=== PATIENT | female | born 1955 | race Caucasian/White ===

== ENCOUNTER 2016-12-26 12:08 | Inpatient (IN) | payer OTHER ==
[~2016-12-26] VITALS: Ht 170 cm; Wt 93.9 kg
--- NOTE | ~2016-12-26 | PR ---
[place], [place] PROGRESS NOTE NAME: YOLANDA BEARDEN UNIT #: [id number] ROOM: 410 DOCTOR: RADHA LAKE MD BIRTHDATE: [birth year] DOS: 12/28/2016 SUBJECTIVE: She has been noted awake and alert, has been noted cough with small amount of sputum expectoration. Denies symptoms of chest pain. Mental status, the patient has been noted better. There were no symptoms of abdominal pain. She has been transferred to telemetry floor. OBJECTIVE: VITAL SIGNS: Normal temperature, respiratory rate 18, heart rate 91, blood pressure 126/64-122/64. Intake 1300 mL. Output 2300 mL. The pulse oxygen saturation on 3 liters nasal cannula 95% saturation. HEENT: Shows no acute change. NECK: Supple. CARDIOVASCULAR SYSTEM: S1, S2 audible. LUNGS: The patient was noted without any wheezing. The crackles noted in the left lower lung. ABDOMEN: Soft, nontender. LABORATORY DATA: Magnesium level of the patient that was reported for the patient noted 1.2 yesterday. Urine culture for patient showed no bacterial growth. The BMP for this patient noted as BUN normal. Creatinine was normal. Potassium 3.1. Cultures of the sputum of the patient noted normal zeyad. Preliminary findings of culture results were pending. Gram stain for the patient on the shows moderate epithelial cells, few epithelial cells. IMPRESSION: 1. The patient who has been currently treated for acute on chronic hypoxic respiratory failure, acute pneumonia, suspected urinary tract infection. 2. Hypomagnesemia. 3. Hypokalemia as well. PLAN OF TREATMENT: Supplementation of potassium for the patient has been ordered for today orally. The patient would be continued on the other previous treatment plan of management. Monitoring of the labs for this patient as well. Repeat another chest x-ray in the morning. Monitoring culture results. Supportive therapy, plan of management. Usual care. [place], [place] PROGRESS NOTE NAME: YOLANDA BEARDEN UNIT #: [id number] ROOM: 410 DOCTOR: RADHA LAKE MD BIRTHDATE: [birth year] RADHA KIM MD CM:PNTRANS [id number] RADHA PARTIDA MD 12/28/16 1133 interface
--- NOTE | ~2016-12-26 | DS ---
[place], [place] DISCHARGE SUMMARY NAME: YOLANDA BEARDEN UNIT #: [id number] ROOM: 410 DOCTOR: NICOLE POLK MD BIRTHDATE: [birth year] DOS: 12/28/2016 DISCHARGE DIAGNOSES: 1. The patient is going to [facility] for treatment of major depression, recurrent and severe anxiety with Dr. Moyer. 2. Morbid obesity, generalized weakness and adult failure to thrive. 3. Severe leukocytosis and left upper lobe pneumonia, treated with antibiotics, which will be continued for 1 more week at [facility]. 4. Type 2 diabetes mellitus. Blood sugars were monitored. 5. Chronic kidney disease stage III and diabetic nephropathy. 6. Moderate protein-calorie malnutrition. 7. Coronary artery disease of [place] vessels. 8. Chronic generalized anxiety disorder. 9. Major depression, recurrent. 10. Gastroesophageal reflux disease and esophagitis. 11. Paranoid disorder. 12. Mixed hyperlipidemia. 13. Benign essential hypertension. 14. Pulmonary fibrosis. HOSPITAL COURSE: The patient was admitted when she came back with severe leukocytosis with a white cell count of 22,500, which was sudden increase and she had pneumonia on the chest x-ray and left lower lobe infiltrates. The patient admitted and Dr. Rodriguez, the hearing instrument specialist was consulted. The patient was started on Levaquin and IV vancomycin, which Dr. Rodriguez has recommended to be continued for 1 more week. Levaquin will be given orally now and vancomycin continued intravenously. I will get Dr. Rodriguez to continue to follow the patient. Sepsis criteria applied because of left lower lobe pneumonia and severe leukocytosis, which is not improving with antibiotics. The patient also had tachycardia with heart rate going up to 107 beats per minute. The patient is doing better now and breathing better. She is less agitated. Yesterday, she became quite agitated and was seen by Dr. Moyer, who has accepted her at the [facility] where she will continue her antibiotics for a week. Her breathing has normalized and leukocytosis have improved from 22,500-11,200. Hemoglobin is stable at 10.7. Morbid obesity, adult failure to thrive and generalized disability. We are taking bedsore precautions and every 2-hour turning, and Physical therapy was consulted. Urine cultures and urinalysis showed no signs of infection. Hypomagnesemia. The patient on magnesium supplements. DISCHARGE MANAGEMENT: Magnesium oxide 400 mg b.i.d., potassium chloride 10 mEq daily, Invega 9 mg orally every morning, lisinopril 2.5 mg daily, Imdur 30 mg a day, Plavix 75 mg a day, Bumex 2 mg daily, aspirin 81 mg a day, Cymbalta 60 mg a day and metformin 500 mg daily. No concentrated-sweet diet. Risperidone 0.5 mg at bedtime, metoprolol 50 mg b.i.d., gabapentin 300 mg b.i.d., Lipitor 10 mg a day, Tylenol 1 gram every 6 hours p.r.n. for pain, DuoNeb every 4 hours as needed for shortness of breath, Dulcolax 10 mg daily p.r.n. for constipation, MiraLax 17 grams daily, Colace 100 mg daily, IV vancomycin 1 gram b.i.d. for 1 [place], [place] DISCHARGE SUMMARY NAME: YOLANDA BEARDEN UNIT #: [id number] ROOM: [facility] DOCTOR: NICOLE POLK MD BIRTHDATE: [birth year] week and then to be stopped and Levaquin 750 mg daily for 1 week and then to be stopped. NICOLE POLK MD CM:COURT [id number] [phone] NICOLE POLK MD 12/28/161935 interface
--- NOTE | ~2016-12-26 | CON ---
[place], [place] REPORT OF CONSULTATION NAME: YOLANDA BEARDEN UNIT #: [id number] ROOM: 410 DOCTOR: RADHA LAKE MD BIRTHDATE: [birth year] DOS: 12/27/2016 PULMONARY CONSULTATION, EVALUATION AND MANAGEMENT CONSULTATION REQUESTED: Dr. Solis, which was completed on 12/27/2016 for the acute hypoxic respiratory failure, chronic hypoxic respiratory failure. HISTORY OF PRESENT ILLNESS: A 61-year-old white female who has been known to me from the past with a history of bronchial asthma, treated lung cancer with radiation therapy in the left side is in the [facility]. She has been noted difficulty of maintaining oxygen saturation of the patient with supplementation of oxygen. She has been normally using 2 liters of oxygen supplementation and was noted with oxygen desaturation with 4-5 liters nasal cannula oxygen supplementation. She has been sent to the hospital for further assessment. She denies symptoms of coughing. The patient does complain of mild to increased shortness of breath than usual. Denies any wheezing. Denies symptoms of chest pain or hemoptysis. REVIEW OF SYSTEMS: Limited because of the patient's mental status and psychiatric problem; however, the patient was noted with symptom of fatigue. Denies symptoms of fever or chills. EYES: Denies any burning, redness, or tenderness. EARS, NOSE, AND THROAT: Denies sore throat, hoarseness, otalgia, postnasal drainage. CARDIOVASCULAR SYSTEM: Denies anginal pain, edema of the lower extremities or palpitations. GASTROINTESTINAL: Denies nausea, vomiting, diarrhea, abdominal pain, hematemesis, melena, hematochezia. SKIN: No lesions or rashes. CENTRAL NERVOUS SYSTEM: No dizziness, headache, or diplopia. MUSCULOSKELETAL: No deformities. The remaining systems were reviewed with the patient and they were noted all negative. PAST MEDICAL HISTORY: Noted for previous hospitalization in this hospital in November 2016. 1. The patient has been treated in this hospital at this time and treated for acute bacterial pneumonia patient's left lower lobe for this patient with acute on chronic hypoxic respiratory failure, progressive resolution and then discharged to the longterm facility. 2. History of uncomplicated persistent bronchial asthma. 3. Essential hypertension. 4. Gastroesophageal reflux. 5. Coronary artery disease. 6. Anxiety disorder and depression. 7. Peripheral vascular disease. 8. Past nicotine abuse. 9. History of squamous cell cancer left upper lung, status post radiation therapy in 2015. 10. History of chronic hypoxic respiratory failure, use of oxygen 2 liters [place], [place] REPORT OF CONSULTATION NAME: YOLANDA BEARDEN UNIT #: [id number] ROOM: 410 DOCTOR: JUDY PARTIDA MD,RADHA BIRTHDATE: [birth year] nasal cannula. PAST SURGICAL HISTORY: 1. Tonsillectomy. 2. . 3. Coronary artery bypass grafting. 4. Cardiac catheterization. 5. Acute coronary intervention with stent placement. 6. Partial hysterectomy. 7. Diskectomy of the left lower back. 8. Left femoropopliteal bypass grafting. 9. CT guided needle aspiration biopsy of the left upper lung mass in January 2015. 10. Bilateral cataract extraction and lens implantation. SOCIAL HISTORY: The patient is , has 2 children. Denies history of alcohol or illicit drug use. She has been noted tobacco use since age of [age] years old and currently not smoking any cigarettes at this time. There is no history of alcohol or any illicit drug use. FAMILY HISTORY: Mother at the age of 6767 years old from complication of cancer of unknown primary. Father from complication of metastatic cancer, unknown primary at the age of 5454 years old. MEDICATIONS: Current administered medications noted use of potassium chloride, Invega, lisinopril, Imdur, Plavix, Bumex, aspirin, Cymbalta, metformin, Risperdal, metoprolol tartrate, Neurontin, Lipitor, current administration of the Levaquin and others. DRUG ALLERGY HISTORY: NOTED ALLERGIES TO: 1. AMOXICILLIN. 2. IVP DYE. PHYSICAL EXAMINATION: GENERAL: A 61 years old female has been noted currently awake and alert, follows vocal commands, height of 5 feet 6 inches, weight of 207 pounds, BMI 32.5. VITAL SIGNS: Normal temperature, respiratory rate range between 18-29, heart rate of 97-116, blood pressure 133/70-80/50 noted previously. HEENT: Head was atraumatic. Eyes: Nonicterus. The neck was supple. Oral mucosa was moist. CARDIOVASCULAR SYSTEM: S1, S2 audible. LUNGS: Occasional wheezing was present without any crackles. ABDOMEN: Flat, soft, nontender. Bowel sounds present. EXTREMITIES: Showed no edema, clubbing or cyanosis. CENTRAL NERVOUS SYSTEM: Limited exam with cranial nerves 2-12 intact without any gross focal deficits. SKIN: No lesions or rashes. MUSCULOSKELETAL: No acute deformities. [place], [place] REPORT OF CONSULTATION NAME: YOLANDA BEARDEN UNIT #: [id number] ROOM: 410 DOCTOR: RADHA LAKE MD BIRTHDATE: [birth year] LABORATORY DATA: CBC of the patient that was done for this patient on admission, WBC count was noted at 22.5, hemoglobin 11.3, hematocrit 33.0, and platelet count 198,000. CMP of the patient yesterday shows BUN of 16, creatinine 1.19, glucose 128. Magnesium 0.9. PT and PTT yesterday were noted as normal. BMP this morning, BUN normal, creatinine was normal. CBC this morning, WBC count 11.2, hemoglobin 10.7, hematocrit 31.0, platelet count 161,000, 97% segmented neutrophils. Urine culture preliminary shows no bacterial growth. Urinalysis the patient that was done on 12/26/2016 shows 2+ leukocyte esterase with 4+ bacteria. The chest x-ray of the patient shows postoperative changes and scarring of the left lung. CT scan of the chest on 12/26/2016 was compared personally to the CT scan of 09/21/2016 shows interval development of large area of consolidation, infiltration, which was involving in the left lower lobe. The patient has any acute change. Some of the area for this patient in the left perihilar area to be considered as possibility of lymphadenopathy including consideration of recurrence of malignancy in that area or lymphadenopathy can be completely excluded. IMPRESSION: 1. The patient who has been currently treated in the hospital, who has been noted with current findings and symptoms consistent with acute sepsis related to the acute pneumonia will be likely cause of leukocytosis, hypotension and others. 2. Possibility of urinary tract infection in addition to the pneumonia will be considered. 3. Acute on chronic hypoxic respiratory failure secondary to acute bacterial pneumonia and acute sepsis. 4. Rule out recurrence of the malignancy for this patient in the left hemithorax as well with lymphadenopathy and mass lesion. 5. History of significant psychiatric problems including major depression treated with the medications as well. 6. Severe hypomagnesemia. PLAN OF TREATMENT: Support the blood pressure of the patient with the use of the intravenous fluids if necessary. Supplementation of the magnesium has been ordered for this patient with 2 g of magnesium sulfate intravenously and repeating the level later this afternoon for additional supplementation of magnesium to be done accordingly. The patient has been getting IV Levaquin for this patient as antibiotics with addition of antibiotics. The patient will be started for the coverage of gram-positive infection as vancomycin. Monitor respiratory status closely for this patient. Monitor culture results as well. Blood cultures have been taken for patient on admission. Sputum for Gram stain and culture the patient has been ordered for this patient, which is pending. The culture of the urine will be monitored in preliminary showing no bacterial growth. The patient has been started on DVT prophylaxis with Lovenox. Total time pulmonary and critical evaluation and management was 35 minutes. [place], [place] REPORT OF CONSULTATION NAME: YOLANDA BEARDEN UNIT #: [id number] ROOM: 410 DOCTOR: RADHA LAKE MD BIRTHDATE: [birth year] RADHA KIM MD CM:CONSTR:REPORT OF CONSULTATION 1319 12/27/16 2716 interface
--- NOTE | ~2016-12-26 | CON ---
[place], [place] REPORT OF CONSULTATION NAME: YOLANDA BEARDEN UNIT #: [id number] ROOM: 410 DOCTOR: CHARLENE TOVAR MD BIRTHDATE: [birth year] DOS: 12/28/2016 PSYCHIATRIC CONSULTATION CHIEF COMPLAINT: "I am feeling so depressed and anxious." HISTORY OF PRESENT ILLNESS: This is a 61-year-old white female who resides at [facility], readmitted now for multiple times due to ongoing significant medical issues. The patient has a decubitus on her heel which is causing her difficulty. She also has chronic respiratory difficulties. From a psychiatric standpoint, the patient seems to be both depressed as well as some confusion is noted. Her behavior has been erratic on the medical floor and she has been very hard to redirect. MENTAL STATUS: She is alert and oriented to person, place, but not time. Mood does seem to be depressed with anxious overtones. There does also to be significant mood lability. She at times responds inappropriately. There is a level of confusion and disorientation noted. Short term memory has gaps. DIAGNOSIS: Major depression, recurrent, severe and anxiety disorder, rule out delirium. PLAN: At the present time, I do believe the patient would benefit from an ongoing treatment at the [facility] to stabilize psychiatrically before returning back to [facility]. CHARLENE TOVAR MD CM:CONSTR:REPORT OF CONSULTATION 0821 12/28/16 0945 interface
--- NOTE | ~2016-12-26 | WRIGHTHP ---
[place], [place] PATIENT HISTORY AND PHYSICAL EXAM [id number] UN[facility] #: [id number] ROOM: [facility] DOCTOR: NICOLE POLK MD BIRTHDATE: [birth year] DOS: 12/26/2016 HISTORY OF PRESENT ILLNESS: 1. The patient is a 61-year-old female with a past medical history of stage 3 pressure ulcer on the right heel, followed by [facility]. 2. Coronary artery disease of the [place] vessels. 3. Moderate protein-calorie malnutrition. 4. Obesity. 5. Adult failure to thrive. 6. Chronic generalized anxiety disorder. 7. Diabetic nephropathy and chronic kidney disease stage 3. 8. Type 2 diabetes mellitus. 9. Major depression, recurrent, followed by Psychiatry. 10. Gastroesophageal reflux disease and esophagitis. 11. History of paranoid disorder. 12. History of mixed hyperlipidemia. 13. Benign essential hypertension. 14. Pulmonary fibrosis. The patient presented to the Emergency Department at [facility] and was seen by Dr. Fabian for increased shortness of breath and sudden leukocytosis with elevated white cell count of 22,500 today as compared to normal yesterday. No diarrhea. The patient's chest x-ray showed some clearing of the left lower lobe infiltrates. The patient is apparently afebrile. She was recommended for admission and further management for leukocytosis and pneumonia. After admission, the patient has wheezes and rhonchi which are audible, and she is somewhat short of breath and was admitted to the ICU. She is not complaining of any chest pain. No other GI or urinary symptoms. REVIEW OF SYSTEMS: LUNGS: Some increasing shortness of breath and wheezing. ABDOMEN: No nausea, vomiting, diarrhea or constipation. CARDIOVASCULAR: No chest pain or palpitations. FAMILY HISTORY: Noncontributory. HOME MEDICATIONS: Potassium, metformin, lisinopril, Imdur, Plavix, Bumex, aspirin, Invega, Cymbalta, risperidone, metoprolol, gabapentin, Lipitor, DuoNeb, MiraLax, Colace, levofloxacin. ALLERGIES: IODINE and PENICILLIN which causes hives. FAMILY HISTORY: Noncontributory. PHYSICAL EXAMINATION: GENERAL: Awake, alert, appears oriented, in no visible distress, but very weak generally. Moderately obese with generalized weakness. LUNGS: Show expiratory wheezing and some rhonchi all over. Examination of the feet shows multiple wounds, especially a stage 3 pressure ulcer on the right heel and multiple superficial skin wounds. [place], [place] PATIENT HISTORY AND PHYSICAL EXAM NAME: YOLANDA BEARDEN UNIT #: [id number] ROOM: [facility] DOCTOR: NICOLE POLK MD BIRTHDATE: [birth year] IMPRESSION: The patient with pneumonia and leukocytosis to be monitored closely in the ICU and to be treated with antibiotics and followed by turbine operator and network management specialist, Dr. Rodriguez and also by Infectious Disease specialist. The patient is showing left lower lobe pneumonia on the chest x-ray. Acute over chronic respiratory failure, to be followed closely in ICU, the patient appears to be very congested in her lungs. Coronary artery disease of the [place] vessels without chest pains. Moderate protein-calorie malnutrition and adult failure to thrive, we will take bed sore precaution and turn her every 2 hours and using an air mattress and consulted physical therapy. Diabetic nephropathy with stage 3 chronic kidney disease, serum electrolytes, BUN and creatinine will be monitored and I will continue her diuresis. Benign essential hypertension with controlled blood pressures. I will continue treatment. Type 2 diabetes mellitus. The patient's blood sugars will be monitored and treated. Blood sugar was normal at admission. The patient's lactic acid level was normal at admission. Generally poor health and failure to thrive. We will follow the patient closely. NICOLE POLK MD CM:HISPHYS:PATIENT HISTORY AND PHYSICAL EXAMINATION 37 20 NICOLE POLK MD 12/26/161921 interface
--- NOTE | ~2016-12-26 | PR ---
[place], [place] PROGRESS NOTE NAME: YOLANDA BEARDEN UNIT #: [id number] ROOM: [facility] DOCTOR: NICOLE POLK MD BIRTHDATE: [birth year] DOS: 12/27/2016 SUBJECTIVE: The patient is starting to feel better. Breathing is improving. OBJECTIVE: VITAL SIGNS: Blood pressure 133/70, heart rate of 102 beats per minute, breathing 26 times per minute, temperature 98 degrees Fahrenheit. ASSESSMENT AND PLAN: 1. The patient with obesity, generalized weakness and failure to thrive. Severe leukocytosis, improved with treatment with antibiotics to 11,200. Normal serum electrolytes. Urinalysis shows sinus infection. I will send it for cultures. 2. Diabetes mellitus. Blood sugars are generally staying between 100-160, well controlled. 3. Generally poor health and failure to thrive. 4. Chronic kidney disease, stage 3, stable. BUN and creatinine are being monitored. 5. Moderate protein-calorie malnutrition and adult failure to thrive. We are taking bedsore precautions and turning her every 2 hours and taking fall precautions. 6. Coronary artery disease without chest pains. NICOLE POLK MD CM:PNTRANS [id number] NICOLE POLK MD 12/27/16 1104 interface
--- NOTE | ~2016-12-26 | CON ---
[place], [place] REPORT OF CONSULTATION NAME: YOLANDA BEARDEN UNIT #: [id number] ROOM: 410 DOCTOR: JAIRON CookFERMÍN BIRTHDATE: [birth year] DOS: 12/27/2016 WOUND CARE CONSULTATION HISTORY OF PRESENT ILLNESS: This is a 61-year-old female with multiple medical problems, who resides at [facility]. She has chronic shortness of breath, severe debility, history of lung cancer, and open heart surgery, who comes into the Emergency Department yesterday for increasing shortness of breath. PAST MEDICAL HISTORY: Significant for the following: History of acute respiratory failure with hypoxia; anxiety; history of acute renal failure; bilateral pneumonia; history of psychotic disorder; coronary artery disease; history of chest pain; congestive heart failure; chronic back pain; chronic kidney disease, stage 3; COPD exacerbation; depression; diabetes; GERD; history of paranoid disorder; history of hyperlipidemia; hypertension; hyperkalemia; history of hypotension; lactic acidosis; history of lung cancer which is chronic; [id number]-SA-cpcnzhxox AK; recent bypass surgery last year; obesity; pneumonia; pneumonitis; pulmonary fibrosis; seasonal allergies; septic shock; severe anemia; severe protein-calorie malnutrition; history of sepsis; tachycardia; urinary retention; and urinary tract infection. The patient was seen during her last hospital admission approximately 3 weeks ago for pressure ulcer of her right heel. She has a history of a leg ulcer of her left lower extremity, which was postoperative, and it did eventually heal, but it took quite a bit of time and wound care. I saw her last time when she was admitted back on 12/07 for a pressure ulcer of her left heel. The duration of this is unknown. There was an open wound when I saw it. There was some moderate necrotic tissue present. A debridement was done the last time she was here, and she was eventually [facility]. An x-ray was ordered of the wound, which was normal, and she had lower extremity Dopplers ordered; however, unfortunately, there is no information regarding the arteries distally to the popliteal. So this information from this arterial Doppler is not helpful. ALLERGIES: AMOXICILLIN, AMPICILLIN, FISH, AND IVP DYE. CURRENT MEDICATIONS: As follows: She is on Levaquin 750 mg IV, magnesium oxide 400 b.i.d., vancomycin 1000 q. 12, Lovenox 40 subcutaneous daily, Micro-K 10 mEq daily, Invega 9 mg p.o. daily, lisinopril 2.5 p.o. daily, Imdur 30 daily, Plavix 75 daily, Bumex 2 mg daily, aspirin 81 daily, Cymbalta 60 mg daily, metformin 500 p.o. daily, Risperdal 0.5 at bedtime, Lopressor 50 p.o. b.i.d., Neurontin 300 p.o. b.i.d., Lipitor 10 at bedtime, Tylenol 1000 q.6 hours, DuoNebs q.4 hours, MiraLax powder daily, Dulcolax p.o. daily, milk of magnesia p.o. daily, Colace p.o. daily. SOCIAL HISTORY: She does not smoke or drink presently. She was a former smoker, however. FAMILY HISTORY: History of malignant neoplasm in the father, myocardial infarction in both father and mother, and colon cancer and myocardial infarction [place], [place] REPORT OF CONSULTATION NAME: YOLANDA BEARDEN UNIT #: [id number] ROOM: [facility] DOCTOR: FERMÍN DE LA O M.D. BIRTHDATE: [birth year] in the brother. REVIEW OF SYSTEMS: She says she feels better today with her breathing. She complains of some vague abdominal discomfort. Apparently, she complained of that when she came in. She denies any nausea or vomiting. She says her appetite is fair. No diarrhea. No fevers or chills. When I asked about her heel, overall she says it does not really hurt, and she does not have any specific complaints regarding this at this time. OBJECTIVE: VITAL SIGNS AND GENERAL: Her last recorded vital signs are temperature of 97.5, pulse of 102, respirations 26, blood pressure is 133/70, pulse ox is 96%; those are vitals from 4 o'clock this morning. Since then the patient has been transferred from the ICU to the regular floor, so updated vitals are not in the computer presently. The patient appears much more alert and in no acute distress. Then from when I last saw her which was 3 weeks ago, she was pale on examination. She does have somewhat of a flat affect, but she is pleasant and cooperative. NECK: There is no JVD. LUNGS: Have coarse rhonchi and bilateral wheezes. CARDIOVASCULAR: S1, S2, regular rate and rhythm. ABDOMEN: Soft. She complains of some mild discomfort in the lower part of the abdomen, otherwise is soft. There is no guarding. EXTREMITIES: She has edema bilaterally. There is no calf tenderness. Pedal pulses are difficult to feel. Her feet are warm. She has normal capillary refill. Her ulcer is located on the right heel, and it is measuring approximately 0.9 x 0.9 x 0.2. It definitely looks smaller than the last time I saw it. There is really no visible necrotic tissue. There is no surrounding cellulitis or erythema noted. It is not tender at this time. Her left lower foot has several pressure-related ulcers that are unstageable. There is a small dried eschar area in the left heel. There is a small dried area visible on the medial aspect of the metatarsal head and also a smaller deep pressure-related injury on the lateral side of the foot that is small. None of them are tender. They are all dry at this time and are not painful presently. LABORATORY AND DIAGNOSTIC DATA: Most recent lab work shows a white count of 11.2, hemoglobin of 10, platelets of 161. Chem-7 shows a BUN of 17, creatinine of 1, glucose of 160. The patient had a chest x-ray done showing partial clearing of the left lower lobe infiltrate. She had a repeat CT scan of the chest done. A significant amount of bibasilar, interstitial, pleural, and parenchymal scarring. Lesser degrees of these processes in the upper lobes, although there does appear to be considerable involvement of the lingula. Small bilateral hilar and mediastinal lymph nodes, presumably infectious versus inflammatory. ASSESSMENT AND PLAN: Pressure ulcer of the right heel, stage III, associated with peripheral vascular disease. The recent arterial ultrasound unfortunately was not helpful as we do not have any readings of the arteries distal to the popliteal artery. It does appear to be smaller. We will continue with TheraHoney and a foam dressing for now. She may have been getting a collagen [place], [place] REPORT OF CONSULTATION NAME: YOLANDA BEARDEN Garcia UNIT #: [id number] ROOM: 410 DOCTOR: JAIRON Cook,FERMÍN BIRTHDATE: [birth year] dressing. However, we do not have that available on the floor, so we will just put TheraHoney for now. I would have her offload it. She does have a heel lift device, which is available, which she can use for her right heel. However, for her left heel, I would avoid the heel lift device. I do feel that some of these areas were caused perhaps by this boot being too tightly placed. They are right around the pressure points where something would squeeze the forefoot, and that may be what has happened, so I would avoid that. I would keep these wounds dry for now and encourage offloading with pillows if available and try to avoid direct pressure to these wounds if possible. Ideally, a Multi Podus splint would be a good option for her, but we do not have that available at the present time. I will follow along with you. FERMÍN DE LA O MD CM:CONSTR:REPORT OF CONSULTATION 1628 12/28/16 0107 interface
[~2016-12-26 12:08] MED LIST: ALBUTEROL2.5 MG/0.5 INH; AMITRIPTYLINE10 MG PO; ASPI-COR81 M1 PO; ASPIR LOW81 MG PO; ATARAX,VISTARIL50 MG PO; ATARAX50 MG PO; ATIVAN0.5 MG PO; ATIVAN1 MG PO; AVPAK AZITHROM250 M1 PO; Amitriptyline H10 MG PO; BACLOFEN10 MG PO; BACTRIM DS 8001 TA1 PO; BREO ELLIPTA 11 EACH IH; BRIN20TA PO; BUMETANIDE1 MG PO; BUMETANIDE2 MG PO; BUMEX1 MG PO; CALCIUM 500 + D1 TAB PO; CIPRO500 MG PO; CIPRO750 MG PO; CIPROFLOXACIN750 MG PO; CLARITIN10 MG PO; COLACE100 MG PO; DELTASONE20 M1 PO; DEXILANT60 M1 PO; DULCOLAX10 M1 RC; DULOXETINE HCL60 MG PO; EXELON3 MG PO; FEOSOL325 MG PO; FLAGYL500 MG PO; FLONASE ALLERG9.9 ML NAS; FLOVENT0.044 MG/A IH; FUROSEMIDE40 MG PO; HYDROXYZINE HCL50 MG PO; HYDROXYZINE PAM25 M1 PO; IBU-TAB800 MG PO; IMIPRAMINE HCL50 MG PO; IMIPRAMINE50 MG PO; INCRUSE EL62.5 MCG/A IH; INVEGA9 MG PO; ISOSORBIDE30 MG PO; K-Dur 20MEQ20 MEQ PO; LEVAQUIN750 MG PO; LIPITOR10 MG PO; LISINOPRIL10 MG PO; LISINOPRIL5 MG PO; LOPRESSOR50 M1 PO; Lidex 0.05% Oin15 GM T; Lopressor25 MG PO; MACROBID100 M1 PO; METFORMIN500 MG PO; MILK OF MA400 MG/5 M PO; MIRALAX POWDER17 G1 PO; NABUMETONE500 M1 PO; NAPROSYN500 MG PO; NEURONTIN300 MG PO; NICOTINE T21 MG/24 H TD; NITRO-DUR1 EACH TD; NITROSTAT0.4 MG SL; NOVOLOG 70/30 M10 ML SC; NOVOLOG FLEX100 U/ML SC; NOVOLOG10 ML SC; OXYCODONE5 M1 PO; OXYGEN NAS; PEPCID20 MG PO; PEPCID40 MG PO; PLAVIX75 M1 PO; POTASSIUM CHLO10 ME5 PO; POTASSIUM CHLO20 ME3 PO; PREDNICOT20 MG PO; PREDNISONE10 M1 PO; PREDNISONE10 MG PO; PREDNISONE5 MG PO; PRILOSEC20 M1 PO; PRILOSEC40 MG PO; PRINIVIL5 M1 PO; PROAIR HFA0.09 MG/AC IH; PROTONIX40 MG PO; PROVENTIL0.09 MG/A1 INH; QUETIAPINE FUM100 M3 PO; QUETIAPINE FUMA50 M1 PO; RISPERDAL M-TAB1 MG PO; RISPERDAL0.5 MG PO; RIVASTIGMINE TAR3 M1 PO; SANTYL250 U/GM T; SENORMIN50 MG PO; SINGULAIR10 MG PO; SPIRIVA18 MCG PO; SYMBICORT1 AE1 IH; SYMBICORT1 AE1 INH; TOFRANIL50 MG PO; TRINTELLIX20 MG PO; TRIXAICIN HP0.075% T; TYLENOL325 M2 PO; ULTRAM50 MG PO; VENTOLIN 02.5 MG/3 M INH; VIBRAMYCIN100 MG PO; VISTARIL25 MG PO; VITAMIN D50000 I3 PO; XANAX0.5 MG PO; ZESTRIL,PRINIVI10 MG PO; ZESTRIL2.5 MG PO; ZYRTEC10 MG PO; [UNRECOGNIZED DRUG - OTHER] PO
[2016-12-26 12:49] LABS: HEMATOCRIT 33.8 % (37.0-47.0); HEMOGLOBIN 11.3 g/dl (12.0-16.0); MEAN CELL VOLUME 95.5 fl (81.0-99.0); MEAN CORPUSCULAR HGB 31.9 pg (27.0-31.0); MEAN CORPUSCULAR HGB CONC 33.4 g/dl (33.0-37.0); MEAN PLATELET VOLUME 10.3 fl (9.6-12.3); PLATELET COUNT AUTOMATED 198 10*3/uL (130-400); RED BLOOD COUNT 3.54 10*6/uL (4.10-5.10); RED CELL DISTRI WIDTH 15.6 % (0-14.5); WHITE BLOOD COUNT 22.5 10*3/uL (4.8-10.8)
[2016-12-26 12:58] LABS: INTERNATIONAL NORM RATIO 1.1 (2.0-3.5)
[2016-12-26 13:05] LABS: ALBUMIN 2.8 gm/dl (3.1-4.5); BILIRUBIN, TOTAL 0.9 mg/dl (0.2-1.0); C-REACTIVE PROTEIN 6.79 MG/DL (0-0.3); CKMB 0.8 ng/ml (0.5-3.6); POTASSIUM 4.1 mmol/L (3.5-5.1); TOTAL PROTEIN 6.6 gm/dL (6.4-8.2); TROPONIN I 0.016 ng/ml (<0.045)
[2016-12-26 13:07] LABS: MAGNESIUM 0.9 mg/dL (1.5-2.1)
[2016-12-26 13:13] LABS: EOSINOPHIL # 0.7 10*3/uL (0-0.4); EOSINOPHILS 3 % (1-4); LYMPHOCYTE # 1.4 10*3/uL (1.3-4.4); MONOCYTE # 1.6 10*3/uL (0.1-1.0); NEUTROPHIL # 18.9 10*3/uL (2.3-7.9); NEUTROPHILS 84 % (47-73); PLATELET SUFFICIENCY NORMAL (NORMAL); TOTAL CELLS COUNTED 100 #CELLS
[2016-12-26 14:20] LABS: BILIRUBIN NEGATIVE (NEGATIVE); BLOOD 3+ (NEGATIVE); CLARITY CLOUDY (CLEAR); COLOR YELLOW (YELLOW); GLUCOSE NEGATIVE (NEGATIVE); KETONE NEGATIVE (NEGATIVE); LEUKO ESTERASE 2+ (NEGATIVE); NITRITE NEGATIVE (NEGATIVE); PROTEIN TRACE (NEGATIVE); SPECIFIC GRAVITY <= 1.005 (1.005-1.030); UROBILINOGEN 0.2 E.U./dl (0.2-1.0)
[2016-12-26 14:35] LABS: BACTERIA 4+; URINE REFLEX COMMENT YES (NO)
[2016-12-26 14:37] LABS: WBC 21-30 wbc/hpf (0-5)
[2016-12-26] MEDS ORDERED: MACROBID100 M1 PO (15:59)
[2016-12-27 06:02] LABS: BUN 17 mg/dl (7-24); CARBON DIOXIDE 26 mmol/L (21-32); CHLORIDE 101 mmol/L (98-107); EST GLOM FILT AFRICAN AMERICAN > 60 ml/min; GLUCOSE 160 mg/dL (65-99); POTASSIUM 3.5 mmol/L (3.5-5.1); SODIUM 139 mmol/L (136-145)
[2016-12-27 06:03] LABS: HEMATOCRIT 31.8 % (37.0-47.0); HEMOGLOBIN 10.7 g/dl (12.0-16.0); MEAN CELL VOLUME 93.5 fl (81.0-99.0); MEAN CORPUSCULAR HGB 31.5 pg (27.0-31.0); MEAN CORPUSCULAR HGB CONC 33.6 g/dl (33.0-37.0); MEAN PLATELET VOLUME 11.1 fl (9.6-12.3); PLATELET COUNT AUTOMATED 161 10*3/uL (130-400); RED CELL DISTRI WIDTH 15.2 % (0-14.5); WHITE BLOOD COUNT 11.2 10*3/uL (4.8-10.8)
[2016-12-27 06:34] LABS: LYMPHOCYTE # 0.2 10*3/uL (1.3-4.4); MONOCYTE # 0.1 10*3/uL (0.1-1.0); NEUTROPHIL # 10.9 10*3/uL (2.3-7.9); NEUTROPHILS 97 % (47-73); TOTAL CELLS COUNTED 100 #CELLS
[2016-12-27 06:35] LABS: PLATELET SUFFICIENCY NORMAL (NORMAL)
[2016-12-28 07:10] LABS: BUN 12 mg/dl (7-24); CARBON DIOXIDE 28 mmol/L (21-32); CHLORIDE 103 mmol/L (98-107); EST GLOM FILT AFRICAN AMERICAN > 60 ml/min; GLUCOSE 100 mg/dL (65-99); POTASSIUM 3.1 mmol/L (3.5-5.1); SODIUM 143 mmol/L (136-145)
[2016-12-28] MEDS ORDERED: DUONEB 3 MG/3 ML3 M1 NEB (18:27)
[2016-12-28] MEDS ORDERED: LEVAQUIN750 M1 PO (22:53)
[2016-12-28] MEDS ORDERED: VANCO 1 GR1 GM/250 M IV (22:58)
== END 2016-12-28 21:12 | disposition home health service (06) | DRG 871 ==
LOC: ED 12:08 → EDHOLD 15:07 → ICCU 15:07 → 4E 15:07 → ICCU 15:38 → 4E 12-27 13:47
PROVIDERS: Emergency Medicine; Internal Medicine
DX: A40.9 Streptococcal sepsis, unspecified (principal); J15.9 Unspecified bacterial pneumonia; J96.21 Acute and chronic respiratory failure with hypoxia; I13.0 Hypertensive heart and chronic kidney disease with heart failure and stage 1 through stage 4 chronic kidney disease, or unspecified chronic kidney disease; L89.613 Pressure ulcer of right heel, stage 3; I50.9 Heart failure, unspecified; C34.90 Malignant neoplasm of unspecified part of unspecified bronchus or lung; N39.0 Urinary tract infection, site not specified; E44.0 Moderate protein-calorie malnutrition; F33.9 Major depressive disorder, recurrent, unspecified; J44.0 Chronic obstructive pulmonary disease with (acute) lower respiratory infection; E11.21 Type 2 diabetes mellitus with diabetic nephropathy; E11.22 Type 2 diabetes mellitus with diabetic chronic kidney disease; N18.3 Chronic kidney disease, stage 3 (moderate); E83.42 Hypomagnesemia; I25.10 Atherosclerotic heart disease of native coronary artery without angina pectoris; K21.9 Gastro-esophageal reflux disease without esophagitis; E87.6 Hypokalemia; E11.51 Type 2 diabetes mellitus with diabetic peripheral angiopathy without gangrene; Z96.1 Presence of intraocular lens; I25.2 Old myocardial infarction; J44.9 Chronic obstructive pulmonary disease, unspecified; Z87.01 Personal history of pneumonia (recurrent); Z87.440 Personal history of urinary (tract) infections; Z87.891 Personal history of nicotine dependence; J45.909 Unspecified asthma, uncomplicated; F41.1 Generalized anxiety disorder; E66.01 Morbid (severe) obesity due to excess calories; J84.10 Pulmonary fibrosis, unspecified; F22 Delusional disorders; R62.7 Adult failure to thrive; Z79.84 Long term (current) use of oral hypoglycemic drugs; Z79.2 Long term (current) use of antibiotics; Z79.899 Other long term (current) drug therapy; Z88.0 Allergy status to penicillin; Z91.041 Radiographic dye allergy status; Z88.1 Allergy status to other antibiotic agents; Z91.013 Allergy to seafood; Z82.49 Family history of ischemic heart disease and other diseases of the circulatory system; Z80.0 Family history of malignant neoplasm of digestive organs; Z95.1 Presence of aortocoronary bypass graft; Z90.710 Acquired absence of both cervix and uterus; Z98.42 Cataract extraction status, left eye; Z98.41 Cataract extraction status, right eye; Z68.27 Body mass index [BMI] 27.0-27.9, adult

== ENCOUNTER 2016-12-28 21:22 | Inpatient (IN) | payer OTHER ==
[~2016-12-28] VITALS: Ht 167.6 cm; Wt 93.9 kg
--- NOTE | ~2016-12-28 | PR ---
[place], [place] PROGRESS NOTE NAME: YOLANDA BEARDEN UNIT #: [id number] ROOM: 309 DOCTOR: DINA CARMEN BIRTHDATE: [birth year] DOS: 12/31/2016 CHIEF COMPLAINT: Nonverbal. SUMMARY OF VISIT: The patient was assessed in the dining room where she was sitting in a wheelchair. This is the first time she has been out of her room and up in a chair when I rounded in the morning. It should be noted that her vanco trough came back high again on the and again today. We will need to make sure that her vanco is being adjusted appropriately. She is also elevated third spacing of fluid overload they have started her on Bumex and put a Moya in. 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 She does have a poor appetite at this point in time, but some of it may just because she is not feeling very well, we will keep an eye on it. MENTAL STATUS: Again, nonverbal, no overt signs of auditory or visual hallucinations, delusions, paranoia, marko or hypomania. The patient can be behavioral at times noncompliant with taking her medications. The hospitalist was up on the floor last night and told her she did take her pills and she took them for him. PLAN: I am going to keep her antidepressant and her Cymbalta and her risperidone right now. I wanted to monitor and see how well she starts to feel after being diuresed and we should continue to get her up, get her moving around, see if we can kind of help her feel better. We will try to engage in individual and pollock milieu therapy and plan to discharge once stable. SHONA CARMEN CNP CM:PNLIBRA DINA CARMEN 12/31/16 1059 interface
--- NOTE | ~2016-12-28 | PR ---
[place], [place] PROGRESS NOTE NAME: YOLANDA BEARDEN UNIT #: [id number] ROOM: 309 DOCTOR: JUDY PARTIDA MD,RADHA BIRTHDATE: [birth year] DOS: 01/05/2017 SUBJECTIVE: The patient seen in the [facility]. She has been appearing much better at this time. The edema of the patient has been gradually subsiding. Coughing has been noted absent. The patient was also noted more responsive and following vocal commands. OBJECTIVE: VITAL SIGNS: Showed normal temperature, respirations 16, heart rate 100, blood pressure ____/60. HEENT: Showed no new change. NECK: Supple. CARDIOVASCULAR SYSTEM: S1, S2 audible. LUNGS: The patient was noted without any wheeze or crackles at this time. ABDOMEN: Soft, nontender. LABORATORY DATA: The chest x-ray of the patient that were done yesterday for the patient, PA lateral as recorded shows progressive resolution improvement in the pneumonia in the left lower lobe. IMPRESSION: Resolving acute pneumonia with gram-positive and gram-negative organisms, progressively with improving oral fluid status and congestive heart failure. PLAN OF TREATMENT: No change in plan and management and another chest x-ray to be repeated on Sunday. The patient can be considered possible discharge on Sunday morning to detention facility from [facility] as well. RADHA KIM MD CM:PNTRANS [id number] RADHA PARTIDA MD 01/05/17 1007 interface
--- NOTE | ~2016-12-28 | PR ---
[place], [place] PROGRESS NOTE NAME: YOLANDA BEARDEN UNIT #: [id number] ROOM: 309 DOCTOR: DINA CARMEN BIRTHDATE: [birth year] DOS: 12/30/2016 SUMMARY OF VISIT: The patient was assessed in her room. She did not engage in conversation. She was nonverbal. Nursing states that she did not take any of her meds at all yesterday. It should also be noted that her vancomycin trough was elevated. MENTAL STATUS: Nonverbal, no overt signs of auditory or visual hallucinations, delusions or paranoia. Can be very agitated at times. PLAN: I will see how she does with her meds with the nurses today. If she continues to refuse her Risperdal and try to switch it to maybe M-tabs and see if I can decrease some of her behaviors. I will have the hospitalist followup and make sure that she is not irritated or upset stomach or anything like that from the antibiotics. We will continue to redirect. We will see if we can get her a little bit more compliant with her medications and go from there. SHONA CARMEN CNP CM:FELICITY DINA CARMEN 12/30/16 0939 interface
--- NOTE | ~2016-12-28 | PR ---
[place], [place] PROGRESS NOTE NAME: YOLANDA BEARDEN UNIT #: [id number] ROOM: 309 DOCTOR: CHARLENE TOVAR MD BIRTHDATE: [birth year] DOS: 01/07/2017 CHIEF COMPLAINT: "Good morning." SUMMARY OF THE VISIT: The patient was interviewed as she rested in bed. She gave very minimal responses reporting that she did get up and have breakfast, but did not feel like doing much of anything else. After a short period of conversation, the patient just seem to voluntarily stopped talking to me. She does still seem to be somewhat depressed although this does seem to be improving. There is no agitation or aggression. MENTAL STATUS: She is alert and oriented to person, place, but not necessarily to time. Mood does seem to be trending towards euthymia and affect is more appropriate. Her responses; however, tended to be very short and simple and at times, she chose not to speak. There was no auditory or visual hallucinations noted. No verbalizations of any paranoia or delusions. Short term memory has gaps, otherwise, she is intact. PLAN: I will recheck a CBC with diff and a CMP this morning just to ensure that she is medically going in the right direction. From a psychiatric standpoint, I will maintain her current psychotropics as they are. Continue to support and monitor, engage in individual and pollock milieu activity with the ultimate plan to return to [facility] when stable. CHARLENE TOVAR MD CM:PNTRANS 9 7 CHARLENE TOVAR MD 01/07/1729 interface
--- NOTE | ~2016-12-28 | PR ---
[place], [place] PROGRESS NOTE NAME: YOLANDA BEARDEN [id number] UNIT #: [id number] ROOM: 309 DOCTOR: JAIRON Cook,FERMÍN BIRTHDATE: [birth year] DOS: 01/04/2017 SUBJECTIVE: The was seen today for following up her pressure ulcers and pressure injuries of her bilateral feet. The only complaint she has currently is that she is tired and wants to go back to bed. She offers no other specific complaints. OBJECTIVE: VITAL SIGNS: Her blood pressure is 98/58, her pulse is 99, temperature is 96.7. The dressing was removed from her right foot. The open area of the right heel appears to have some dried blood at the base of the wound. The periwound, however, is very macerated. There is quite a bit of maceration noted today that was not present the last time I saw it and on the lateral wound, the lateral new unstageable pressure injury area remains intact and stable. The other areas of the left foot are about the same, none of them seem to have opened up and there are no signs of infection. ASSESSMENT AND PLAN: Multiple pressure ulcers of bilateral feet. Both heels have pressure ulcers. The right heel has a larger ulcer, one that is actually opened. We will discontinue the TheraHoney and foam as it seems to be a macerating the periwound too much, so we will just use Maxorb silver and ABD pads and Kerlix for now. I will keep the area dry as possible. This patient should be evaluated by Vascular at some point, but may not be a candidate for intervention due to her multiple comorbidities and medical problems. In addition, offloading is a challenge as the staff indicates that she does not like to have her heels elevated and the patient does request to be put into bed rather than being up in a chair during the day, so we must do what we can to encourage offloading as much as possible. Offloading is imperative to prevent these wounds from getting worse and . FERMÍN DE LA O MD CM:PNTRANS [id number] FERMÍN DE LA O M.D. 01/05/17 0202 interface
--- NOTE | ~2016-12-28 | CON ---
[place], [place] REPORT OF CONSULTATION NAME: YOLANDA BEARDEN UNIT #: [id number] ROOM: 309 DOCTOR: RADHA LAKE MD BIRTHDATE: [birth year] DOS: 12/30/2016 PULMONARY CONSULTATION, EVALUATION AND MANAGEMENT NOTE CONSULTATION REQUESTED BY: Dr. Юлия Campoverde. [facility]. REASON FOR CONSULTATION: The patient with current treatment of acute pneumonia and refusal of treatment. HISTORY OF PRESENT ILLNESS: This is a 61-year-old female who has been known to me with past history of multiple medical problems including lung cancer, bronchial asthma and others. The patient has been treated in acute care facility and recently discharged and [facility] 12[facility]28[facility]2016. The patient has been treated for acute large pneumonia in the left lower lobe. The patient has been refusing to take the medication including diuretics as well noted increased puffiness of the face, edema of the extremities. The patient has not been taking the Levaquin that has been ordered orally as well for the past couple of days. As the patient was seen, she was still noted slow to response. However, the patient denies again any symptoms of chest pain and shortness of breath, the patient has been noted not completely resolved. Denies symptoms of chest pain or any abdominal pain. Denies any symptoms of hemoptysis. REVIEW OF SYSTEMS: CONSTITUTIONAL: She noted fatigue and tiredness without symptoms of fever or chills. EYES: Denies any burning, redness, or tenderness. EARS, NOSE, AND THROAT: Denies sore throat, hoarseness, otalgia or postnasal drainage. CARDIOVASCULAR: Denies anginal pain. Noted edema of the lower extremities at this time. GASTROINTESTINAL: Denies nausea, vomiting, diarrhea, abdominal pain, hematemesis, melena or hematochezia. GENITOURINARY: Denies dysuria, suprapubic pain or hematuria. SKIN: No lesions or rashes. CENTRAL NERVOUS SYSTEM: Denies dizziness, headache, diplopia or syncopal episodes. Remaining systems were reviewed with the patient, they were noted all negative. The past medical history, surgical history, social history and family history were reviewed with the patient and remains unchanged since my last consultation on 12/27/2016. MEDICATIONS: The current administered medications the patient was noted at this time were noted use of Colace, MiraLax, magnesium oxide, potassium chloride, aspirin, Plavix, oral Bumex, Neurontin, lisinopril, Imdur, Cymbalta, metformin, albuterol sulfate, metoprolol tartrate, Lipitor, DuoNeb, Risperdal, Geodon, IV [place], [place] REPORT OF CONSULTATION NAME: YOLANDA BEARDEN UNIT #: [id number] ROOM: 309 DOCTOR: JUDY PARTIDA MD,RADHA BIRTHDATE: [birth year] vancomycin and oral Levaquin. DRUG ALLERGY HISTORY: ALLERGIES TO IVP DYE AND AMPICILLIN. PHYSICAL EXAMINATION: GENERAL: This is a 61-year-old female who has been noted currently awake and alert, noted slow to respond, but answered the questions. The height of the patient noted as 5 feet 6 inches, weight of 207 pounds, BMI 33.4. VITAL SIGNS: For the patient which has been recorded shows the temperature of the patient remains normal, respiratory rate 20, heart rate 90, blood pressure 130/62 and 125/69. Pulse oxygen saturation of the patient noted as 97% on room air. HEENT: Shows puffiness of face with edema. NECK: Supple. CARDIOVASCULAR: S1, S2 audible. LUNGS: Shows gcve-kb-isziqjer decreased breath sounds, scattered crackles of the lungs noted bilaterally. There was no wheezing heard. Breath sounds noted mildly decreased. ABDOMEN: Soft, nontender. EXTREMITIES: Shows 2+ pitting edema of bilateral lower extremities. SKIN: No lesions or rashes. CENTRAL NERVOUS SYSTEM: Limited, but no focal deficit. Cranial nerves 2-12 intact. MUSCULOSKELETAL: No acute deformities. LABORATORY DATA: Vancomycin trough level noted yesterday as 20.5. IMPRESSION: 1. The patient who has been noted with refusal of the medications used for the patient as ordered for this patient noted edema of the extremities with acute pneumonia for this patient in the left lower lobe with possibility of some fluid overload for the patient, congestive heart failure and diastolic dysfunction will be considered. 2. History of past known lung cancer which has been treated of left upper lung with radiation therapy. 3. The patient with uncomplicated severe persistent bronchial asthma. 4. Significant behavioral problems with withdrawal status for this patient, which has been treated in the Behavioral Health Unit. 5. Mild elevation of the vancomycin trough level. 6. Decreased oral intake and food intake as well. PLAN OF TREATMENT: The patient has taken the medication, as I talked to the patient this morning, in my presence. Temporarily, the patient will be switched to intravenous Bumex. Oral Bumex of the patient will be placed on hold. BMP of the patient has been ordered. Monitoring of edema of the lower extremities. Adjust the vancomycin level of the patient by the pharmacy to keep it in a therapeutic level. The lab for this patient was ordered because of the use of IV Bumex over the next 3 days. The patient was also ordered nutrition supplements as well. The Levaquin of the patient will be switched to the next 4 days intravenously to complete the treatment. Obtain another chest x-ray on [place], [place] REPORT OF CONSULTATION NAME: YOLANDA BEARDEN UNIT #: [id number] ROOM: 309 DOCTOR: RADHA LAKE MD BIRTHDATE: [birth year]Sunday as well to reassess the progression of the pneumonia. Usual care. All other supportive plan of therapy and care. Thank you for allowing me to participate in the care of this patient. RADHA KIM MD CM:CONSTR:REPORT OF CONSULTATION 1418 01/01/17 1015 interface
--- NOTE | ~2016-12-28 | PR ---
[place], [place] PROGRESS NOTE NAME: YOLANDA BEARDEN UNIT #: [id number] ROOM: 309 DOCTOR: DINA CARMEN BIRTHDATE: [birth year] DOS: 01/04/2017 CHIEF COMPLAINT: The patient was nonverbal. SUMMARY OF VISIT: The patient was assessed in the dining room, where she had finished up her breathing treatments. No voiced complaints from nursing. She was nonverbal with me, but would track me with her eyes. MENTAL STATUS: She is alert and oriented to person, place, unsure about time. No signs of auditory or visual hallucinations, delusions, paranoia, marko or hypomania. I am concerned that some of her behaviors as far as the non-verbalization is behavioral more than it is psychiatric. PLAN: Her Cymbalta and Invega was increased yesterday. I want to see how she does over the next 24 hours. We will continue to monitor labs and vital signs. She is showing a slight bump in her creatinine, so I will hold off increasing the Cymbalta anymore at this point in time. We will continue to try to engage in individual and pollock milieu therapy and plan to discharge when stable. SHONA CARMEN CNP CM:PNTRANS [id number] DINA CARMEN 01/04/17 0942 interface
--- NOTE | ~2016-12-28 | PR ---
[place], [place] PROGRESS NOTE NAME: [id number] UN[facility] #: [id number] ROOM: 309 DOCTOR: JAIRON CookFERMÍN BIRTHDATE: [birth year] DOS: 01/01/2017 SUBJECTIVE: This is a wound care follow up for the patient. The staff reports that the patient does not like to have her heels offloaded. So this has been somewhat difficult. The patient is unable to voice any specific complaints regarding her feet or her wounds. Her vitals are blood pressure of 108/52, pulse ox of 94% to 100% on 2 liters nasal cannula. The patient had problems with edema over the weekend and was given some diuretics which seems to have helped her edema according to the staff. The dressings were removed on the right foot, the heel wound appears stable. The base of the wound appears fairly clean. This is the open ulcer. The pressure injury in stageable area that is on the lateral part of the right heel is still dry. It is not oozing and it is starting to liftoff. There is no surrounding cellulitis or pain or discomfort. Her pedal pulses are unobtainable at this time. Toes are slightly cool and capillary refill seems slightly delayed. The left lower extremity has continued areas that remain close and are not open. This is on the left heel, medial foot, lateral foot and in between the webspaces of the toes on the left foot. Pedal pulses are unable to be felt and toes are slightly cool. ASSESSMENT AND PLAN: Multiple pressure ulcers in this patient with multiple medical problems and severe debility. Offloading is a willis to helping these wounds to prevent them from getting worse and to heal them. A Multi-Podus splint was suggested to try, this still has not been ordered yet, but is supposedly on its way. I would keep the heels offloaded as possible, keep the dried eschar areas dry and continue with TheraHoney on the right heel on the open area. I am concerned about her vascular status. She did have an arterial Doppler done of the right lower extremity on a previous admission here; however, they did not evaluate or there is no mention of the tibial arteries or the pedal arteries and JACKSON was not done. So this information is not helpful. Clinically, she probably does have peripheral vascular disease and she should be evaluated by vascular specialist once she is stable. ADDENDUM I did want to mention that when I had examined the patient, the patient had had KATHRINE hose on that did appear quite tight. I would avoid KATHRINE hose if possible due to the fact that her lower extremities were quite cool. Pulses are difficult to feel and she does have a james, all pressure related ulcers and probable peripheral vascular disease causing possible ischemic component to her ulcers, so I would try to avoid that if possible. [place], [place] PROGRESS NOTE NAME: YOLANDA BEARDEN UNIT #: [id number] ROOM: [facility] DOCTOR: FERMÍN DE LA O M.D. BIRTHDATE: [birth year] FERMÍN DE LA O MD CM:FELICITY [id number] FERMÍN DE LA O M.D. 01/04/17 0643 interface
--- NOTE | ~2016-12-28 | PR ---
[place], [place] PROGRESS NOTE NAME: YOLANDA BEARDEN UNIT #: [id number] ROOM: 309 DOCTOR: CHARLENE TOVAR MD BIRTHDATE: [birth year] DOS: 01/05/2017 INTERVAL NOTE CHIEF COMPLAINT: "Good morning, I think I feel a little better." SUMMARY OF THE VISIT: The patient was interviewed in the dining area where she once again sat waiting for breakfast. She did respond to me more appropriately, but her responses tend to be very short, almost whisper-like and it seems to be very difficult for her to speak. She did report stating that she is feeling slightly better. She was able to engage more and converse more. She did report that she slept better and is feeling less depressed and less anxious. She is not exhibiting any signs of somnolence, sedation, extrapyramidal symptoms or tardive dyskinesia. MENTAL STATUS: She is alert and oriented with some gaps. Mood does seem to be improving. Affect is more appropriate. There is no marko or hypomania. There are no overt auditory or visual hallucinations, delusions or paranoia. Short-term memory has some gaps, otherwise she is intact. PLAN: I will check a Neurontin level this morning to ensure that it is therapeutic and adjust it accordingly. It will help not only with her pain issues, but also with mood stability and anxiety. We will maintain her other psychotropics. We will continue to engage in individual and pollock milieu activity with the plan to return to [facility] when stable. CHARLENE TOVAR MD CM:PNTRANS [id number] CHARLENE TOVAR MD 01/05/17 0932 interface
--- NOTE | ~2016-12-28 | PR ---
[place], [place] PROGRESS NOTE NAME: YOLANDA BEARDEN UNIT #: [id number] ROOM: 309 DOCTOR: RADHA LAKE MD BIRTHDATE: [birth year] DOS: 01/01/2017 SUBJECTIVE: She has been noted comfortable at this time with reduction of the edema of the upper extremities and lower extremities, as well as fluid retention of the face for the patient is noted. She has been cooperating at this time with the nursing staff and participating in the therapy as ordered. She has received the IV diuretic therapy for the last couple of days will be switched to the oral diuretics today. She has been getting IV vancomycin as well as the oral antibiotics. OBJECTIVE: VITAL SIGNS: For the patient, which has been recorded show the temperature of the patient noted as normal. The respiratory rate was noted as 18, heart rate 100, blood pressure 108/52-130/71. Intake of 1600, the output was recorded as 13,000 mL which is not accurate. The pulse oxygen saturation for the patient noted on 2 liters nasal cannula 94% saturation. HEENT: Shows no acute changes, still noted with some facial edema. NECK: Supple. CARDIOVASCULAR SYSTEM: S1, S2 is audible. LUNGS: Noted without any wheezing or crackles at the present time. ABDOMEN: Soft, nontender. LABORATORY DATA: The chest x-ray of the patient for today was pending. Yesterday chest x-ray shows area of infiltration/atelectasis left lower lobe persistent. IMPRESSION: 1. The patient with improving congestive heart failure with overall fluid retention of the body for this patient still noted some residual edema of the body. 2. The patient with acute pneumonia the patient's left lower lobe which has been treated with possibility of recurrence of the malignancy cannot be completely excluded. PLAN OF TREATMENT: Switching the patient's IV vancomycin to the oral doxycycline for additional 7 days to complete the treatment. Continue the Levaquin orally as ordered. Monitor chest x-ray closely. Other supportive therapy, plan of management as well. Usual treatment, all other care. [place], [place] PROGRESS NOTE NAME: YOLANDA BEARDEN UNIT #: [id number] ROOM: 309 DOCTOR: RADHA LAKE MD BIRTHDATE: [birth year] RADHA KIM MD CM:FELICITY [id number] RADHA PARTIDA MD 01/01/17 1204 interface
--- NOTE | ~2016-12-28 | DS ---
[place], [place] DISCHARGE SUMMARY NAME: [id number] UNIT #: [id number] ROOM: 309 DOCTOR: CHARLENE TOVAR MD BIRTHDATE: [birth year] DOS: 01/08/2017 CHIEF COMPLAINT: "I just feel so depressed, I cannot go on like this." HISTORY OF PRESENT ILLNESS: This is a 61-year-old white female, who initially presented to the Emergency Room with a productive cough, shortness of breath for approximately 3 days. The patient has a significant history of COPD and is on 4 liters of oxygen at home. She also has a history of lung cancer with recent radiation treatment. She was originally admitted to the medical floor for the medical issues. Subsequently, while there was found to be increasingly despondent with multiple neurovegetative symptoms that included poor sleep and appetite, energy, anhedonia, hopeless, helpless feelings, crying spells, and inability to cope with passive suicidal ideation. She was subsequently transferred to the U for further stabilization. PAST MEDICAL HISTORY: Remarkable for pneumonitis, sepsis, coronary artery disease, congestive heart failure, chronic pain, chronic kidney disease stage 3, depression, GERD, hyperlipidemia, hypertension, lung cancer, non-STEMI, and seasonal allergies. SUMMARY OF HOSPITAL COURSE: The patient was admitted to the unit where she was started on Cymbalta 60 mg at bedtime. This was later increased to 60 mg twice daily. Additionally, she was started on Risperdal because she was having some gross psychotic symptoms. Eventually, the Risperdal was discontinued in lieu of Invega because it was more potent with less sedation. Invega was brought up to 6 mg a day; however, towards the latter part of her stay, she did exhibit some excess daytime somnolence and sedation so this Cymbalta was switched from 60 mg twice daily to 30 mg in the morning and 90 mg at night and the Invega was lowered from 6 mg a day down to 3 mg a day to lessen potential sedation. With this combination of medication, her mood improved. Her psychotic symptoms abated and she was voicing positive plans and a wished to go back to [facility]. She was discharged then to [facility] on 01/08/2017. MENTAL STATUS AT DISCHARGE: The patient is alert and oriented with some gaps. Mood does seem to be strongly trending towards euthymia and affect is more appropriate. There is no symptoms of marko or hypomania. There are no auditory or visual hallucinations, delusions or paranoia. Short, intermediate, and long-term memory are relatively intact. FINAL DIAGNOSES: Major depression, recurrent, severe, with psychotic features. PLAN: The patient is to return to [facility]. I will follow her upon her admission there. [place], [place] DISCHARGE SUMMARY NAME: YOLANDA BEARDEN UNIT #: [id number] ROOM: 309 DOCTOR: CHARLENE TOVAR MD BIRTHDATE: [birth year] CHARLENE TOVAR MD CM:DISCHARG 7 CHARLENE TOVAR MD 01/08/1719 interface
--- NOTE | ~2016-12-28 | PR ---
[place], [place] PROGRESS NOTE NAME: YOLANDA BEARDEN UNIT #: [id number] ROOM: 309 DOCTOR: CHARLENE TOVAR MD BIRTHDATE: [birth year] DOS: 01/01/2017 INTERVAL NOTE CHIEF COMPLAINT: "I don't feel good at all." SUMMARY OF THE VISIT: The patient was interviewed in the dining area where she reported not feeling well, both physically and mentally. She reported that mentally she feels that the depression persists as does her anxiety. She was somewhat guarded and suspicious and nurses do report that she was fearful of her medications, believing that they may have been poisoned. She is not necessarily sleeping well. Her appetite varies overall though tends to be poor. She is tolerating the current medication regimen well. MENTAL STATUS: She is alert and oriented to person, place, and approximate to time. Mood does appear to be very depressed with anxious overtones and some paranoia persists. There are no overt auditory or visual hallucinations. She does process slowly at times and her responses tend to be short and simple. PLAN: I will increase and change the Cymbalta dosing to be 30 mg in the morning and 60 mg at night. I will discontinue Risperdal in lieu of Invega 3 mg in the morning to try to break the paranoia and psychosis. We will continue to engage her in individual and pollock milieu activity with the ultimate plan to return home when psychiatrically stable. CHARLENE TOVAR MD CM:PNTRANS [id number] CHARLENE TOVAR MD 01/01/17 1021 interface
--- NOTE | ~2016-12-28 | WRIGHTHP ---
[place], [place] PATIENT HISTORY AND PHYSICAL EXAM [id number] #: [id number] ROOM: 309 DOCTOR: DINA CARMEN BIRTHDATE: [birth year] DOS: 12/29/2016 HISTORY OF PRESENT ILLNESS: This is a 61-year-old female who presented to the Emergency Department with a productive cough, shortness of breath for approximately three day. She has a chronic history of COPD and is on 4 liters of O2 at home. She states that the cough was not getting better, has a history of lung cancer with radiation treatment. The patient was originally admitted for treatment of cough. Dr. Moyer then was consulted on the unit for some altered mental status. At that time, Dr. Moyer saw her yesterday, he was familiar with her as being a resident of [facility], has been readmitted on multiple times due to ongoing significant medical issues. She has a decubitus on her heal, which is causing her pain and difficulty in respiratory issues that are chronic. The patient is both depressed and confused with behaviors becoming erratic while on the medical unit, very difficult to redirect. After evaluating, he felt that she was appropriate to admit to the unit. PAST MEDICAL HISTORY: Pneumonitis, sepsis, coronary artery disease, congestive heart failure, chronic pain, chronic kidney disease stage 3, depression, GERD, hyperlipidemia, hypertension, hypokalemia, lung cancer, non-STEMI, and seasonal allergies. DIAGNOSES: AXIS I: Major depression, recurrent, severe. MENTAL STATUS: The patient was nonverbal with me this morning. No voiced complaints from nursing. Overall, she just seems depressed. Poor eye contact, would look at me when I would ask her questions, but then look away. PLAN: We admitted her to Behavioral Health Unit from the medical floor to help stabilize her on her medications. She is continuing with antibiotic treatment on vancomycin through the , Levaquin also through the . We have her on Cymbalta 60 mg at bedtime to help with depression, anxiety and some of her chronic pain issues relating to her back. We currently also have her on Risperdal 0.5 mg at bedtime to help a little bit with the psychosis. We will continue to try to engage in individual and pollock milieu therapy. We will have the hospice continue to round on her for medical management and once the patient is stable, we will plan to discharge. [place], [place] PATIENT HISTORY AND PHYSICAL EXAM NAME: YOLANDA BEARDEN UNIT #: [id number] ROOM: [facility] DOCTOR: DINA CARMEN BIRTHDATE: [birth year] SHONA CARMEN CNP CM:HISPHYS:PATIENT HISTORY AND PHYSICAL EXAMINATION 3 6 DINA CARMEN 12/29/16 0838 interface
--- NOTE | ~2016-12-28 | CON ---
[place], [place] REPORT OF CONSULTATION NAME: YOLANDA BEARDEN UNIT #: [id number] ROOM: 309 DOCTOR: NICOLE POLK MD BIRTHDATE: [birth year] DOS: 01/06/2017 HISTORY OF PRESENT ILLNESS: The patient is a 61-year-old female with a past medical history of: 1. Major depression, recurrent. 2. Severe anxiety, generalized anxiety disorder. 3. The patient with obesity and adult failure to thrive. 4. Type 2 diabetes mellitus. 5. Diabetic nephropathy with stage 3 chronic kidney disease. 6. Moderate protein-calorie malnutrition. 7. Coronary artery disease of the [place] vessels. 8. GERD. 9. Esophagitis. 10. Paranoid disorder. 11. Mixed hyperlipidemia. 12. Benign essential hypertension. 13. Pulmonary fibrosis. The patient presently being treated by Dr. Moyer for major depression, which is recurrent. She is presently on Cymbalta, Invega and admitted to Behavioral Health Unit. The patient also gets Geodon as necessary. 14. Mixed hyperlipidemia, being treated with Lipitor. 15. Benign essential hypertension with controlled blood pressures with metoprolol, lisinopril, and Imdur. 16. Chronic primary constipation controlled with Colace and MiraLax. 17. Coronary artery disease of the [place] vessels. The patient is asymptomatic. No chest pains with Imdur and also takes aspirin, beta kota, metoprolol and treated with Lipitor for high cholesterol. 18. Generalized disability, treated with physical therapy. Dr. Moyer, thank you for asking me to see the patient. NICOLE POLK MD CM:CONSTR:REPORT OF CONSULTATION 1613 01/06/17 2212 interface
--- NOTE | ~2016-12-28 | PR ---
[place], [place] PROGRESS NOTE NAME: YOLANDA BEARDEN UNIT #: [id number] ROOM: 309 DOCTOR: YASMIN BARRIENTOS MD BIRTHDATE: [birth year] DOS: SUBJECTIVE: The patient is doing better this morning. Does not have any new complaints. Yesterday, she refused her breathing treatments with vancomycin as well as the other antibiotics, did ask Dr. Rodriguez to see him. He advised the patient go on Bumex. OBJECTIVE: VITAL SIGNS: This morning, graphic trend shows a pressure 100/50, pulse of 95, respirations 18, temperature 97.5. LUNGS: Diminished breath sounds, a few scattered rhonchi. HEART: Regular. ABDOMEN: Obese. EXTREMITIES: Without any edema. LABORATORY DATA: This morning shows a glucose of 109, BUN 6, creatinine 0.95, sodium 146, potassium 3.0, chloride 106, bicarbonate 30, and protein 5.5. Vancomycin trough noted to be 24.9. WBC count is 10.4, hemoglobin 11.3, hematocrit 34.7, platelets 174. ASSESSMENT AND PLAN: 1. The patient with major depression, severe, recurrent in Behavioral Health managed by Dr. Moyer. 2. Left upper lobe pneumonia, on antibiotics. The patient is encouraged to restart the medicines. Repeat chest x-ray is pending today. Appreciate Dr. Rodriguez's input. 3. Hypokalemia. Supplementation was given. Repeat labs to be ordered for tomorrow. 4. Poorly healing wound on the left heel with methicillin-resistant Staphylococcus aureus. As per the nursing staff, but I do not see report of any methicillin-resistant Staphylococcus aureus cultures in the computer. Before she was discharged from the hospital, [place] [address] and had on the 15 white cell count did come down to 11,000, so awaiting the repeat CBC. White cell count has normalized this morning. Discussed with the pharmacy about the changes to be made in the vancomycin dose. [place], [place] PROGRESS NOTE NAME: YOLANDA BEARDEN UNIT #: [id number] ROOM: 309 DOCTOR: YASMIN BARRIENTOS MD BIRTHDATE: [birth year] YASMIN BARRIENTOS MD CM:PNTRANS [id number] YASMIN BARRIENTOS MD 12/31/16 1036 interface
--- NOTE | ~2016-12-28 | PR ---
[place], [place] PROGRESS NOTE NAME[id number] UN[facility] #: [id number] ROOM: 309 DOCTOR: FERMÍN DE LA O M.D. BIRTHDATE: [birth year] DOS: 01/08/2017 This is a brief followup visit. SUBJECTIVE: The patient was seen for her multiple pressure ulcers of her feet and her right heel. The right heel was noted to be somewhat macerated last week around the periwound area and so Maxorb silver was used instead of a foam and it looks like it is definitely dried up. However, there is increased pressure related necrosis of the heel that is noted to be more prominent than last week. The area on the right side appears about the same. The medial and lateral aspect of the forefoot appear about the same as well; however, the actual area where the open wound was has increased skin necrosis around the anterior and dorsal aspect of the wound, so there is increased skin necrosis unfortunately seen today. It is not purulent. There is no exudate and no odor. No sign of infection at this time. It is somewhat slightly tender to touch; however, pedal pulses are once again difficult to feel. She has moderate amount of edema. The pressure ulcers of the left foot that area is on the lateral medial aspect of the forefoot as well as the areas in between the webspace of toes appear about the same. Those do not appear open at this time, so the patient is actually going to be discharged to a detention. Orders have been written for discharge instructions. I would keep all the areas dry at this time. No more foam, just keep with Betadine and offload as much as possible. The Multi Podus splint that ordered or recommended actually did come in. We were able to put it on the patient just to see if it fit and it does seem to fit fairly well, so I would recommend for her to use as well. She is in bed and also I would recommend for her to follow up with Vascular. Discharge orders were written for on the computer and this patient has multiple medical problems as well as severe debility, which will make wound healing difficult. FERMÍN DE LA O MD CM:FELICITY Cr: 01/08/17 1432 0038 FERMÍN DE LA O M.D. 01/09/17 0039 interface
--- NOTE | ~2016-12-28 | PR ---
[place], [place] PROGRESS NOTE NAME: YOLANDA BEARDEN UNIT #: [id number] ROOM: 309 DOCTOR: CHARLENE TOVAR MD BIRTHDATE: [birth year] DOS: 01/06/2017 CHIEF COMPLAINT: "The patient was sleeping and would not wake up for me." SUMMARY OF THE VISIT: The patient was attempted to be interviewed as she rested in bed. Nurses report that she refused her morning medicines and has been wanting to stay in bed. She continues to have periods of playing cat and mouse which she does seem to feign being sedate. This morning, however, she does seem to be legitimately sedate. MENTAL STATUS: It is limited due to her lack of cooperation. She has been strongly trending toward improvement. PLAN: Given the fact that she does seem to be somewhat sedate in the morning, I will adjust her medicines accordingly. I will change the Cymbalta from 60 mg twice a day to 30 mg in the morning and 90 mg at night, increasing her nighttime dose so that she can sleep better while lessening her morning dose. I will also decrease her Invega from 6 mg in the morning to 3 to lessen the possibility of any sedation. We will try to engage her in individual and pollock milieu activity with the ultimate plan to return to the long-term care center of her choice which [facility]. CHARLENE TOVAR MD CM:PNTRANS 9 1 CHARLENE TOVAR MD 01/06/17911 interface
--- NOTE | ~2016-12-28 | CON ---
[place], [place] REPORT OF CONSULTATION NAME: YOLANDA BEARDEN UNIT #: [id number] ROOM: 309 DOCTOR: JAIRON CookFERMÍN BIRTHDATE: [birth year] DOS: 12/29/2016 WOUND CARE CONSULTATION HISTORY OF PRESENT ILLNESS: This is a 61-year-old female with multiple medical problems, who was recently admitted for respiratory failure. She eventually was medically stabilized and was transferred to [facility] for altered mental status. She is depressed and confused. I saw her approximately 2 days ago for a pressure ulcer of her right heel, which had looked improved to me from previous admission when she was here several weeks ago, that wound appeared to be getting smaller and did not show any visible necrotic tissue. That wound was located on the right heel. However, she had several new areas of pressure injuries of the left foot related to there was an area located on the left heel. She had a visible dried eschar of her left heel, lateral side of the foot and the medial side of the foot, which were dried and unstageable. Those were new pressure injuries that were noted. They were present on admission. I was asked to follow up in the [facility] for these wounds. PAST MEDICAL HISTORY: Complicated and includes pneumonitis, sepsis, coronary artery disease, congestive heart failure, chronic pain, chronic kidney disease, depression, GERD, hyperlipidemia, hypertension, hypokalemia, lung cancer, non-ST elevation [place], and seasonal allergies. MEDICATIONS: Levaquin 750, Micro-K 10 mEq, Zestril 2.5, Imdur 30, Neurontin 300, Cymbalta 60, Plavix 75, Bumex 2 mg, aspirin 81, metformin 500 p.o. daily, vancomycin 1000 mg IV, albuterol nebs q.6h., Lopressor 50 p.o. b.i.d., Lipitor 10 at bedtime, milk of magnesia p.r.n., Colace p.r.n., Dulcolax p.r.n., MiraLax p.r.n., risperidone 0.5 mg p.o. at bedtime, Geodon 10 mg IM q.4h. p.r.n., Ativan 1 mg q.8h. p.r.n. or Ativan 1 mg IM q.8h. p.r.n. PHYSICAL EXAMINATION: VITAL SIGNS: Stable. Temperature is 98.8, pulse 93, respirations 20, blood pressure is 109/46. GENERAL: The patient offers no specific complaints. She appears to do not recognize who I am when I walk into the room and unable to answer review of systems in a meaningful way. EXTREMITIES: Focused exam was just on the feet. The original open wound of the right heel appears stable measuring approximately 0.8 x 0.8 x 0.2, it looks fairly clean; however, there is a new area of pressure-related injury that I would classify as unstageable lateral to this. It seems to be pressure related to the heel on the lateral side of the heel. This is new, which is measuring approximately 2.5 cm in length x 2 cm in width and 0.1 in depth. It is dry. There is no purulence or tenderness, but it is a new area of unstageable pressure injury. There is also an area on the left heel on the lateral side as well that is measuring a lot smaller than the right heel as far as the pressure area goes approximately 1.5 cm x 0.5 cm in width. There are also areas of pressure on the lateral side of the foot and the medial side of the foot, which are also dry and not acutely tender. They are not weeping. There are not cellulitic. They do not appear infected. Those are also noted. She also has some dry area between the fourth and fifth digits from where the toes are [place], [place] REPORT OF CONSULTATION NAME: YOLANDA BEARDEN UNIT #: [id number] ROOM: 309 DOCTOR: FERMÍN DE LA O M.D. BIRTHDATE: [birth year] rubbing and a small eschar area on the distal part of the fourth digit of the left foot on the plantar aspect, which is noted as well. The measurements of the unstageable pressure ulcer on the left foot medial aspect metatarsal head is measuring approximately 1.5 x 1 x 0.1. The area between the fifth toe in the plantar aspect is approximately 1 x 1 x 0.8 as well as one on the lateral side of the outer foot is 1.1 x 0.8. Her feet are warm. There is no evidence of cellulitis. Pulses are difficult to feel. There is normal capillary refill. ASSESSMENT AND PLAN: Multiple pressure ulcers of the right foot as well as left foot. The original wound that she had several weeks ago, which I debrided seems to be getting smaller; however, she has new area of pressure injury lateral to this, which is definitely pressure related. When I walked into the room, she had her heels right on the bed. There were no offloading devices on and no pillows underneath her legs to help offload her heels, so she had direct pressure on these wounds. For now, I would recommend to keep the dried eschar areas dry as possible, continue TheraHoney just for the open wound for now and a foam dressing and have them change that everyday, monitor the dried areas on a daily basis and no direct pressure to these wounds. I recommended feet should be offloaded at all times by whatever means available. Ideally, a Multi Podus splint would be a good option; however, I do not think these are available, but I will put my recommendations and I think that several of the pressure ulcers that are on the left foot are from the offloading device squeezing the forefoot and causing several areas there to have injury. The left heel is not being offloaded either and this is also related to pressure as well. She does have peripheral vascular disease, which is also a contributing factor and she should be evaluated by Vascular once she is stable enough for this. FERMÍN DE LA O MD CM:CONSTR:REPORT OF CONSULTATION 1016 01/02/17 1303 interface
--- NOTE | ~2016-12-28 | PR ---
[place], [place] PROGRESS NOTE NAME: YOLANDA BEARDEN UNIT #: [id number] ROOM: 309 DOCTOR: RADHA LAKE MD BIRTHDATE: [birth year] DOS: 01/02/2017 SUBJECTIVE: She was seen in [facility]. The patient has been still noted with edema, which has been noted somewhat decreased, but not completely resolved. There were no symptoms of chest pain. Coughing has been improving. She has been getting oral doxycycline and Levaquin. The IV Bumex for the patient has been continued. Today will be the last dose of intravenous Bumex ____ the patient is starting on oral Bumex. OBJECTIVE: VITAL SIGNS: Normal temperature, respiratory rate 18, heart rate 102, blood pressure 100/52. Pulse oxygen saturation noted on room air 97% saturation. HEENT: Examination shows no new change. NECK: Supple. CARDIOVASCULAR: S1, S2 audible. LUNGS: For the patient, decreased breath sounds in the left lower lung. The right lung was clear. ABDOMEN: Soft, nontender. EXTREMITIES: Shows mild edema. LABORATORY DATA: CBC today, WBC count 11,000, hemoglobin 10.7, hematocrit 33.0, platelet count was normal. The CMP of the patient of this morning was noted with BUN 12, creatinine 1.09. The chest x-ray of the patient, 2-view, which was done yesterday for the patient was personally reviewed for the patient shows reduction in previously noted consolidation and infiltration of the left lower lung. IMPRESSION: 1. The patient has history of lung cancer with acute left lower lobe pneumonia, which has been treated with the antibiotics for the patient with gradual reduction. Possible recurrence of cancer of the patient's malignancy of the patient's left lung cannot be completely excluded. 2. Resolving edema and congestive heart failure gradually. PLAN OF TREATMENT: Daily body weight of the patient to assess the patient for fluid retention. Continue diuretic therapy as ordered. Further treatment changes will be done based on progression of the illness. Usual treatment, plan of management and other therapies. [place], [place] PROGRESS NOTE NAME: YOLANDA BEARDEN UNIT #: [id number] ROOM: 309 DOCTOR: RADHA LAKE MD BIRTHDATE: [birth year] RADHA KIM MD CM:PNTRANS [id number] RADHA PARTIDA MD 01/02/17 1620 interface
[~2016-12-28 21:22] MED LIST changes: +DUONEB 3 MG/3 ML3 M1 NEB
[2016-12-28] MEDS ORDERED: LEVAQUIN750 M1 PO (22:53)
[2016-12-28] MEDS ORDERED: VANCO 1 GR1 GM/250 M IV (22:58)
[2016-12-29 02:52] VITALS: BP 94/56
[2016-12-29 03:01] VITALS: BP 94/56
[2016-12-29 08:36] VITALS: BP 109/46
[2016-12-29 10:26] VITALS: BP 109/46
[2016-12-29 20:30] VITALS: BP 125/69
[2016-12-29 21:00] VITALS: BP 125/69
[2016-12-30 08:04] VITALS: BP 127/67
[2016-12-30 08:55] VITALS: BP 130/62
[2016-12-30 09:00] VITALS: BP 130/62
[2016-12-30 19:58] VITALS: BP 100/60
[2016-12-30 21:00] VITALS: BP 100/60
[2016-12-31 03:36] LABS: BASO # 0.1 10*3/uL (0.0-0.1); BASO % 0.5 % (0.0-1.0); EOS # 0.6 10*3/uL (0.0-0.4); EOS % 5.7 % (1.0-4.0); HEMATOCRIT 34.7 % (37.0-47.0); HEMOGLOBIN 11.3 g/dl (12.0-16.0); IG # 0.2 10*3/uL (0.0-0.1); LYMPH # 3.1 10*3/uL (1.3-4.4); LYMPH % 29.9 % (27.0-41.0); MEAN CELL VOLUME 95.1 fl (81.0-99.0); MEAN CORPUSCULAR HGB CONC 32.6 g/dl (33.0-37.0); MEAN PLATELET VOLUME 9.5 fl (9.6-12.3); MONO # 0.9 10*3/uL (0.1-1.0); MONO % 8.3 % (3.0-9.0); NEUT # 5.6 10*3/uL (2.3-7.9); NEUT % 54.1 % (47.0-73.0); PLATELET COUNT AUTOMATED 174 10*3/uL (130-400); RED BLOOD COUNT 3.65 10*6/uL (4.10-5.10); RED CELL DISTRI WIDTH 15.9 % (0-14.5); WHITE BLOOD COUNT 10.4 10*3/uL (4.8-10.8)
[2016-12-31 04:04] LABS: ALBUMIN 2.5 gm/dl (3.1-4.5); ALKALINE PHOSPHATASE 62 U/L (45-117); BILIRUBIN, TOTAL 0.5 mg/dl (0.2-1.0); BUN 6 mg/dl (7-24); CARBON DIOXIDE 30 mmol/L (21-32); CHLORIDE 106 mmol/L (98-107); EST GLOM FILT AFRICAN AMERICAN > 60 ml/min; GLUCOSE 109 mg/dL (65-99); SGOT/AST 16 IU/L (3-35); SGPT/ALT 17 U/L (12-78); SODIUM 146 mmol/L (136-145); TOTAL PROTEIN 5.5 gm/dL (6.4-8.2)
[2016-12-31 08:13] VITALS: BP 100/50
[2016-12-31 09:00] VITALS: BP 100/50
[2016-12-31 20:07] VITALS: BP 130/71
[2016-12-31 21:00] VITALS: BP 130/71
[2017-01-01 06:57] LABS: ALBUMIN 2.5 gm/dl (3.1-4.5); BILIRUBIN, TOTAL 0.5 mg/dl (0.2-1.0); BUN 8 mg/dl (7-24); CARBON DIOXIDE 30 mmol/L (21-32); CHLORIDE 102 mmol/L (98-107); EST GLOM FILT AFRICAN AMERICAN > 60 ml/min; GLUCOSE 114 mg/dL (65-99); POTASSIUM 3.7 mmol/L (3.5-5.1); SGOT/AST 22 IU/L (3-35); SGPT/ALT 16 U/L (12-78); SODIUM 142 mmol/L (136-145); TOTAL PROTEIN 5.5 gm/dL (6.4-8.2)
[2017-01-01 07:13] LABS: ALKALINE PHOSPHATASE 63 U/L (45-117)
[2017-01-01 07:59] VITALS: BP 108/52
[2017-01-01 08:29] VITALS: BP 108/52
[2017-01-01 20:00] VITALS: BP 124/58
[2017-01-01 21:00] VITALS: BP 124/58
[2017-01-02 07:38] LABS: ALBUMIN 2.6 gm/dl (3.1-4.5); BILIRUBIN, TOTAL 0.6 mg/dl (0.2-1.0); POTASSIUM 3.6 mmol/L (3.5-5.1); TOTAL PROTEIN 5.8 gm/dL (6.4-8.2)
[2017-01-02 08:08] VITALS: BP 100/52
[2017-01-02 09:00] VITALS: BP 100/52
[2017-01-02 09:05] LABS: BASO # 0.1 10*3/uL (0.0-0.1); BASO % 0.5 % (0.0-1.0); EOS # 0.7 10*3/uL (0.0-0.4); EOS % 6.6 % (1.0-4.0); HEMOGLOBIN 10.7 g/dl (12.0-16.0); IG # 0.2 10*3/uL (0.0-0.1); LYMPH # 2.5 10*3/uL (1.3-4.4); MEAN CELL VOLUME 97.3 fl (81.0-99.0); MEAN CORPUSCULAR HGB 31.6 pg (27.0-31.0); MEAN CORPUSCULAR HGB CONC 32.4 g/dl (33.0-37.0); MEAN PLATELET VOLUME 10.2 fl (9.6-12.3); MONO % 9.3 % (3.0-9.0); NEUT # 6.5 10*3/uL (2.3-7.9); PLATELET COUNT AUTOMATED 191 10*3/uL (130-400); RED BLOOD COUNT 3.39 10*6/uL (4.10-5.10)
[2017-01-02 20:31] VITALS: BP 113/59
[2017-01-02 21:00] VITALS: BP 113/59
[2017-01-03 08:08] VITALS: BP 110/62
[2017-01-03 09:22] VITALS: BP 110/62
[2017-01-03 20:04] VITALS: BP 144/69
[2017-01-03 21:40] VITALS: BP 144/80
[2017-01-04 09:00] VITALS: BP 98/58
[2017-01-04 19:00] VITALS: BP 134/52
[2017-01-04 21:00] VITALS: BP 134/52
[2017-01-05 08:03] VITALS: BP 112/60
[2017-01-05 09:00] VITALS: BP 112/60
[2017-01-05 19:48] VITALS: BP 101/55
[2017-01-05 21:17] VITALS: BP 101/55
[2017-01-06 07:43] VITALS: BP 153/54
[2017-01-06 08:02] VITALS: BP 153/54
[2017-01-06 19:53] VITALS: BP 95/48
[2017-01-06 21:00] VITALS: BP 95/48
[2017-01-07 07:44] VITALS: BP 115/53
[2017-01-07 07:56] VITALS: BP 115/53
[2017-01-07 10:11] LABS: BASO # 0.1 10*3/uL (0.0-0.1); BASO % 0.6 % (0.0-1.0); EOS # 0.9 10*3/uL (0.0-0.4); EOS % 8.3 % (1.0-4.0); HEMOGLOBIN 10.8 g/dl (12.0-16.0); IG # 0.1 10*3/uL (0.0-0.1); LYMPH # 1.8 10*3/uL (1.3-4.4); LYMPH % 17.4 % (27.0-41.0); MEAN CORPUSCULAR HGB CONC 33.8 g/dl (33.0-37.0); MEAN PLATELET VOLUME 9.6 fl (9.6-12.3); MONO # 0.8 10*3/uL (0.1-1.0); MONO % 7.4 % (3.0-9.0); NEUT # 6.9 10*3/uL (2.3-7.9); NEUT % 65.5 % (47.0-73.0); PLATELET COUNT AUTOMATED 160 10*3/uL (130-400); RED BLOOD COUNT 3.37 10*6/uL (4.10-5.10); RED CELL DISTRI WIDTH 15.5 % (0-14.5); WHITE BLOOD COUNT 10.6 10*3/uL (4.8-10.8)
[2017-01-07 10:32] LABS: ALBUMIN 2.5 gm/dl (3.1-4.5); ALKALINE PHOSPHATASE 63 U/L (45-117); BILIRUBIN, TOTAL 0.5 mg/dl (0.2-1.0); BUN 15 mg/dl (7-24); CARBON DIOXIDE 33 mmol/L (21-32); CHLORIDE 100 mmol/L (98-107); EST GLOM FILT AFRICAN AMERICAN > 60 ml/min; GLUCOSE 98 mg/dL (65-99); POTASSIUM 3.7 mmol/L (3.5-5.1); SGOT/AST 14 IU/L (3-35); SGPT/ALT 18 U/L (12-78); SODIUM 143 mmol/L (136-145)
[2017-01-07 19:46] VITALS: BP 90/54
[2017-01-07 20:06] VITALS: BP 118/66
[2017-01-07 21:00] VITALS: BP 118/66
[2017-01-08 08:00] VITALS: BP 98/58
[2017-01-08] MEDS ORDERED: DULOXETINE HCL30 MG PO ×2 (08:09)
[2017-01-08] MEDS ORDERED: PALIPERIDONE ER3 MG PO (08:09)
[2017-01-08 09:00] VITALS: BP 98/58
[2017-01-08 09:09] LABS: NEURONTIN (GABAPENTIN) 4.7 ug/mL (4.0-16.0)
== END 2017-01-08 13:20 | DRG 885 ==
LOC: 3N 21:22
PROVIDERS: Internal Medicine; Internal Medicine Critical Care Medicine; Psychiatry & Neurology Psychiatry
DX: F33.3 Major depressive disorder, recurrent, severe with psychotic symptoms (principal); J15.6 Pneumonia due to other Gram-negative bacteria; I13.0 Hypertensive heart and chronic kidney disease with heart failure and stage 1 through stage 4 chronic kidney disease, or unspecified chronic kidney disease; E11.22 Type 2 diabetes mellitus with diabetic chronic kidney disease; J15.9 Unspecified bacterial pneumonia; I50.9 Heart failure, unspecified; E44.0 Moderate protein-calorie malnutrition; F41.1 Generalized anxiety disorder; E87.6 Hypokalemia; L89.620 Pressure ulcer of left heel, unstageable; L89.610 Pressure ulcer of right heel, unstageable; J44.9 Chronic obstructive pulmonary disease, unspecified; N18.3 Chronic kidney disease, stage 3 (moderate); J45.50 Severe persistent asthma, uncomplicated; R62.7 Adult failure to thrive; E78.2 Mixed hyperlipidemia; K21.0 Gastro-esophageal reflux disease with esophagitis; J84.10 Pulmonary fibrosis, unspecified; K59.09 Other constipation; D72.821 Monocytosis (symptomatic); I25.10 Atherosclerotic heart disease of native coronary artery without angina pectoris; J30.2 Other seasonal allergic rhinitis; Z68.33 Body mass index [BMI] 33.0-33.9, adult; I25.2 Old myocardial infarction; Z85.118 Personal history of other malignant neoplasm of bronchus and lung; Z88.1 Allergy status to other antibiotic agents; Z91.041 Radiographic dye allergy status

== ENCOUNTER → 2017-01-19 | Outpatient (CLI) | payer OTHER ==
[~2017-01-19] MED LIST changes: +DULOXETINE HCL30 MG PO; +LASIX20 MG PO; +LEVAQUIN750 M1 PO; +MUCINEX ER600 MG PO; +PALIPERIDONE ER3 MG PO; +PREDNISOLONE SO10 MG PO; +VANCO 1 GR1 GM/250 M IV; +VANCOMYCIN750 MG/250 IV
[2017-01-19 09:30] VITALS: BP 114/52
== END | disposition home or self-care (01) ==
LOC: PICC 09:00
DX: T80.211A Bloodstream infection due to central venous catheter, initial encounter (principal)

== ENCOUNTER 2017-01-20 12:17 | Inpatient (IN) | payer OTHER ==
[~2017-01-20] VITALS: Ht 165.1 cm; Wt 93.0 kg
--- NOTE | ~2017-01-20 | PR ---
[place], [place] PROGRESS NOTE NAME: YOLANDA BEARDEN UNIT #: [id number] ROOM: 426 DOCTOR: YASMIN BARRIENTOS MD BIRTHDATE: [birth year] DOS: SUBJECTIVE: The patient was in deep sleep was difficult to arouse, but once she was awake she did not have any complaints. OBJECTIVE: VITAL SIGNS: Graphic trend shows a pressure 139/70, pulse of 89, respirations 19, temperature 98.6. LUNGS: Diminished breath sounds, scattered rhonchi. HEART: Regular. ABDOMEN: Obese. EXTREMITIES: Without any edema. LABORATORY DATA: Shows glucose 94, BUN 47, creatinine 1.17. Electrolytes were sodium 151, potassium 3.7, chloride 117. WBC count is 18.6, hemoglobin 9.0, hematocrit 28.2. Speech study done yesterday showed that the patient did have some mild oropharyngeal dysphagia and suggested the patient receive a soft diet with nectar thick liquid. Modified barium swallow was also noted as above. ASSESSMENT AND PLAN: 1. Sepsis from underlying pneumonia, possibly aspiration, on antibiotics. 2. Blood cultures so far are negative. White cell count is still pretty high. The patient is going for a bronchoscopy today. Urine culture and sputum culture showing Proteus mirabilis on antibiotics. 3. Anemia of chronic disease. 4. Schizoaffective disorder with mild major depression. Dr. Moyer has been consulted. The patient's overall prognosis remains poor and guarded because of the multiple comorbid issues that it is going. YASMIN BARRIENTOS MD CM:PNTRANS [phone] YASMIN BARRIENTOS MD 01/23/175 interface
--- NOTE | ~2017-01-20 | PROC NOTE ---
[place], [place] PROCEDURE NOTE [facility]ARD[id number] #: [id number] ROOM: 426 DOCTOR: MARYA MICHELLE BIRTHDATE: [birth year] DOS: 01/22/2017 MODIFIED BARIUM SWALLOW LOCATION: [facility], room 426, bed 1. DOCTOR: Dr. Campoverde. RADIOLOGIST: Dr. Rhodes. BACKGROUND INFORMATION: The patient a 61-year-old female who was seen for a modified barium swallow. This test was ordered to rule out aspiration. The patient has had recurrent pneumonia. She was recently hospitalized with pneumonia. She was also sent to the [facility]. At this time, she is admitted with acute kidney injury, pneumonia, anemia, and sepsis. Further medical history includes COPD, HTN, anxiety, depression, CABG DM, CKD, and GERD. This patient resides in a alf. She is currently n.p.o. For today's assessment, she was alert and able to follow commands. Respiratory status was within normal limits. Oral peripheral examination revealed edentulous status. Lingual and labial skills were within functional limits in terms of strength, range of motion, and coordination. The patient was able to volitionally cough and swallow. METHODS AND MATERIALS USED FOR THE EXAM: The patient was positioned in the lateral plane and examination was viewed under fluoroscopy. The patient was presented with a variety of consistencies to assess swallowing skills including applesauce mixed with barium presented in half teaspoon amounts, barium-coated pears and cookie presented in bite size pieces and thin liquid barium. Liquids were taken by cup. The patient was given the cup and instructed to swallow in her normal sip size amount. ORAL PHASE: The patient achieved adequate labial seal around cup and spoon with no anterior loss. Bolus formation and transit were adequate with all consistencies. Mastication of the cookie was poor. The patient had difficulty reporting that it was too hard. She spit the barium-coated cookie out. Tongue to palate contact was within normal limits with all consistencies. Tongue retraction was within normal limits with all consistencies. Velar functioning was within normal limits with no nasal regurgitation displayed. PHARYNGEAL PHASE: The pharyngeal swallow occurred within a timely manner. No pharyngeal residue was noted following any consistency. There was no penetration or aspiration with puree or solids. When patient consumed the thin liquid, she was observed with both small single sips and larger consecutive sips. Penetration occurred with all trials. This was silent as no coughing or throat clearing were displayed. The patient was assessed with nectar liquids. No penetration or aspiration occurred. ESOPHAGEAL PHASE: This phase of the swallow was not formally assessed during this examination. [place], [place] PROCEDURE NOTE NAME: YOLANDA BEARDEN UNIT #: [id number] ROOM: 426 DOCTOR: AMRYA MICHELLE BIRTHDATE: [birth year] IMPRESSIONS AND RECOMMENDATIONS: Based upon assessment results, this 61-year-old patient presents with a mild oropharyngeal dysphagia. The patient had difficulty masticating a solid consistency due to edentulous status. actually because a silent penetration occurred with thin liquids due to reduced laryngeal elevation and epiglottic function. It is recommended that the patient receive a soft diet and nectar thick liquid. Followup therapy is recommended focusing on pharyngeal strengthening exercises, use of safety strategies and education to ensure safe tolerance of her diet. Results and recommendations were shared with the patient and her nurse and they verbalized understanding. Thank you very much for this referral. Should you have any questions regarding this patient, please contact the speech pathologist at [phone]. MARYA MICHELLE CM:PROCNOTE:PROCEDURE NOTE [id number] MARYA MICHELLE
--- NOTE | ~2017-01-20 | PR ---
[place], [place] PROGRESS NOTE NAME: YOLANDA BEARDEN UNIT #: [id number] ROOM: 426 DOCTOR: RADHA LAKE MD BIRTHDATE: [birth year] DOS: 01/26/2017 SUBJECTIVE: She has been noted much more awake and alert this morning. She denies symptoms of coughing or chest pain. Denies symptoms of abdominal pain. OBJECTIVE: VITAL SIGNS: For the patient which has been recorded showed the temperature was noted as normal, respiratory rate 18, heart rate 92, blood pressure 130/59. Pulse oxygen saturation recorded on 2 liters nasal cannula 98% saturation. HEENT: Examination shows no acute abnormal changes. CARDIOVASCULAR: S1, S2 is audible. LUNGS: The patient was noted with decreased breaths in the lower lung bases. Occasional crackles. No wheezing. ABDOMEN: Soft and obese. LABORATORY DATA: The Lexiscan of the patient that was completed yesterday was noted as normal study. The patient had a CT scan of the chest that was done on 01/25/2017 was reviewed with evidence of stable scattered small pulmonary nodules in the lungs. Interstitial infiltration noted for this patient in the lung with possibly superimposed congestive heart failure. Lingular pneumonia for this patient was also noted. IMPRESSION: 1. The patient with acute pneumonia with acute congestive heart failure, acute on chronic hypoxic respiratory failure with diastolic dysfunction congestive heart failure as well. 2. Left lung cancer of the patient, which has been treated previously with radiation therapy. PLAN OF TREATMENT: Continue bronchodilators, oxygen supplementation diuretic therapy. Monitor kidney functions. Other supportive therapy, plan and management as well. Monitor leukocytosis. Usual care, other plan of therapy and treatment. [place], [place] PROGRESS NOTE NAME: YOLANDA BEARDEN UNIT #: [id number] ROOM: 426 DOCTOR: RADHA LAKE MD BIRTHDATE: [birth year] RADHA KIM MD CM:PNTRANS [id number] RADHA PARTIDA MD 01/27/17 0134 interface
--- NOTE | ~2017-01-20 | PR ---
[place], [place] PROGRESS NOTE NAME: YOLANDA BEARDEN UNIT #: [id number] ROOM: 426 DOCTOR: RADHA LAKE MD BIRTHDATE: [birth year] DOS: 01/23/2017 PULMONARY PROGRESS NOTE SUBJECTIVE: She is n.p.o. past midnight and bronchoscopy done today. She has been noted excessive chest congestion, inability to expectorate sputum. Denies any acute symptoms for the patient at the present time. OBJECTIVE: VITAL SIGNS: Showed normal temperature, respiratory rate 19, heart rate 88, blood pressure 150/62. Pulse oxygen saturation of the patient recorded on 3 liters canula 99% to 100% saturation. HEENT: Examination shows head was atraumatic. Eyes nonicterus. NECK: Supple. CARDIOVASCULAR: S1, S2 is audible. LUNGS: The patient was noted with generalized reduction breath sounds bilaterally without any wheezing or crackles. ABDOMEN: Soft, nontender. EXTREMITIES: Shows mild edema. LABORATORY DATA: CBC this morning, WBC count 18.6, hemoglobin 9, hematocrit 28.2, platelet count was normal. The BMP of the patient this morning, BUN 47, creatinine 1.91, sodium 151. Modified barium swallow of the patient was completed yesterday for this patient, which has been noted with aspiration with a thin barium. IMPRESSION: 1. The patient with acute aspiration pneumonia with gram-negative infection with Klebsiella and acute urinary tract infection. 2. Acute tracheobronchitis as well. 3. Resolving acute kidney injury for the patient as well. 4. Hypernatremia secondary to diuretics. PLAN OF TREATMENT: Continuation of the current plan of therapy as in progress. Bronchoscopy done for this patient as well. If any changes necessary in treatment will be ordered after the bronchoscopy. [place], [place] PROGRESS NOTE NAME: YOLANDA BEARDEN UNIT #: [id number] ROOM: 426 DOCTOR: RADHA LAKE MD BIRTHDATE: [birth year] RADHA KIM MD CM:PNTRANS [id number] RADHA PARTIDA MD 01/23/17 9106 interface
--- NOTE | ~2017-01-20 | EKG ---
[place], [place] ELECTROCARDIOGRAM REPORT NAME: YOLANDA BEARDEN UNIT #: [id number] ROOM: 426 DOCTOR: ESTRELLITA DRISCOLL MD BIRTHDATE: [birth year] DOS: 01/20/2017 TIME: 12:45 p.m. FINDINGS: 1. Normal sinus rhythm with rate of 86. 2. Low voltage precordial leads, otherwise normal. ESTRELLITA DRISCOLL MD CM:EKGRPT:ELECTROCARDIOGRAM REPORT [id number] ESTRELLITA DRISCOLL MD
--- NOTE | ~2017-01-20 | PR ---
[place], [place] PROGRESS NOTE NAME: YOLANDA BEARDEN UNIT #: [id number] ROOM: 426 DOCTOR: YASMIN BARRIENTOS MD BIRTHDATE: [birth year] DOS: 01/24/2017 SUBJECTIVE: The patient is continuing to run a fever now. OBJECTIVE: VITAL SIGNS: Graphic trend shows a pressure of 155/55, pulse of 90, respirations 20, temperature 99.2, T-max of 100.6. LUNGS: Diminished breath sounds. HEART: Regular. ABDOMEN: Obese, soft, nontender. EXTREMITIES: Without any edema. ASSESSMENT AND PLAN: 1. Pneumonia, status post bronchoscopy, on IV antibiotics. 2. Chronic urinary retention. Added Flomax and a Moya catheter has been placed because the patient is getting catheterized q. shift. 3. Acute kidney injury with electrolyte imbalance. Did receive D5 and water and potassium supplementation. Sodium is still 155, potassium is still 3.2, chloride is 121. We will continue D5 and water. 4. Adult failure to thrive and the patient continues to sleep and does not wake up much. We will discontinue the morning dose of Seroquel and make it evening and also the gabapentin is just going to be an evening dose. PT/OT will also be consulted. 5. Urinary tract infection with Proteus mirabilis. Already on antibiotics. Because of the continued fever, we will wait for the sputum cultures to come back, but I will add vancomycin. YASMIN BARRIENTOS MD CM:PNTRANS [id number] YASMIN BARRIENTOS MD 01/24/17 1137 interface
--- NOTE | ~2017-01-20 | PR ---
[place], [place] PROGRESS NOTE NAME: YOLANDA BEARDEN UNIT #: [id number] ROOM: 426 DOCTOR: JUDY PARTIDA MD,RADHA BIRTHDATE: [birth year] DOS: 01/28/2017 PULMONARY PROGRESS NOTE SUBJECTIVE: She has been noted awake and alert at this time. She has not been noted with any symptoms of chest pain. Coughing has been subsiding. There was no acute shortness of breath. OBJECTIVE: VITAL SIGNS: Of the patient which have recorded shows the temperature normal, respiratory rate 18, heart rate 76, blood pressure 132/82. Pulse oxygen saturation for the patient on 2 liters nasal cannula 99% saturation recorded. HEENT: Showed no new change. NECK: Supple. CARDIOVASCULAR SYSTEM: S1, S2 is audible. LUNGS: The patient was noted without any wheezing or crackles. ABDOMEN: Soft, nontender. LABORATORY DATA: CBC today: WBC count 19.8, hemoglobin 8.9, hematocrit 28.4, platelet count was normal. BMP of the patient that was done this morning was noted a BUN of 12, creatinine 1.14. Potassium 3.4. IMPRESSION: 1. Resolving acute pneumonia clinically. 2. Leukocytosis, which remains essentially elevated. The urinary tract infection is resolved. The bronchial washing culture was noted negative. There were no signs of acute diarrhea for this patient's abdominal pain. However, the stool for C. diff toxins will be ordered. PLAN OF TREATMENT: The patient could be transferred to the nursing facility for this patient whenever necessary as the patient started on oral Zyvox yesterday by Dr. Solis. RADAH KIM MD CM:PNTRANS [id number] RADHA PARTIDA MD 01/29/17 0005 interface
--- NOTE | ~2017-01-20 | CON ---
[place], [place] REPORT OF CONSULTATION NAME: YOLANDA BEARDEN UNIT #: [id number] ROOM: 426 DOCTOR: FERMÍN DE LA O M.D. BIRTHDATE: [birth year] DOS: 01/22/2017 This is a wound care consultation. HISTORY OF PRESENT ILLNESS: The patient was admitted through the Emergency Room Department for abnormal blood work. She is a resident at [facility] and had been recently admitted to the hospital early December with an extended period at the [facility] where she remained fairly debilitated and was on antibiotics for pneumonia when she was discharged to the longterm. She was seen by me at [facility] to pressure ulcers. She had at that time, multiple areas of pressure related injuries of the left forefoot several toes, had injuries between the webspaces. There was also evidence of injuries on the lateral medial side of the foot that were noted. She had also been seen by me for right heel ulceration, which had been debrided at one point as it was soft necrotic tissue, was debrided on the floor. This was several weeks ago. The wound had been steadily improving; however, she ended up going back to the longterm at some point and then coming back for repeated respiratory issues and at some point, the ulceration showed increased areas of necrosis, likely secondary to increased pressure. The timing is unclear. However, when I had seen her at the [facility], she did have quite a bit of pressure related unstageable area of her right heel. Eventually, it was recommended to keep the areas dry and offloaded as much as possible, this was recommended upon discharge. We did eventually acquire a Multi Podus boot her for the right heel. I know she was discharged with this boot. I do not know if they have been using it at the longterm, but she does not have 1 with her on this admission. There were also recommendations for her to be evaluated by Vascular. PAST MEDICAL HISTORY: Significant for multiple medical problems and includes recurrent pneumonias, sepsis, coronary artery disease, congestive heart failure, chronic pain, chronic kidney disease, depression, GERD, hyperlipidemia, hypertension, hypokalemia, lung cancer, non-ST elevation SC, seasonal allergies, adult failure to thrive, severe debility, type 2 diabetes, protein calorie malnutrition, paranoid disorder, benign hypertension, and pulmonary fibrosis. CURRENT MEDICATIONS: Seroquel 100 mg at bedtime and 50 mg p.o. q.8 a.m., Lipitor 10 mg at bedtime, Cymbalta 90 mg daily, ceftazidime 1 g IV per pharmacy dosing, Lopressor 50 mg p.o. b.i.d., Mucinex 600 p.o. b.i.d., Neurontin 300 p.o. q.12, Plavix 75 daily, albuterol nebs q.4 hours, and Robitussin 5 mL q.6 hours. SOCIAL HISTORY: Currently, she is living in a longterm. She currently does not smoke. She is a former smoker, however. ALLERGIES: TO AMOXICILLIN, AMPICILLIN, IVP DYE AND FISH. REVIEW OF SYSTEMS: The patient really reports no specific complaints at the present time. She does report shortness of breath. No nausea, vomiting, or abdominal pain. She says she feels like eating. She does complain of some discomfort in both of her heels. PHYSICAL EXAMINATION: [place], [place] REPORT OF CONSULTATION NAME: YOLANDA BEARDEN UNIT #: [id number] ROOM: 426 DOCTOR: FERMÍN DE LA O M.D. BIRTHDATE: [birth year] VITAL SIGNS: Temp 99.3, pulse of 106, respirations 20, blood pressure is 122/80. GENERAL: This is a patient who appears much older than her stated age, has a moist cough noted. She is lying in bed, in no acute distress, pleasant and cooperative. NECK: There is no JVD. LUNGS: Have coarse breath sounds bilaterally. There is intermittent rhonchi and wheezes bilaterally. CARDIOVASCULAR: S1, S2, regular rate and rhythm. ABDOMEN: Soft. EXTREMITIES: She has edema bilaterally. Her toes are warm at this time. Pulses are faint. She has normal capillary refill. All of her wounds on her left foot have definitely improved from the last time I have seen them. A lot of the areas are resolving and appear stable at the present time. The right heel also is dry. There is an eschar. It is measuring approximately 3.5 x 3.5 cm. It is starting to lift off on it own at the present time. I do not see any purulence. There is no sign of cellulitis. There is no odor. There is no sign of infection. LABORATORY DATA: Show a white count of 14.6 today down from 16, hemoglobin is low at 8.5, platelets are 260. Sodium is 146. BUN is 56, creatinine is 2, which is down from 70 and 4. Her potassium is 3.4. Glucose was 178 earlier, it is 96 now. LFTs are normal. Albumin is markedly low at 1.8 and total protein is low at 6.1. Her chest x-ray was read as bibasilar atelectasis with superimposed more confluent opacity in the lingula suspicious for atelectasis versus developing infiltrate. She had a urine culture done, which shows Proteus 50,000 units. ASSESSMENT AND PLAN: Multiple pressure ulcers of the left foot, have definitely healed and are definitely improving and stable. The right heel ulceration appears to be a stable eschar. At this point, I would keep it dry and offloaded as much as possible. I know she was sent to the longterm with a Multi Podus splint. It does not seem to be available here. We should at least use 2 pillows under the calf to float the heels. No direct pressure to these wounds at all will be advised. She did have an x-ray done back in November. We can repeat that for the right heel to see if there have been any bony changes. Offloading has been a challenge in the past and it is utmost important to prevent worsening of these wounds. I would also recommend a Vascular consultation for the patient once she is medically stable; however, with all her multiple medical problems, she may not be a candidate for any intervention at this time. [place], [place] REPORT OF CONSULTATION NAME: YOLANDA BEARDEN UNIT #: [id number] ROOM: 426 DOCTOR: FERMÍN DE LA O M.D. BIRTHDATE: [birth year] FERMÍN DE LA O MD CM:CONSTR:REPORT OF CONSULTATION 1108 01/23/17 0242 interface
--- NOTE | ~2017-01-20 | PR ---
[place], [place] PROGRESS NOTE NAME: YOLANDA BEARDEN UNIT #: [id number] ROOM: 426 DOCTOR: JUDY PARTIDA MD,RADHA BIRTHDATE: [birth year] DOS: 01/25/2017 PULMONARY PROGRESS NOTE SUBJECTIVE: The patient has been noted without any ongoing acute new respiratory complaints at the present time. She has been noted comfortable, resting on the bed. The coughing for the patient has been noted decreased after the bronchoscopy. OBJECTIVE: VITAL SIGNS: For the patient, which have been recorded showed the temperature of the patient noted as normal. The respiratory rate of the patient recorded as 20, heart rate 93, blood pressure 139/53. HEENT: Examination shows no acute change. NECK: Supple. CARDIOVASCULAR: S1, S2 is audible. LUNGS: The patient was noted without any wheezing or crackles at the present time. ABDOMEN: Soft and nontender. LABORATORY DATA: Ultrasound of the gallbladder was done today for the patient was noted with cholelithiasis without any evidence of cholecystitis. CBC of the patient this morning, WBC count 19.2, hemoglobin 8.9, hematocrit 28.8, platelet count was normal. The BMP of patient this morning was noted BUN 27, creatinine 1.42. Carbon dioxide 34. Potassium 3.4, sodium 151. IMPRESSION: The patient's stable respiratory status was noted as acute on chronic hypoxic respiratory failure, acute, resolving pneumonia. Cholelithiasis of the patient was also noted. CT scan of the abdomen and pelvis was done yesterday of the patient showed distended gallbladder without any gallstones. Mild right-sided hydronephrosis of the patient noted with perinephric stranding without any renal or ureteral calculus. The culture of the urine was also noted with 75,000 colony forming units of gram-positive cocci. PLAN OF TREATMENT: Continue the current plan of management from the pulmonary standpoint. Continuation of the oxygen supplementation, bronchodilators, other plan and management and care. Usual treatment, other therapies as in progress. Supportive plan of management. Other care as in progress. Continue the further assessment of the urinary tract infection, monitoring the culture results. Continue current antibiotics as well. No changes in the other plan of management at this time will be done. [place], [place] PROGRESS NOTE NAME: YOLANDA BEARDEN UNIT #: [id number] ROOM: 426 DOCTOR: JUDY PARTIDA MD,RADHA BIRTHDATE: [birth year] RADHA KIM MD CM:PNTRANS [phone] RADHA PARTIDA MD 01/26/1731 interface
--- NOTE | ~2017-01-20 | PR ---
[place], [place] PROGRESS NOTE NAME: YOLANDA BEARDEN UNIT #: [id number] ROOM: 426 DOCTOR: YASMIN BARRIENTOS MD BIRTHDATE: [birth year] DOS: 01/22/2017 SUBJECTIVE: The patient is not agitated this morning. She is awake and alert and fairly oriented. Answers questions. She was quite agitated during the night, tried to pull out her PICC line, the Moya catheter and had to start a one-on-one. OBJECTIVE: VITAL SIGNS: Blood pressure is 127/58, pulse of 87, respirations 20, temperature 97.6. LUNGS: Diminished breath sounds, scattered rales heard bilaterally, quite a lot of secretions noted. HEART: Regular. ABDOMEN: Obese, soft. EXTREMITIES: Without any edema. The heel is pretty much the same as yesterday. No changes noticed, just a dry eschar seen. LABORATORY DATA: Urine culture: Proteus mirabilis. Sputum cultures Proteus mirabilis. Iron was 59. ASSESSMENT AND PLAN: 1. The patient with elevated white cell count and sepsis criteria with sputum and urine culture showing Proteus mirabilis, on appropriate antibiotics. 2. Agitation, multifactorial encephalopathy from possible underlying infection as well as depression. The patient will have a consultation with Dr. Moyer. We will discontinue the one-on-one for right now. 3. Anemia, most likely anemia of chronic disease, iron levels were normal. Because of the heme-positive stools, I discontinued the Aspirin, we will continue the Plavix right now. 4. PICC line was pulled, placement recent. The patient did pull out the PICC line, but it still in position for the continued usage. 5. Renal insufficiency, acute last blood work on 01/17/2017 showed a creatinine of 2.18 this admission, creatinine was 4.01, acute renal failure is possibly acute tubular necrosis from hypotension. The patient is getting hydration. Repeat labs again shows improvement in the creatinine down to 2.13. Electrolytes show sodium 146, potassium 3.4, chloride 112. Hypokalemia, supplementation will be ordered for that. Discussed with Dr. Rodriguez, scheduled for a bronchoscopy tomorrow and should be able to go back to the alf on the current IV antibiotics. [place], [place] PROGRESS NOTE NAME: YOLANDA BEARDEN UNIT #: [id number] ROOM: 426 DOCTOR: YASMIN BARRIENTOS MD BIRTHDATE: [birth year] YASMIN BARRIENTOS MD CM:PNTRANS [id number] YASMIN BARRIENTOS MD 01/23/17 0058 interface
--- NOTE | ~2017-01-20 | PR ---
[place], [place] PROGRESS NOTE NAME: YOLANDA BAERDEN UNIT #: [id number] ROOM: 426 DOCTOR: RADHA LAKE MD BIRTHDATE: [birth year] DOS: 01/22/2017 PULMONARY FOLLOWUP SUBJECTIVE: She has been noted excessive chest congestion and coughing with minimal sputum expectoration. The patient denies symptoms of abdominal pain, noted fully awake and alert this morning at the time of the assessment. The antibiotics the patient was continued as previously. The diuretics were also continued. OBJECTIVE: VITAL SIGNS: Shows normal temperature, respiratory rate 20, heart rate 106, blood pressure 122/80. The pulse oxygen saturation on ____ liters cannula was 100% saturation. HEENT: Examination shows head was atraumatic. NECK: Supple. CARDIOVASCULAR: S1, S2 audible. LUNGS: Shows basilar scattered crackles without any wheezing. ABDOMEN: Soft, nontender. It was obese. EXTREMITIES: Shows no edema. LABORATORY DATA: BMP today: BUN of 56, creatinine 2.13. Blood culture of patient shows no bacterial growth. CBC of the patient this morning were noted WBC count 14.6, hemoglobin 8.5, hematocrit 27.1. Platelet count 260,000. Blood culture ____, which were taken for this patient were noted without any acute bacterial growth. IMPRESSION: 1. The patient has been currently treated for the acute pneumonia. The patient with gram-negative infection. 2. Urinary tract infection. 3. The patient with acute exacerbation of bronchial asthma as well. 4. Mild acute kidney injury for the patient was noted as well with resolving edema. PLAN OF MANAGEMENT: The bronchoscopy was assessed and was planned to be done in the morning. Hold off the diuretic therapy and monitor kidney functions. Risk and benefits of the bronchoscopy were discussed with the patient. In the meantime, continue other previous treatment therapy, plan and management and usual care. Supportive care, other plan and management as in progress. Further treatment changes will be done based on the progression of the illness. [place], [place] PROGRESS NOTE NAME: YOLANDA BEARDEN UNIT #: [id number] ROOM: 426 DOCTOR: RADHA LAKE MD BIRTHDATE: [birth year] RADHA KIM MD CM:PNTRANS [id number] RADHA PARTIDA MD 01/23/17 0603 interface
--- NOTE | ~2017-01-20 | PR ---
[place], [place] PROGRESS NOTE NAME: YOLANDA BEARDEN UNIT #: [id number] ROOM: 426 DOCTOR: CINDA PARKER MD BIRTHDATE: [birth year] DOS: 01/28/2017 GASTROENDOSCOPIC REPORT HISTORY OF PRESENT ILLNESS: The patient has presented with multiple medical problems, among which has been abdominal epigastric distress, pneumonic infiltrate, coronary artery disease, congestive heart failure, sepsis, diabetes mellitus. SOCIAL HISTORY: Passive smoker. Nonalcohol consumer. ALLERGIES: TO PENICILLIN AND IVP DYE. She has been awakened today and she is serving herself with the meal in bed. There is a significant improvement from yesterday. White blood cell, however, is 19, H and H of 8 and 28. Basic metabolic panel: Potassium 3.4, sodium and chloride 146 and 111, all was recognized. REVIEW OF SYSTEMS: No hematemesis, no hematochezia. Complains of shortness of breath. She continues with shortness of breath in a continuous pace, which has worsened recently because of pneumonia. No diarrhea. No hematemesis, however. PHYSICAL EXAMINATION: VITAL SIGNS: Stable. HEENT: Within normal limits. NECK: Supple. LUNGS: Decreased air entry bilaterally. HEART: Normal sinus rhythm, no gallop, no murmur. ABDOMEN: Soft. No hepato-organomegaly. Bowel sounds present. EXTREMITIES: No cyanosis, no pedal edema. NEUROLOGIC: Alert and oriented. IMPRESSION: Pneumonic infiltrate, leukocytosis and anemia. OTHER ADJUNCTIVE DIAGNOSES: As outlined in paragraph of past medical and surgical history. PLAN AND DISCUSSION: We will await stabilization. Thank you very much indeed. Sincerely yours, [place], [place] PROGRESS NOTE NAME: YOLANDA BEARDEN UNIT #: [id number] ROOM: 426 DOCTOR: CINDA PARKER MD BIRTHDATE: [birth year] CINDA PARKER MD CM:PNTRANS [id number] CINDA PARKER MD 01/29/17 0326 interface
--- NOTE | ~2017-01-20 | PR ---
[place], [place] PROGRESS NOTE NAME: YOLANDA BEARDEN UNIT #: [id number] ROOM: 426 DOCTOR: NICOLE POLK MD BIRTHDATE: [birth year] DOS: 01/27/2017 SUBJECTIVE: The patient complaining of some nausea, which she does get off and on. PHYSICAL EXAMINATION: VITAL SIGNS: Blood pressure 102/42, afebrile, pulse ox 95-99%, heart rate of 86 beats per minute. GENERAL APPEARANCE: The patient is alert and oriented x 3, in no visible distress. Generalized weakness and obesity. HEENT AND NECK: Exam within normal limits. CARDIOVASCULAR SYSTEM: Heart rate is regular in rate and rhythm. S1 and S2 normally audible. LUNGS: Clear to auscultation. ABDOMEN: Soft, nontender. No obvious organomegaly. Bowel sounds are present. EXTREMITIES: Without significant cyanosis or edema. IMPRESSION: 1. The patient with an episode of nausea, which will be treated with one dose of Zofran. 2. The patient with acute bacterial pneumonia with sepsis. The patient's CT of the chest showed lingular pneumonia, which is being treated and she had leukocytosis with white cell count of 19,000. I will repeat CBC tomorrow. Apparently, Dr. Rodriguez thinks she has achieved maximal benefit from this admission and if her white cell counts are improving, she can be discharged back to the long-term tomorrow. 3. Cholelithiasis without evidence of cholecystitis on HIDA scan. 4. The patient with CHF and pulmonary fibrosis and some old pulmonary nodules on CT of the chest. 5. Hypokalemia, treated with extra potassium supplements. I will repeat serum electrolytes in the morning. NICOLE POLK MD CM:PNTRANS [phone] NICOLE POLK MD 01/28/17129 interface
--- NOTE | ~2017-01-20 | WRIGHTHP ---
[place], [place] PATIENT HISTORY AND PHYSICAL EXAM NAME: [facility]ARD[id number] UNIT #: [id number] ROOM: 426 DOCTOR: YASMIN BARRIENTOS MD BIRTHDATE: [birth year] DOS: HISTORY OF PRESENT ILLNESS: The patient is 61 years old patient of Dr. Solis. She was a resident at [facility], was sent out to the Emergency Room because of abnormal labs. The patient was admitted recently to the hospital with pneumonia. After that, she was sent to [facility] and she was placed on antibiotics for pneumonia and she was discharged to [facility] with a PICC line. She came back on the for a PICC line placement, but was sent out yesterday because the nursing staff noted some abnormal labs. Her white cell count is 16,000 on the blood work, so she was sent out. Chest x-ray was done in the ER, which showed worsening of pneumonia. PAST MEDICAL HISTORY: 1. Significant for multiple admissions for pneumonia. 2. Major depression, recurrent. 3. Generalized anxiety disorder. 4. Adult failure to thrive. 5. Type 2 diabetes mellitus. 6. Diabetic nephropathy with chronic kidney disease. 7. Protein-calorie malnutrition, moderate. 8. Coronary artery disease of [place] coronaries. 9. Paranoid disorder. 10. Gastroesophageal reflux disease. 11. Benign hypertension. 12. Pulmonary fibrosis, mixed hyperlipidemia. CURRENT MEDICATIONS: Include Incruse Ellipta, Brio Ellipta, DuoNeb, vancomycin IV, aspirin 81 daily, atorvastatin 10 daily, Bumex 2 mg daily, Plavix 75 daily, Cipro 500 b.i.d., Colace 100 daily, duloxetine 90 daily, Lasix 20 daily, gabapentin 300 b.i.d., guaifenesin 600 daily, Isordil 30 daily, lisinopril 7.5 daily, metoprolol 50 mg twice a day, potassium 10 daily. SOCIAL HISTORY: Nonsmoker. PHYSICAL EXAMINATION: GENERAL: She is mostly nonverbal, occasionally she mumbles a few answers states she did have some mild nausea. She does not make much eye contact. VITAL SIGNS: Graphic trend shows a pressure 120/52, pulse of 98, respirations 20, temperature 97.5. LUNGS: Diminished breath sounds, few scattered rhonchi. HEART: Regular. ABDOMEN: Obese, soft. EXTREMITIES: Trace edema bilaterally. LABORATORY DATA: Sputum culture shows Proteus mirabilis. Urine culture shows Proteus mirabilis. It is sensitive to very few antibiotics not Cipro, vancomycin that she is currently on. ASSESSMENT AND PLAN: 1. Sepsis with Proteus mirabilis adjustment in antibiotics will be made. [place], [place] PATIENT HISTORY AND PHYSICAL EXAM NAME: YOLANDA BEARDEN UNIT #: [id number] ROOM: 426 DOCTOR: YASMIN BARRIENTOS MD BIRTHDATE: [birth year] 2. Pneumonia, possible gram-negative, it could be from the Proteus mirabilis. This is isolated in the sputum. Again, adjustments in medications to made, consult Dr. Rodriguez. Also we will need to rule out aspiration because of the continued chronicity of this condition. The patient to be kept n.p.o. Speech consultation has been obtained. 3. Major depression. She has significant not making much eye contact. I will continue the Cymbalta for right now. Once the white cell count comes down, the patient should be able to go back to the group home. 4. Anemia, iron levels will be ordered. She has heme positive stools. We will discontinue aspirin, but continue the Plavix. We will transfuse if the hemoglobin drops below 7.2. YASMIN ABRRIENTOS MD CM:HISPHYS:PATIENT HISTORY AND PHYSICAL EXAMINATION [phone] [id number] YASMIN BARRIENTOS MD 01/21/172019 interface
--- NOTE | ~2017-01-20 | CON ---
[place], [place] REPORT OF CONSULTATION NAME: YOLANDA BEARDEN UNIT #: [id number] ROOM: 426 DOCTOR: CINDA PARKER MD BIRTHDATE: [birth year] DOS: 01/27/2017 HISTORY OF PRESENT ILLNESS: The patient has presented with chief complaint of anemia and I have been asked for assessment of the patient in this regard. There is no much meaningful communication with the patient. Labs and records of her was identified. She is on oxygen mask at the present time. She has been here several days. Recent labs and records have been reviewed. A CT scan of the abdomen and pelvis without contrast has been assessed, distended gallbladder with underlying gallstone and question of mild gallbladder wall thickening, bilateral dilation of pericholecystic inflammatory changes difficult to exclude cholecystitis, consider HIDA scan, which HIDA scan was negative. Mild right-sided hydroureter and hydronephrosis was noticed. Suspected early fibrotic changes in the lung and suspected pneumonia has been addressed. She is on vancomycin. Urine culture was 75,000 gram-positive ____ bacilli has been noticed. Chest x-ray bilaterally was done. Findings compatible with congestive failure superimposed and diffuse moderate pleural fibrosis and scattered pulmonary nodules, all have been recognized. Sonogram of the gallbladder, cholelithiasis without evidence of cholecystitis, latest white blood cell has been 19. H and H of 8 and 28 in sequence was noticed. BUN and creatinine 27 and 1.4, potassium of 3.4. Labs reviewed, records reviewed. PAST MEDICAL HISTORY: Sepsis, congestive failure, coronary artery disease, chronic back pain, renal insufficiency, pneumonic infiltrate, pulmonary fibrosis, hypertension, failure to thrive, diabetes mellitus, all has been recognized. MEDICATIONS: Reviewed. SOCIAL HISTORY: Nonsmoker at the present time. Past smoker; however, resides in a [place] [facility]. ALLERGIES: PENICILLIN PRODUCTS AND IVP DYE. REVIEW OF SYSTEMS: Not much of detail information can be obtained from her. The answer to most of the questions is no, review of 11-point review is negative. PHYSICAL EXAMINATION: GENERAL: Borderline obese. HEENT: Head normocephalic, nontraumatic. Mouth and buccal mucosa benign. NECK: Supple, no thyromegaly. CHEST: Symmetric anatomy, equal expansion. No wheeze, no rhonchi. HEART: Normal sinus rhythm, no gallop, no murmur. ABDOMEN: Obese, large, soft. No hepato-organomegaly. Bowel sounds present. No pulsatile mass. Bowel sounds present. EXTREMITIES: No cyanosis. No pedal edema. NEUROLOGIC: Alert, oriented to time, place and person. IMPRESSION: Pneumonic infiltrate, cholelithiasis, pulmonary fibrosis, congestive failure, aspiration of barium, anemia, all have been recognized. [place], [place] REPORT OF CONSULTATION NAME: YOLANDA BEARDNE UNIT #: [id number] ROOM: 426 DOCTOR: CINDA PARKER MD BIRTHDATE: [birth year] Other adjunctive diagnoses as outlined above. Past medical and surgical history, I will be standing by once her pneumonic issues is addressed and she may need investigation of her source of anemia except contribution from her multifactorial concerns. CINDA PARKER MD CM:CONSTR:REPORT OF CONSULTATION 1124 01/27/17 1601 interface
--- NOTE | ~2017-01-20 | CON ---
[place], [place] REPORT OF CONSULTATION NAME: YOLANDA BEARDEN UNIT #: [id number] ROOM: 426 DOCTOR: RADHA LAKE MD BIRTHDATE: [birth year] DOS: 01/21/2017 PULMONARY CONSULTATION, EVALUATION AND MANAGEMENT REASON FOR CONSULTATION: To assess the patient for acute pneumonia and tracheobronchitis for the patient with gram-negative infection. HISTORY OF PRESENT ILLNESS: This is a 61-year-old white female who has been currently treated at the senior living [facility] for medical management of current problem, developed acute exacerbation of COPD and acute aspiration pneumonia suspected with congestive heart failure. The patient has a sputum culture ordered for 19 January and has been started on oral ciprofloxacin for this patient as well as IV Solu-Medrol, use of the IV diuretics and vancomycin. The patient has been sent to the Emergency Room yesterday as the patient has been noted with abnormal labs for this patient, which were drawn as well. The patient's culture of the sputum, which was sent from the nursing facility were noted abnormal with positive growth of Proteus mirabilis and unfortunately noted resistant to the ciprofloxacin. The patient has been hospitalized at this time and has been started on appropriate antibiotic coverage for the patient based on the current sensitivity results with the ceftazidime. The patient has been noted comfortable at this at time. At the time of assessment, the coughing, shortness of breath, all the symptoms has been improving as compared with the assessment for the patient, which was done on at the senior [facility]. She denies any symptoms of chest pain. The cough has been noted for the patient with reduction in the severity and the sputum expectoration. The patient was also noted reduction in symptoms of wheezing. The patient has a PICC line inserted 2 days ago for this patient for the IV access because of the poor peripheral venous access. REVIEW OF SYSTEMS: CONSTITUTIONAL SYMPTOMS: Generalized weakness and fatigue for the patient noted which has been improving. EYES: Denies any burning, redness, or tenderness. EARS, NOSE, THROAT SYMPTOMS: No sore throat, hoarseness, otalgia, or postnasal drainage. CARDIOVASCULAR SYSTEM: She had been noted with edema of the lower extremity, which is improving. There were no symptoms of syncopal episodes, chest pain or angina pain. GASTROINTESTINAL SYMPTOMS: Denies dysphagia, nausea, vomiting, diarrhea, abdominal pain, hematemesis, melena, or hematochezia. SKIN: No lesions or rashes. MUSCULOSKELETAL SYMPTOMS: Denies acute joint pain, redness, or tenderness. CENTRAL NERVOUS SYSTEM: Denies dizziness, headache, diplopia or syncopal episodes. Remaining systems were reviewed with the patient, they were noted all negative. PAST MEDICAL HISTORY: Noted as: 1. History of uncomplicated [id number] persistent bronchial asthma. 2. Essential hypertension. [place], [place] REPORT OF CONSULTATION NAME: YOLANDA BEARDEN UNIT #: [id number] ROOM: 426 DOCTOR: JUDY PARTIDA MD,RADHA BIRTHDATE: [birth year] 3. Gastroesophageal reflux. 4. Coronary artery disease. 5. Generalized anxiety disorder and major depression. 6. Past history for this patient of peripheral vascular disease. 7. Past history of nicotine abuse. 8. Squamous cell cancer of the left upper lobe for the patient treated with the radiation therapy with some scarring in that area. 9. Chronic hypoxic respiratory failure, use of oxygen 2 liters nasal cannula. 10. Intermittent congestive heart failure with diastolic dysfunction. 11. Intervertebral disk disease. SURGICAL HISTORY: 1. Tonsillectomy. 2. . 3. Coronary artery bypass grafting. 4. Cardiac catheterization with coronary artery stents insertion. 5. Partial hysterectomy. 6. Diskectomy of the left lower ____. 7. Left femoropopliteal bypass grafting. 8. CT guided needle aspiration of the left upper lung mass for this patient in January 2015. 9. Bilateral cataract extraction. 10. Fiberoptic bronchoscopy that was done in December 2016. SOCIAL HISTORY: The patient is , has 2 children, currently being treated at senior living facility. She does not have any history of alcohol use or any illicit drug use. Tobacco use was noted for the patient at the age of [age] years old that has been discontinued for the patient previously. There is no history of alcohol or illicit drug use. FAMILY HISTORY: The patient's mother at the age of 67. She has a complication of unknown cancer. The father from complication related to metastatic cancer of unknown primary. MEDICATIONS: Current administered medications for the patient were noted as use of Lipitor, Cymbalta, Invega, metoprolol tartrate, Mucinex, Neurontin, Plavix, DuoNeb, ceftazidime and other p.r.n. medications administration. DRUG ALLERGY HISTORY: Noted allergy to the: 1. IVP DYE. 2. AMPICILLIN AND AMOXICILLIN. PHYSICAL EXAMINATION: GENERAL: This is a 61-year-old female who has been currently noted to be awake and alert without any distress, height of 5 feet 5 inches, weight of 205 pounds, BMI 34.1. VITAL SIGNS: Show a normal temperature, respiratory rate of 20-18, heart rate of 98-130 noted for this patient one time in admission. Blood pressure was noted 126/53-120/52. Pulse oxygen saturation of the patient recorded on 2-1/2 liters nasal cannula 97% saturation. [place], [place] REPORT OF CONSULTATION NAME: YOLANDA BEARDEN UNIT #: [id number] ROOM: 426 DOCTOR: RADHA LAKE MD BIRTHDATE: [birth year] HEENT: Examination showed mild facial edema and fluid retention finding. Head was atraumatic. Eyes nonicterus. NECK: Supple. CARDIOVASCULAR SYSTEM: S1, S2 audible. LUNGS: The patient was noted with scattered expiratory wheezing with basilar crackles. ABDOMEN: Soft, nontender. EXTREMITIES: Shows minimal edema at this time. LABORATORY DATA: Culture of the sputum from the senior living facility ____ for this patient shows Proteus mirabilis isolation, which were noted resistant to the fluoroquinolones and noted sensitive to the ceftazidime, Invanz, gentamicin, penicillin and tobramycin. Vancomycin trough level for the patient noted 15.3. The culture of the urine was also noted moderate gram-negative bacilli isolation pending identification and sensitivities. Chest x-ray 4 days for this patient was noted PICC line noted in place, basilar area of infiltration for this patient was noted, in the lingula and lower lobes. IMPRESSION: 1. Acute pneumonia with gram negative infection as Proteus mirabilis. 2. The patient with chronic hypoxic respiratory failure, stable. 3. Congestive heart failure with diastolic dysfunction, improving. 4. History of lung cancer which has been known previously treated in the right lung, possibly recurrence in the left lower lobe cannot be completely excluded at this time. 5. History of major depression, other psychiatric problems as well. 6. Overall severe debility secondary to the above. PLAN OF TREATMENT: Antibiotic spectrum to be managed with the patient requiring sensitivity results because of the penicillin sensitivities. The patient has been ordered ceftazidime, which has been tolerated for the medical management of current acute pneumonia. Continuation of the bronchodilators and oxygen supplementation as well as diuretic therapy. Monitoring for peripheral edema for the patient. Continuation of the current oxygen supplementation, use of the BiPAP in case of any worsening of the respiratory status. Usual care. Monitor chest x-ray intermittently. Thanks for allowing me to participate in the care of this patient. [place], [place] REPORT OF CONSULTATION NAME: YOLANDA BEARDEN UNIT #: [id number] ROOM: 426 DOCTOR: JUDY PARTIDA MD,RADHA BIRTHDATE: [birth year] RADHA KIM MD CM:CONSTR:REPORT OF CONSULTATION 1413 01/22/17 1039 interface
--- NOTE | ~2017-01-20 | PROC NOTE ---
[place], [place] PROCEDURE NOTE NAME: YOLANDA BEARDEN UNIT #: [id number] ROOM: 426 DOCTOR: JUDY PARTIDA MD,RADHA BIRTHDATE: [birth year] DOS: 01/23/2017 PROCEDURE: Fiberoptic bronchoscopy. PREOPERATIVE DIAGNOSIS: The patient with coughing with acute pneumonia for this patient with suspected inability to expectorate sputum. POSTOPERATIVE DIAGNOSES: The patient with coughing with acute pneumonia for this patient with suspected inability to expectorate sputum. PROCEDURE DESCRIPTION: Informed consent obtained from the patient. The patient brought to the OR and placed in supine position. Conscious sedation administered by the Anesthesia Department. After achieving appropriate sedation, airway introduced into the mouth. Bronchoscope advanced into the airway into the laryngeal area. Vocal cords were seen for this patient, which were moving symmetrically with movements. Bronchoscope advanced to the vocal cords of the patient into the tracheal lumen. Tracheal lumen was identified and noted with copious amount of thick purulent secretions of the patient with mixture of some mucus. All secretions suctioned out to the tl level. The endobronchial secretions were suctioned out. The tl level noted sharp. Right upper, right middle, right lower, left upper, lingular, lower lobe openings were all identified. Similar secretions present in tracheal lumen, were also present in the endobronchial tree bilaterally, which was sent to the laboratory for culture. Procedure well tolerated without any complications. Postoperative findings will be discussed with the patient once the patient recovers the effects of acute sedation. RADHA KIM MD CM:PROCNOTE:PROCEDURE NOTE [id number] RADHA PARTIDA MD
--- NOTE | ~2017-01-20 | DS ---
[place], [place] DISCHARGE SUMMARY NAME: YOLANDA BEARDEN UNIT #: [id number] ROOM: 426 DOCTOR: NICOLE POLK MD BIRTHDATE: [birth year] DOS: 01/28/2017 DISCHARGE DIAGNOSES: 1. The patient with acute bacterial pneumonia and sepsis, treated and followed by Dr. Rodriguez, the wool shearer. 2. Leukocytosis related to pneumonia and use of corticosteroids. 3. Cholelithiasis without evidence of cholecystitis on HIDA scan. 4. Pulmonary fibrosis and some old pulmonary nodules on CT of the chest. 5. Hypokalemia, replaced with potassium supplements. 6. Anemia of chronic disease. Stool test for iFOBT Hemoccult was negative during this admission. 7. Major depression, recurrent, moderate. 8. Generalized anxiety disorder. 9. Adult failure to thrive. 10. Obesity. 11. Diabetic nephropathy with chronic kidney disease, stage 3A. 12. History of gastroesophageal reflux disease and esophagitis. 13. History of mixed hyperlipidemia. 14. Pulmonary fibrosis. 15. Paranoid disorder. 16. History of coronary artery disease of the [place] vessels. 17. Protein-calorie malnutrition, moderate. 18. Type 2 diabetes mellitus. HOSPITAL COURSE: 1. The patient was admitted by Dr. Campoverde when she presented from the residential with abnormal labs. The patient had a white cell count elevated to 16,000 and a chest x-ray showed lingular pneumonia and she was recommended for admission and further management. Dr. Campoverde treated her for sepsis with Proteus mirabilis and Dr. Rodriguez, the wool shearer, treated her. Dr. Rodriguez cleared her yesterday for discharge back to the residential after treatment with antibiotics since she has clinically improved and asymptomatic now. 2. Major depression, recurrent, moderate, controlled with treatment. 3. Anemia of chronic disease. Hemoccult stools were negative. Dr. Buitrago, the customer loyalty representative, evaluated her during this stay at the hospital. 4. Hypokalemia, for which patient was given extra potassium supplements. 5. Urine cultures grew Enterococcus faecalis, which are being treated with linezolid. DISCHARGE MANAGEMENT: Gabapentin 300 mg at bedtime, Flomax 0.4 mg a day, Tylenol 1000 mg every 6 hours p.r.n. for pain and fever, oxybutynin 5 mg a day, Seroquel 100 mg at bedtime, Lipitor 10 mg a day, Cymbalta 90 mg a day, metoprolol 50 mg b.i.d., guaifenesin 600 mg daily for a week and then to be stopped, Plavix 75 mg daily, DuoNeb every 4 hours as needed, IV vancomycin 2000 mg every other day for 3 more doses, linezolid 600 mg b.i.d. for 3 days and then to be stopped. [place], [place] DISCHARGE SUMMARY NAME: YOLANDA BEARDEN UNIT #: [id number] ROOM: 426 DOCTOR: NICOLE POLK MD BIRTHDATE: [birth year] NICOLE POLK MD CM:COURT [id number] NICOLE POLK MD 01/28/17 2221 interface
--- NOTE | ~2017-01-20 | CON ---
[place], [place] REPORT OF CONSULTATION NAME: YOLANDA BEARDEN UNIT #: [id number] ROOM: 426 DOCTOR: CHARLENE TOVAR MD BIRTHDATE: [birth year] DOS: 01/22/2017 PSYCHIATRIC CONSULT CHIEF COMPLAINT: "I didn't get any rest last night at all." HISTORY OF PRESENT ILLNESS: This is a 61-year-old white female who is well known to me due to multiple medical and psychiatric admissions to the [facility]. The patient has been residing at [facility] and is a patient of Dr. Solis. She has had a lengthy history of COPD, respiratory failure and pneumonia. Most recently, she was admitted to the hospital with pneumonia, sent to the [facility] placed on antibiotics, discharged then back to [facility] with a PICC line. She came back to the hospital on 01/19/2017 for PICC line placement but was once again sent back out into the hospital after nurses at [facility] found her to have an elevated white count of 1600 and worsening pneumonia. Since her admission to the medical unit, the patient has been increasingly more combative and resistive to hands on care. She has also been somewhat confused. PAST MEDICAL HISTORY: Positive for multiple admissions due to pneumonia as well as adult failure to thrive, diabetes, diabetic nephropathy with chronic kidney disease, protein calorie malnutrition, coronary artery disease, GERD, hypertension, pulmonary fibrosis, mixed hyperlipidemia, and major depression, recurrent, with psychotic features. MENTAL STATUS: The patient is alert and oriented to person, place, very approximate to time. She appears somewhat depressed and anxious and admits to the same. She reports not getting any sleep at night. Her responses though tended to be short and simple and at times inappropriate. She exhibited no marko or hypomania and likewise exhibited no agitation, aggression or psychotic symptomatology at the present time. Short term memory does have gaps. DIAGNOSIS: Major depression, recurrent with psychotic features. PLAN: The patient is currently receiving Invega 3 mg in the morning and Cymbalta 90 mg at night. Given the fact that she reports poor sleep and there is some daytime agitation, I will discontinue the Invega in lieu of Seroquel 50 mg in the morning and 100 mg at night. Continue to monitor her. If this passes, I would just prefer to send her back to [facility] as she has been a frequent admission to the [facility] and at this point, she needs to normalize her activity at [facility]. [place], [place] REPORT OF CONSULTATION NAME: YOLANDA BEARDEN UNIT #: [id number] ROOM: 426 DOCTOR: CHARLENE TOVAR MD BIRTHDATE: [birth year] CHARLENE TOVAR MD CM:CONSTR:REPORT OF CONSULTATION 1 01/23/17 0122 interface
--- NOTE | ~2017-01-20 | PR ---
[place], [place] PROGRESS NOTE NAME: YOLANDA BEARDEN UNIT #: [id number] ROOM: 426 DOCTOR: NICOLE POLK MD BIRTHDATE: [birth year] DOS: 01/25/2017 SUBJECTIVE: The patient is awake, alert, without significant complaints. OBJECTIVE: VITAL SIGNS: Blood pressure 116/42, heart rate of 86 beats per minute, breathing 18 times per minute, afebrile. Generalized weakness. GENERAL APPEARANCE: The patient is alert and oriented x 3, in no visible distress. HEENT AND NECK: Exam within normal limits. CARDIOVASCULAR SYSTEM: Heart rate is regular in rate and rhythm. S1 and S2 normally audible. LUNGS: Clear to auscultation. ABDOMEN: Soft, nontender. No obvious organomegaly. Bowel sounds are present. EXTREMITIES: Without significant cyanosis or edema. IMPRESSION AND PLAN: 1. The patient with acute aspiration pneumonia, status post bronchoscopy, being treated with IV antibiotics and followed by Dr. Rodriguez. 2. Chronic urinary retention, treated with Moya catheter. 3. Acute kidney disease. BUN and creatinine of 27 and 1.4. Potassium of 3.4, sodium elevated at 151. The patient being hydrated with IV fluids and I will monitor her serum electrolytes. 4. Leukocytosis with white cell count of 19,000 along with pneumonia and sepsis, being treated and followed closely. 5. The patient also has urinary tract infection with Proteus mirabilis more than 100,000 colonies. The patient is being treated with IV vancomycin and Fortaz. NICOLE POLK MD CM:PNTRANS [id number] NICOLE POLK MD 01/26/17 1541 interface
--- NOTE | ~2017-01-20 | PR ---
[place], [place] PROGRESS NOTE NAME: YOLANDA BEARDEN UNIT #: [id number] ROOM: 426 DOCTOR: RADHA LAKE MD BIRTHDATE: [birth year] DOS: 01/24/2017 SUBJECTIVE: She has been comfortably resting on the bed. Bronchoscopy was completed yesterday with significant amount of mucopurulent material and the mucus plugs cleared out from the endobronchial tree bilaterally. She has been noted with reduction of the chest congestion and cough. Denies symptoms of abdominal pain. OBJECTIVE: VITAL SIGNS: For the patient which have been recorded shows temperature 100.6 degrees Fahrenheit to normal temperature. The respiratory rate for the patient recorded as 20, heart rate 99, blood pressure 150/64. Intake is 2400 mL, output 2300 mL. Pulse oxygen saturation on 2 L nasal cannula 97% saturation recorded. HEENT: Examination shows no acute changes. NECK: Supple. CARDIOVASCULAR: S1, S2 is audible. LUNGS: The patient was noted without any wheezing or crackles at this time. Breath sounds noted mildly decreased bilaterally. ABDOMEN: Soft and nontender. LABORATORY DATA: Chest x-ray, PA and lateral view this morning for this patient shows left lower lobe infiltration for the patient noted, mild pulmonary venous congestion. Culture of the bronchial washing preliminary was noted normal zeyad from yesterday. The Gram stain of the bronchial washing of the patient was recorded as moderate white blood cells, moderate epithelial cells, rare gram-positive cocci in pairs, and rare budding yeast. BMP this morning was noted with BUN 37, creatinine 1.70, glucose 112. IMPRESSION: 1. The patient who has been noted with acute bacterial pneumonia with Klebsiella for the patient's urinary tract infection. 2. Resolving acute kidney injury for the patient as well as congestive heart failure. 3. Debility, multiple or the previous known medical conditions including past history of lung cancer for the patient that has been treated with radiation therapy of the left upper lobe. 4. Aspiration pneumonia. PLAN OF TREATMENT: Continue the patient's current therapy, plan of management as in progress without any changes. Continue her usual medical management therapy, plan of care, the usual treatment and therapies. Supportive care and medical management, plan of care. Further treatment changes will be done based on progression of the illness. [place], [place] PROGRESS NOTE NAME: YOLANDA BEARDEN UNIT #: [id number] ROOM: 426 DOCTOR: RADHA LAKE MD BIRTHDATE: [birth year] RADHA KIM MD CM:PNTRANS [phone] RADHA PARTIDA MD 01/24/17 1200 interface
--- NOTE | ~2017-01-20 | PR ---
[place], [place] PROGRESS NOTE NAME: YOLANDA BEARDEN UNIT #: [id number] ROOM: 426 DOCTOR: JUDY PARTIDA MD,RADHA BIRTHDATE: [birth year] DOS: 01/27/2017 PULMONARY PROGRESS NOTE SUBJECTIVE: She has been noted fully awake and alert. She has been doing very well at this time without any acute respiratory distress. Denies symptoms for chest pain or any abdominal pain. Urine culture noted with Enterococcus faecalis for this patient, that were noted penicillin sensitive species. IMPRESSION: 1. The patient with resolving acute aspiration pneumonia for this patient Gram-positive organisms. 2. Urinary tract infection for patient enterococcus species as well. 3. Improving mental status of the patient progressively. 4. Cholelithiasis, asymptomatic. PLAN OF TREATMENT: No changes from the pulmonary standpoint, the patient could be transferred to the shelter facility/usp again for continuation of current antibiotics. Other treatment plan of management. Usual care. Supportive therapy, plan of care and management. RADHA KIM MD CM:PNTRANS [id number] RADHA PARTIDA MD 01/28/17 0106 interface
--- NOTE | ~2017-01-20 | PR ---
[place], [place] PROGRESS NOTE NAME: YOLANDA BEARDEN UNIT #: [id number] ROOM: 426 DOCTOR: NICOLE POLK MD BIRTHDATE: [birth year] DOS: 01/26/2017 SUBJECTIVE: The patient weak, somewhat short of breath, no new complaints. OBJECTIVE: VITAL SIGNS: Blood pressure 130/59, heart rate 92 beats per minute, breathing 18 times per minute, temperature of 98.1 degrees Fahrenheit. GENERAL APPEARANCE: Generalized weakness. HEENT AND NECK: Exam within normal limits. CARDIOVASCULAR SYSTEM: Heart rate is regular in rate and rhythm. S1 and S2 normally audible. LUNGS: Clear to auscultation. ABDOMEN: Soft, nontender. No obvious organomegaly. Bowel sounds are present. EXTREMITIES: Morbid edema. IMPRESSION: 1. The patient is growing 75,000 colonies of Enterococcus faecalis covered with linezolid on urine cultures. 2. Acute bacterial pneumonia with sepsis, being followed by Dr. Rodriguez, the non destructive evaluation manager, suspected to be aspiration pneumonia. 3. Generalized disability old age and adult failure to thrive with multiple issues. I will try to get her to [facility] for continued care to avoid keeping her ____ in [facility] for too long. The patient has been fully evaluated at the hospital. Cultures have been performed and the patient has been evaluated by the non destructive evaluation manager, Dr. Rodriguez, so she has achieved maximal benefit from her stay at the hospital. This is discussed with social work professor and request for placement has been sent. After treatment at [facility] patient can be sent back to the care home. 4. HIDA scan showed cholelithiasis without any evidence for cholecystitis. 5. CT of the chest findings compatible with congestive heart failure and some pulmonary fibrosis and lingular pneumonia and some old pulmonary nodules. 6. Leukocytosis with 19,000 white cell count and sepsis from pneumonia and urinary tract infection, which is being appropriately treated with antibiotics. 7. Hypokalemia, to be treated with extra potassium supplements. [place], [place] PROGRESS NOTE NAME: YOLANDA BEARDEN UNIT #: [id number] ROOM: 426 DOCTOR: NICOLE POLK MD BIRTHDATE: [birth year] NICOLE POLK MD CM:FELICITY [phone] NICOLE POLK MD 01/27/17 0418 interface
[~2017-01-20 12:17] MED LIST changes: -LASIX20 MG PO; -MUCINEX ER600 MG PO; -PREDNISOLONE SO10 MG PO; -VANCOMYCIN750 MG/250 IV
[2017-01-20 13:03] LABS: HEMATOCRIT 24.3 % (37.0-47.0); MEAN CELL VOLUME 94.6 fl (81.0-99.0); MEAN CORPUSCULAR HGB 31.1 pg (27.0-31.0); MEAN CORPUSCULAR HGB CONC 32.9 g/dl (33.0-37.0); MEAN PLATELET VOLUME 10.2 fl (9.6-12.3); PLATELET COUNT AUTOMATED 212 10*3/uL (130-400); RED BLOOD COUNT 2.57 10*6/uL (4.10-5.10); RED CELL DISTRI WIDTH 15.9 % (0-14.5); WHITE BLOOD COUNT 16.3 10*3/uL (4.8-10.8)
[2017-01-20 13:15] LABS: INTERNATIONAL NORM RATIO 1.1 (2.0-3.5)
[2017-01-20 13:21] LABS: ABG BASE EXCESS -4.6 mmol/L (-2.0-2.0); ABG CO2 CONTENT 20.6 mmol/L (23-27); ABG HCO3 19.5 mmol/l (22-26); ABG TEMPERATURE 99.5 F (98.0-99.0); ARTERIAL BLOOD GAS PH 7.365 (7.35-7.45)
[2017-01-20 13:21] LABS: ALBUMIN 1.8 gm/dl (3.1-4.5); BILIRUBIN, TOTAL 0.4 mg/dl (0.2-1.0); MAGNESIUM 1.8 mg/dL (1.5-2.1); POTASSIUM 4.8 mmol/L (3.5-5.1); TOTAL PROTEIN 6.1 gm/dL (6.4-8.2)
[2017-01-20 13:23] VITALS: BP 101/49
[2017-01-20 13:23] LABS: LYMPHOCYTE # 0.3 10*3/uL (1.3-4.4); MONOCYTE # 1.3 10*3/uL (0.1-1.0); NEUTROPHIL # 14.7 10*3/uL (2.3-7.9); NEUTROPHILS 90 % (47-73); PLATELET SUFFICIENCY NORMAL (NORMAL); TOTAL CELLS COUNTED 100 #CELLS; TOXIC GRANULATION SLIGHT
[2017-01-20 13:24] LABS: AUER RODS FEW
[2017-01-20] MEDS ORDERED: CIPRO500 MG PO (13:50)
[2017-01-20 13:51] LABS: BILIRUBIN NEGATIVE (NEGATIVE); BLOOD 2+ (NEGATIVE); CLARITY CLOUDY (CLEAR); COLOR YELLOW (YELLOW); GLUCOSE NEGATIVE (NEGATIVE); KETONE NEGATIVE (NEGATIVE); LEUKO ESTERASE 3+ (NEGATIVE); NITRITE NEGATIVE (NEGATIVE); PH >= 9.0 (5.0-9.0); PROTEIN 2+ (NEGATIVE); SPECIFIC GRAVITY 1.015 (1.005-1.030); UROBILINOGEN 0.2 E.U./dl (0.2-1.0)
[2017-01-20] MEDS ORDERED: LASIX20 MG PO (13:52)
[2017-01-20] MEDS ORDERED: MUCINEX ER600 MG PO (13:54)
[2017-01-20] MEDS ORDERED: INCRUSE EL62.5 MCG/A IH (13:55)
[2017-01-20] MEDS ORDERED: PREDNISOLONE SO10 MG PO (13:59)
[2017-01-20 14:00] LABS: BACTERIA 2+; URINE REFLEX COMMENT YES (NO); WBC TNTC wbc/hpf (0-5)
[2017-01-20] MEDS ORDERED: PREDNISONE10 MG PO (14:00)
[2017-01-20] MEDS ORDERED: VANCOMYCIN750 MG/250 IV (14:02)
[2017-01-20 14:30] VITALS: BP 104/50
[2017-01-20 15:13] VITALS: BP 110/55
[2017-01-20 17:06] VITALS: BP 126/53
[2017-01-20 20:27] VITALS: BP 116/39
[2017-01-21] VITALS: BP 133/51
[2017-01-21 08:36] VITALS: BP 120/52
[2017-01-21 16:00] VITALS: BP 131/50
[2017-01-22] VITALS: BP 127/58
[2017-01-22 06:56] LABS: HEMATOCRIT 27.1 % (37.0-47.0); HEMOGLOBIN 8.5 g/dl (12.0-16.0); MEAN CELL VOLUME 97.5 fl (81.0-99.0); MEAN CORPUSCULAR HGB 30.6 pg (27.0-31.0); MEAN CORPUSCULAR HGB CONC 31.4 g/dl (33.0-37.0); PLATELET COUNT AUTOMATED 260 10*3/uL (130-400); RED BLOOD COUNT 2.78 10*6/uL (4.10-5.10); RED CELL DISTRI WIDTH 16.3 % (0-14.5); WHITE BLOOD COUNT 14.6 10*3/uL (4.8-10.8)
[2017-01-22 07:21] LABS: LYMPHOCYTE # 1.5 10*3/uL (1.3-4.4); MONOCYTE # 0.4 10*3/uL (0.1-1.0); MYELOCYTES 1 % (0-0); NEUTROPHIL # 12.6 10*3/uL (2.3-7.9); NEUTROPHILS 86 % (47-73); PLATELET SUFFICIENCY NORMAL (NORMAL); TOTAL CELLS COUNTED 100 #CELLS; TOXIC GRANULATION SLIGHT
[2017-01-22 07:59] LABS: POTASSIUM 3.4 mmol/L (3.5-5.1)
[2017-01-22 08:00] VITALS: BP 122/80
[2017-01-22 13:05] VITALS: BP 137/58
[2017-01-22 16:00] VITALS: BP 145/55
[2017-01-22 20:00] VITALS: BP 154/67
[2017-01-23] VITALS (10 sets, daily range): BP systolic 124–156; BP diastolic 53–70
[2017-01-23 06:14] LABS: HEMATOCRIT 28.2 % (37.0-47.0); MEAN CELL VOLUME 98.9 fl (81.0-99.0); MEAN CORPUSCULAR HGB 31.6 pg (27.0-31.0); MEAN CORPUSCULAR HGB CONC 31.9 g/dl (33.0-37.0); MEAN PLATELET VOLUME 9.7 fl (9.6-12.3); PLATELET COUNT AUTOMATED 313 10*3/uL (130-400); RED BLOOD COUNT 2.85 10*6/uL (4.10-5.10); RED CELL DISTRI WIDTH 16.6 % (0-14.5); WHITE BLOOD COUNT 18.6 10*3/uL (4.8-10.8)
[2017-01-23 06:40] LABS: POTASSIUM 3.7 mmol/L (3.5-5.1)
[2017-01-23 06:44] LABS: MONOCYTE # 1.1 10*3/uL (0.1-1.0); MYELOCYTES 1 % (0-0); NEUTROPHIL # 15.3 10*3/uL (2.3-7.9); NEUTROPHILS 82 % (47-73); PLATELET SUFFICIENCY NORMAL (NORMAL); POLYCHROMASIA SLIGHT; TOTAL CELLS COUNTED 100 #CELLS; TOXIC GRANULATION MODERATE
[2017-01-24] VITALS: BP 145/55
[2017-01-24 06:50] LABS: HEMATOCRIT 27.5 % (37.0-47.0); HEMOGLOBIN 8.6 g/dl (12.0-16.0); MEAN CORPUSCULAR HGB 31.3 pg (27.0-31.0); MEAN CORPUSCULAR HGB CONC 31.3 g/dl (33.0-37.0); MEAN PLATELET VOLUME 9.5 fl (9.6-12.3); PLATELET COUNT AUTOMATED 303 10*3/uL (130-400); RED BLOOD COUNT 2.75 10*6/uL (4.10-5.10); RED CELL DISTRI WIDTH 17.1 % (0-14.5)
[2017-01-24 07:14] LABS: POTASSIUM 3.2 mmol/L (3.5-5.1)
[2017-01-24 07:50] LABS: BASOPHIL # 0.2 10*3/uL (0-0.1); BASOPHILS 1 % (0-1); LYMPHOCYTE # 1.1 10*3/uL (1.3-4.4); MONOCYTE # 1.1 10*3/uL (0.1-1.0); MYELOCYTES 2 % (0-0); NEUTROPHIL # 16.2 10*3/uL (2.3-7.9); NEUTROPHILS 85 % (47-73); TOTAL CELLS COUNTED 100 #CELLS
[2017-01-24 07:51] LABS: PLATELET SUFFICIENCY NORMAL (NORMAL); TOXIC GRANULATION MODERATE
[2017-01-24 08:00] VITALS: BP 150/64
[2017-01-24 09:59] LABS: BILIRUBIN NEGATIVE (NEGATIVE); BLOOD 2+ (NEGATIVE); CLARITY SL CLOUDY (CLEAR); COLOR YELLOW (YELLOW); GLUCOSE NEGATIVE (NEGATIVE); KETONE NEGATIVE (NEGATIVE); LEUKO ESTERASE 2+ (NEGATIVE); NITRITE NEGATIVE (NEGATIVE); PROTEIN 2+ (NEGATIVE); SPECIFIC GRAVITY 1.015 (1.005-1.030); UROBILINOGEN 0.2 E.U./dl (0.2-1.0)
[2017-01-24 10:09] LABS: BACTERIA TRACE; RBC 21-30 rbc/hpf (0-2); URINE REFLEX COMMENT YES (NO); WBC 51-100 wbc/hpf (0-5)
[2017-01-24 13:05] LABS: ACID FAST SPEC PROCESSING Concentration (.)
[2017-01-24 16:00] VITALS: BP 125/50
[2017-01-24 20:00] VITALS: BP 134/45
[2017-01-25] VITALS: BP 142/55
[2017-01-25 06:48] LABS: HEMATOCRIT 28.8 % (37.0-47.0); HEMOGLOBIN 8.9 g/dl (12.0-16.0); MEAN CELL VOLUME 99.7 fl (81.0-99.0); MEAN CORPUSCULAR HGB 30.8 pg (27.0-31.0); MEAN CORPUSCULAR HGB CONC 30.9 g/dl (33.0-37.0); MEAN PLATELET VOLUME 9.9 fl (9.6-12.3); PLATELET COUNT AUTOMATED 282 10*3/uL (130-400); RED BLOOD COUNT 2.89 10*6/uL (4.10-5.10); RED CELL DISTRI WIDTH 17.1 % (0-14.5); WHITE BLOOD COUNT 19.2 10*3/uL (4.8-10.8)
[2017-01-25 06:54] LABS: POTASSIUM 3.4 mmol/L (3.5-5.1)
[2017-01-25 07:12] LABS: BASOPHIL # 0.2 10*3/uL (0-0.1); BASOPHILS 1 % (0-1); EOSINOPHIL # 0.4 10*3/uL (0-0.4); EOSINOPHILS 2 % (1-4); LYMPHOCYTE # 1.7 10*3/uL (1.3-4.4); METAMYELOCYTES 1 % (0-0); MONOCYTE # 0.8 10*3/uL (0.1-1.0); MYELOCYTES 1 % (0-0); NEUTROPHIL # 15.7 10*3/uL (2.3-7.9); NEUTROPHILS 82 % (47-73); PLATELET SUFFICIENCY NORMAL (NORMAL); POLYCHROMASIA SLIGHT; TOTAL CELLS COUNTED 100 #CELLS; TOXIC GRANULATION MODERATE
[2017-01-25 08:28] VITALS: BP 136/60
[2017-01-25 12:05] VITALS: BP 139/53
[2017-01-25 16:00] VITALS: BP 116/42
[2017-01-25 20:00] VITALS: BP 131/60
[2017-01-26] VITALS: BP 130/59
[2017-01-26 16:00] VITALS: BP 118/54
[2017-01-27] VITALS: BP 128/60
[2017-01-27 08:00] VITALS: BP 102/42
[2017-01-27 16:00] VITALS: BP 116/46
[2017-01-28] VITALS: BP 128/55
[2017-01-28 07:06] LABS: HEMATOCRIT 28.4 % (37.0-47.0); HEMOGLOBIN 8.9 g/dl (12.0-16.0); MEAN CORPUSCULAR HGB 31.3 pg (27.0-31.0); MEAN CORPUSCULAR HGB CONC 31.3 g/dl (33.0-37.0); MEAN PLATELET VOLUME 9.8 fl (9.6-12.3); PLATELET COUNT AUTOMATED 255 10*3/uL (130-400); RED BLOOD COUNT 2.84 10*6/uL (4.10-5.10); RED CELL DISTRI WIDTH 15.9 % (0-14.5); WHITE BLOOD COUNT 19.8 10*3/uL (4.8-10.8)
[2017-01-28 07:26] LABS: BASOPHIL # 0.2 10*3/uL (0-0.1); BASOPHILS 1 % (0-1); EOSINOPHIL # 0.4 10*3/uL (0-0.4); EOSINOPHILS 2 % (1-4); METAMYELOCYTES 3 % (0-0); MONOCYTE # 0.8 10*3/uL (0.1-1.0); NEUTROPHIL # 15.8 10*3/uL (2.3-7.9); NEUTROPHILS 80 % (47-73); TOTAL CELLS COUNTED 100 #CELLS
[2017-01-28 07:27] LABS: PLATELET SUFFICIENCY NORMAL (NORMAL); TOXIC GRANULATION SLIGHT
[2017-01-28 07:36] LABS: POTASSIUM 3.4 mmol/L (3.5-5.1)
[2017-01-28 08:00] VITALS: BP 132/62
[2017-01-28] MEDS ORDERED: LINEZOLID600 MG PO (14:01)
[2017-01-28 16:00] VITALS: BP 134/70
== END 2017-01-28 16:30 | DRG 871 ==
LOC: ED 12:17 → 4E 14:24 → EDHOLD 14:24 → 4E 14:39
PROVIDERS: Internal Medicine; Internal Medicine Critical Care Medicine; Nurse Practitioner Family
PROC: 02HV33Z Insertion of Infusion Device into Superior Vena Cava, Percutaneous Approach (ICD-10-PCS; 2017-01-20)
PROC: BD11YZZ Fluoroscopy of Esophagus using Other Contrast (ICD-10-PCS; 2017-01-22)
PROC: 0BC18ZZ Extirpation of Matter from Trachea, Via Natural or Artificial Opening Endoscopic (ICD-10-PCS; principal; 2017-01-23)
PROC: 0BC28ZZ Extirpation of Matter from Carina, Via Natural or Artificial Opening Endoscopic (ICD-10-PCS; principal; 2017-01-23)
PROC: 0BC98ZZ Extirpation of Matter from Lingula Bronchus, Via Natural or Artificial Opening Endoscopic (ICD-10-PCS; principal; 2017-01-23)
PROC: 0BC68ZZ Extirpation of Matter from Right Lower Lobe Bronchus, Via Natural or Artificial Opening Endoscopic (ICD-10-PCS; principal; 2017-01-23)
PROC: 0BC88ZZ Extirpation of Matter from Left Upper Lobe Bronchus, Via Natural or Artificial Opening Endoscopic (ICD-10-PCS; principal; 2017-01-23)
PROC: 0BC58ZZ Extirpation of Matter from Right Middle Lobe Bronchus, Via Natural or Artificial Opening Endoscopic (ICD-10-PCS; principal; 2017-01-23)
PROC: 0BC48ZZ Extirpation of Matter from Right Upper Lobe Bronchus, Via Natural or Artificial Opening Endoscopic (ICD-10-PCS; principal; 2017-01-23)
PROC: 0BCB8ZZ Extirpation of Matter from Left Lower Lobe Bronchus, Via Natural or Artificial Opening Endoscopic (ICD-10-PCS; principal; 2017-01-23)
DX: A41.9 Sepsis, unspecified organism (principal); N17.0 Acute kidney failure with tubular necrosis; J96.21 Acute and chronic respiratory failure with hypoxia; J69.0 Pneumonitis due to inhalation of food and vomit; G93.40 Encephalopathy, unspecified; I50.31 Acute diastolic (congestive) heart failure; J45.901 Unspecified asthma with (acute) exacerbation; J84.10 Pulmonary fibrosis, unspecified; J15.6 Pneumonia due to other Gram-negative bacteria; N39.0 Urinary tract infection, site not specified; I13.0 Hypertensive heart and chronic kidney disease with heart failure and stage 1 through stage 4 chronic kidney disease, or unspecified chronic kidney disease; N13.30 Unspecified hydronephrosis; E87.0 Hyperosmolality and hypernatremia; E44.0 Moderate protein-calorie malnutrition; I25.10 Atherosclerotic heart disease of native coronary artery without angina pectoris; N18.3 Chronic kidney disease, stage 3 (moderate); J44.9 Chronic obstructive pulmonary disease, unspecified; E11.22 Type 2 diabetes mellitus with diabetic chronic kidney disease; K21.9 Gastro-esophageal reflux disease without esophagitis; E66.9 Obesity, unspecified; F41.1 Generalized anxiety disorder; E78.2 Mixed hyperlipidemia; A41.89 Other specified sepsis; K80.20 Calculus of gallbladder without cholecystitis without obstruction; E87.6 Hypokalemia; B95.2 Enterococcus as the cause of diseases classified elsewhere; R62.7 Adult failure to thrive; R33.9 Retention of urine, unspecified; J20.9 Acute bronchitis, unspecified; D63.8 Anemia in other chronic diseases classified elsewhere; F25.1 Schizoaffective disorder, depressive type; F22 Delusional disorders; L89.619 Pressure ulcer of right heel, unspecified stage; L89.899 Pressure ulcer of other site, unspecified stage; Z85.118 Personal history of other malignant neoplasm of bronchus and lung; Z92.3 Personal history of irradiation; Z98.42 Cataract extraction status, left eye; Z98.41 Cataract extraction status, right eye; Z88.1 Allergy status to other antibiotic agents; Z91.041 Radiographic dye allergy status; I25.2 Old myocardial infarction; Z68.34 Body mass index [BMI] 34.0-34.9, adult; Z90.710 Acquired absence of both cervix and uterus; Z95.1 Presence of aortocoronary bypass graft; Z87.891 Personal history of nicotine dependence; Z82.49 Family history of ischemic heart disease and other diseases of the circulatory system; Z80.0 Family history of malignant neoplasm of digestive organs; Z82.0 Family history of epilepsy and other diseases of the nervous system

== ENCOUNTER 2017-02-11 14:26 | Emergency (ER) | payer OTHER ==
[~2017-02-11 14:26] MED LIST changes: +LASIX20 MG PO; +LINEZOLID600 MG PO; +MUCINEX ER600 MG PO; +PREDNISOLONE SO10 MG PO; +VANCOMYCIN750 MG/250 IV
[2017-02-11 15:01] LABS: BASO % 0.3 % (0.0-1.0); EOS # 0.5 10*3/uL (0.0-0.4); EOS % 3.9 % (1.0-4.0); HEMATOCRIT 27.4 % (37.0-47.0); HEMOGLOBIN 8.9 g/dl (12.0-16.0); IG # 0.1 10*3/uL (0.0-0.1); LYMPH # 2.2 10*3/uL (1.3-4.4); LYMPH % 18.8 % (27.0-41.0); MEAN CELL VOLUME 96.5 fl (81.0-99.0); MEAN CORPUSCULAR HGB 31.3 pg (27.0-31.0); MEAN CORPUSCULAR HGB CONC 32.5 g/dl (33.0-37.0); MEAN PLATELET VOLUME 10.3 fl (9.6-12.3); MONO # 1.2 10*3/uL (0.1-1.0); MONO % 9.8 % (3.0-9.0); NEUT # 7.9 10*3/uL (2.3-7.9); NEUT % 66.1 % (47.0-73.0); PLATELET COUNT AUTOMATED 180 10*3/uL (130-400); RED BLOOD COUNT 2.84 10*6/uL (4.10-5.10); RED CELL DISTRI WIDTH 16.1 % (0-14.5); WHITE BLOOD COUNT 11.9 10*3/uL (4.8-10.8)
[2017-02-11 15:22] LABS: ALBUMIN 2.7 gm/dl (3.1-4.5); ALKALINE PHOSPHATASE 75 U/L (45-117); BILIRUBIN, TOTAL 0.5 mg/dl (0.2-1.0); BUN 27 mg/dl (7-24); CARBON DIOXIDE 28 mmol/L (21-32); CHLORIDE 100 mmol/L (98-107); EST GLOM FILT AFRICAN AMERICAN 31 ml/min; GLUCOSE 117 mg/dL (65-99); POTASSIUM 4.8 mmol/L (3.5-5.1); SGOT/AST 13 IU/L (3-35); SGPT/ALT 29 U/L (12-78); SODIUM 135 mmol/L (136-145); TOTAL PROTEIN 6.5 gm/dL (6.4-8.2)
[2017-02-11 15:29] LABS: TROPONIN I < 0.015 ng/ml (<0.045)
[2017-02-11 16:17] LABS: BILIRUBIN NEGATIVE (NEGATIVE); BLOOD TRACE-INTACT (NEGATIVE); CLARITY CLOUDY (CLEAR); COLOR YELLOW (YELLOW); GLUCOSE NEGATIVE (NEGATIVE); KETONE NEGATIVE (NEGATIVE); LEUKO ESTERASE 3+ (NEGATIVE); NITRITE NEGATIVE (NEGATIVE); PROTEIN NEGATIVE (NEGATIVE); SPECIFIC GRAVITY <= 1.005 (1.005-1.030); UROBILINOGEN 0.2 E.U./dl (0.2-1.0)
[2017-02-11 16:23] LABS: BACTERIA 4+; EPITHELIAL CELLS 0-2; RBC 0-2 rbc/hpf (0-2); URINE REFLEX COMMENT YES (NO); WBC TNTC wbc/hpf (0-5)
[2017-02-11] MEDS ORDERED: ZYVOX600 MG PO (16:45)
== END 2017-02-11 17:19 ==
LOC: ED 14:26
PROVIDERS: Nurse Practitioner Family
DX: T14.8 Other injury of unspecified body region (principal); N39.0 Urinary tract infection, site not specified; R31.9 Hematuria, unspecified; M54.2 Cervicalgia; M54.5 Low back pain; Z98.890 Other specified postprocedural states; Z90.710 Acquired absence of both cervix and uterus; Z95.1 Presence of aortocoronary bypass graft; Z87.891 Personal history of nicotine dependence; Z79.899 Other long term (current) drug therapy; Z79.82 Long term (current) use of aspirin; Z91.041 Radiographic dye allergy status; Z88.1 Allergy status to other antibiotic agents; Z91.013 Allergy to seafood; W01.198A Fall on same level from slipping, tripping and stumbling with subsequent striking against other object, initial encounter; Y93.89 Activity, other specified; Y92.89 Other specified places as the place of occurrence of the external cause; Y99.9 Unspecified external cause status

== ENCOUNTER 2017-02-18 12:27 | Inpatient (IN) | payer OTHER ==
[~2017-02-18] VITALS: Ht 172.7 cm; Wt 85.8 kg
[2017-02-18] VITALS (38 sets, daily range): BP systolic 79–141; BP diastolic 39–72
--- NOTE | ~2017-02-18 | PR ---
[place], [place] PROGRESS NOTE NAME: YOLANDA BEARDEN UNIT #: [id number] ROOM: 426 DOCTOR: NICOLE POLK MD BIRTHDATE: [birth year] DOS: 02/23/2017 SUBJECTIVE: The patient is awake and alert without any significant complaints. OBJECTIVE: VITAL SIGNS: Blood pressure 136/66, heart rate of 98 beats per minute, breathing 18 times per minute, temperature of 98.4 degrees Fahrenheit, pulse ox at 99%. GENERAL APPEARANCE: The patient is alert and oriented x 3, in no visible distress. Generalized weakness. HEENT AND NECK: Exam within normal limits. CARDIOVASCULAR SYSTEM: Heart rate is regular in rate and rhythm. S1 and S2 normally audible. LUNGS: Clear to auscultation. ABDOMEN: Soft, nontender. No obvious organomegaly. Bowel sounds are present. EXTREMITIES: Without significant cyanosis or edema. IMPRESSION: 1. The patient with left lower lobe pneumonia, being treated with antibiotics, followed by Dr. Rodriguez. 2. Sepsis from pneumonia and urine infection, resolved with treatment. Blood pressures have normalized. 3. Acute tubular necrosis and acute renal failure secondary to sepsis, is improving with hydration and treatment of sepsis. The patient is being followed by Nephrology. 4. Chronic kidney disease stage 3. 5. Mixed hyperlipidemia, followed and treated. 6. Severe protein-calorie malnutrition. NICOLE POLK MD CM:PNTRANS [id number] NICOLE POLK MD 02/24/17 1645 interface
--- NOTE | ~2017-02-18 | PR ---
[place], [place] PROGRESS NOTE NAME: YOLANDA BEARDEN UNIT #: [id number] ROOM: 426 DOCTOR: NICOLE POLK MD BIRTHDATE: [birth year] DOS: 02/25/2017 SUBJECTIVE: The patient is awake, alert with generalized weakness and slight expiratory wheezing on lung auscultation. OBJECTIVE: GENERAL APPEARANCE: The patient is alert and oriented x 3, in no visible distress. HEENT AND NECK: Exam within normal limits. CARDIOVASCULAR SYSTEM: Heart rate is regular in rate and rhythm. S1 and S2 normally audible. LUNGS: Slight expiratory wheezing on lung auscultation. ABDOMEN: Soft, nontender. No obvious organomegaly. Bowel sounds are present. EXTREMITIES: Without significant cyanosis or edema. IMPRESSION: 1. Sepsis related to the pneumonia and urinary tract infection, resolved. 2. Advanced generalized weakness and adult failure to thrive with recurrent admissions to the hospital. I [facility] the [facility] yesterday, but she could not go because of insurance authorization issues. The patient apparently a good candidate for long-term prison placement. 3. Left lower lobe pneumonia, treated with antibiotics and clinically improved. 4. Severe leukocytosis related to infection, improved with treatment. 5. Urinary tract infection with Pseudomonas aeruginosa, treated appropriately with antibiotics. 6. Cholelithiasis without evidence of any cholecystitis, on HIDA scan in the past. 7. Chronic pulmonary fibrosis and pulmonary nodules on CT chest in the past. 8. Generalized anxiety disorder. 9. Obesity. 10. Type 2 diabetes mellitus with diabetic nephropathy, stage 3A. 11. Coronary artery disease of telida vessels without chest pains. NICOLE POLK MD CM:PNTRANS [id number] NICOLE POLK MD 02/26/17 030 interface
--- NOTE | ~2017-02-18 | PR ---
[place], [place] PROGRESS NOTE NAME: YOLANDA BEARDEN UNIT #: [id number] ROOM: 426 DOCTOR: JUDY PARTIDA MD,RADHA BIRTHDATE: [birth year] DOS: 02/23/2017 PULMONARY PROGRESS NOTE SUBJECTIVE: She has been comfortably resting on the bed at the present time. Denies any symptoms of chest pain, coughing, sputum expectoration. Her heart oral intake was noted quite limited as the patient was eating her breakfast. OBJECTIVE: VITAL SIGNS: For the patient which were recorded shows normal temperature, respiratory rate 20, heart rate 100, blood pressure 136/63. The pulse oxygen saturation for the patient noted on 1 liter nasal cannula 98% saturation. HEENT: Shows head was atraumatic. Eyes nonicterus. NECK: Supple. CARDIOVASCULAR: S1, S2 audible. LUNGS: The patient was noted without any wheezing or crackles at the present time. ABDOMEN: Soft, nontender. EXTREMITIES: Shows mild edema. LABORATORY DATA: CBC this morning, WBC count 13.6, hemoglobin 8.4, hematocrit 26.1 and platelet count was normal. BMP of the patient this morning, BUN 23, creatinine 1.27. IMPRESSION: 1. Progressive resolution of acute kidney injury with improving respiratory status. 2. Urinary tract infection which is also resolving, Pseudomonas aeruginosa. PLAN OF TREATMENT: No changes in the plan of management. Continue current therapy as previously with all other supportive care, plan of management and treatment. RADHA KIM MD CM:PNLIBRA [id number] RADHA PARTIDA MD 02/24/17 0423 interface
--- NOTE | ~2017-02-18 | PR ---
[place], [place] PROGRESS NOTE NAME: YOLANDA BEARDEN UNIT #: [id number] ROOM: 426 DOCTOR: JUYD PARTIDA MD,RADHA BIRTHDATE: [birth year] DOS: 02/20/2017 PULMONARY PROGRESS SUBJECTIVE: She has been currently transferred to telemetry floor. She was resting comfortably, stating mild cough, but there was no sputum expectoration. Denied symptoms of chest pain. She was noted much more awake and alert at this time getting intravenous fluids as well. OBJECTIVE: VITAL SIGNS: Showed normal temperature, respiratory rate 18, heart rate of 98-103, blood pressure 114/68-131/63. Intake 3600 mL, output 4.90 liters. Pulse oxygen saturation of the patient was recorded as 98% on 3 L nasal cannula. HEENT: Examination shows no acute change. NECK: Supple. CARDIOVASCULAR SYSTEM: S1, S2 audible. LUNGS: Noted without any wheezing or crackles at the present time. ABDOMEN: Soft, nontender. LABORATORY DATA: CBC today: WBC count 22,000, hemoglobin 7.7, hematocrit 23.5, platelet count was normal. 93% segmented neutrophils. Urine culture heavy growth of Pseudomonas aeruginosa. The patient was noted sensitive to meropenem, Zosyn, ceftazidime, cefepime and amikacin. It was noted resistant to the fluoroquinolones. Right calcaneal x-ray of the patient was also done which was ordered by the wound management physician for this patient noted degenerative osteoarthritis of the subtalar joint. The soft tissue ulceration described to be improved with partial clearing since November 2016 x-ray comparison. Blood cultures, no bacterial growth for the patient for 02/18/2017. The BMP this morning, BUN 37, creatinine 1.87. IMPRESSION: 1. Acute urinary tract infection for this patient was noted with the leukocytosis, resolving acute kidney injury of the patient progressively as well, suspected pneumonia in the left lower lobe for the patient. 2. History of known lung cancer treated with the radiation therapy without any known recurrence so far. PLAN OF TREATMENT: Continuation of the patient's current therapy, plan of management. The patient responding to the treatment, antibiotic adjustment according to the culture results of the urine. Supportive therapy, plan of management and other care. Usual medical management, other therapy. [place], [place] PROGRESS NOTE NAME: YOLANDA BEARDEN UNIT #: [id number] ROOM: 426 DOCTOR: RADHA LAKE MD BIRTHDATE: [birth year] RADHA KIM MD CM:PNTRANS [id number] RADHA PARTIDA MD 02/21/17 0347 interface
--- NOTE | ~2017-02-18 | PR ---
[place], [place] PROGRESS NOTE NAME: YOLANDA BEARDEN UNIT #: [id number] ROOM: 426 DOCTOR: JUDY PARTIDA MD,RADHA BIRTHDATE: [birth year] DOS: 02/26/2017 SUBJECTIVE: She has been noted awake and alert at this time. The patient had been comfortably resting in the bed. Denies symptoms of acute shortness of breath, coughing or chest pain. OBJECTIVE: VITAL SIGNS: For the patient which were recorded showed the temperature noted as normal. Respiratory rate 20, heart rate of 56, blood pressure 104/54-103/49. The pulse oxygen saturation of the patient recorded as 99% saturation on room air. HEENT: Showed no new change. NECK: Supple. CARDIOVASCULAR: S1, S2 audible. LUNGS: The lung was clear. ABDOMEN: Soft, nontender. LABORATORY DATA: CT scan of the head, which was done yesterday without contrast as the patient described a revision with dizziness was noted no acute intracranial abnormalities. IMPRESSION: Stable respiratory status, resolving acute urinary tract infection. The patient progressively with improving leukocytosis and acute respiratory failure. Acute injury. The patient was also improving progressively. Acute kidney injury other also resolved completely. PLAN OF TREATMENT: No changes in plan of management. The patient has been awaiting for patient admission to the halfway facility. In the meantime, continue patient's current therapy, plan of management as in progress. Usual care. All other care for this patient as well. RADHA KIM MD CM:PNTRANS [id number] RADHA PARTIDA MD 02/27/17 0048 interface
--- NOTE | ~2017-02-18 | CON ---
[place], [place] REPORT OF CONSULTATION NAME: YOLANDA BEARDEN UNIT #: [id number] ROOM: [facility] DOCTOR: JUDY PARTIDA MD,RADHA BIRTHDATE: [birth year] DOS: 02/19/2017 PULMONARY CONSULTATION EVALUATION AND MANAGEMENT NOTE REASON FOR CONSULTATION: To assess the patient's respiratory status. HISTORY OF PRESENT ILLNESS: This is a 61 years old white female known to me with past history of uncomplicated severe persistent bronchial asthma for this patient has been treated in this hospital previously and then later on in the nursing facility. She has been noted with recurrent urinary tract infection with previous VRE was isolated one time as well. She has been admitted to the hospital for this patient because of the significant changes in mental status of the patient noted for this patient at the custodial. The patient was noted with progressive general weakness and fatigue as well. The patient has not been noted with symptoms of chest pain or hemoptysis. She was also noted with a decreased responsiveness as well as the hypoxia noted on 4 L nasal cannula up to 74% oxygen supplementation. I have seen the patient last day was noted in usual condition of the patient and doing very well for this patient at the nursing facility. The patient was placed on a 100% nonrebreather mask and presented to the hospital the patient further assessment. REVIEW OF SYSTEMS: CONSTITUTIONAL: Limited; however, the patient was noted with generalized weakness and fatigue. Denies symptoms of fever or chills. EYES: Denies any burning, redness, tenderness or discharge, or dryness. EAR, NOSE, THROAT SYMPTOMS: No sore throat, hoarseness, otalgia, postnasal drainage. CARDIOVASCULAR SYSTEM: Denies anginal pain or palpitations. The patient intermittent edema of the lower extremities. GASTROINTESTINAL SYMPTOMS: Denies dysphagia, nausea, vomiting, diarrhea, abdominal pain, hematemesis, melena, or hematochezia. GENITOURINARY SYMPTOMS: Denies dysuria, suprapubic pain, hematuria or flank pain. SKIN: Denies lesions or rashes. CENTRAL NERVOUS SYSTEM: Denies dizziness, headache, diplopia. The patient noted mostly bedbound, has not been participating much in the physical therapy and occupational therapy, but there were no focal deficits described. NEUROPSYCH: The patient history of major depression with hospitalization in [facility] for a couple of times as well for the management with adjustment in medications done by the psychiatrist services, Dr. Moyer. Remaining systems were reviewed with the patient, they were noted all negative. PAST MEDICAL HISTORY: 1. For this patient was noted as recent hospitalization for the patient in January 2017. She was admitted to the hospital and treated for acute pneumonia for the patient, left lower lobe for patient with the leukocytosis, which resolved, improved significantly for the patient with antibiotics. 2. History of uncomplicated [id number] persistent bronchial asthma. 3. Essential hypertension. [place], [place] REPORT OF CONSULTATION NAME: YOLANDA BEARDEN UNIT #: [id number] ROOM: [facility] DOCTOR: JUDY PARTIDA MD,RADHA BIRTHDATE: [birth year] 4. Gastroesophageal reflux and acute coronary artery disease. 5. Generalized anxiety disorder. 6. Major depression. 7. Peripheral vascular disease. 8. Previous history of nicotine abuse. 9. Squamous cell cancer, left upper lung treated with the radiation therapy with scarring for this patient remained. 10. Chronic hypoxic respiratory failure, usual use of oxygen 2 liter nasal cannula. 11. History of congestive heart failure, diastolic dysfunction. 12. Intervertebral disk disease. 13. Past history of urinary tract infection including with VRE. PAST SURGICAL HISTORY: 1. Tonsillectomy. 2. . 3. Coronary artery bypass grafting. 4. Cardiac catheterization and coronary artery stent insertion. 5. Partial hysterectomy. 6. Diskectomy of the lower spine for this patient. 7. Left femoropopliteal bypass grafting. 8. CT-guided needle aspirate biopsy of the patient, January 2015. 9. Bilateral cataract extraction, lens implantation. 10. Fiberoptic bronchoscopy last done in January 2017. SOCIAL HISTORY: The patient , has 2 children. She denies any history of alcohol use or any illicit drug use. Tobacco use noted since age of [age] years old, about a pack of cigarettes per day or more, which has been discontinued by the patient previously. FAMILY HISTORY: The patient's mother at the age of 6767 years old, complication of unknown cancer. Father of complication related to metastatic cancer, unknown primary. MEDICATIONS: The current administered medication of the patient noted use of Levaquin, Zyvox and the DuoNeb. DRUG ALLERGY HISTORY: Noted allergy, 1. IVP DYE. 2. AMPICILLIN. PHYSICAL EXAMINATION: GENERAL: A 61-year-old female who has been still noted decreased responsive, but noted more awake, able to answer the question and speaking feebly. The patient's height was recorded by the nursing staff at the current admission with a height of 5 feet 8 inches, weight of 180 pounds, BMI 27.4 recorded. VITAL SIGNS: For the patient showed normal temperature, respiratory rate 22, heart rate 120-92, blood pressure 130/68-116/65. Heart rate appeared to be sinus tachycardia. Intake 4.8 liters. The output of 2750 mL. Positive fluid balance of over 2 liters. The pulse oxygen saturation on 3 liters nasal cannula [place], [place] REPORT OF CONSULTATION NAME: YOLANDA BEARDEN UNIT #: [id number] ROOM: [facility] DOCTOR: RADHA LAKE MD BIRTHDATE: [birth year] 98% saturation recorded. HEENT: Examination shows head was atraumatic. Eyes: No icterus. NECK: Supple. CARDIOVASCULAR SYSTEM: S1, S2 audible. LUNGS: Noted with mild decreased breath sounds noted in the lungs bilaterally. There were no crackles or wheezing. ABDOMEN: Soft, nontender. EXTREMITIES: Shows edema. LABORATORY DATA: CMP of patient on 02/18/2017, the patient noted BUN 49, creatinine 4.19. Glucose 107. Albumin 2.0. PT and PTT of the patient yesterday on admission was normal. Arterial blood gas of the patient of 02/18/2017, pH of 7.39, pCO2 of 41.8, pO2 117. CMP that was done as an outpatient previously of the patient at the nursing facility showed BUN was 21 at that time, creatinine 1.75. The lactic acid yesterday was noted as normal. BMP of the patient this morning, BUN 44, creatinine 2.79, glucose 149. CBC of this morning, WBC count 17.9, hemoglobin 7.4, hematocrit 23.0, platelet count 147,000. CBC for this patient that was done for this patient on 02/18/2017 showed WBC count 21,000, hemoglobin 7.1, hematocrit 22.6, platelet count was normal. CBC as an outpatient of the patient on 02/13/2017 during the stay at the nursing facility showed WBC count 11.6, hemoglobin 9.1, hematocrit 27.8. Chest x-ray of the patient that was done for this patient this morning, PA lateral view for this patient shows possibility of infiltration in the left lower lobe cannot be completely excluded with increased interstitial markings. IMPRESSION: 1. The patient who has been currently admitted to the hospital noted with acute on chronic hypoxic respiratory failure, possibility of pneumonia, left lower lobe cannot be completely excluded. 2. Urinary tract infection was also suspected for this patient as the urinalysis was noted, 3+ leukocyte esterase. 3. Acute kidney injury was noted for the patient with history of chronic kidney disease for this patient as well with the creatinine risen from 1.7 as an outpatient to admission creatinine noted 4.19, most likely related to the current most likely intravascular volume depletion use of diuretics and other reasons. 5. History of lung cancer. 6. Bronchial asthma remains stable without evidence of acute exacerbation. 7. History of recurrent urinary tract infection as well. 8. History of major depression and other medical illnesses. PLAN OF TREATMENT: The patient has been receiving intravenous fluid, reduction in the creatinine in the urinary output. The patient's creatinine will be monitored closely. Nephrology consultation was noted in progress. Continuation of current bronchodilators and the antibiotics. Monitor chest x-ray periodically. The patient does not require any mechanical ventilation at the present time. BiPAP; however, could be used for the patient with stable respiratory status as needed. Monitoring tachycardia. Nutritional support for this patient as tolerated. DVT prophylaxis of the patient will be added to the treatment as well. Use of the vasopressor of the patient necessary to maintain [place], [place] REPORT OF CONSULTATION NAME: YOLANDA BEARDEN UNIT #: [id number] ROOM: [facility] DOCTOR: JUDY PARTIDA MD,RADHA BIRTHDATE: [birth year] mean arterial pressure 65 or greater. Chest x-ray of the patient will be monitored with the repeat chest x-ray was ordered to be done in the next couple of days PA lateral view, the further followup of this left lower lobe process. Continue the oxygen supplementation at this time to maintain a saturation of 92% or greater. Obtain arterial blood gases of the patient for more accurate assessment of the respiratory status. Based on the arterial blood gases, BiPAP could be ordered for this patient if necessary. Further treatment changes will be done for this patient as well as necessary with progression of the illness. Monitor all the culture results as well. Monitoring management by the Nephrology services as well. Thanks for allowing me to participate in the care of this patient. RADHA KIM MD CM:CONSTR:REPORT OF CONSULTATION 1054 02/19/17 2340 interface
--- NOTE | ~2017-02-18 | CON ---
[place], [place] REPORT OF CONSULTATION NAME: YOLANDA BEARDEN UNIT #: [id number] ROOM: 426 DOCTOR: FERMÍN DE LA O M.D. BIRTHDATE: [birth year] DOS: 02/19/2017 WOUND CARE CONSULTATION CHIEF COMPLAINT: Pressure ulcer of the right heel. HISTORY OF PRESENT ILLNESS: This is a 61-year-old female with multiple medical problems and severe debility who [facility] from the [facility] with worsening dyspnea on exertion. She was noted to be hypoxic. Her pulse ox is 74% on 4 liters nasal cannula and she has a history of multiple admissions for respiratory distress and failure. She was recently discharged from this facility on 01/28/2017 for pneumonia. PAST MEDICAL HISTORY: Fairly complicated and includes acute on chronic respiratory failure, acute kidney injury, acute respiratory failure with hypoxia, anemia, anxiety, bilateral pneumonia, brief psychotic disorder, coronary artery disease status post CABG, chest pain, congestive heart failure, chronic back pain, chronic kidney disease stage 3, COPD exacerbation, diabetes, fall, GERD, history of paranoid disorder, hyperlipidemia, hypertension, hypokalemia, hypotension with lactic acidosis, lingular pneumonia, history of lung cancer, major depression, recurrent and chronic, multiple contusions, non-ST elevation [place], obesity, pneumonitis, pulmonary fibrosis, sepsis, septic shock, severe anemia, protein calorie malnutrition, severe tachycardia, urinary retention, UTIs. I had seen her back in December and at that time, the patient had pressure ulcers that were multiple. At that time, she was noted to be confused with altered mental status and depressed. She had a pressure ulcer on her right heel, which has been present for a few months now. The wound had been improving, but then back in December when she was readmitted and transferred to [facility], it was noted to me that the wound had worsened with increased necrotic tissue around it with new areas of pressure injury around the heel. Also, she had multiple pressure injuries on the left foot as well with the dried eschar of her left heel, there were eschars on the lateral side, medial side of the left foot, which were dried and unstageable and areas in between her toes and those ulcers were felt to be possibly caused by the heel devices that were being utilized to help offload the heels. So those were discontinued. At one point, the right heel also was x-rayed, which did not show any bony erosive changes. There was some concern regarding peripheral vascular disease as well where the impression was no hemodynamically significant step-up in velocity were identified; however, there is nothing recorded past the popliteal artery, so to me that was an unclear study. I had recommended for followup with Vascular if the patient was able to go. CURRENT MEDICATIONS: As follows: She is on Levaquin IV q.48 hours 100 mL, heparin subcutaneously 5000 q.12, Zyvox 600 mg IV daily, albuterol nebs q.4 hours p.r.n., norepinephrine to be titrated for effect. ALLERGIES: Multiple and include AMPICILLIN, AMOXICILLIN, IVP DYE, and FISH. SOCIAL HISTORY: She currently is in a [facility]. She does not smoke or drink. She is a former smoker, however. [place], [place] REPORT OF CONSULTATION NAME: YOLANDA BEARDEN UNIT #: [id number] ROOM: 426 DOCTOR: FERMÍN DE LA O M.D. BIRTHDATE: [birth year] PAST SURGICAL HISTORY: section, hysterectomy, endarterectomy, tonsillectomy, adenoidectomy, history of CABG and she had a poorly healing wound of the left lower leg status post CABG, which we did see in the Wound Clinic and it did heal. FAMILY HISTORY: Positive for cancer in the father, myocardial infarction in the father, myocardial infarction in the mother and Parkinson's disease in the mother, brother with history of colon cancer and myocardial infarction. REVIEW OF SYSTEMS: Currently, the patient does not answer any questions for review of systems and they are unobtainable at this time. The staff did report that the patient did eat well and at times is quite conversant and talks easily and other times does not wish to answer any questions. PHYSICAL EXAMINATION: VITAL SIGNS: Currently, she is afebrile, pulse is 127, respirations are 26, blood pressure is 139/64. GENERAL: This is a female lying in bed, does not appear to be in any distress, presently appears very weak and pale and generally debilitated. She is alert. NECK: I do not appreciate any JVD. LUNGS: Have coarse rhonchi bilaterally. CARDIOVASCULAR: S1, S2 regular rate and rhythm. ABDOMEN: Soft and nontender. She has positive bowel sounds. EXTREMITIES: She has edema bilaterally. There is no calf tenderness. She has SCDs on both of her calves. She has a wound located on the right heel that is measuring by my measurements 2 x 2.5 x 0.1 in depth. There is a moderate amount of fibrin, slough present in the base of the wound. So I would characterize it as unstageable ulcer. I am unable to appreciate the base and it is soft and there is some darkened fibrin, slough and necrotic tissue in the middle of the wound that is fairly thick and that is on the center part of the wound. The periwound itself is somewhat tender to touch and that there is no sign of infection as far as there is no sign of cellulitis or purulence. LABORATORY DATA: From admission shows a white count of 21, hemoglobin of 7, hematocrit of 22.6, platelets of 169, neutrophils of 83. Her current white count is down to 17.9 with a hemoglobin of 7.4 and hematocrit of 23. She had a blood gas done which showed a pH of 7.442, CO2 of 32, pO2 of 121, bicarbonate 21. She had a BUN of 44, creatinine of 2.79 which is improved from yesterday, it was 49 and 4.19. Glucose was 149, albumin is 2. Urine has 2+ protein, 2+ blood, 3+ leukocyte esterase, 4+ bacteria. She had a chest x-ray which showed extensive chronic lung changes difficult to exclude acute consolidation in the left base given the extensive chronic lung changes. Due to the fact that the patient has continued soft necrotic tissue in the base of the wound, debridement was recommended. I have known the patient for sometime now. She has been treated in the Wound Clinic on several occasions. I did obtain verbal consent from her who makes medical decisions for her regarding consent for debridement and this was obtained over the phone. Debridement was done today at the bedside. The area was cleansed and prepped in a clean fashion with normal saline. Cetacaine spray was used for topical anesthesia. Timeout was conducted [place], [place] REPORT OF CONSULTATION NAME: YOLANDA BEARDEN UNIT #: [id number] ROOM: 426 DOCTOR: FERMÍN DE LA O M.D. BIRTHDATE: [birth year] prior to the start of the procedure. The tissue removed was fibrin, slough and subcutaneous tissue. There was minimal amount of bleeding. The patient tolerated the debridement well. The instruments used were curette, forceps, and scissors. The predebridement measurements are 2 x 2.5 x 0.2, post-debridement are 2 x 2.5 x 0.2. ASSESSMENT AND PLAN: Right heel ulcers, unstageable at this point. I would use TheraHoney for now for debridement purposes and a foam to have her change it every other day, keep the area offloaded by pillows etc to float the heel. At one point, a Multi Podus splint was ordered for her. I do not know if she had it at the [facility] or not. We do not have it presently. I would try to avoid the heel elevator boots that we have used before, I believe those caused new areas in the past, so I would avoid those for now. In general, lot of the ulcers definitely have improved. The left foot is free of ulcerations at this time and is quite a bit of an improvement. The area of ulceration on the right heel also is improved. The wound, however, remains open and is somewhat tender to touch. Due to the fact that it has been open for this amount of time, I would like to redo the x-ray while she is here if it can be done at the bedside. Once again, if the wound seems to have stalled again, we will consider Vascular referral as well. However, due to her multiple medical problems, she may not be a candidate for intervention. FERMÍN DE LA O MD CM:CONSTR:REPORT OF CONSULTATION 1616 02/20/17 0604 interface
--- NOTE | ~2017-02-18 | PR ---
[place], [place] PROGRESS NOTE NAME: YOLANDA BEARDEN UNIT #: [id number] ROOM: 426 DOCTOR: JUDY PARTIDA MD,RADHA BIRTHDATE: [birth year] DOS: 02/22/2017 SUBJECTIVE: The patient has been noted comfortable at this time without any distress. The patient is awake and alert at present time. OBJECTIVE: VITAL SIGNS: For the patient, which were recorded showed the temperature of the patient noted as normal. The respiratory rate of the patient recorded as 20, heart rate of 92, blood pressure 146/66. Pulse oxygen saturation of the patient recorded as 94% saturation. HEENT: Examination shows head was atraumatic. Eyes nonicterus. NECK: Supple. CARDIOVASCULAR: S1, S2 is audible. LUNGS: The patient was noted without any wheeze or crackles at the present time. ABDOMEN: Soft and nontender. LABORATORY DATA: BMP this morning shows BUN of 31. The creatinine was noted as 1.32. Potassium 3.3. IMPRESSION: Resolving acute kidney injury progressively with the patient with resolving acute bacterial pneumonia with urinary tract infection and respiratory failure. PLAN OF TREATMENT: No change in the plan of management. Continue the patient's current therapy, plan as in progress. Usual care, all other supportive therapy, plan of care and management. RADHA KIM MD CM:PNTRANS [id number] RADHA PARTIDA MD 02/23/17 0308 interface
--- NOTE | ~2017-02-18 | DS ---
[place], [place] DISCHARGE SUMMARY NAME: YOLANDA BEARDEN UNIT #: [id number] ROOM: 426 DOCTOR: NICOLE POLK MD BIRTHDATE: [birth year] DOS: 02/24/2017 DISCHARGE DIAGNOSES: 1. The patient with sepsis related to pneumonia and urinary tract infection, resolved with treatment. 2. Acute over chronic kidney failure with acute tubular necrosis secondary to sepsis, resolved with hydration and antibiotic treatment. 3. Left lower lobe pneumonia, treated with antibiotics and clinically improved. 4. Severe leukocytosis related to sepsis, pneumonia and urinary tract infection, resolved. 5. Urinary tract infection with Pseudomonas aeruginosa treated, cholelithiasis without evidence of cholecystitis on HIDA scan in the past. 6. Chronic pulmonary fibrosis and some pulmonary nodules on CT of the chest in the past. 7. Generalized anxiety disorder. 8. Adult failure to thrive. 9. Obesity. 10. Diabetic nephropathy, chronic kidney disease stage 3A. 11. History of gastroesophageal reflux disease and esophagitis. 12. History of protein-calorie malnutrition, moderate. 13. Type 2 diabetes mellitus. 14. Paranoid disorder. 15. Coronary artery disease of the [place] vessels. 16. Anemia of chronic disease, Hemoccult stool negative in the past. 17. Major depression, moderate. The patient has multiple medical problems and overall poor health and failure to thrive and generalized disability returned to the Emergency Department and was admitted for sepsis, hypotension, urinary tract infection and left lower lobe pneumonia along with acute over chronic kidney disease and kidney failure with elevation of BUN and creatinine secondary to acute tubular necrosis from sepsis. The patient was admitted and started on antibiotics and hydration with IV fluids. The patient's serum electrolytes and blood counts were monitored closely and fortunately she improved. Since the patient had multiple medical issues and maintains a full code status she required a higher level of care, so I consulted older adult social work specialist to get her placed in an LTAC facility, which did not actually happen. The patient has stabilized now and can be discharged back to the skilled nursing. I suspect that the patient will get into similar issues again because of her generalized poor health and would require readmissions for the same issues. I do recommend that because of the patient's overall poor health. She should be kept a DNR comfort care, but this is upon the patient's next of kin and durable power of trademark attorney to decide. Severe leukocytosis with white cell count of 22,000, resolved with treatment with antibiotics and treatment of urinary tract infection and pneumonia. Sputum cultures did not grow any organisms and blood cultures were also negative but urine cultures grew resistant Pseudomonas aeruginosa, which was appropriately treated. The patient is at her baseline now and asymptomatic and stable and will be discharged back to the skilled nursing. [place], [place] DISCHARGE SUMMARY NAME: YOLANDA BEARDEN UNIT #: [id number] ROOM: 426 DOCTOR: NICOLE POLK MD BIRTHDATE: [birth year] DISCHARGE MANAGEMENT: Bumex 2 mg a day, metoprolol 50 mg b.i.d., potassium chloride 10 mEq daily, Tylenol 1000 mg q.6 hours p.r.n. for pain and fever, DuoNeb every 4 hours. Total of 1 hour was spent on patient's discharge process. NICOLE POLK MD CM:DISCHARG [phone] NICOLE POLK MD 02/24/17 1744 interface
--- NOTE | ~2017-02-18 | PR ---
[place], [place] PROGRESS NOTE NAME: YOLANDA BEARDEN UNIT #: [id number] ROOM: 426 DOCTOR: NICOLE POLK MD BIRTHDATE: [birth year] DOS: 02/21/2017 SUBJECTIVE: The patient awake, alert, looking very weak, has some audible rhonchi. OBJECTIVE: GENERAL APPEARANCE: The patient is alert and oriented x 3, in no visible distress. Generalized weakness, obesity. VITAL SIGNS: Blood pressure 130/80, heart rate of 99 beats per minute, breathing 18 times per minute, temperature 98 degrees Fahrenheit. HEENT AND NECK: Exam within normal limits. CARDIOVASCULAR SYSTEM: Heart rate is regular in rate and rhythm. S1 and S2 normally audible. LUNGS: On lung auscultation, there were expiratory rhonchi all over. ABDOMEN: Soft, nontender. No obvious organomegaly. Bowel sounds are present. EXTREMITIES: Without significant cyanosis or edema. IMPRESSION: 1. Urinary tract infection, being treated with antibiotics. Urine cultures growing Pseudomonas aeruginosa sensitive to penicillin, but the patient is allergic to PENICILLIN so continue present treatment. 2. Severe leukocytosis from sepsis. Urinary tract infection and pneumonia is improving, meaning that present antibiotic treatment is effective. 3. Left lower lobe pneumonia, being treated with antibiotics and being followed by import customs clearing agent, Dr. Rodriguez. 4. Acute tubular necrosis and acute over chronic kidney failure secondary to hypotension and sepsis, improving with hydration. 5. Anemia of chronic. Hemoglobin stable at 8.6. 6. Benign essential hypertension. Blood pressure being monitored and treated. 7. Acute over chronic respiratory failure with exacerbation of chronic obstructive pulmonary disease being treated. NICOLE POLK MD CM:PNTRANS [id number] NICOLE POLK MD 02/22/17 0138 interface
--- NOTE | ~2017-02-18 | PR ---
[place], [place] PROGRESS NOTE NAME: YOLANDA BEARDEN UNIT #: [id number] ROOM: 426 DOCTOR: GENARO LAROSE MD BIRTHDATE: [birth year] DOS: 02/24/2017 SUBJECTIVE: The patient was seen and examined. She is awake. She is on nasal cannula. She is resting comfortably. She is a poor historian. It seems she has been somewhat lethargic and I am not clear what the baseline mental status is. She did follow simple commands and did answer some questions. PHYSICAL EXAMINATION: VITAL SIGNS: Showed temperature is 97.8, pulse 80, respirations 18, blood pressure 150/65. HEENT: She has no JVD. LUNGS: Diminished breath sounds. No wheeze. HEART: Normal S1, S2. No rub. ABDOMEN: Soft, nontender. There is no organomegaly. EXTREMITIES: Have trace edema. SKIN: Showed no rash. LABORATORY DATA: Reviewed. Hemoglobin from yesterday 8.4. Today's chemistry showed sodium of 143, potassium 3.5, BUN 15, creatinine 1.2, calcium 9.5, phosphorus 2.3, magnesium 2.3. IMPRESSION: 1. Acute kidney injury, which seems to have resolved. The patient's creatinine is stable. Diuretics have been resumed. Replace electrolytes as needed. She is on daily potassium with her diuretics; however, the dose may need to be increased. 2. Anemia. Follow H and H and transfuse as felt needed. 3. Leukocytosis. The patient is on antibiotics. She is being treated for apparent urinary tract infection. 4. Apparent pneumonia. She has noted this on antibiotics. Nothing more to add from a renal standpoint. We will sign off for now. Call if needed again. [place], [place] PROGRESS NOTE NAME: YOLANDA BEARDEN UNIT #: [id number] ROOM: 426 DOCTOR: GENARO LAROSE MD BIRTHDATE: [birth year] GENARO LAROSE MD CM:PNTRANS [id number] GENARO LAROSE MD 02/25/17 0727 interface
--- NOTE | ~2017-02-18 | PR ---
[place], [place] PROGRESS NOTE NAME: YOLANDA BEARDEN UNIT #: [id number] ROOM: 426 DOCTOR: NICOLE POLK MD BIRTHDATE: [birth year] DOS: 02/26/2017 ADDENDUM DISCHARGE DIAGNOSES: Please refer to my discharge summary from 02/24/2017. Apparently, the patient was not sent to the [facility] because of some confusion with the patient's insurance and whether the patient was allowed to go back to the [facility]. The patient is awake, alert, and asymptomatic. OBJECTIVE: VITAL SIGNS: Blood pressure of 122/56, heart rate of 85 beats per minute, breathing 18 times per minute, temperature 98 degrees Fahrenheit. GENERAL APPEARANCE: The patient is alert and oriented x 3, in no visible distress. HEENT AND NECK: Exam within normal limits. CARDIOVASCULAR SYSTEM: Heart rate is regular in rate and rhythm. S1 and S2 normally audible. LUNGS: Clear to auscultation. ABDOMEN: Soft, nontender. No obvious organomegaly. Bowel sounds are present. Obesity. EXTREMITIES: Without significant cyanosis or edema. NEUROLOGIC: Generalized weakness and disability. ASSESSMENT: 1. The patient's recent pneumonia, sepsis, leukocytosis resolved with treatment. 2. Acute over chronic kidney failure and acute tubular necrosis improved with treatment of sepsis and hydration with normal saline. 3. Left lower lobe pneumonia, treated. 4. Urinary tract infection with Pseudomonas aeruginosa, treated. 5. Overall, very poor health and failure to thrive and poor long-term prognosis. [place], [place] PROGRESS NOTE NAME: YOLANDA BEARDEN UNIT #: [id number] ROOM: 426 DOCTOR: NICOLE POLK MD BIRTHDATE: [birth year] NICOLE POLK MD CM:PNTRANS [phone] NICOLE POLK MD 02/27/17 0411 interface
--- NOTE | ~2017-02-18 | WRIGHTHP ---
[place], [place] PATIENT HISTORY AND PHYSICAL EXAM NAME: [facility]ARDEN [id number] UNIT #: [id number] ROOM: 426 DOCTOR: NICOLE POLK MD BIRTHDATE: [birth year] DATE OF DICTATION: 02/19/17 DATE OF ADMISSION: 02/18/17 HISTORY OF PRESENT ILLNESS: 1. The patient is a 61-year-old female with a past medical history of cholelithiasis and cholecystitis in the past on a HIDA scan. 2. Pulmonary fibrosis with some old pulmonary nodules on CT of the chest. 3. History of anemia of chronic disease with iFOBT negative in the past. 4. Major depression, recurrent, moderate; generalized anxiety disorder. 5. Adult failure to thrive. 6. Morbid obesity. 7. Diabetic nephropathy with chronic kidney disease stage 3A, gastroesophageal reflux disease and esophagitis. 8. Mixed hyperlipidemia, pulmonary fibrosis, paranoid disorder, coronary artery disease of the [place] vessels. 9. Moderate protein-calorie malnutrition. 10. Type 2 diabetes mellitus. The patient presented to the Emergency Department at [facility] from detention with worsening of generalized weakness, cough, chest congestion and shortness of breath. In the ER, the patient was evaluated and diagnosed as having acute renal failure, sepsis and acute blood loss anemia. The patient was found to have consolidation at left lung base compatible with pneumonia after she was given linezolid in the Emergency Department. After admission, the patient is more awake, alert, although she is not communicating, no complaints of chest pain, no shortness of breath, no other GI or urinary symptoms. REVIEW OF SYSTEMS: LUNGS: Some increasing shortness of breath. GASTROINTESTINAL: No nausea, vomiting, diarrhea, constipation. CARDIOVASCULAR SYSTEM: No palpitation, no chest pains. SOCIAL HISTORY: Lives at detention. Denies smoking cigarettes, alcohol or any drug abuse. FAMILY HISTORY: Noncontributory. HOME MEDICATIONS: The patient takes potassium, Bumex, metoprolol, DuoNeb, nortriptyline. ALLERGIES: KNOWN ALLERGIES TO IODINE, PENICILLIN. PHYSICAL EXAMINATION: GENERAL: The patient is alert, awake, not communicating much, but she does make eye contact and follows basic commands. Generalized weakness. LUNGS: Show some expiratory rhonchi all over. She is obese. HEENT AND NECK: Extraocular movements are intact. Sclerae are anicteric. Oral mucosa is moist and clean. No obvious facial weakness. Neck is supple without any lymphadenopathy. No thyromegaly. No JVD. No carotid arterial bruits. CARDIOVASCULAR SYSTEM: Heart rate is regular in rate and rhythm. S1 and S2 normally audible. No significant murmur or any other abnormal cardiac sounds. ABDOMEN: Soft, nontender. No obvious organomegaly. Bowel sounds are present. No obvious herniation. [place], [place] PATIENT HISTORY AND PHYSICAL EXAM NAME: YOLANDA BEARDEN UNIT #: [id number] ROOM: 426 DOCTOR: NICOLE POLK MD BIRTHDATE: [birth year] EXTREMITIES: Without significant cyanosis or edema. Warm to touch. CENTRAL NERVOUS SYSTEM: Alert and oriented x 3. Cranial nerves II-XII are intact. Speech is normal. The patient is able to move all extremities. Normal muscle strength. Deep tendon reflexes are equal on both sides. Plantars were downgoing. LABORATORY DATA: Blood gases showing a pH of 7.39, pCO2 of 41, pO2 of 117, saturating 99% on 4 liters of oxygen. Urine cultures growing more than 100,000 colonies of gram-negative bacilli. White cell count elevated to 18,000, hemoglobin low at 7.4, dropped from 9.1 yesterday. BUN and creatinine was 49 and 4.19 improved to 44 and 2.7 today. IMPRESSION: 1. The patient presenting with acute sepsis related to pneumonia and urine infection with severe leukocytosis, white cell count elevated at 21,000 along with progressive anemia, some hypothermia with temperature of 96.4 rectal. The patient admitted and treated with linezolid and Levaquin and given fluid boluses for hypovolemia and hypotension and blood pressure was as low as 101 systolic over 49 diastolic. The patient is improving in the ICU and Dr. Rodriguez with the critical care and manufacture specialist is following her. The patient appears to be improving. 2. Acute over chronic kidney failure related to sepsis and hypovolemia is improving with hydration with normal saline. I will reduce patient's normal saline infusion to 60 mL an hour since her blood pressure is normalized and kidney function is improving rapidly. 3. Urinary tract infection with urine cultures growing more than 100,000 colonies of gram-negative bacilli. Final culture results are still pending. 4. Severe leukocytosis related to infection, pneumonia and urinary tract infection and sepsis is improving with treatment. 5. Mixed hyperlipidemia is treated and followed. 6. Coronary artery disease of the [place] vessels. The patient without any chest pains. 7. Moderate protein calorie malnutrition. Dietary on consult. 8. Type 2 diabetes mellitus. We will monitor blood sugars and treat accordingly. 9. Diabetic nephropathy with stage 3A chronic kidney disease with acute over chronic kidney failure has been treated with hydration. 10. Drop of hemoglobin to 7.1, which is being monitored closely and stable at this time. I will transfuse with blood if necessary. The patient does have anemia of chronic disease. NICOLE POLK MD [place], [place] PATIENT HISTORY AND PHYSICAL EXAM NAME: YOLANDA BEARDEN UNIT #: [id number] ROOM: 426 DOCTOR: NICOLE POLK MD BIRTHDATE: [birth year] CM:HISPHYS:PATIENT HISTORY AND PHYSICAL EXAMINATION 1652 [id number] NICOLE POLK MD 02/28/17 1239 [email or web address]
--- NOTE | ~2017-02-18 | PR ---
[place], [place] PROGRESS NOTE NAME: YOLANDA BEARDEN UNIT #: [id number] ROOM: 426 DOCTOR: RADHA LAKE MD BIRTHDATE: [birth year] DOS: 02/21/2017 PULMONARY FOLLOWUP NOTE SUBJECTIVE: She has been noted comfortable at this time, resting on the bed and was started on intravenous antibiotic as to based on her urine culture results of the patient with Pseudomonas aeruginosa. The patient noted awake and alert. Denies any coughing, sputum expectoration, or chest pain. OBJECTIVE: VITAL SIGNS: Normal temperature, respiratory rate 22, heart rate 119-99, blood pressure 132/72 this morning as well. Intake 850, output 3950 mL. The pulse oxygen saturation of the patient was noted as 97% on 1 liter nasal cannula, respiratory rate of 22, heart rate 119. HEENT: Showed no new change. NECK: Supple. CARDIOVASCULAR: S1, S2 audible. LUNGS: Noted without any wheezing. Questionable crackles at the lung bases bilaterally. ABDOMEN: Soft, nontender. EXTREMITIES: Show mild edema. LABORATORY DATA: CBC of the patient, WBC count 13.3, hemoglobin 8.6, hematocrit 26.1, platelet count was noted as normal. The BMP for this patient, BUN 36, creatinine 1.74. Phosphorus was 2.2. Chest x-ray of the patient on 02/21/2017 for the patient in 2013 for this patient shows no acute pulmonary infiltration at this time. IMPRESSION: 1. Acute urinary tract infection with also suspected pneumonia, most likely related to aspiration, improving. 2. Leukocytosis, resolving as well. 3. Improving acute kidney injury as well. PLAN OF TREATMENT: Continuation of the patient's current therapy, plan of management and other care. Usual supportive treatment and management. The oxygen supplementation for patient continued to be titrated down for the patient. [place], [place] PROGRESS NOTE NAME: YOLANDA BEARDEN UNIT #: [id number] ROOM: 426 DOCTOR: RADHA LAKE MD BIRTHDATE: [birth year] RADHA KIM MD CM:FELICITY [phone] RADHA PARTIDA MD 02/22/1717 interface
--- NOTE | ~2017-02-18 | PR ---
[place], [place] PROGRESS NOTE NAME: YOLANDA BEARDEN UNIT #: [id number] ROOM: 426 DOCTOR: NICOLE POLK MD BIRTHDATE: [birth year] DOS: 02/20/2017 SUBJECTIVE: The patient is awake, alert, more oriented and looking comfortable. OBJECTIVE: VITAL SIGNS: Blood pressure 114/68, heart rate of 98 beats per minute, breathing 18 times per minute, temperature 98 degrees Fahrenheit. GENERAL APPEARANCE: The patient is alert and oriented x 3, in no visible distress, generalized weakness. HEENT AND NECK: Exam within normal limits. CARDIOVASCULAR SYSTEM: Heart rate is regular in rate and rhythm. S1 and S2 normally audible. LUNGS: Clear to auscultation. ABDOMEN: Soft, nontender. No obvious organomegaly. Bowel sounds are present. EXTREMITIES: Without significant cyanosis or edema. IMPRESSION: 1. The patient with sepsis with improved blood pressure and heart rate with antibiotics, hydration and treatment. 2. Acute renal failure with improving BUN and creatinine to 37 and 1.9 with hydration with normal saline, normal serum electrolytes. 3. Pwvapwuj-zd-rxlnmd persistent bronchial asthma. 4. Benign essential hypertension with controlled blood pressures. 5. Acute on chronic hypoxemic respiratory failure and pneumonia, left lung, being followed by Dr. Rodriguez, the freelance director, being treated with antibiotics. 6. Urinary tract infection, being treated with antibiotics. We are waiting for culture results. 7. The patient is being followed very closely in the ICU. 8. Severe leukocytosis with white cell count elevated at 22,000 related to sepsis. 9. Anemia of chronic disease. Hemoglobin stable at 7.7. NICOLE POLK MD CM:PNTRANS 8 6 NICOLE POLK MD 02/21/17256 interface
--- NOTE | ~2017-02-18 | PR ---
[place], [place] PROGRESS NOTE NAME: YOLANDA BEARDEN UNIT #: [id number] ROOM: 426 DOCTOR: FELICITAS DEL ROSARIO,NICOLE Corona BIRTHDATE: [birth year] DOS: 02/22/2017 IMPRESSION: 1. The patient with urinary tract infection with Pseudomonas aeruginosa, being treated with linezolid. THE PATIENT IS ALLERGIC TO PENICILLIN. 2. Severe leukocytosis related to sepsis has improved with treatment. 3. Left lower lobe pneumonia, treated with antibiotics. Dr. Rodriguez is following. 4. Acute tubular necrosis over chronic kidney disease secondary to hypotension and sepsis, improving with hydration. 5. Anemia of chronic disease. We will follow hemoglobin. 6. Sepsis related to pneumonia and urinary tract infection, resolved with hydration and treatment with antibiotics. PHYSICAL EXAMINATION: VITAL SIGNS: The patient's vital signs are stable. Blood pressure 131/67, heart rate 94 beats per minute, breathing 20 times per minute, temperature 98.1 degrees Fahrenheit. GENERAL: On physical exam, shows morbid obesity with generalized weakness. NICOLE POLK MD CM:PNTRANS [id number] NICLOE POLK MD 02/23/17 1318 interface
[~2017-02-18 12:27] MED LIST changes: +ZYVOX600 MG PO
[2017-02-18] MEDS ORDERED: GUAIFENESIN600 MG PO ×2 (12:40→13:10)
[2017-02-18] MEDS ORDERED: INCRUSE EL62.5 MCG/A IH (12:41)
[2017-02-18 12:58] LABS: BASO % 0.2 % (0.0-1.0); EOS # 0.1 10*3/uL (0.0-0.4); EOS % 0.4 % (1.0-4.0); HEMATOCRIT 22.6 % (37.0-47.0); HEMOGLOBIN 7.1 g/dl (12.0-16.0); IG # 0.1 10*3/uL (0.0-0.1); LYMPH # 1.8 10*3/uL (1.3-4.4); LYMPH % 8.6 % (27.0-41.0); MEAN CORPUSCULAR HGB 31.4 pg (27.0-31.0); MEAN CORPUSCULAR HGB CONC 31.4 g/dl (33.0-37.0); MEAN PLATELET VOLUME 10.1 fl (9.6-12.3); MONO # 1.5 10*3/uL (0.1-1.0); MONO % 7.1 % (3.0-9.0); NEUT # 17.4 10*3/uL (2.3-7.9); NEUT % 83.1 % (47.0-73.0); PLATELET COUNT AUTOMATED 169 10*3/uL (130-400); RED BLOOD COUNT 2.26 10*6/uL (4.10-5.10); RED CELL DISTRI WIDTH 17.7 % (0-14.5)
[2017-02-18 12:59] LABS: ABG BASE EXCESS 0.3 mmol/L (-2.0-2.0); ABG CO2 CONTENT 25.8 mmol/L (23-27); ABG HCO3 24.5 mmol/l (22-26); ABG TEMPERATURE 99.8 F (98.0-99.0); ARTERIAL BLOOD GAS PH 7.39 (7.35-7.45)
[2017-02-18] MEDS ORDERED: METOPROLOL TART50 M1 PO (13:09)
[2017-02-18] MEDS ORDERED: PLAVIX75 M1 PO (13:10)
[2017-02-18] MEDS ORDERED: ALBUTEROL2.5 MG/0.5 INH (13:11)
[2017-02-18] MEDS ORDERED: INVEGA3 MG PO (13:12)
[2017-02-18] MEDS ORDERED: KLOR-CON 1010 ME1 PO (13:12)
[2017-02-18 13:13] LABS: INTERNATIONAL NORM RATIO 1.1 (2.0-3.5); PROTHROMBIN TIME 12.2 SECONDS (9.0-12.4)
[2017-02-18] MEDS ORDERED: ISOSORBIDE MONO30 MG PO (13:13)
[2017-02-18] MEDS ORDERED: BREO ELLIPTA 11 EACH IH (13:13)
[2017-02-18] MEDS ORDERED: BUMETANIDE2 MG PO (13:13)
[2017-02-18] MEDS ORDERED: ZESTRIL5 MG PO (13:13)
[2017-02-18] MEDS ORDERED: MIRALAX POWDER255 G1 PO (13:14)
[2017-02-18] MEDS ORDERED: ASPIRIN81 M1 PO (13:14)
[2017-02-18] MEDS ORDERED: NEURONTIN300 MG PO (13:14)
[2017-02-18] MEDS ORDERED: CYMBALTA60 MG PO (13:15)
[2017-02-18] MEDS ORDERED: LIPITOR10 MG PO (13:15)
[2017-02-18 13:16] LABS: COLOR YELLOW (YELLOW)
[2017-02-18] MEDS ORDERED: PRO-STAT 64 3030 M2 (13:16)
[2017-02-18] MEDS ORDERED: NOVOLOG10 ML SC (13:16)
[2017-02-18 13:17] LABS: BILIRUBIN NEGATIVE (NEGATIVE); BLOOD 2+ (NEGATIVE); CLARITY TURBID (CLEAR); GLUCOSE NEGATIVE (NEGATIVE); KETONE NEGATIVE (NEGATIVE); LEUKO ESTERASE 3+ (NEGATIVE); NITRITE NEGATIVE (NEGATIVE); PROTEIN 2+ (NEGATIVE); UROBILINOGEN 0.2 E.U./dl (0.2-1.0)
[2017-02-18 13:17] LABS: ALKALINE PHOSPHATASE 80 U/L (45-117); BILIRUBIN, TOTAL 0.6 mg/dl (0.2-1.0); BUN 49 mg/dl (7-24); CARBON DIOXIDE 25 mmol/L (21-32); CHLORIDE 103 mmol/L (98-107); EST GLOM FILT AFRICAN AMERICAN 13 ml/min; GLUCOSE 107 mg/dL (65-99); MAGNESIUM 1.5 mg/dL (1.5-2.1); POTASSIUM 5.1 mmol/L (3.5-5.1); SGOT/AST 8 IU/L (3-35); SGPT/ALT 11 U/L (12-78); SODIUM 140 mmol/L (136-145); TOTAL PROTEIN 6.4 gm/dL (6.4-8.2)
[2017-02-18 13:18] LABS: WBC TNTC wbc/hpf (0-5)
[2017-02-18 13:19] LABS: URINE REFLEX COMMENT YES (NO)
[2017-02-18 13:21] LABS: BACTERIA 4+
[2017-02-18 13:23] LABS: TROPONIN I < 0.015 ng/ml (<0.045)
[2017-02-19] VITALS (18 sets, daily range): BP systolic 109–139; BP diastolic 58–73
[2017-02-19 05:18] LABS: HEMOGLOBIN 7.4 g/dl (12.0-16.0); MEAN CORPUSCULAR HGB 31.2 pg (27.0-31.0); MEAN CORPUSCULAR HGB CONC 32.2 g/dl (33.0-37.0); MEAN PLATELET VOLUME 10.1 fl (9.6-12.3); PLATELET COUNT AUTOMATED 147 10*3/uL (130-400); RED BLOOD COUNT 2.37 10*6/uL (4.10-5.10); WHITE BLOOD COUNT 17.9 10*3/uL (4.8-10.8)
[2017-02-19 05:36] LABS: LYMPHOCYTE # 0.7 10*3/uL (1.3-4.4); MONOCYTE # 0.5 10*3/uL (0.1-1.0); NEUTROPHIL # 16.6 10*3/uL (2.3-7.9); NEUTROPHILS 93 % (47-73); TOTAL CELLS COUNTED 100 #CELLS
[2017-02-19 05:37] LABS: PLATELET SUFFICIENCY NORMAL (NORMAL); POLYCHROMASIA SLIGHT; POTASSIUM 4.3 mmol/L (3.5-5.1)
[2017-02-19 11:41] LABS: ABG BASE EXCESS -1.8 mmol/L (-2.0-2.0); ABG CO2 CONTENT 22.8 mmol/L (23-27); ABG HCO3 21.7 mmol/l (22-26); ABG TEMPERATURE 96.8 F (98.0-99.0); ARTERIAL BLOOD GAS PH 7.442 (7.35-7.45)
[2017-02-20] VITALS: BP 122/66
[2017-02-20 04:00] VITALS: BP 131/61
[2017-02-20 05:53] LABS: POTASSIUM 3.6 mmol/L (3.5-5.1)
[2017-02-20 06:03] LABS: HEMATOCRIT 23.5 % (37.0-47.0); HEMOGLOBIN 7.7 g/dl (12.0-16.0); MEAN CELL VOLUME 96.7 fl (81.0-99.0); MEAN CORPUSCULAR HGB 31.7 pg (27.0-31.0); MEAN CORPUSCULAR HGB CONC 32.8 g/dl (33.0-37.0); MEAN PLATELET VOLUME 9.9 fl (9.6-12.3); PLATELET COUNT AUTOMATED 164 10*3/uL (130-400); RED BLOOD COUNT 2.43 10*6/uL (4.10-5.10); RED CELL DISTRI WIDTH 16.4 % (0-14.5)
[2017-02-20 06:25] LABS: LYMPHOCYTE # 1.1 10*3/uL (1.3-4.4); MONOCYTE # 0.4 10*3/uL (0.1-1.0); NEUTROPHIL # 20.5 10*3/uL (2.3-7.9); NEUTROPHILS 93 % (47-73); TOTAL CELLS COUNTED 100 #CELLS
[2017-02-20 06:26] LABS: PLATELET SUFFICIENCY NORMAL (NORMAL)
[2017-02-20 08:00] VITALS: BP 114/68
[2017-02-20 12:00] VITALS: BP 112/62
[2017-02-20 16:00] VITALS: BP 116/64
[2017-02-20 20:00] VITALS: BP 125/71
[2017-02-21] VITALS: BP 95/53
[2017-02-21 01:00] VITALS: BP 130/80
[2017-02-21 07:18] LABS: BASO % 0.1 % (0.0-1.0); EOS # 0.1 10*3/uL (0.0-0.4); EOS % 0.5 % (1.0-4.0); HEMATOCRIT 26.1 % (37.0-47.0); HEMOGLOBIN 8.6 g/dl (12.0-16.0); IG # 0.1 10*3/uL (0.0-0.1); LYMPH # 2.1 10*3/uL (1.3-4.4); LYMPH % 15.4 % (27.0-41.0); MEAN CELL VOLUME 94.6 fl (81.0-99.0); MEAN CORPUSCULAR HGB 31.2 pg (27.0-31.0); MEAN PLATELET VOLUME 9.6 fl (9.6-12.3); MONO % 7.7 % (3.0-9.0); NEUT # 10.1 10*3/uL (2.3-7.9); NEUT % 75.5 % (47.0-73.0); PLATELET COUNT AUTOMATED 190 10*3/uL (130-400); RED BLOOD COUNT 2.76 10*6/uL (4.10-5.10); RED CELL DISTRI WIDTH 16.6 % (0-14.5); WHITE BLOOD COUNT 13.3 10*3/uL (4.8-10.8)
[2017-02-21 07:45] LABS: MAGNESIUM 1.6 mg/dL (1.5-2.1); PHOSPHOROUS 2.2 mg/dL (2.5-4.9); POTASSIUM 3.6 mmol/L (3.5-5.1)
[2017-02-21 08:00] VITALS: BP 132/72
[2017-02-21 12:00] VITALS: BP 117/62
[2017-02-21 16:00] VITALS: BP 127/76
[2017-02-21 20:00] VITALS: BP 121/80
[2017-02-22 00:28] VITALS: BP 130/78
[2017-02-22 06:26] LABS: MAGNESIUM 1.3 mg/dL (1.5-2.1); PHOSPHOROUS 2.4 mg/dL (2.5-4.9); POTASSIUM 3.3 mmol/L (3.5-5.1)
[2017-02-22 08:00] VITALS: BP 146/66
[2017-02-22 12:00] VITALS: BP 147/64
[2017-02-22 16:00] VITALS: BP 131/67
[2017-02-22 20:00] VITALS: BP 124/74
[2017-02-23] VITALS: BP 142/70
[2017-02-23 06:30] LABS: HEMATOCRIT 26.1 % (37.0-47.0); HEMOGLOBIN 8.4 g/dl (12.0-16.0); MEAN CELL VOLUME 96.3 fl (81.0-99.0); MEAN CORPUSCULAR HGB CONC 32.2 g/dl (33.0-37.0); MEAN PLATELET VOLUME 9.9 fl (9.6-12.3); PLATELET COUNT AUTOMATED 199 10*3/uL (130-400); RED BLOOD COUNT 2.71 10*6/uL (4.10-5.10); RED CELL DISTRI WIDTH 16.2 % (0-14.5); WHITE BLOOD COUNT 13.6 10*3/uL (4.8-10.8)
[2017-02-23 06:35] LABS: ALBUMIN 2.1 gm/dl (3.1-4.5); MAGNESIUM 2.5 mg/dL (1.5-2.1); PHOSPHOROUS 2.9 mg/dL (2.5-4.9); POTASSIUM 3.7 mmol/L (3.5-5.1)
[2017-02-23 07:20] LABS: EOSINOPHIL # 0.3 10*3/uL (0-0.4); EOSINOPHILS 2 % (1-4); HYPOCHROMIA SLIGHT; LYMPHOCYTE # 3.4 10*3/uL (1.3-4.4); MONOCYTE # 1.1 10*3/uL (0.1-1.0); NEUTROPHIL # 8.8 10*3/uL (2.3-7.9); NEUTROPHILS 65 % (47-73); PLASMA CELL 1 % (0-0); PLATELET SUFFICIENCY NORMAL (NORMAL); TOTAL CELLS COUNTED 100 #CELLS; TOXIC GRANULATION MODERATE
[2017-02-23 08:00] VITALS: BP 150/73
[2017-02-23 12:00] VITALS: BP 136/63
[2017-02-23 16:28] VITALS: BP 136/66
[2017-02-23 20:00] VITALS: BP 142/69
[2017-02-24] VITALS: BP 134/62
[2017-02-24 07:35] LABS: ALBUMIN 2.1 gm/dl (3.1-4.5); MAGNESIUM 2.3 mg/dL (1.5-2.1); POTASSIUM 3.5 mmol/L (3.5-5.1)
[2017-02-24 07:36] LABS: PHOSPHOROUS 2.2 mg/dL (2.5-4.9)
[2017-02-24 08:00] VITALS: BP 138/55
[2017-02-24 12:00] VITALS: BP 150/65
[2017-02-24 16:00] VITALS: BP 149/59
[2017-02-24 20:00] VITALS: BP 151/67
[2017-02-25] VITALS: BP 152/62
[2017-02-25 07:00] LABS: BUN 12 mg/dl (7-24); CARBON DIOXIDE 28 mmol/L (21-32); CHLORIDE 103 mmol/L (98-107); GLUCOSE 87 mg/dL (65-99); POTASSIUM 3.3 mmol/L (3.5-5.1); SODIUM 140 mmol/L (136-145)
[2017-02-25 07:01] LABS: EST GLOM FILT AFRICAN AMERICAN > 60 ml/min
[2017-02-25 08:00] VITALS: BP 144/70
[2017-02-25 12:00] VITALS: BP 138/66
[2017-02-25 16:00] VITALS: BP 137/68
[2017-02-25 20:00] VITALS: BP 134/74
[2017-02-26] VITALS: BP 103/49
[2017-02-26 08:00] VITALS: BP 104/84
[2017-02-26 12:00] VITALS: BP 123/56
== END 2017-02-26 15:31 | DRG 853 ==
LOC: ED 12:27 → ICCU 14:25 → EDHOLD 14:25 → 4E 14:25 → ICCU 14:46 → 4E 02-20 05:25
PROVIDERS: Internal Medicine; Internal Medicine Critical Care Medicine; Internal Medicine Nephrology; Nurse Practitioner Family
PROC: 0HBMXZZ Excision of Right Foot Skin, External Approach (ICD-10-PCS; principal; 2017-02-19)
DX: A41.9 Sepsis, unspecified organism (principal); J96.21 Acute and chronic respiratory failure with hypoxia; N17.0 Acute kidney failure with tubular necrosis; R65.21 Severe sepsis with septic shock; E43 Unspecified severe protein-calorie malnutrition; E11.22 Type 2 diabetes mellitus with diabetic chronic kidney disease; D62 Acute posthemorrhagic anemia; J18.1 Lobar pneumonia, unspecified organism; N30.01 Acute cystitis with hematuria; L97.419 Non-pressure chronic ulcer of right heel and midfoot with unspecified severity; J44.1 Chronic obstructive pulmonary disease with (acute) exacerbation; J44.0 Chronic obstructive pulmonary disease with (acute) lower respiratory infection; Z68.41 Body mass index [BMI] 40.0-44.9, adult; N18.3 Chronic kidney disease, stage 3 (moderate); K21.9 Gastro-esophageal reflux disease without esophagitis; R80.9 Proteinuria, unspecified; B96.5 Pseudomonas (aeruginosa) (mallei) (pseudomallei) as the cause of diseases classified elsewhere; E87.6 Hypokalemia; E83.42 Hypomagnesemia; E83.39 Other disorders of phosphorus metabolism; K80.20 Calculus of gallbladder without cholecystitis without obstruction; F41.1 Generalized anxiety disorder; R62.7 Adult failure to thrive; E11.622 Type 2 diabetes mellitus with other skin ulcer; I12.9 Hypertensive chronic kidney disease with stage 1 through stage 4 chronic kidney disease, or unspecified chronic kidney disease; G89.29 Other chronic pain; I25.10 Atherosclerotic heart disease of native coronary artery without angina pectoris; R33.9 Retention of urine, unspecified; D63.8 Anemia in other chronic diseases classified elsewhere; M54.9 Dorsalgia, unspecified; F32.9 Major depressive disorder, single episode, unspecified; E78.2 Mixed hyperlipidemia; Z85.118 Personal history of other malignant neoplasm of bronchus and lung; Z88.0 Allergy status to penicillin; Z92.3 Personal history of irradiation; I25.2 Old myocardial infarction; Z95.1 Presence of aortocoronary bypass graft; Z88.1 Allergy status to other antibiotic agents; Z91.013 Allergy to seafood; Z91.041 Radiographic dye allergy status; Z98.891 History of uterine scar from previous surgery; Z90.710 Acquired absence of both cervix and uterus; Z82.49 Family history of ischemic heart disease and other diseases of the circulatory system; Z82.0 Family history of epilepsy and other diseases of the nervous system; Z95.5 Presence of coronary angioplasty implant and graft; Z80.9 Family history of malignant neoplasm, unspecified; Z79.899 Other long term (current) drug therapy

== ENCOUNTER 2017-03-01 10:11 | Inpatient (IN) | payer OTHER ==
[2017-03-01] VITALS (8 sets, daily range): BP systolic 74–92; BP diastolic 37–44
[~2017-03-01] VITALS: Ht 167.6 cm; Wt 81.2 kg
--- NOTE | ~2017-03-01 | WRIGHTHP ---
[place], [place] PATIENT HISTORY AND PHYSICAL EXAM [id number] UNIT #: [id number] ROOM: [facility] DOCTOR: YASMIN BARRIENTOS MD BIRTHDATE: [birth year] DOS: 03/02/2017 HISTORY OF PRESENT ILLNESS: The patient is 61 years old. She is a resident of [facility]. She was sent to the OR for blood transfusion yesterday. While getting blood transfusion, she became hypotensive, was sent out to the Emergency Room. The patient denies having any complaints today. She denied having any chest pains or palpitations. Apparently, did have some lightheadedness before this happened. This morning, the patient is awake, alert and oriented. She looks much better than her last few recent visits to the hospital. PAST MEDICAL HISTORY: Significant for, 1. Multiple hospitalizations with urinary tract infection. 2. History of acute kidney injury over chronic renal failure. 3. Multiple admissions for pneumonia. 4. Chronic elevation of WBC. 5. Pulmonary fibrosis. 6. Generalized anxiety disorder. 7. Adult failure to thrive. 8. Diabetic nephropathy. 9. Type 2 diabetes mellitus. 10. Protein calorie malnutrition, moderate. 11. Paranoid disorder. 12. Anemia of chronic disease. 13. Major depression, moderate to severe. MEDICATIONS: That she is on are, she was on Incruse Ellipta and Breo Ellipta breathing treatments, ProAir p.r.n., NovoLog sliding scale, aspirin 81 daily, atorvastatin 10 daily, Bumex 2 mg daily, Plavix 75 daily, Colace 100 daily, duloxetine 90 daily, gabapentin 100 mg at bedtime, guaifenesin 600 daily, Isordil 30 daily, lisinopril 7.5 daily, metoprolol 50 b.i.d., Invega 3 mg daily, potassium 10 b.i.d., Dulcolax p.r.n. SOCIAL HISTORY: History of smoking. PHYSICAL EXAMINATION: GENERAL: The patient is awake, alert and oriented, in no distress. She does have a slightly moist sounding cough. VITAL SIGNS: Pressure is 106/46, pulse of 108, respirations 21, temperature 98.8. LUNGS: Clear except for a few scattered rhonchi. HEART: Regular. ABDOMEN: Obese, soft, nontender. EXTREMITIES: Without any edema. Right lower leg on the heel has a stage 2 lesion, which again is better from the last few visits. LABORATORY DATA: Blood culture shows no bacterial growth. Urine culture shows no bacterial growth. White cell count is 15.4, hemoglobin 7.3. Lactic acid was normal. [place], [place] PATIENT HISTORY AND PHYSICAL EXAM NAME: YOLANDA BEARDEN UNIT #: [id number] ROOM: [facility] DOCTOR: YASMIN BARRIENTOS MD BIRTHDATE: [birth year] ASSESSMENT AND PLAN: 1. This is a patient who came in for blood transfusion, became hypotensive. Did finish her blood transfusion this morning, hemoglobin is pretty much the same. 2. Acute kidney injury, possibly from multifactorial, possibly acute tubular necrosis from hypotension. Pressures have improved. The kidney functions have improved with IV fluids. 3. Recent urinary tract infection for which she is on meropenem. Urine culture has come back negative. I would like to finish the course of antibiotics at the longterm. The patient is stable and can go back to the longterm. Adjustments in antihypertensives to be made before discharge. YASMIN BARRIENTOS MD CM:HISPHYS:PATIENT HISTORY AND PHYSICAL EXAMINATION [id number] YASMIN BARRIENTOS MD 03/02/17819 interface
[~2017-03-01 10:11] MED LIST changes: +ASPIRIN81 M1 PO; +CYMBALTA60 MG PO; +GUAIFENESIN600 MG PO; +INVEGA3 MG PO; +ISOSORBIDE MONO30 MG PO; +KLOR-CON 1010 ME1 PO; +METOPROLOL TART50 M1 PO; +MIRALAX POWDER255 G1 PO; +PRO-STAT 64 3030 M2; +ZESTRIL5 MG PO
[2017-03-01 10:38] LABS: HEMATOCRIT 23.2 % (37.0-47.0); HEMOGLOBIN 7.4 g/dl (12.0-16.0); MEAN CELL VOLUME 98.7 fl (81.0-99.0); MEAN CORPUSCULAR HGB 31.5 pg (27.0-31.0); MEAN CORPUSCULAR HGB CONC 31.9 g/dl (33.0-37.0); MEAN PLATELET VOLUME 9.9 fl (9.6-12.3); PLATELET COUNT AUTOMATED 286 10*3/uL (130-400); RED BLOOD COUNT 2.35 10*6/uL (4.10-5.10); RED CELL DISTRI WIDTH 17.6 % (0-14.5)
[2017-03-01] MEDS ORDERED: MAPAP EXTRA ST500 MG PO (10:42)
[2017-03-01] MEDS ORDERED: PROAIR HFA8.5 GM INH (10:42)
[2017-03-01] MEDS ORDERED: ASPIRIN81 M1 PO (10:43)
[2017-03-01] MEDS ORDERED: ALBUTEROL2.5 MG/0.5 INH (10:43)
[2017-03-01] MEDS ORDERED: LIPITOR10 MG PO (10:44)
[2017-03-01] MEDS ORDERED: BREO ELLIPTA 11 EACH IH (10:44)
[2017-03-01] MEDS ORDERED: BUMETANIDE2 MG PO (10:45)
[2017-03-01] MEDS ORDERED: DOCUSATE SODIU100 M2 PO (10:45)
[2017-03-01] MEDS ORDERED: DULOXETINE HCL30 MG PO (10:46)
[2017-03-01] MEDS ORDERED: DULCOLAX10 M1 RC (10:46)
[2017-03-01 10:47] LABS: PROTHROMBIN TIME 10.9 SECONDS (9.0-12.4)
[2017-03-01] MEDS ORDERED: ZESTRIL5 MG PO (10:47)
[2017-03-01] MEDS ORDERED: INCRUSE EL62.5 MCG/A IH (10:47)
[2017-03-01] MEDS ORDERED: ISOSORBIDE MONO30 MG PO (10:47)
[2017-03-01 10:48] LABS: BILIRUBIN NEGATIVE (NEGATIVE); BLOOD 2+ (NEGATIVE); CLARITY CLOUDY (CLEAR); COLOR YELLOW (YELLOW); GLUCOSE NEGATIVE (NEGATIVE); KETONE NEGATIVE (NEGATIVE); NITRITE NEGATIVE (NEGATIVE); PH 5.5 (5.0-9.0); PROTEIN 2+ (NEGATIVE); SPECIFIC GRAVITY 1.025 (1.005-1.030); UROBILINOGEN 0.2 E.U./dl (0.2-1.0)
[2017-03-01] MEDS ORDERED: MERREM IV1 GM IV (10:48)
[2017-03-01] MEDS ORDERED: METOPROLOL TART50 M1 PO (10:49)
[2017-03-01] MEDS ORDERED: MILK OF MA400 MG/51 PO (10:50)
[2017-03-01] MEDS ORDERED: MIRALAX POWDER255 G1 PO (10:51)
[2017-03-01] MEDS ORDERED: NEURONTIN100 MG PO (10:52)
[2017-03-01] MEDS ORDERED: GUAIFENESIN600 MG PO (10:52)
[2017-03-01] MEDS ORDERED: INVEGA3 MG PO (10:53)
[2017-03-01] MEDS ORDERED: NOVOLOG10 ML IV (10:53)
[2017-03-01] MEDS ORDERED: POTASSIUM CHLO10 MEQ PO ×2 (10:54→12:53)
[2017-03-01] MEDS ORDERED: PLAVIX75 M1 PO (10:54)
[2017-03-01 10:56] LABS: ALBUMIN 2.3 gm/dl (3.1-4.5); BILIRUBIN, TOTAL 0.4 mg/dl (0.2-1.0); C-REACTIVE PROTEIN 0.77 MG/DL (0-0.3); MAGNESIUM 1.6 mg/dL (1.5-2.1); POTASSIUM 3.5 mmol/L (3.5-5.1); TOTAL PROTEIN 6.5 gm/dL (6.4-8.2)
[2017-03-01 10:57] LABS: TROPONIN I 0.023 ng/ml (<0.045)
[2017-03-01 10:58] LABS: BASOPHIL # 0.3 10*3/uL (0-0.1); BASOPHILS 2 % (0-1); EOSINOPHIL # 0.2 10*3/uL (0-0.4); EOSINOPHILS 1 % (1-4); LYMPHOCYTE # 3.4 10*3/uL (1.3-4.4); METAMYELOCYTES 1 % (0-0); MONOCYTE # 0.2 10*3/uL (0.1-1.0); MYELOCYTES 1 % (0-0); NEUTROPHIL # 12.6 10*3/uL (2.3-7.9); NEUTROPHILS 74 % (47-73); PLATELET SUFFICIENCY NORMAL (NORMAL); TOTAL CELLS COUNTED 100 #CELLS
[2017-03-01 10:58] LABS: CKMB 5.3 ng/ml (0.5-3.6)
[2017-03-01 11:03] LABS: LEUKO ESTERASE 2+ (NEGATIVE)
[2017-03-01 11:04] LABS: URINE REFLEX COMMENT YES (NO); WBC TNTC wbc/hpf (0-5)
[2017-03-02] VITALS: BP 91/43
[2017-03-02 04:01] VITALS: BP 106/46
[2017-03-02 05:42] LABS: POTASSIUM 3.5 mmol/L (3.5-5.1)
[2017-03-02 05:53] LABS: HEMATOCRIT 23.2 % (37.0-47.0); HEMOGLOBIN 7.3 g/dl (12.0-16.0); MEAN CELL VOLUME 100.9 fl (81.0-99.0); MEAN CORPUSCULAR HGB 31.7 pg (27.0-31.0); MEAN CORPUSCULAR HGB CONC 31.5 g/dl (33.0-37.0); PLATELET COUNT AUTOMATED 241 10*3/uL (130-400); RED CELL DISTRI WIDTH 17.8 % (0-14.5); WHITE BLOOD COUNT 15.4 10*3/uL (4.8-10.8)
[2017-03-02 06:32] LABS: LYMPHOCYTE # 1.5 10*3/uL (1.3-4.4); METAMYELOCYTES 3 % (0-0); MONOCYTE # 0.8 10*3/uL (0.1-1.0); NEUTROPHIL # 12.6 10*3/uL (2.3-7.9); NEUTROPHILS 82 % (47-73); PLATELET SUFFICIENCY NORMAL (NORMAL); POLYCHROMASIA SLIGHT; TOTAL CELLS COUNTED 100 #CELLS; TOXIC GRANULATION MODERATE
[2017-03-02 08:00] VITALS: BP 88/40
[2017-03-02] MEDS ORDERED: DIFLUCAN150 MG PO (11:16)
[2017-03-03] MEDS ORDERED: BREO ELLIPTA 11 EACH IH (12:38)
[2017-03-03] MEDS ORDERED: GUAIFENESIN600 MG PO (12:45)
== END 2017-03-02 11:55 | disposition other institution (70) | DRG 314 ==
LOC: ED 10:11 → ICCU 12:05 → EDHOLD 12:05 → ICCU 12:12
PROVIDERS: Emergency Medicine; Internal Medicine
DX: I95.9 Hypotension, unspecified (principal); N17.0 Acute kidney failure with tubular necrosis; E44.0 Moderate protein-calorie malnutrition; F33.2 Major depressive disorder, recurrent severe without psychotic features; E11.21 Type 2 diabetes mellitus with diabetic nephropathy; J84.10 Pulmonary fibrosis, unspecified; R65.10 Systemic inflammatory response syndrome (SIRS) of non-infectious origin without acute organ dysfunction; F41.9 Anxiety disorder, unspecified; D63.8 Anemia in other chronic diseases classified elsewhere

== ENCOUNTER 2017-03-03 12:04 | Inpatient (IN) | payer OTHER ==
[2017-03-03] VITALS (20 sets, daily range): BP systolic 60–115; BP diastolic 0–58
[~2017-03-03] VITALS: Ht 167.6 cm; Wt 83.9 kg
--- NOTE | ~2017-03-03 | PR ---
[place], [place] PROGRESS NOTE NAME: YOLANDA BEADREN UNIT #: [id number] ROOM: 424 DOCTOR: NICOLE POLK MD BIRTHDATE: [birth year] DOS: 03/06/2017 SUBJECTIVE: The patient does wake up. OBJECTIVE: VITAL SIGNS: Blood pressure 122/79, pulse ox 99%, breathing 18 times per minute, temperature of 97.8 degrees Fahrenheit. GENERAL APPEARANCE: The patient is alert and oriented x 3, in no visible distress. Obesity, generalized weakness. HEENT AND NECK: Exam within normal limits. CARDIOVASCULAR SYSTEM: Heart rate is regular in rate and rhythm. S1 and S2 normally audible. LUNGS: Clear to auscultation. ABDOMEN: Soft, nontender. No obvious organomegaly. Bowel sounds are present. EXTREMITIES: Without significant cyanosis or edema. IMPRESSION: 1. Hypokalemia. The patient with a potassium of 3.2. I will give her extra supplements. 2. VRE of the urine and acute cystitis. 3. Systolic type chronic congestive heart failure. 4. Sepsis, leukocytosis, and pneumonia along with severe anemia, treated and improved. 5. Cholecystitis. The patient recommended antibiotic treatment by ID. The patient also had complicated pyelonephritis. 6. Blood loss anemia and anemia of chronic disease. Dr. Buitrago follows. 7. Urinary tract infection with Enterococcus faecium, being treated with linezolid. NICOLE POLK MD CM:PNTRANS [id number] NICOLE POLK MD 03/07/17 1628 interface
--- NOTE | ~2017-03-03 | WRIGHTHP ---
[place], [place] PATIENT HISTORY AND PHYSICAL EXAM [id number] UNIT #: [id number] ROOM: [facility]- DOCTOR: NICOLE POLK MD BIRTHDATE: [birth year] DOS: HISTORY OF PRESENT ILLNESS: 1. The patient is a 61-year-old female with a past medical history of recurrent pneumonias, adult failure to thrive and poor long-term prognosis. 2. Chronic pulmonary fibrosis, some pulmonary nodule on CT chest in the past. 3. Generalized anxiety disorder. 4. Obesity. 5. Diabetic nephropathy, chronic kidney disease stage 3A. 6. Gastroesophageal reflux disease and esophagitis. 7. Moderate protein-calorie malnutrition. 8. Type 2 diabetes mellitus. 9. Paranoid disorder. 10. Coronary artery disease of the [place] vessels, anemia of chronic disease, Hemoccult stool negative in the past. 11. Major depression, recurrent, moderate. The patient presented to the Emergency Department, sent over from [facility] because she was seeing purple bunnies and she was hypotensive with a systolic blood pressure of 60. In the ER, the patient was found to be hypotensive and severely anemic with the hemoglobin of 6 and also septic with white cell count of 20,000 and left lower lobe pneumonia. The patient was admitted to the ICU. She is alert and oriented, mostly very weak, but not giving much history. REVIEW OF SYSTEMS: LUNGS: No shortness of breath or wheezing. GASTROINTESTINAL: No nausea, vomiting, diarrhea, constipation. CARDIOVASCULAR SYSTEM: No chest pain, no palpitations. SOCIAL HISTORY: Denies recent smoking cigarettes, alcohol and drug abuse. FAMILY HISTORY: Noncontributory. HOME MEDICATIONS: Potassium, Invega, Imdur, Plavix, Bumex, aspirin, gabapentin, Cymbalta, atorvastatin, Dulcolax, MiraLax, Colace, fluconazole, meropenem. PHYSICAL EXAMINATION: GENERAL: Alert, oriented, poor historian. No visible distress. Obese. Generalized weakness. VITAL SIGNS: Blood pressure improved to 97 systolic over 51 diastolic, with a heart rate of 92 beats per minute, afebrile. LUNGS: Some rales and crackles in the lower lungs, more on the left side. HEENT AND NECK: Extraocular movements are intact. Sclerae are anicteric. Oral mucosa is moist and clean. No obvious facial weakness. Neck is supple without any lymphadenopathy. No thyromegaly. No JVD. No carotid arterial bruits. CARDIOVASCULAR SYSTEM: Heart rate is regular in rate and rhythm. S1 and S2 normally audible. No significant murmur or any other abnormal cardiac sounds. ABDOMEN: Soft, nontender. No obvious organomegaly. Bowel sounds are present. No obvious herniation. EXTREMITIES: Without significant cyanosis or edema. Warm to touch. The [place], [place] PATIENT HISTORY AND PHYSICAL EXAM NAME: YOLANDA BEARDEN UNIT #: [id number] ROOM: [facility] DOCTOR: NICOLE POLK MD BIRTHDATE: [birth year] patient has a stage 2 decubitus over the sacrum in the right heel. CENTRAL NERVOUS SYSTEM: Alert and oriented x 3. Cranial nerves II-XII are intact. Speech is normal. The patient is able to move all extremities. Normal muscle strength. Deep tendon reflexes are equal on both sides. Plantars were downgoing. IMPRESSION: 1. Sepsis, leukocytosis, pneumonia, severe anemia, to be treated with antibiotics. I am consulting Infectious disease specialist. The patient recently had pseudomonas in her urine and blood, which was treated and was still being treated at [facility] when she developed this leukocytosis. 2. Hypotension secondary to sepsis, improved with hydration and blood transfusion. The patient with severe anemia, hemoglobin of 6, which was a drop from 7.3 the day before. I will check stool for Hemoccult blood and if it is positive, then stop aspirin and Plavix. Dr. Buitrago has been consulted and her hemoglobin closely monitored. The patient will receive a second unit of packed cells and will continue to monitor her leukocytosis. The patient has skin ulcers over the sacrum and the heel as mentioned above, which will be monitored closely and treated by Wound Care. Type 2 diabetes mellitus with diabetic nephropathy and chronic kidney disease stage 3A, blood sugars will be monitored and treated accordingly. Moderate protein-calorie malnutrition. The patient to work with Dietary. Coronary artery disease of the [place] vessels without chest pains. Major depression, recurrent, moderate, followed by Psychiatry. I will continue all of her medications. NICOLE POLK MD CM:HISPHYS:PATIENT HISTORY AND PHYSICAL EXAMINATION [id number] 03 NICOLE POLK MD 03/03/17 2004 interface
--- NOTE | ~2017-03-03 | PR ---
[place], [place] PROGRESS NOTE NAME: YOLANDA BEARDEN UNIT #: [id number] ROOM: [facility] DOCTOR: YASMIN BARRIENTOS MD BIRTHDATE: [birth year] DOS: 03/05/2017 SUBJECTIVE: The patient is not having any new complaints. She looks well rested. OBJECTIVE: VITAL SIGNS: Blood pressure is 136/69, pulse 102, respirations 18, temperature 98.7. LUNGS: Diminished breath sounds. No wheezes, rales, or rhonchi. HEART: Regular and tachycardic at 122, sinus on the monitor. ABDOMEN: Obese, soft. EXTREMITIES: Without any edema. LABORATORY DATA: This morning shows a white cell count is normal at 10.7, hemoglobin 10.8, hematocrit 32.3. BMP: Glucose 86, BUN 15, creatinine 0.91. Electrolytes were normal. CT of the abdomen and pelvis does not show any evidence of any pathology. No pyelonephritis was seen. MRSA of the nares was negative. Urine culture shows heavy gram-positive cocci, no identification is available. Blood cultures all negative. ASSESSMENT AND PLAN: 1. The patient who has been treated for Pseudomonas aeruginosa sepsis with meropenem as an outpatient, presented with hypotension, hallucinations, sepsis. Blood culture so far shows no bacterial growth. Urine culture shows heavy gram-positive cocci. Once we know the identification, we will place on appropriate antibiotics. Right now, she is on meropenem for this pseudomonas which was identified on the 18 of February and Diflucan p.o. for yeast infection that was identified a few days ago on the on a urine culture. 2. Hypotension was resolved. She is not on any Levophed. We will add Lopressor back since she is tachycardic. 3. Visual hallucinations, possibly from the hypotension, which is resolved. Again, since the pressure is normal and she is tachycardic, metoprolol has been restarted. The patient can be moved to an [facility] [place]. [place], [place] PROGRESS NOTE NAME: YOLANDA BEARDEN UNIT #: [id number] ROOM: [facility] DOCTOR: YASMIN BARRIENTOS MD BIRTHDATE: [birth year] YASMIN BARRIENTOS MD CM:PNTRANS [phone] YASMIN BARRIENTOS MD 03/05/17900 interface
--- NOTE | ~2017-03-03 | CON ---
[place], [place] REPORT OF CONSULTATION NAME: YOLANDA BEARDEN UNIT #: [id number] ROOM: [facility] DOCTOR: JUDY PARTIDA MD,RADHA BIRTHDATE: [birth year] DOS: 03/04/2017 PULMONARY CONSULTATION EVALUATION AND MANAGEMENT CONSULTATION REQUESTED BY: Dr. Solis. REASON FOR CONSULTATION: For assessment of sepsis. HISTORY OF PRESENT ILLNESS: This is a 61-year-old white female with frequent hospitalization for the patient. The patient has been recently treated and managed for the patient with acute urinary tract infection, gram-negative infection after treatment completion, the patient was transferred to the nursing facility. The patient presented back to the hospital. The patient admitted to the hospital on date of service 03/03/2017, for the diagnosis of sepsis. The patient noted with hypotension for this patient and also confusional status of the patient and hallucinations. The patient has been admitted to the hospital for further care at this time. She has been also noted with a severe anemia of the patient with acute drop of hemoglobin and hematocrit. The patient at this time was noted sleepy, the patient unable to give me any history. The patient is comfortable, resting in Intensive Care Unit at the time of the assessment. REVIEW OF SYSTEMS: For the patient could not be completed for the patient effective because of the patient's inability to have interaction of the patient to the questions for the patient. PAST MEDICAL HISTORY: Known with a: 1. History of recurrent hospitalization for the patient for different kind of infection including bronchitis, pneumonia and urinary tract infection. 2. History of uncomplicated severe persistent bronchial asthma. 3. History of lung cancer, treated in the right upper lobe. The patient was known with diagnosis of squamous cell cancer of the patient that has been treated for the patient with localized radiation treatment for the patient of the left upper lobe for the patient with residual scarring. 4. History of general anxiety, depression and bipolar disorder. 5. History of chronic hypoxic respiratory failure, use of oxygen. 6. Nursing facility admission and treatment. 7. Essential hypertension. 8. Gastroesophageal reflux. 9. History of major depression. 10. Peripheral vascular disease. 11. History of congestive heart failure of the patient, diastolic dysfunction. 12. Intervertebral disk disease. 13. Recurrent urinary tract infection. PAST SURGICAL HISTORY: 1. Tonsillectomy. 2. . 3. Coronary artery bypass grafting. 4. Cardiac catheterization and coronary artery stent placement. 5. Partial hysterectomy. [place], [place] REPORT OF CONSULTATION NAME: YOLANDA BEARDEN UNIT #: [id number] ROOM: [facility] DOCTOR: JUDY PARTIDA MD,RADHA BIRTHDATE: [birth year] 6. Diskectomy of the lumbar spine. 7. Left femoropopliteal bypass grafting. 8. CT-guided needle aspiration biopsy in 01/2015. 9. Bilateral cataract extraction and lens implantation. 10. Fiberoptic bronchoscopy for the patient in 01/2017. SOCIAL HISTORY: The patient is , has 2 children, currently stays in the nursing facility. The patient's smoking noted at the age of [age] years old, a pack of cigarettes per day that has been discontinued in 2015. FAMILY HISTORY: The patient's mother at 67 years of old of the patient from complication of unknown cancer. Father from complication related to metastatic cancer of unknown primary. MEDICATIONS: Current administered medication noted use of Plavix, Imdur, Invega, Plavix, Bumex, aspirin, Neurontin, meropenem, Diflucan, Lipitor, and other p.r.n. medications administration. DRUG ALLERGIES: Noted: 1. IVP DYE. 2. PENICILLIN. PHYSICAL EXAMINATION: GENERAL: A 61-year-old female who has been currently noted comfortably resting on the bed for this patient with some lethargy, height of 5 feet 6 inches, weight of 185 pounds, BMI 29.8. VITAL SIGNS: Normal temperature, respiratory rate 15-24, heart rate 95-113, blood pressure 111/65-113/64. The lowest blood pressure yesterday was noted for the patient as 60 palpable of the patient prior to the admission to the hospital. The pulse oxygen saturation for the patient noted on 2 liters nasal cannula 100% saturation. HEENT: Examination shows head was atraumatic. Eyes nonicterus. NECK: Supple. CARDIOVASCULAR: S1, S2 audible. LUNGS: Noted without any wheezing or crackles. ABDOMEN: Soft, nontender, bowel sounds present. EXTREMITIES: The patient was noted without any clubbing, mild edema of the patient's extremities was noted. CENTRAL NERVOUS SYSTEM: No focal deficit. Inability to perform further examination because lack of cooperation and follow vocal commands at the present time. MUSCULOSKELETAL: No deformities. SKIN: Showed no lesions or rashes. LABORATORY DATA: Culture of the urine of the patient was noted to have a growth of gram-positive cocci on 03/03/2017, pending further identification and sensitivity results. The BMP of the patient this morning, BUN 21, creatinine 1.30. CBC of this morning, hemoglobin 9.3, hematocrit 28.6, WBC count was 12.3, platelet count was normal. The CBC for the patient that was done for the patient on 03/03/2017, hemoglobin 6.3, hematocrit 20.0, WBC count 20.7, platelet [place], [place] REPORT OF CONSULTATION NAME: YOLANDA BEARDEN UNIT #: [id number] ROOM: [facility] DOCTOR: RADHA LAKE MD BIRTHDATE: [birth year] count of 241,000. Lactic acid was 1.6. CMP of the patient of yesterday, BUN 24, creatinine 2.12. CO2 41. Chest x-ray of the patient that was done yesterday for the patient shows no acute abnormality for the patient has acute area of consolidation, infiltration, finding of congestive heart failure. IMPRESSION: 1. The patient has been currently admitted to the hospital with urinary tract infection for the patient with acute sepsis, hypotension, acute severe anemia of the patient. Etiology is unclear for this patient at this time, rule out acute GI bleeding. 2. History of lung cancer which had previous treated. 3. History of COPD, stable. 4. Past tobacco use which has been noted stable as well. PLAN OF TREATMENT: The patient has been ordered a consultation by the Infectious Disease for this patient, might suggest the antibiotics for the patient based on the culture results. The patient has been ordered the supportive with the intravenous fluids and has been tolerating well with normal blood pressures were noted for the patient in the last 24 hours. Monitor mental status, aspiration precautions. Oxygen supplementation and treatment, therapy plan and management as well. Usual care. Further treatment changes will be done based on the progression of the illness. RADHA KIM MD CM:CONSTR:REPORT OF CONSULTATION 1656 03/05/17 0815 interface
--- NOTE | ~2017-03-03 | PR ---
[place], [place] PROGRESS NOTE NAME: YOLANDA BEARDEN UNIT #: [id number] ROOM: 424 DOCTOR: RADHA LAKE MD BIRTHDATE: [birth year] DOS: 03/03/2017 PULMONARY PROGRESS NOTE SUBJECTIVE: The patient was seen and examined on 03/03/2017. She has been noted without any acute new complaints at this time. Noted much more awake and alert this morning, resting on her bed. She pulled out one of her peripheral IV for this patient. She does have multi-lumen catheter noted in place for this patient as well. The patient denied symptoms of chest pain or any hemoptysis. OBJECTIVE: VITAL SIGNS: For the patient which were recorded showed the temperature of the patient noted as normal. The respiratory rate of the patient recorded as 20, heart rate of 124-102, blood pressure 143/75. HEENT: Showed no new change. NECK: Supple. CARDIOVASCULAR SYSTEM: S1, S2 is audible. LUNGS: The patient was noted without any wheezing or crackles. ABDOMEN: Soft, nontender. LABORATORY DATA: Culture of the urine for the patient was noted with heavy growth of Enterococcus for this patient, which were noted sensitive to the penicillin and noted as VRE as well. BMP this morning noted normal BUN and creatinine for this patient. CBC of the patient this morning, hemoglobin 10.8, hematocrit 32.3, platelet count and WBC count were normal. IMPRESSION: 1. Resolving acute abdominal sepsis for the patient rather related to the acute urinary tract infection. 2. Vancomycin-resistant enterococci isolation of the urine for this patient as well. The CT scan of the abdomen and pelvis done yesterday for the patient was noted with finding of acute cystitis. PLAN OF TREATMENT: Continue antibiotics per the Infectious Disease Service recommendation. Other supportive therapy, plan of management continue as well as previously. Usual care, other supportive care and therapies. [place], [place] PROGRESS NOTE NAME: YOLANDA BEARDEN UNIT #: [id number] ROOM: 424 DOCTOR: RADHA LAKE MD BIRTHDATE: [birth year] RADHA KIM MD CM:PNTRANS [phone] RADHA PARTIDA MD 03/06/17 0236 interface
--- NOTE | ~2017-03-03 | PR ---
[place], [place] PROGRESS NOTE NAME[id number] UNIT #: [id number] ROOM: 424 DOCTOR: ESTRELLITA DRISCOLL MD BIRTHDATE: [birth year] DOS: 03/05/2017 SUBJECTIVE: The patient was seen today at her bedside in the intensive care unit on 03/05/2017 for followup of her atherosclerotic heart disease. She is a 61-year-old woman with a history of coronary artery disease who is status post bypass surgery. The details are not currently available. She presented to the hospital on this occasion with evidence of severe sepsis and urinary tract infection. She is being followed by the Infectious Disease Service as well as Pulmonary. She is being treated with antibiotics and currently seems to be feeling well. She denied any complaints of chest discomfort or dyspnea when I interviewed her this morning. She states that she is breathing well. PHYSICAL EXAMINATION: VITAL SIGNS: Today, her pulse is 93 and regular, blood pressure is 143/75. She is afebrile. She weighs 83.9 kg and has a body mass index 29.9. HEENT: Normocephalic, atraumatic. Extraocular muscles are intact. Sclerae are clear. Pupils are equal, round and reactive to light. The oral mucosa is moist. Tongue is midline. NECK: Supple. She has no jugular distention. Carotids are full. I heard no bruits. She had no neck or supraclavicular masses. LUNGS: Respirations are unlabored. Her chest is clear to auscultation and percussion anteriorly. HEART: Regular rhythm with a fourth heart sound, but no third heart sound or murmur. ABDOMEN: Soft and normally active. EXTREMITIES: Showed no edema. NEUROLOGIC: She seems to be euvolemic and hemodynamically stable. IMPRESSION: 1. Admission with severe sepsis. 2. History of lung cancer, previously treated. 3. Chronic obstructive pulmonary disease. 4. Former tobacco abuse. 5. History of atherosclerotic heart disease, status post remote bypass surgery. Records that are available indicate that this occurred in 2014, but details are not currently available. 6. Hyperlipidemia. 7. History of hypertension. PLAN: We will continue her beta blockers at their current dose and review her echocardiogram when it is available. She will continue Plavix for now. Since she is not having any angina, I will stop isosorbide. We will continue to follow with her other physicians. I thank the hospitalist group for asking our advice regarding her care. [place], [place] PROGRESS NOTE NAME: YOLANDA BEARDEN UNIT #: [id number] ROOM: [facility] DOCTOR: ESTRELLITA DRISCOLL MD BIRTHDATE: [birth year] ESTRELLITA DRISCOLL MD CM:PNTRANS [phone] ESTRELLITA DRISCOLL MD 03/06/17 0106 interface
--- NOTE | ~2017-03-03 | PR ---
[place], [place] PROGRESS NOTE NAME: YOLANDA BEARDEN UNIT #: [id number] ROOM: [facility] DOCTOR: NICOLE POLK MD BIRTHDATE: [birth year] DOS: 03/04/2017 SUBJECTIVE: The patient is more awake and alert. OBJECTIVE: VITAL SIGNS: Blood pressure 111/65, heart rate of 86 beats per minute, breathing 15-20 times per minute, temperature of 98 degrees Fahrenheit. GENERAL APPEARANCE: The patient is alert and oriented x 3, in no visible distress. Generalized weakness and obesity. HEENT AND NECK: Exam within normal limits. CARDIOVASCULAR SYSTEM: Heart rate is regular in rate and rhythm. S1 and S2 normally audible. LUNGS: Clear to auscultation. ABDOMEN: Soft, nontender. No obvious organomegaly. Bowel sounds are present. EXTREMITIES: Without significant cyanosis or edema. IMPRESSION: The patient with hypotension, sepsis, severe leukocytosis, all improved with treatment. The patient was being treated with pressors, but her blood pressure has improved. No chest pain, no increasing shortness of breath. The patient is feeling much better. Adult failure to thrive and recurrent admissions to the hospital in the ICU. The situation was discussed with her daughter in great detail regarding her code status. The patient has severe failure to thrive. The patient with poor long-term prognosis and I recommended comfort care code status for her for more conservative treatment. The patient with severe anemia of chronic disease along with possible blood loss anemia because her stool for occult blood was positive. Hemoglobin has improved from 9.3 and I will continue to follow hemoglobin. The patient was given 2 units of packed cells yesterday. Type 2 diabetes mellitus with diabetic nephropathy and chronic kidney disease stage 3A, blood sugars are being monitored and treated. Coronary artery disease of the [place] vessels without chest pains. The patient's cardiac enzymes are negative and she is being followed by Cardiology. Moderate protein calorie malnutrition. The patient is working with Dietary. Major depression, recurrent, moderate, followed by Psychiatry. All her psych meds have been continued. [place], [place] PROGRESS NOTE NAME: YOLANDA BEARDEN UNIT #: [id number] ROOM: [facility] DOCTOR: NICOLE POLK MD BIRTHDATE: [birth year] NICOLE POLK MD CM:FELICITY [phone] NICOLE POLK MD 03/05/17 0434 interface
--- NOTE | ~2017-03-03 | CON ---
[place], [place] REPORT OF CONSULTATION NAME: YOLANDA BEARDEN UNIT #: [id number] ROOM: [facility] DOCTOR: ALEX PAYNE MD BIRTHDATE: [birth year] DOS: 03/04/2017 REQUESTING PHYSICIAN: Dr. Natanael Solis. I am Irma with [facility]. REASON FOR CONSULTATION: Hypotension. ASSESSMENT: 1. The patient's current admission for hypotension (the patient is a poor historian and does not know why she is in the hospital). 2. No complaint of chest pain, chest pressure or symptomatic palpitation. 3. Coronary artery disease with recent bypass surgery in December of this year. 4. Stress test in March of last year reporting normal adenosine. I could not access the images. 5. Diabetes. 6. Chronic renal failure. 7. Severe anemia, presenting hemoglobin of 6. 8. Elevated white count with left shift. 9. Anxiety/depression. PLAN: 1. Cycle cardiac enzymes. 2. Blood pressure and antibiotic per PCP. 3. Echocardiogram in a.m. 4. I will hold on adding any cardiac medication at this time. 5. Obtain old record from [place] regarding the patient's previous heart history. 6. Early followup with us upon discharge within 1-2 weeks. 7. Call for any change in symptoms. HISTORY OF PRESENT ILLNESS: The patient is a pleasant 61-year-old female, appears much older than her stated age. The patient apparently was brought into the hospital for what looks like a sepsis and recurrent pneumonia, the patient cannot remember why she came to the hospital. She denies any complaint of chest pain, chest pressure, heaviness or tightness. No symptomatic palpitation or any associated dizziness, lightheadedness, or near syncope. The patient appeared to be with very limited functional capacity. Atrophied lower extremities. Muscular atrophy to lower extremity muscles. Most of the history was obtained from Dr. Solis's note and previous notes also from the chart. Even though the patient actually denies any specific cardiac complaint, no fever, no chills, no night sweats, decreased appetite, there is an element of significant malnourishment and low protein. PAST MEDICAL HISTORY: 1. As detailed above. 2. Pulmonary fibrosis. SOCIAL HISTORY: The patient quit smoking 15 years ago. Denies any current tobacco, alcohol or illicit drug abuse. FAMILY HISTORY: The patient knows her brother had a heart problem, but she is [place], [place] REPORT OF CONSULTATION NAME: YOLANDA BEARDEN UNIT #: [id number] ROOM: [facility] DOCTOR: ALEX PAYNE MD BIRTHDATE: [birth year] not exactly sure how old was he when he had that. CURRENT MEDICATIONS: Potassium, Invega, Imdur, Plavix, Bumex, aspirin, Tylenol, Neurontin, Diflucan, Cymbalta, Lipitor, Merrem, Dulcolax. ALLERGIES: AMPICILLIN, AMOXICILLIN AND IV DYE. REVIEW OF SYSTEMS: Currently is unreliable, but the patient denies any headache, diplopia or blurry vision. No fever, no chills, no night sweats. No abdominal pain. No bright blood per rectum or black tarry stools. The patient admits to joint pain and muscular pain. Admits to anxiety and depression. No polyuria, no polydipsia, no skin rash. Review of other systems has been negative. PHYSICAL EXAMINATION: GENERAL: The patient is alert, oriented x 3, quite pleasant, sitting up in bed, does not appear in any distress. VITAL SIGNS: Blood pressure 102/51, heart rate 86, respiratory rate of 15, temperature 98. HEENT: Extraocular muscles intact. Pupils equal, round, reactive to light. Conjunctivae significant pallor. Throat: No petechiae. NECK: Good carotid upstroke. Unable to appreciate any bruit, no lymphadenopathy, no thyromegaly. HEART: S1, S2 with holosystolic murmur at left sternal border. No rub. No retrosternal heave. CHEST AND BACK: Not examined. LUNGS: Overall clear to auscultation. Slight decrease in breath at the left. ABDOMEN: Obese, soft, nontender. Present bowel sounds. No masses, no bruits. LOWER EXTREMITIES: There is mild edema bilateral with faint distal pulses. NEUROLOGIC: Grossly nonfocal. SKIN: No significant rash. LABORATORY DATA: White count on presentation 20.7, currently 12.8; hemoglobin on presentation 6.3, currently 9.3. Potassium 3.5, creatinine 1.3, GFR is 51 along with BUN of 42, bilirubin 7.6. Chest x-ray showing significant left lower lobe infiltrate with volume redistribution. ALEX PAYNE MD CM:CONSTR:REPORT OF CONSULTATION 1052 03/05/17 0449 interface
--- NOTE | ~2017-03-03 | PR ---
[place], [place] PROGRESS NOTE NAME: YOLANDA BEARDEN UNIT #: [id number] ROOM: 424 DOCTOR: FELICITAS DEL ROSARIONICOLE Corona BIRTHDATE: [birth year] DOS: 03/07/2017 SUBJECTIVE: The patient awake, alert, not complaining of any new symptoms. OBJECTIVE: VITAL SIGNS: Blood pressure is 88/50, heart rate of 85 beats per minute, breathing normally. Generalized weakness. GENERAL APPEARANCE: The patient is alert and oriented x 3, in no visible distress. HEENT AND NECK: Exam within normal limits. CARDIOVASCULAR SYSTEM: Heart rate is regular in rate and rhythm. S1 and S2 normally audible. LUNGS: Clear to auscultation. ABDOMEN: Soft, nontender. No obvious organomegaly. Bowel sounds are present. EXTREMITIES: Increased leg and pedal edema. IMPRESSION: 1. The patient's code status needs to be clarified with the durable power of erisa attorney again because she showed as a DNR comfort care code status at the [facility], when she maintained the full code status at the hospital. This was discussed with nursing staff. 2. Hypotension, hypotensive today. The patient's blood pressure will be rechecked and the situation rediscussed with bolt header, Dr. Thomas Peng, to see if he would like to reduce the patient's blood pressure medications. The patient's Lopressor was held back by the nursing staff today because of low blood pressure. I was planning to discharge the patient back to the [facility] on antibiotics with the discharge is being held back because of hypotension. 3. Sepsis, hypotension, leukocytosis, all have generally improved except for some lower blood pressures today, although the patient appears to be generally doing better. 4. Adult failure to thrive and poor long-term prognosis with recurrent admissions to the hospital, has been discussed in great detail with the patient's daughter recently. 5. Gastrointestinal bleed, for which the patient has been evaluated by hand iii cutter. Hemoglobin is being monitored and stable. 6. Recent septic shock and resistant urine infection with Enterococcus, has been treated and followed by Infectious Disease specialist, Dr. Barker, and we are continuing the patient's antibiotic. [place], [place] PROGRESS NOTE NAME: YOLANDA BEARDEN UNIT #: [id number] ROOM: 424 DOCTOR: NICOLE POLK MD BIRTHDATE: [birth year] NICOLE POLK MD CM:PNTRANS [phone] NICOLE POLK MD 03/08/17 1421 interface
--- NOTE | ~2017-03-03 | PR ---
[place], [place] PROGRESS NOTE NAME: [facility]ARDEN [id number] UNIT #: [id number] ROOM: 424 DOCTOR: ESTRELLITA DRISCOLL MD BIRTHDATE: [birth year] DOS: 03/06/2017 SUBJECTIVE: The patient was seen at her bedside today, 03/06/2017, for followup of her atherosclerotic heart disease. She is a 61-year-old woman with a history of coronary artery disease. The available records indicate that she did have bypass surgery in 2014, but details are not currently available. She presented to the hospital on this occasion with severe sepsis and urinary tract infection. This appears to be responding to antibiotics, and she is being followed by the Infectious Disease Service. The patient is quite withdrawn, but is awake and alert this morning. She denies any chest pain, dyspnea, but answers all questions with one word if anything. She denies cough or dyspnea at this time and denies any peripheral edema. PHYSICAL EXAMINATION: VITAL SIGNS: Today, her pulse is 90 and regular, blood pressure is 136/60. She is afebrile. She weighs 83.9 kg and has a body mass index 29.9. NECK: Supple. She has no jugular distention. Carotids are full. LUNGS: Respirations are unlabored. Her chest has decreased breath sounds at the bases, but is otherwise clear. HEART: Regular rhythm with a fourth heart sound, but no third heart sound or murmur. The PMI is not displaced. ABDOMEN: Soft and normally active. EXTREMITIES: Showed no edema. LABORATORY DATA: Today show hemoglobin of 11.5 and a white count of 9600, platelet count is normal at 230,000. Sodium is 138, potassium 3.2, BUN 12, creatinine 0.94. I reviewed her echocardiogram yesterday. It showed normal sized left ventricle with global left ventricular hypokinesis, especially involving the anterior wall. Ejection fraction was decreased at 40-45% with grade 3 diastolic dysfunction. She had no significant valve abnormalities. IMPRESSION: 1. Admission with severe sepsis, probably from urinary tract origin. 2. History of lung cancer, previously treated. 3. Chronic obstructive pulmonary disease. 4. Former tobacco abuse. 5. History of atherosclerotic heart disease, status post bypass surgery reportedly around 2014. Further details are not available. 6. Hyperlipidemia. 7. History of hypertension. 8. Chronic combined systolic and diastolic congestive heart failure. PLAN: I will increase her dose of beta kota today and add a low-dose of STANISLAV inhibitor. She will continue dual antiplatelet therapies. We will continue to follow her with her other physicians, but no further advance cardiac diagnostics are planned at this time. We thank the hospitalist group for asking our advice regarding her care. [place], [place] PROGRESS NOTE NAME: YOLANDA BEARDEN UNIT #: [id number] ROOM: 424 DOCTOR: ESTRELLITA DRISCOLL MD BIRTHDATE: [birth year] ESTRELLITA DRISCOLL MD CM:PNTRANS [phone] ESTRELLITA DRISCOLL MD 03/07/17129 interface
--- NOTE | ~2017-03-03 | PR ---
[place], [place] PROGRESS NOTE NAME: YOLANDA BEARDEN UNIT #: [id number] ROOM: 424 DOCTOR: JUDY PARTIDA MD,RADHA BIRTHDATE: [birth year] DOS: 03/06/2017 SUBJECTIVE: She has been comfortably resting, noted awake and alert, eating food with assistance. Does not report any symptoms of coughing, chest pain or shortness of breath. OBJECTIVE: VITAL SIGNS: For the patient which were recorded showed the temperature recorded normal, respiratory rate 18, heart 101, blood pressure 111/53, pulse oxygen saturation of the patient on 1.5 liters nasal cannula 96% saturation. HEENT: Examination shows no acute change. NECK: Supple. CARDIOVASCULAR: S1, S2 audible. LUNGS: Clear. ABDOMEN: Soft, nontender. EXTREMITIES: Shows mild edema. LABORATORY DATA: CBC today: WBC count was normal, hemoglobin 11.5, hematocrit 34.9, platelet count was normal. BMP this morning, normal BUN and creatinine. Glucose mildly elevated at 129. IMPRESSION: The patient with stable acute respiratory status noted at this time with urinary tract infection with VRE and also treated for Gram-negative coverage as well with antibiotic noted normal white cell count at this time. Sepsis, the patient was noted well controlled. PLAN OF TREATMENT: No changes in the plan of management. Continue the oxygen supplementation to maintain a saturation of 92% or greater. Other supportive plan of therapy to be continued. Usual care. RADHA KIM MD CM:PNTRANS [id number] RADHA PARTIDA MD 03/07/17 0711 interface
--- NOTE | ~2017-03-03 | DS ---
[place], [place] DISCHARGE SUMMARY NAME: YOLANDA BEARDEN UNIT #: [id number] ROOM: 424 DOCTOR: NICOLE POLK MD BIRTHDATE: [birth year] DOS: 03/08/2017 DISCHARGE DIAGNOSES: 1. Sepsis, hypotension, and leukocytosis, resolved with treatment. 2. Urinary tract infection with VRE, treated, evaluated by Infectious Disease specialist. 3. Adult failure to thrive and poor long-term prognosis. 4. Coronary artery disease of [place] vessel, status post coronary artery bypass grafts in 2014. 5. Chronic obstructive pulmonary disease. 6. History of lung cancer, previously treated. 7. Benign essential hypertension. 8. Mixed hyperlipidemia. 9. Chronic combined systolic and diastolic type congestive heart failure. 10. History of chronic pulmonary fibrosis. 11. Generalized anxiety disorder. 12. Moderate protein-calorie malnutrition. 13. Type 2 diabetes mellitus. 14. Paranoid disorder. 15. Major depression, recurrent, moderate. HOSPITAL COURSE: 1. The patient was returned from [facility] with a full code status. One day after she was discharged to the [facility] this time with hypotension, sepsis, growing Enterococcus faecium in the urine and leukocytosis with white cell count of 20,000. The patient's systolic blood pressure was as low as 60. The patient has severe issue with adult failure to thrive. The patient was treated with antibiotics, hydration, kept in the ICU and treated with the help of consultants, Dr. Rodriguez, the improvement analyst and Dr. Ronaldo Barker, ID specialist. The patient's condition improved and her code status was changed to DNRCC based on her documents from the [facility]. The patient is awake, alert and comfortable. Her blood pressure stayed generally on the lower side and were monitored and treated by Dr. Thomas Peng, the linen controller. 2. Type 2 diabetes mellitus. Blood sugars are monitored and controlled. 3. Chronic kidney disease stage 3, diabetic nephropathy. 4. Moderate protein-calorie malnutrition. The patient was followed by dietary. 5. Coronary artery disease of [place] vessels without chest pains. The patient with anemia of chronic disease and blood loss anemia with hemoglobin of 6. The patient was given blood transfusion and her hemoglobin improved to 11.5 and staying stable. 6. Overall, severe advanced adult failure to thrive with recurrent admissions to the hospital to the ICU with poor long-term prognosis. This was discussed in detail with her daughter who was present with her in the ICU during this admission. DISCHARGE MANAGEMENT: Discontinue metoprolol because her blood pressure is staying low, potassium chloride 20 mEq daily, Invega 3 mg daily, Plavix 75 mg a day, Bumex 2 mg daily, aspirin 81 mg a day, stomach coated. Tylenol 1000 mg q.6 hours p.r.n. for pain and fever, gabapentin 100 mg at bedtime, Cymbalta 90 mg daily, Lipitor 10 mg a day, Dulcolax 10 mg orally daily p.r.n. for constipation, [place], [place] DISCHARGE SUMMARY NAME: YOLANDA BEARDEN UNIT #: [id number] ROOM: [facility] DOCTOR: NICOLE POLK MD BIRTHDATE: [birth year] MiraLax 17 grams daily p.r.n. for constipation, Colace 200 mg at bedtime, maintain a DNR comfort code status and discussed that with the family. NICOLE POLK MD CM:COURT [phone] NICOLE POLK MD 03/08/17 174 interface
--- NOTE | ~2017-03-03 | PR ---
[place], [place] PROGRESS NOTE NAME: YOLANDA BEARDEN UNIT #: [id number] ROOM: 424 DOCTOR: RADHA LAKE MD BIRTHDATE: [birth year] DOS: 03/07/2017 PULMONARY PROGRESS NOTE SUBJECTIVE: The patient has been noted comfortable at this time without any distress. Remains awake and alert. Denies any coughing or noted with acute shortness of breath. OBJECTIVE: VITAL SIGNS: Normal temperature, respiratory rate 12, heart rate 87, blood pressure 82/46-112/67. The pulse oxygen saturation recorded on 1.5 liter nasal cannula 99% saturation. HEENT: Shows no acute change. NECK: Supple. CARDIOVASCULAR: S1, S2 audible. LUNGS: The patient was noted without any crackle, rhonchi or wheezing. ABDOMEN: Soft, nontender. LABORATORY DATA: BNP today 523. Glucose 123, BUN and creatinine were normal, potassium 3.2. CBC: WBC 11.5, hematocrit 34.9, platelet count normal, normal. IMPRESSION: 1. Mild hypotension in the patient, etiology unclear. 2. Mild hypokalemia in this patient as well. 3. Urinary tract infection, which has been ____ treated with the antibiotics for enterococcus. PLAN OF TREATMENT: No changes in plan of management. Monitor the hypotension of the patient and address it accordingly per order of Dr. Юлия Campoverde. She has already been ordered the potassium supplementation by her. Other supportive plan of management and care. Usual treatment. Supportive care and therapy, plan of management. [place], [place] PROGRESS NOTE NAME: YLOANDA BEARDEN UNIT #: [id number] ROOM: 424 DOCTOR: RADHA LAKE MD BIRTHDATE: [birth year] RADHA KIM MD CM:PNTRANS [phone] RADHA PARTIDA MD 03/08/17 0759 interface
[~2017-03-03 12:04] MED LIST changes: +DIFLUCAN150 MG PO; +DOCUSATE SODIU100 M2 PO; +MAPAP EXTRA ST500 MG PO; +MERREM IV1 GM IV; +MILK OF MA400 MG/51 PO; +NEURONTIN100 MG PO; +NOVOLOG10 ML IV; +POTASSIUM CHLO10 MEQ PO; +PROAIR HFA8.5 GM INH
[2017-03-03] MEDS ORDERED: BREO ELLIPTA 11 EACH IH (12:38)
[2017-03-03] MEDS ORDERED: GUAIFENESIN600 MG PO (12:45)
[2017-03-03 12:53] LABS: HEMOGLOBIN 6.3 g/dl (12.0-16.0); MEAN CELL VOLUME 102.6 fl (81.0-99.0); MEAN CORPUSCULAR HGB 32.3 pg (27.0-31.0); MEAN CORPUSCULAR HGB CONC 31.5 g/dl (33.0-37.0); MEAN PLATELET VOLUME 10.3 fl (9.6-12.3); PLATELET COUNT AUTOMATED 241 10*3/uL (130-400); RED BLOOD COUNT 1.95 10*6/uL (4.10-5.10); RED CELL DISTRI WIDTH 18.5 % (0-14.5); WHITE BLOOD COUNT 20.7 10*3/uL (4.8-10.8)
[2017-03-03 13:09] LABS: BILIRUBIN, TOTAL 0.5 mg/dl (0.2-1.0); POTASSIUM 4.3 mmol/L (3.5-5.1); TOTAL PROTEIN 5.8 gm/dL (6.4-8.2)
[2017-03-03 13:13] LABS: HYPOCHROMIA SLIGHT; LYMPHOCYTE # 3.3 10*3/uL (1.3-4.4); MONOCYTE # 2.9 10*3/uL (0.1-1.0); NEUTROPHIL # 14.5 10*3/uL (2.3-7.9); NEUTROPHILS 70 % (47-73); PLATELET SUFFICIENCY NORMAL (NORMAL); POLYCHROMASIA SLIGHT; TOTAL CELLS COUNTED 100 #CELLS
[2017-03-03 13:14] LABS: OVALOCYTES FEW
[2017-03-03 15:01] LABS: BILIRUBIN NEGATIVE (NEGATIVE); BLOOD 3+ (NEGATIVE); CLARITY SL CLOUDY (CLEAR); COLOR YELLOW (YELLOW); GLUCOSE NEGATIVE (NEGATIVE); KETONE NEGATIVE (NEGATIVE); LEUKO ESTERASE 3+ (NEGATIVE); NITRITE NEGATIVE (NEGATIVE); PH 6.5 (5.0-9.0); PROTEIN TRACE (NEGATIVE); UROBILINOGEN 0.2 E.U./dl (0.2-1.0)
[2017-03-03 15:14] LABS: BACTERIA 2+; EPITHELIAL CELLS 45-50; RBC TNTC rbc/hpf (0-2); URINE REFLEX COMMENT YES (NO); WBC TNTC wbc/hpf (0-5)
[2017-03-04] VITALS: BP 112/57
[2017-03-04 04:00] VITALS: BP 110/53
[2017-03-04 06:22] LABS: BASO # 0.1 10*3/uL (0.0-0.1); BASO % 0.5 % (0.0-1.0); EOS # 0.4 10*3/uL (0.0-0.4); EOS % 3.1 % (1.0-4.0); IG # 0.1 10*3/uL (0.0-0.1); LYMPH # 2.3 10*3/uL (1.3-4.4); LYMPH % 17.9 % (27.0-41.0); MEAN CORPUSCULAR HGB 30.6 pg (27.0-31.0); MEAN CORPUSCULAR HGB CONC 32.5 g/dl (33.0-37.0); MEAN PLATELET VOLUME 10.2 fl (9.6-12.3); MONO # 1.1 10*3/uL (0.1-1.0); MONO % 8.2 % (3.0-9.0); NEUT # 8.8 10*3/uL (2.3-7.9); NEUT % 69.3 % (47.0-73.0); PLATELET COUNT AUTOMATED 194 10*3/uL (130-400); RED BLOOD COUNT 3.04 10*6/uL (4.10-5.10); RED CELL DISTRI WIDTH 18.5 % (0-14.5); WHITE BLOOD COUNT 12.8 10*3/uL (4.8-10.8)
[2017-03-04 06:36] LABS: HEMATOCRIT 28.6 % (37.0-47.0); HEMOGLOBIN 9.3 g/dl (12.0-16.0); MEAN CELL VOLUME 94.1 fl (81.0-99.0)
[2017-03-04 06:47] LABS: POTASSIUM 3.5 mmol/L (3.5-5.1)
[2017-03-04 08:00] VITALS: BP 102/51
[2017-03-04 11:10] LABS: TROPONIN I 0.025 ng/ml (<0.045)
[2017-03-04 12:00] VITALS: BP 111/65
[2017-03-04 16:00] VITALS: BP 135/70
[2017-03-04 20:00] VITALS: BP 126/71
[2017-03-05] VITALS: BP 139/67
[2017-03-05 04:00] VITALS: BP 136/69
[2017-03-05 06:07] LABS: BASO # 0.1 10*3/uL (0.0-0.1); BASO % 0.7 % (0.0-1.0); EOS # 0.4 10*3/uL (0.0-0.4); HEMATOCRIT 32.3 % (37.0-47.0); HEMOGLOBIN 10.8 g/dl (12.0-16.0); IG # 0.1 10*3/uL (0.0-0.1); LYMPH # 2.8 10*3/uL (1.3-4.4); LYMPH % 26.1 % (27.0-41.0); MEAN CELL VOLUME 93.6 fl (81.0-99.0); MEAN CORPUSCULAR HGB 31.3 pg (27.0-31.0); MEAN CORPUSCULAR HGB CONC 33.4 g/dl (33.0-37.0); MONO # 0.9 10*3/uL (0.1-1.0); MONO % 8.4 % (3.0-9.0); NEUT # 6.4 10*3/uL (2.3-7.9); NEUT % 59.8 % (47.0-73.0); PLATELET COUNT AUTOMATED 217 10*3/uL (130-400); RED BLOOD COUNT 3.45 10*6/uL (4.10-5.10); RED CELL DISTRI WIDTH 17.6 % (0-14.5); WHITE BLOOD COUNT 10.7 10*3/uL (4.8-10.8)
[2017-03-05 06:18] LABS: BUN 15 mg/dl (7-24); CARBON DIOXIDE 32 mmol/L (21-32); CHLORIDE 102 mmol/L (98-107); EST GLOM FILT AFRICAN AMERICAN > 60 ml/min; GLUCOSE 86 mg/dL (65-99); POTASSIUM 3.5 mmol/L (3.5-5.1); SODIUM 139 mmol/L (136-145)
[2017-03-05 08:00] VITALS: BP 143/75
[2017-03-05 12:00] VITALS: BP 114/59
[2017-03-05 16:00] VITALS: BP 115/70
[2017-03-05 20:00] VITALS: BP 127/70
[2017-03-06] VITALS: BP 124/71
[2017-03-06 06:26] LABS: BASO # 0.1 10*3/uL (0.0-0.1); BASO % 0.6 % (0.0-1.0); EOS # 0.4 10*3/uL (0.0-0.4); EOS % 4.2 % (1.0-4.0); HEMATOCRIT 34.9 % (37.0-47.0); HEMOGLOBIN 11.5 g/dl (12.0-16.0); IG # 0.1 10*3/uL (0.0-0.1); LYMPH % 31.3 % (27.0-41.0); MEAN CELL VOLUME 94.6 fl (81.0-99.0); MEAN CORPUSCULAR HGB 31.2 pg (27.0-31.0); MEAN PLATELET VOLUME 10.1 fl (9.6-12.3); MONO # 0.8 10*3/uL (0.1-1.0); MONO % 8.2 % (3.0-9.0); NEUT # 5.3 10*3/uL (2.3-7.9); NEUT % 54.8 % (47.0-73.0); PLATELET COUNT AUTOMATED 230 10*3/uL (130-400); RED BLOOD COUNT 3.69 10*6/uL (4.10-5.10); RED CELL DISTRI WIDTH 16.9 % (0-14.5); WHITE BLOOD COUNT 9.6 10*3/uL (4.8-10.8)
[2017-03-06 06:59] LABS: BUN 12 mg/dl (7-24); CARBON DIOXIDE 33 mmol/L (21-32); CHLORIDE 98 mmol/L (98-107); EST GLOM FILT AFRICAN AMERICAN > 60 ml/min; GLUCOSE 129 mg/dL (65-99); POTASSIUM 3.2 mmol/L (3.5-5.1); SODIUM 138 mmol/L (136-145)
[2017-03-06 08:00] VITALS: BP 136/60
[2017-03-06 12:00] VITALS: BP 111/53
[2017-03-06 16:00] VITALS: BP 123/79
[2017-03-06 20:00] VITALS: BP 112/67
[2017-03-07] VITALS: BP 82/46
[2017-03-07 08:06] VITALS: BP 88/51
[2017-03-07 12:00] VITALS: BP 76/48
[2017-03-07 16:00] VITALS: BP 97/54
[2017-03-07 20:00] VITALS: BP 80/42
[2017-03-08] VITALS: BP 98/52
[2017-03-08 08:00] VITALS: BP 64/44; BP 76/42
[2017-03-08 12:00] VITALS: BP 110/57
[2017-03-08 16:00] VITALS: BP 105/50
== END 2017-03-08 18:20 | disposition other institution (70) | DRG 871 ==
LOC: ED 12:04 → ICCU 17:39 → 4E 17:39 → EDHOLD 17:39 → ICCU 17:58 → 4E 03-05 13:56
PROVIDERS: Emergency Medicine; Internal Medicine; Internal Medicine Cardiovascular Disease
PROC: 30233N1 Transfusion of Nonautologous Red Blood Cells into Peripheral Vein, Percutaneous Approach (ICD-10-PCS; principal; 2017-03-03)
PROC: 02H633Z Insertion of Infusion Device into Right Atrium, Percutaneous Approach (ICD-10-PCS; principal; 2017-03-03)
DX: A41.52 Sepsis due to Pseudomonas (principal); J18.9 Pneumonia, unspecified organism; N17.0 Acute kidney failure with tubular necrosis; R65.21 Severe sepsis with septic shock; L89.303 Pressure ulcer of unspecified buttock, stage 3; I13.0 Hypertensive heart and chronic kidney disease with heart failure and stage 1 through stage 4 chronic kidney disease, or unspecified chronic kidney disease; E11.22 Type 2 diabetes mellitus with diabetic chronic kidney disease; I50.42 Chronic combined systolic (congestive) and diastolic (congestive) heart failure; D62 Acute posthemorrhagic anemia; E44.0 Moderate protein-calorie malnutrition; K92.2 Gastrointestinal hemorrhage, unspecified; F33.1 Major depressive disorder, recurrent, moderate; N30.00 Acute cystitis without hematuria; I25.10 Atherosclerotic heart disease of native coronary artery without angina pectoris; N18.3 Chronic kidney disease, stage 3 (moderate); J44.9 Chronic obstructive pulmonary disease, unspecified; F41.1 Generalized anxiety disorder; K21.9 Gastro-esophageal reflux disease without esophagitis; I25.2 Old myocardial infarction; R62.7 Adult failure to thrive; E87.6 Hypokalemia; B95.2 Enterococcus as the cause of diseases classified elsewhere; K81.9 Cholecystitis, unspecified; D63.8 Anemia in other chronic diseases classified elsewhere; Z66 Do not resuscitate; E11.51 Type 2 diabetes mellitus with diabetic peripheral angiopathy without gangrene; Z96.1 Presence of intraocular lens; E78.2 Mixed hyperlipidemia; F22 Delusional disorders; Z68.29 Body mass index [BMI] 29.0-29.9, adult; Z85.118 Personal history of other malignant neoplasm of bronchus and lung; Z87.891 Personal history of nicotine dependence; Z98.42 Cataract extraction status, left eye; Z98.41 Cataract extraction status, right eye; Z90.710 Acquired absence of both cervix and uterus; Z95.1 Presence of aortocoronary bypass graft; Z88.0 Allergy status to penicillin; Z79.4 Long term (current) use of insulin; Z79.899 Other long term (current) drug therapy; Z88.1 Allergy status to other antibiotic agents; Z88.8 Allergy status to other drugs, medicaments and biological substances; Z80.8 Family history of malignant neoplasm of other organs or systems; Z91.041 Radiographic dye allergy status; Z82.49 Family history of ischemic heart disease and other diseases of the circulatory system; Z82.0 Family history of epilepsy and other diseases of the nervous system

== ENCOUNTER 2017-03-14 16:11 | Inpatient (IN) | payer OTHER ==
[~2017-03-14] VITALS: Ht 170.1 cm; Wt 75.8 kg
--- NOTE | ~2017-03-14 | CON ---
[place], [place] REPORT OF CONSULTATION NAME: YOLANDA BEARDEN UNIT #: [id number] ROOM: 512 DOCTOR: FERMÍN DE LA O M.D. BIRTHDATE: [birth year] DOS: 03/15/2017 WOUND CARE CONSULTATION HISTORY OF PRESENT ILLNESS: This is a 61-year-old female with multiple medical problems and multiple recent admissions for respiratory failure. She is currently residing in a correction and was brought into the Emergency Department for suspected pneumonia. She has a history of multiple recent admissions for respiratory failure and sepsis. She has a pressure ulcer of her right heel that was initially unstageable due to necrotic tissue present; that had been debrided twice while she was admitted. She has been getting wound care at the correction where she resides. Wound care has been consulted for this ulcer as well as new ulcerations of the buttock/coccyx area as well. PAST MEDICAL HISTORY: Significant for multiple problems, anemia, anxiety, coronary artery disease, congestive heart failure, chronic back pain, chronic kidney disease, depression, COPD, diabetes, GERD, GI bleed, history of paranoid disorder, hyperlipidemia, hypertension, history of lung cancer, chronic major depression, [id number] ID, obesity, pulmonary fibrosis, severe protein-calorie malnutrition, urinary retention. PAST SURGICAL HISTORY: section, hysterectomy, endarterectomy, tonsillectomy and adenoidectomy, history of CABG. SOCIAL HISTORY: She does not smoke or drink. She is a former smoker. She currently resides in the correction. Apparently, she is not ambulatory anymore according to the record. FAMILY HISTORY: Significant for malignant neoplasm in her father, myocardial infarction and mother with myocardial infarction and Parkinson disease. A brother with colon cancer and cardiac disease. ALLERGIES: IVP DYE, AMOXICILLIN, AND AMPICILLIN. CURRENT MEDICATIONS: As follows: Levaquin 750 mg IV q. 48 hours, Micro-K 20 mEq daily, Invega 3 mg p.o. daily, Imdur 30 p.o. daily, Bumex 2 mg p.o. daily, Neurontin 100 mg p.o. at bedtime, Cymbalta 90 mg p.o. at bedtime, Lipitor 10 mg at bedtime, Humalog sliding scale, albuterol nebs 2.5 q. 6 hours, Mucinex 600 mg p.o. daily, vancomycin 1500 mg IV daily, Lovenox 40 subq daily, azithromycin 500 mg IV daily, Restoril, Zofran, morphine, milk of mag, Dulcolax, [place], Tylenol p.r.n. REVIEW OF SYSTEMS: Currently, she is getting a neb treatment. She does complain of soreness on her buttock area. She has had multiple incontinent diarrhea episodes today at least 6 have been reported. She offers no other specific complaints. She says her breathing she thinks is a little bit better than yesterday, apparently she had according to the records been complaining of a moist cough. Other review of systems are unobtainable because of the patient's clinical or mental status as evidenced by the medical record. The patient's positive and negative responses for review of systems, constitutional [place], [place] REPORT OF CONSULTATION NAME: YOLANDA BEARDEN UNIT #: [id number] ROOM: [facility] DOCTOR: FERMÍN DE LA O M.D. BIRTHDATE: [birth year] psychiatric, eyes, ENT, cardiovascular exam, respiratory, GI, neurologic, , musculoskeletal, integument systems and systems related to the presenting problems are either stated in the preceding or were not pertinent or were negative for the symptoms and her complaints related to medical problem. PHYSICAL EXAMINATION: VITAL SIGNS: Her temperature is 97.9, pulse of 111, respirations are 18, blood pressure is 128/78. GENERAL: The patient is pale, alert. She is in no acute distress, pleasant and cooperative. She has a very flat affect, appears markedly debilitated and much older than her stated age. She has a moist cough noted. HEENT: Extraocular movements are intact. Sclerae are anicteric. I do not appreciate any JVD. LUNGS: Have coarse breath sounds in the bases. CARDIOVASCULAR: S1, S2 regular rate and rhythm. She is tachycardic. ABDOMEN: Soft and nontender. EXTREMITIES: She has trace edema bilaterally. No calf tenderness. Her wound on her right heel is much improved, it is free of necrotic tissue. There is good granulation. There is no sign of infection. It is measuring 2 x 2 x 0.1, and it looks nice and clean, definitely a big improvement from last time I saw it. BACK: She several ulcers on her coccyx area and buttock area, there is a midline area of what appears to be at least a stage 3 pressure ulcer measuring approximately 4 cm x 0.8 cm in length. There is fibrin slough present in the base of the wound, this is right in the crease of the coccyx area. There are several other open areas that are fairly superficial, but at stage 3 with fibrin slough present, one is approximately 1 cm x 1 cm x 0.1, the other one is measuring 2 cm x 2 x 0.1 and that is mostly on the right buttock area. There is marked excoriation of the buttocks. There is an area also on the right buttock that is a little bit bigger and that area looks more clean and superficial, but is measuring 1.5 x 2 x 0.1 and there is evidence of marked erythema. She is incontinent of stool and was soiled when we had turned her over. LABORATORY DATA: Today show white count of 11.9, hemoglobin of 10, platelets of 147. A chem-7 shows a BUN of 19, creatinine 1.42, glucose is 91, and albumin was 2.3. Stool cultures, C. diff, urine culture are pending. Blood cultures are pending. Chest x-ray shows cardiac enlargement, atelectasis and chronic interstitial changes. ASSESSMENT AND PLAN: A pressure ulcer of the right heel, which definitely seems to be improving. I would use TheraHoney for now and foam and have her try to keep pressure off of it as much as possible. She is probably ready for collagen dressings soon, which can be provided at the correction where she will go back. Offloading is imperative as she had her heels right on the bed when I walked in, so I would recommend propping up her heels with pillows or a heel lift if needed. She has used it before, however, which did cause some new wounds to be started, so I would try to avoid the heel lift if we can, but if it is necessary, we might have to use it. I would try to keep her on her side if possible to help her, her coccyx wounds as well and continue to encourage her to offload as much as possible and encourage nutritional supplementation as well. [place], [place] REPORT OF CONSULTATION NAME: YOLANDA BEARDEN UNIT #: [id number] ROOM: [facility] DOCTOR: FERMÍN DE LA O M.D. BIRTHDATE: [birth year] She also has multiple stage 3 ulcerations of the coccyx buttock area with marked excoriation. On the open areas, I would use TheraHoney and try to keep a small Optifoam on the actual open ulcers, but on the rest of the area, I would use nystatin and Calazime for now as a skin protectant. She is incontinent of stool and does have a Moya catheter in place, but has had multiple episodes of diarrhea, so this we will need to watch carefully. She has other multiple medical problems and include pneumonia, sepsis, severe debility, acute kidney failure, heart failure and severe chronic obstructive pulmonary disease that is being managed by her medical team. FERMÍN DE LA O MD CM:CONSTR:REPORT OF CONSULTATION 1635 03/16/17 1000 interface
[2017-03-14 16:21] VITALS: BP 141/78
[2017-03-14 16:43] LABS: BASO # 0.1 10*3/uL (0.0-0.1); BASO % 0.5 % (0.0-1.0); EOS # 1.3 10*3/uL (0.0-0.4); EOS % 8.9 % (1.0-4.0); HEMATOCRIT 34.6 % (37.0-47.0); HEMOGLOBIN 11.4 g/dl (12.0-16.0); IG # 0.2 10*3/uL (0.0-0.1); LYMPH # 3.3 10*3/uL (1.3-4.4); LYMPH % 22.1 % (27.0-41.0); MEAN CELL VOLUME 94.3 fl (81.0-99.0); MEAN CORPUSCULAR HGB 31.1 pg (27.0-31.0); MEAN CORPUSCULAR HGB CONC 32.9 g/dl (33.0-37.0); MEAN PLATELET VOLUME 9.8 fl (9.6-12.3); MONO # 1.3 10*3/uL (0.1-1.0); MONO % 8.5 % (3.0-9.0); NEUT # 8.7 10*3/uL (2.3-7.9); NEUT % 58.7 % (47.0-73.0); PLATELET COUNT AUTOMATED 162 10*3/uL (130-400); RED BLOOD COUNT 3.67 10*6/uL (4.10-5.10); RED CELL DISTRI WIDTH 15.4 % (0-14.5); WHITE BLOOD COUNT 14.8 10*3/uL (4.8-10.8)
[2017-03-14 17:03] LABS: ALBUMIN 2.3 gm/dl (3.1-4.5); ALKALINE PHOSPHATASE 72 U/L (45-117); BILIRUBIN, TOTAL 0.4 mg/dl (0.2-1.0); BUN 24 mg/dl (7-24); CARBON DIOXIDE 29 mmol/L (21-32); CHLORIDE 95 mmol/L (98-107); EST GLOM FILT AFRICAN AMERICAN 39 ml/min; GLUCOSE 204 mg/dL (65-99); POTASSIUM 4.4 mmol/L (3.5-5.1); SGOT/AST 17 IU/L (3-35); SGPT/ALT 19 U/L (12-78); SODIUM 132 mmol/L (136-145); TOTAL PROTEIN 6.9 gm/dL (6.4-8.2)
[2017-03-14 17:08] LABS: TROPONIN I < 0.015 ng/ml (<0.045)
[2017-03-14 18:40] LABS: LA>2 REFLEX 2 HR DRAW NOW
[2017-03-14 20:03] LABS: BILIRUBIN NEGATIVE (NEGATIVE); BLOOD 3+ (NEGATIVE); CLARITY CLOUDY (CLEAR); COLOR YELLOW (YELLOW); GLUCOSE NEGATIVE (NEGATIVE); KETONE NEGATIVE (NEGATIVE); NITRITE POSITIVE (NEGATIVE); PROTEIN 2+ (NEGATIVE); UROBILINOGEN 0.2 E.U./dl (0.2-1.0)
[2017-03-14 20:16] LABS: BACTERIA 1+; LEUKO ESTERASE 3+ (NEGATIVE); URINE REFLEX COMMENT YES (NO); WBC 51-100 wbc/hpf (0-5)
[2017-03-14 21:00] VITALS: BP 95/55
[2017-03-14 21:13] LABS: LA>2 REFLEX 4 HR DRAW NOW
[2017-03-15] VITALS: BP 113/66
[2017-03-15 00:33] LABS: CKMB 1.8 ng/ml (0.5-3.6); CPK 23 U/L (26-192); TROPONIN I < 0.015 ng/ml (<0.045)
[2017-03-15 06:23] LABS: BASO # 0.1 10*3/uL (0.0-0.1); BASO % 0.7 % (0.0-1.0); EOS # 1.8 10*3/uL (0.0-0.4); EOS % 15.3 % (1.0-4.0); HEMATOCRIT 32.6 % (37.0-47.0); HEMOGLOBIN 10.5 g/dl (12.0-16.0); IG # 0.2 10*3/uL (0.0-0.1); LYMPH % 25.2 % (27.0-41.0); MEAN CELL VOLUME 94.5 fl (81.0-99.0); MEAN CORPUSCULAR HGB 30.4 pg (27.0-31.0); MEAN CORPUSCULAR HGB CONC 32.2 g/dl (33.0-37.0); MEAN PLATELET VOLUME 10.1 fl (9.6-12.3); MONO % 8.3 % (3.0-9.0); NEUT # 5.8 10*3/uL (2.3-7.9); NEUT % 48.6 % (47.0-73.0); PLATELET COUNT AUTOMATED 147 10*3/uL (130-400); RED BLOOD COUNT 3.45 10*6/uL (4.10-5.10); RED CELL DISTRI WIDTH 15.3 % (0-14.5); WHITE BLOOD COUNT 11.9 10*3/uL (4.8-10.8)
[2017-03-15 06:26] LABS: CKMB 1.5 ng/ml (0.5-3.6); CPK 18 U/L (26-192); TROPONIN I < 0.015 ng/ml (<0.045)
[2017-03-15 06:36] LABS: POTASSIUM 3.8 mmol/L (3.5-5.1)
[2017-03-15 08:00] VITALS: BP 120/64
[2017-03-15 12:00] VITALS: BP 128/78
[2017-03-15 12:54] LABS: CPK 28 U/L (26-192); TROPONIN I < 0.015 ng/ml (<0.045)
[2017-03-15 16:00] VITALS: BP 130/60
[2017-03-15 20:00] VITALS: BP 132/59
[2017-03-16] VITALS: BP 106/53
[2017-03-16 07:08] LABS: BASO # 0.1 10*3/uL (0.0-0.1); BASO % 0.5 % (0.0-1.0); EOS % 18.1 % (1.0-4.0); HEMATOCRIT 32.1 % (37.0-47.0); HEMOGLOBIN 10.3 g/dl (12.0-16.0); IG # 0.2 10*3/uL (0.0-0.1); LYMPH # 2.4 10*3/uL (1.3-4.4); LYMPH % 22.2 % (27.0-41.0); MEAN CELL VOLUME 94.7 fl (81.0-99.0); MEAN CORPUSCULAR HGB 30.4 pg (27.0-31.0); MEAN CORPUSCULAR HGB CONC 32.1 g/dl (33.0-37.0); MEAN PLATELET VOLUME 10.5 fl (9.6-12.3); MONO # 0.9 10*3/uL (0.1-1.0); MONO % 7.8 % (3.0-9.0); NEUT # 5.4 10*3/uL (2.3-7.9); NEUT % 49.8 % (47.0-73.0); PLATELET COUNT AUTOMATED 146 10*3/uL (130-400); RED BLOOD COUNT 3.39 10*6/uL (4.10-5.10); RED CELL DISTRI WIDTH 15.3 % (0-14.5); WHITE BLOOD COUNT 10.9 10*3/uL (4.8-10.8)
[2017-03-16 07:24] LABS: POTASSIUM 3.9 mmol/L (3.5-5.1)
[2017-03-16 08:00] VITALS: BP 123/55
[2017-03-16 12:00] VITALS: BP 120/60
[2017-03-16 16:00] VITALS: BP 124/64
[2017-03-16 20:00] VITALS: BP 107/53
[2017-03-17] VITALS: BP 108/54
[2017-03-17 06:46] LABS: BASO # 0.1 10*3/uL (0.0-0.1); BASO % 0.8 % (0.0-1.0); EOS # 1.7 10*3/uL (0.0-0.4); EOS % 18.3 % (1.0-4.0); HEMOGLOBIN 9.5 g/dl (12.0-16.0); IG # 0.2 10*3/uL (0.0-0.1); LYMPH # 2.7 10*3/uL (1.3-4.4); LYMPH % 29.5 % (27.0-41.0); MEAN CELL VOLUME 94.8 fl (81.0-99.0); MEAN CORPUSCULAR HGB CONC 32.8 g/dl (33.0-37.0); MEAN PLATELET VOLUME 10.5 fl (9.6-12.3); MONO # 0.7 10*3/uL (0.1-1.0); MONO % 7.4 % (3.0-9.0); NEUT # 3.9 10*3/uL (2.3-7.9); NEUT % 41.8 % (47.0-73.0); PLATELET COUNT AUTOMATED 142 10*3/uL (130-400); RED BLOOD COUNT 3.06 10*6/uL (4.10-5.10); RED CELL DISTRI WIDTH 15.8 % (0-14.5); WHITE BLOOD COUNT 9.2 10*3/uL (4.8-10.8)
[2017-03-17 07:10] LABS: POTASSIUM 4.2 mmol/L (3.5-5.1)
[2017-03-17 08:00] VITALS: BP 112/55
[2017-03-17 12:00] VITALS: BP 120/56
[2017-03-17 16:00] VITALS: BP 115/55
[2017-03-17 20:00] VITALS: BP 101/42
[2017-03-18] VITALS: BP 114/54
[2017-03-18 06:27] LABS: POTASSIUM 3.8 mmol/L (3.5-5.1)
[2017-03-18 08:00] VITALS: BP 125/50
[2017-03-18 12:00] VITALS: BP 120/56
[2017-03-18 16:00] VITALS: BP 99/44
[2017-03-18 20:00] VITALS: BP 115/47
[2017-03-19] VITALS: BP 124/52
[2017-03-19 06:11] LABS: BASO # 0.1 10*3/uL (0.0-0.1); BASO % 0.9 % (0.0-1.0); EOS # 1.4 10*3/uL (0.0-0.4); EOS % 15.1 % (1.0-4.0); HEMATOCRIT 27.9 % (37.0-47.0); HEMOGLOBIN 9.4 g/dl (12.0-16.0); IG # 0.2 10*3/uL (0.0-0.1); LYMPH # 2.8 10*3/uL (1.3-4.4); LYMPH % 29.3 % (27.0-41.0); MEAN CELL VOLUME 93.9 fl (81.0-99.0); MEAN CORPUSCULAR HGB 31.6 pg (27.0-31.0); MEAN CORPUSCULAR HGB CONC 33.7 g/dl (33.0-37.0); MEAN PLATELET VOLUME 10.5 fl (9.6-12.3); MONO # 0.7 10*3/uL (0.1-1.0); MONO % 7.7 % (3.0-9.0); NEUT # 4.3 10*3/uL (2.3-7.9); NEUT % 45.1 % (47.0-73.0); PLATELET COUNT AUTOMATED 148 10*3/uL (130-400); RED BLOOD COUNT 2.97 10*6/uL (4.10-5.10); RED CELL DISTRI WIDTH 15.7 % (0-14.5); WHITE BLOOD COUNT 9.4 10*3/uL (4.8-10.8)
[2017-03-19 08:00] VITALS: BP 134/54
[2017-03-19] MEDS ORDERED: DULOXETINE HCL60 MG PO (11:12)
[2017-03-19 12:00] VITALS: BP 115/82
[2017-03-19 16:36] VITALS: BP 114/58
== END 2017-03-19 16:45 | disposition other institution (70) | DRG 871 ==
LOC: ED 16:11 → 5E 17:32 → EDHOLD 17:32 → 5E 18:18
PROVIDERS: Hospitalist; Internal Medicine; Registered Nurse
DX: A41.9 Sepsis, unspecified organism (principal); J18.9 Pneumonia, unspecified organism; N17.0 Acute kidney failure with tubular necrosis; E43 Unspecified severe protein-calorie malnutrition; I13.0 Hypertensive heart and chronic kidney disease with heart failure and stage 1 through stage 4 chronic kidney disease, or unspecified chronic kidney disease; E87.2 Acidosis; I50.32 Chronic diastolic (congestive) heart failure; E87.1 Hypo-osmolality and hyponatremia; L97.419 Non-pressure chronic ulcer of right heel and midfoot with unspecified severity; J44.0 Chronic obstructive pulmonary disease with (acute) lower respiratory infection; Z66 Do not resuscitate; E11.22 Type 2 diabetes mellitus with diabetic chronic kidney disease; R65.20 Severe sepsis without septic shock; E11.65 Type 2 diabetes mellitus with hyperglycemia; N18.3 Chronic kidney disease, stage 3 (moderate); K21.9 Gastro-esophageal reflux disease without esophagitis; E11.621 Type 2 diabetes mellitus with foot ulcer; E11.622 Type 2 diabetes mellitus with other skin ulcer; L98.419 Non-pressure chronic ulcer of buttock with unspecified severity; B96.5 Pseudomonas (aeruginosa) (mallei) (pseudomallei) as the cause of diseases classified elsewhere; F41.9 Anxiety disorder, unspecified; F32.9 Major depressive disorder, single episode, unspecified; I25.10 Atherosclerotic heart disease of native coronary artery without angina pectoris; Z85.118 Personal history of other malignant neoplasm of bronchus and lung; I25.2 Old myocardial infarction; Z87.891 Personal history of nicotine dependence; Z90.710 Acquired absence of both cervix and uterus; Z95.1 Presence of aortocoronary bypass graft; Z82.49 Family history of ischemic heart disease and other diseases of the circulatory system; Z82.0 Family history of epilepsy and other diseases of the nervous system; Z80.0 Family history of malignant neoplasm of digestive organs; Z88.1 Allergy status to other antibiotic agents; Z91.041 Radiographic dye allergy status; Z79.1 Long term (current) use of non-steroidal anti-inflammatories (NSAID); Z79.51 Long term (current) use of inhaled steroids; Z79.4 Long term (current) use of insulin; Z79.899 Other long term (current) drug therapy; Z68.26 Body mass index [BMI] 26.0-26.9, adult

== ENCOUNTER 2017-04-15 10:33 | Inpatient (IN) | payer OTHER ==
[~2017-04-15] VITALS: Ht 170.1 cm; Wt 76.0 kg
[2017-04-15] VITALS (8 sets, daily range): BP systolic 101–134; BP diastolic 58–88
[2017-04-15 11:05] LABS: BASO # 0.1 10*3/uL (0.0-0.1); BASO % 0.6 % (0.0-1.0); EOS # 0.5 10*3/uL (0.0-0.4); EOS % 4.3 % (1.0-4.0); HEMATOCRIT 34.3 % (37.0-47.0); HEMOGLOBIN 11.4 g/dl (12.0-16.0); LYMPH # 2.9 10*3/uL (1.3-4.4); MEAN CELL VOLUME 95.8 fl (81.0-99.0); MEAN CORPUSCULAR HGB 31.8 pg (27.0-31.0); MEAN CORPUSCULAR HGB CONC 33.2 g/dl (33.0-37.0); MEAN PLATELET VOLUME 9.7 fl (9.6-12.3); MONO # 0.8 10*3/uL (0.1-1.0); MONO % 7.8 % (3.0-9.0); NEUT # 6.4 10*3/uL (2.3-7.9); PLATELET COUNT AUTOMATED 203 10*3/uL (130-400); RED BLOOD COUNT 3.58 10*6/uL (4.10-5.10); RED CELL DISTRI WIDTH 15.8 % (0-14.5); WHITE BLOOD COUNT 10.6 10*3/uL (4.8-10.8)
[2017-04-15 11:15] LABS: PROTHROMBIN TIME 10.4 SECONDS (9.0-12.4)
[2017-04-15 11:23] LABS: ALBUMIN 2.8 gm/dl (3.1-4.5); ALKALINE PHOSPHATASE 73 U/L (45-117); BILIRUBIN, TOTAL 0.5 mg/dl (0.2-1.0); BUN 10 mg/dl (7-24); CARBON DIOXIDE 30 mmol/L (21-32); CHLORIDE 103 mmol/L (98-107); EST GLOM FILT AFRICAN AMERICAN 56 ml/min; GLUCOSE 112 mg/dL (65-99); MAGNESIUM 1.6 mg/dL (1.5-2.1); SGOT/AST 20 IU/L (3-35); SGPT/ALT 22 U/L (12-78); SODIUM 142 mmol/L (136-145); TOTAL PROTEIN 6.9 gm/dL (6.4-8.2)
[2017-04-15 11:25] LABS: TROPONIN I < 0.015 ng/ml (<0.045)
[2017-04-15 11:28] LABS: BILIRUBIN NEGATIVE (NEGATIVE); BLOOD 2+ (NEGATIVE); CLARITY CLOUDY (CLEAR); COLOR YELLOW (YELLOW); GLUCOSE NEGATIVE (NEGATIVE); KETONE NEGATIVE (NEGATIVE); LEUKO ESTERASE 3+ (NEGATIVE); NITRITE NEGATIVE (NEGATIVE); PROTEIN NEGATIVE (NEGATIVE); UROBILINOGEN 0.2 E.U./dl (0.2-1.0)
[2017-04-15 11:44] LABS: BACTERIA 3+; EPITHELIAL CELLS 16-20; TRIP PHOS CRYSTALS 3+; WBC 16-20 wbc/hpf (0-5)
[2017-04-15 11:45] LABS: URINE REFLEX COMMENT YES (NO)
[2017-04-15] MEDS ORDERED: CYMBALTA60 MG PO (14:57)
[2017-04-16] VITALS: BP 135/56
[2017-04-16 06:28] LABS: BASO # 0.1 10*3/uL (0.0-0.1); BASO % 0.5 % (0.0-1.0); EOS # 0.3 10*3/uL (0.0-0.4); EOS % 2.9 % (1.0-4.0); HEMATOCRIT 33.9 % (37.0-47.0); HEMOGLOBIN 11.3 g/dl (12.0-16.0); LYMPH # 2.3 10*3/uL (1.3-4.4); LYMPH % 23.4 % (27.0-41.0); MEAN CELL VOLUME 96.3 fl (81.0-99.0); MEAN CORPUSCULAR HGB 32.1 pg (27.0-31.0); MEAN CORPUSCULAR HGB CONC 33.3 g/dl (33.0-37.0); MEAN PLATELET VOLUME 10.2 fl (9.6-12.3); MONO # 0.7 10*3/uL (0.1-1.0); MONO % 7.3 % (3.0-9.0); NEUT # 6.5 10*3/uL (2.3-7.9); NEUT % 65.5 % (47.0-73.0); PLATELET COUNT AUTOMATED 192 10*3/uL (130-400); RED BLOOD COUNT 3.52 10*6/uL (4.10-5.10); RED CELL DISTRI WIDTH 15.6 % (0-14.5); WHITE BLOOD COUNT 9.9 10*3/uL (4.8-10.8)
[2017-04-16 06:52] LABS: POTASSIUM 3.3 mmol/L (3.5-5.1)
[2017-04-16 08:00] VITALS: BP 124/61
[2017-04-16 12:00] VITALS: BP 112/64
[2017-04-16 16:00] VITALS: BP 104/64
[2017-04-16 20:00] VITALS: BP 135/65
[2017-04-17] VITALS: BP 119/70
[2017-04-17 06:11] LABS: BASO % 0.4 % (0.0-1.0); EOS # 0.4 10*3/uL (0.0-0.4); EOS % 3.8 % (1.0-4.0); HEMATOCRIT 32.7 % (37.0-47.0); HEMOGLOBIN 10.8 g/dl (12.0-16.0); LYMPH # 2.5 10*3/uL (1.3-4.4); LYMPH % 25.9 % (27.0-41.0); MEAN CELL VOLUME 96.5 fl (81.0-99.0); MEAN CORPUSCULAR HGB 31.9 pg (27.0-31.0); MEAN PLATELET VOLUME 10.1 fl (9.6-12.3); MONO # 0.7 10*3/uL (0.1-1.0); MONO % 7.4 % (3.0-9.0); NEUT # 6.1 10*3/uL (2.3-7.9); NEUT % 62.2 % (47.0-73.0); PLATELET COUNT AUTOMATED 190 10*3/uL (130-400); RED BLOOD COUNT 3.39 10*6/uL (4.10-5.10); RED CELL DISTRI WIDTH 15.3 % (0-14.5); WHITE BLOOD COUNT 9.8 10*3/uL (4.8-10.8)
[2017-04-17 06:40] LABS: BUN 15 mg/dl (7-24); CARBON DIOXIDE 31 mmol/L (21-32); CHLORIDE 98 mmol/L (98-107); EST GLOM FILT AFRICAN AMERICAN > 60 ml/min; GLUCOSE 112 mg/dL (65-99); POTASSIUM 3.1 mmol/L (3.5-5.1); SODIUM 138 mmol/L (136-145)
[2017-04-17] MEDS ORDERED: POTASSIUM CHLO10 MEQ PO (07:35)
[2017-04-17] MEDS ORDERED: CEFUROXIME AXE250 MG PO (07:35)
[2017-04-17 08:00] VITALS: BP 101/56
[2017-04-17 12:00] VITALS: BP 117/64
== END 2017-04-17 13:20 | disposition other institution (70) | DRG 682 ==
LOC: ED 10:33 → EDHOLD 12:19 → 5E 12:19
PROVIDERS: Internal Medicine; Nurse Practitioner Family
DX: N17.9 Acute kidney failure, unspecified (principal); G93.41 Metabolic encephalopathy; I50.31 Acute diastolic (congestive) heart failure; E46 Unspecified protein-calorie malnutrition; I13.0 Hypertensive heart and chronic kidney disease with heart failure and stage 1 through stage 4 chronic kidney disease, or unspecified chronic kidney disease; N39.0 Urinary tract infection, site not specified; B96.4 Proteus (mirabilis) (morganii) as the cause of diseases classified elsewhere; J44.9 Chronic obstructive pulmonary disease, unspecified; F32.9 Major depressive disorder, single episode, unspecified; F41.9 Anxiety disorder, unspecified; I25.10 Atherosclerotic heart disease of native coronary artery without angina pectoris; G89.29 Other chronic pain; E87.6 Hypokalemia; N18.3 Chronic kidney disease, stage 3 (moderate); E11.22 Type 2 diabetes mellitus with diabetic chronic kidney disease; K21.9 Gastro-esophageal reflux disease without esophagitis; E78.5 Hyperlipidemia, unspecified; E66.9 Obesity, unspecified; M54.9 Dorsalgia, unspecified; Z66 Do not resuscitate; Z88.1 Allergy status to other antibiotic agents; Z91.041 Radiographic dye allergy status; I25.2 Old myocardial infarction; Z87.01 Personal history of pneumonia (recurrent); Z87.440 Personal history of urinary (tract) infections; Z90.710 Acquired absence of both cervix and uterus; Z95.1 Presence of aortocoronary bypass graft; Z98.891 History of uterine scar from previous surgery; Z87.891 Personal history of nicotine dependence; Z82.49 Family history of ischemic heart disease and other diseases of the circulatory system; Z80.9 Family history of malignant neoplasm, unspecified; Z79.82 Long term (current) use of aspirin; Z79.4 Long term (current) use of insulin; Z79.899 Other long term (current) drug therapy; Z81.8 Family history of other mental and behavioral disorders; Z85.118 Personal history of other malignant neoplasm of bronchus and lung; Z68.26 Body mass index [BMI] 26.0-26.9, adult; J84.10 Pulmonary fibrosis, unspecified

== ENCOUNTER 2017-04-22 06:06 | Emergency (ER) | payer OTHER ==
[~2017-04-22] VITALS: Ht 167.6 cm; Wt 86.2 kg
[~2017-04-22 06:06] MED LIST changes: +CEFUROXIME AXE250 MG PO; -NOVOLOG10 ML IV; +NOVOLOG10 ML SQ
[2017-04-22 06:32] LABS: BASO # 0.1 10*3/uL (0.0-0.1); BASO % 0.6 % (0.0-1.0); EOS # 0.4 10*3/uL (0.0-0.4); EOS % 4.8 % (1.0-4.0); HEMATOCRIT 36.6 % (37.0-47.0); HEMOGLOBIN 11.8 g/dl (12.0-16.0); LYMPH % 34.8 % (27.0-41.0); MEAN CELL VOLUME 99.2 fl (81.0-99.0); MEAN CORPUSCULAR HGB CONC 32.2 g/dl (33.0-37.0); MEAN PLATELET VOLUME 9.6 fl (9.6-12.3); MONO # 0.6 10*3/uL (0.1-1.0); MONO % 6.7 % (3.0-9.0); NEUT # 4.5 10*3/uL (2.3-7.9); NEUT % 52.6 % (47.0-73.0); PLATELET COUNT AUTOMATED 217 10*3/uL (130-400); RED BLOOD COUNT 3.69 10*6/uL (4.10-5.10); RED CELL DISTRI WIDTH 15.8 % (0-14.5); WHITE BLOOD COUNT 8.6 10*3/uL (4.8-10.8)
[2017-04-22 06:53] LABS: ALBUMIN 2.7 gm/dl (3.1-4.5); ALKALINE PHOSPHATASE 68 U/L (45-117); BILIRUBIN, TOTAL 0.4 mg/dl (0.2-1.0); BUN 12 mg/dl (7-24); CARBON DIOXIDE 31 mmol/L (21-32); CHLORIDE 102 mmol/L (98-107); EST GLOM FILT AFRICAN AMERICAN 58 ml/min; FREE T4 1.08 ng/dl (0.76-1.46); GLUCOSE 126 mg/dL (65-99); SGOT/AST 13 IU/L (3-35); SGPT/ALT 20 U/L (12-78); SODIUM 142 mmol/L (136-145); TOTAL PROTEIN 6.8 gm/dL (6.4-8.2)
[2017-04-22 06:56] LABS: TROPONIN I < 0.015 ng/ml (<0.045)
[2017-04-22 07:13] LABS: BILIRUBIN NEGATIVE (NEGATIVE); BLOOD 1+ (NEGATIVE); CLARITY SL CLOUDY (CLEAR); COLOR YELLOW (YELLOW); GLUCOSE NEGATIVE (NEGATIVE); KETONE NEGATIVE (NEGATIVE); LEUKO ESTERASE 3+ (NEGATIVE); NITRITE POSITIVE (NEGATIVE); PH 6.5 (5.0-9.0); PROTEIN TRACE (NEGATIVE); UROBILINOGEN 0.2 E.U./dl (0.2-1.0)
[2017-04-22 07:22] LABS: BACTERIA 3+; MUCOUS 1+; WBC 41-50 wbc/hpf (0-5)
[2017-04-22 07:23] LABS: URINE REFLEX COMMENT YES (NO)
[2017-04-22] MEDS ORDERED: LEVOFLOXACIN500 MG PO (07:54)
== END 2017-04-22 08:04 | disposition home or self-care (01) ==
LOC: ED 06:06
PROVIDERS: Emergency Medicine
DX: N39.0 Urinary tract infection, site not specified (principal); G93.41 Metabolic encephalopathy; R41.82 Altered mental status, unspecified; I25.10 Atherosclerotic heart disease of native coronary artery without angina pectoris; J44.9 Chronic obstructive pulmonary disease, unspecified; E78.5 Hyperlipidemia, unspecified; E11.22 Type 2 diabetes mellitus with diabetic chronic kidney disease; I13.0 Hypertensive heart and chronic kidney disease with heart failure and stage 1 through stage 4 chronic kidney disease, or unspecified chronic kidney disease; N18.3 Chronic kidney disease, stage 3 (moderate); Z91.041 Radiographic dye allergy status; K21.9 Gastro-esophageal reflux disease without esophagitis; Z88.1 Allergy status to other antibiotic agents; Z79.82 Long term (current) use of aspirin; Z79.899 Other long term (current) drug therapy; Z87.891 Personal history of nicotine dependence

== ENCOUNTER 2017-08-06 16:10 | Inpatient (IN) | payer OTHER ==
[2017-08-06] VITALS (7 sets, daily range): BP systolic 127–149; BP diastolic 62–76
[~2017-08-06] VITALS: Ht 167.6 cm; Wt 75.5 kg
--- NOTE | ~2017-08-06 | DS ---
[place], [place] DISCHARGE SUMMARY NAME: YOLANDA BEARDEN UNIT #: [id number] ROOM: 524 DOCTOR: NICOLE POLK MD BIRTHDATE: [birth year] DOS: 08/09/2017 DISCHARGE DIAGNOSES: 1. Sepsis with urinary tract infection and urine culture growing Morganella morganii and Serratia marcescens, resistant organism, sensitive to meropenem. 2. Mental confusion and delirium from urinary infection, improved. 3. Chronic atrial fibrillation. 4. Type 2 diabetes mellitus. 5. Overall poor health and adult failure to thrive. 6. Ambulatory dysfunction. 7. Mixed hyperlipidemia. 8. Diastolic type congestive heart failure, compensated. 9. Morbid obesity. 10. Generalized anxiety disorder and bipolar disorder. 11. Benign essential hypertension. 12. Gastroesophageal reflux disease and esophagitis. 13. Major depression, recurrent. 14. Diastolic type congestive heart failure, chronic. 15. 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 HOSPITAL COURSE: The patient was admitted when sent over from [facility] for increased shortness of breath, labored breathing and progressive hypoxemia. The patient was found to be confused and delirious and ultimately found to have resistant urinary tract infection as mentioned above. There was also suspicion of acute pneumonia. The patient was treated with antibiotics appropriately. IV meropenem was given and now I will complete 1 week of IV antibiotics at senior living and send her back to [facility]. The patient has become more alert and more oriented and is feeling much better and is back to her baseline now and eating better. For suspected pneumonia and acute exacerbation of COPD, Dr. Rodriguez was consulted. He is his lung specialist and he followed the patient and the patient is breathing normally now. Previous history of cancer of the left lung, status post radiation therapy. Chronic atrial fibrillation, with controlled heart rates. Overall poor health, adult failure to thrive and ambulatory dysfunction. The patient appears to have achieved maximum benefit from this admission and is being discharged back to her senior living. Type 2 diabetes mellitus, with reasonably controlled blood sugars on no concentrated sweet diet. The patient has history of coronary artery disease of [place] vessels and coronary artery bypass grafts. [place], [place] DISCHARGE SUMMARY NAME: YOLANDA BEARDEN UNIT #: [id number] ROOM: 524 DOCTOR: NICOLE POLK MD BIRTHDATE: [birth year] LABORATORY DATA: Normal serum electrolytes. Blood sugar 131. Hemoglobin 9.3. No leukocytosis. Blood cultures were negative. Urine cultures grew Morganella morganii and Serratia marcescens sensitive to meropenem. Chest x-ray without acute abnormality, but showed pulmonary fibrosis. DISCHARGE MANAGEMENT: Potassium chloride 20 mEq b.i.d., Invega 3 mg daily, Imdur 30 mg daily, Plavix 75 mg daily, Bumex 2 mg daily, aspirin 81 mg a day, gabapentin 100 mg at bedtime, Cymbalta 60 mg at bedtime, atorvastatin 10 mg a day, DuoNeb every 4 hours as needed, MiraLax 17 grams daily p.r.n. for constipation, Colace 200 mg daily, IV meropenem 1 gram every 8 hours for 15 doses, then to be stopped. NICOLE POLK MD CM:DISCHARG 13 15 NICOLE POLK MD 08/09/172114 interface
--- NOTE | ~2017-08-06 | WRIGHTHP ---
[place], [place] PATIENT HISTORY AND PHYSICAL EXAM [facility]ARD[id number] UN[facility] #: [id number] ROOM: 524 DOCTOR: NICOLE POLK MD BIRTHDATE: [birth year] DOS: 08/06/2017 HISTORY OF PRESENT ILLNESS: 1. The patient with a past medical history of obesity, adult failure to thrive and ambulatory dysfunction. 2. History of type 2 diabetes mellitus. 3. Mixed hyperlipidemia. 4. Chronic diastolic type congestive heart failure. 5. Generalized anxiety disorder and bipolar disorder. 6. Benign essential hypertension, gastroesophageal reflux disease and esophagitis. 7. Major depression, recurrent. 9. Squamous cell cancer of the right upper lung, treated with radiation in the past. The patient presented to the [facility] Emergency Department, sent over from [facility] for increased shortness of breath, labored breathing and progressive hypokalemia. The patient was confused and delirious and was admitted and found to have urinary tract infection. There was suspicion of pneumonia on the chest x-ray. The patient was started appropriately on antibiotics. REVIEW OF SYSTEMS: LUNGS: Increasing shortness of breath. GASTROINTESTINAL: No nausea, vomiting, diarrhea, constipation. CARDIOVASCULAR: No chest pains or palpitations. SOCIAL HISTORY: No recent smoking cigarettes, alcohol and drug abuse. FAMILY HISTORY: Noncontributory. HOME MEDICATIONS: Invega, potassium, Imdur, Plavix, Bumex, aspirin, gabapentin, Cymbalta, Lipitor, DuoNeb, MiraLax. PHYSICAL EXAMINATION: GENERAL: Alert, pleasantly confused, in no visible distress. VITAL SIGNS: Stable, morbidly obese, generalized weakness and mentally confused. HEENT AND NECK: Extraocular movements are intact. Sclerae are anicteric. Oral mucosa is moist and clean. No obvious facial weakness. Neck is supple without any lymphadenopathy. No thyromegaly. No JVD. No carotid arterial bruits. LUNGS: Clear to auscultation. No wheezing. No rhonchi. CARDIOVASCULAR SYSTEM: Heart rate is regular in rate and rhythm. S1 and S2 normally audible. No significant murmur or any other abnormal cardiac sounds. ABDOMEN: Soft, nontender. No obvious organomegaly. Bowel sounds are present. No obvious herniation. EXTREMITIES: Without significant cyanosis or edema. Warm to touch. CENTRAL NERVOUS SYSTEM: Alert and oriented x 3. Cranial nerves II-XII are intact. Speech is normal. The patient is able to move all extremities. Normal muscle strength. Deep tendon reflexes are equal on both sides. Plantars were downgoing. IMPRESSION: The patient presenting with altered mental status, delirium and [place], [place] PATIENT HISTORY AND PHYSICAL EXAM NAME: YOLANDA BEARDEN UNIT #: [id number] ROOM: 524 DOCTOR: NICOLE POLK MD BIRTHDATE: [birth year] mental confusion, apparently related to pneumonia and urinary tract infection. The patient with alf-acquired pneumonia to be treated with antibiotics, sputum cultures to be sent and she will be treated with DuoNeb, oxygen, and nebulizer treatments. 1. Urinary tract infection. Urine cultures are pending. We will treat with antibiotics appropriately and adjust treatment as necessary. 2. Type 2 diabetes mellitus. Blood sugars to be monitored and controlled, the patient to be kept on no concentrated sweet diet. 3. History of coronary artery disease of [place] vessels without any chest pains. 4. Chronic atrial fibrillation with controlled heart rate. 5. Overall adult failure to thrive and poor health and ambulatory dysfunction. NICOLE POLK MD CM:HISPHYS:PATIENT HISTORY AND PHYSICAL EXAMINATION [phone] NICOLE POLK MD 08/21/171937 interface
--- NOTE | ~2017-08-06 | PR ---
[place], [place] PROGRESS NOTE NAME: YOLANDA BEARDEN UNIT #: [id number] ROOM: 524 DOCTOR: JUDY PARTIDA MD,RADHA BIRTHDATE: [birth year] DOS: 08/08/2017 SUBJECTIVE: She has been noted comfortable at this time without any acute distress. The patient has been noted better than yesterday. Shortness of breath of the patient has been improved. Oxygen supplementation was continued, nasal cannula requirement has been decreased back to 2 liters as usual use of oxygen. OBJECTIVE: VITAL SIGNS: Normal temperature, respiratory rate 20, heart rate 85, blood pressure 111/50. The pulse oxygen saturation of the patient noted 100% on 2 liters nasal cannula. HEENT: No acute change. CARDIOVASCULAR: S1, S2 audible. LUNGS: The lung was clear. ABDOMEN: Soft, nontender. Bowel sounds present. EXTREMITIES: Noted without any edema. LABORATORY DATA: Urine culture noted heavy growth of gram-negative rods. The final identification and sensitivity of the urine culture from admission were pending at this time. Chest x-ray of the patient that were repeated, PA lateral view yesterday does not show any acute pulmonary infiltration with that x-ray. IMPRESSION: The patient has been noted with improvement in the sepsis related to urinary tract infection. There were no clinical signs for this patient and findings consistent with acute pneumonia and acute hypoxic respiratory failure was noted related to acute sepsis from the urinary tract infection. The patient responded to treatment of the current coverage of the medication with Zyvox and the intravenous meropenem. The patient was also noted with acute kidney injury related to acute sepsis. PLAN AND MANAGEMENT: De-escalate the antibiotics based on the final culture results. PLAN OF TREATMENT: Repeat another BMP for patient and lactic acid in the morning. Other supportive therapy, plan of management and care plan of treatment. Usual care, other supportive plan of therapies. Also, obtain a CBC in the morning as well. Usual care. Oxygen supplementation to maintain a saturation of 92% or greater. After infusion of the current normal saline, which was ordered yesterday because of sepsis further infusion of the sodium chloride will be discontinued for the patient. The tachycardia has been resolved. [place], [place] PROGRESS NOTE NAME: YOLANDA BEARDEN UNIT #: [id number] ROOM: 524 DOCTOR: RADHA LAKE MD BIRTHDATE: [birth year] RADHA KIM MD CM:FELICITY [id number] RADHA PARTIDA MD 08/14/17 1521 interface
--- NOTE | ~2017-08-06 | PR ---
[place], [place] PROGRESS NOTE NAME: YOLANDA BEARDEN UNIT #: [id number] ROOM: 524 DOCTOR: NICOLE POLK MD BIRTHDATE: [birth year] DOS: 08/08/2017 SUBJECTIVE: The patient is feeling about the same. No complaints of chills or rigors. No increasing shortness of breath or any other urinary symptoms. OBJECTIVE: VITAL SIGNS: Blood pressure 117/53, heart rate 88 beats per minute, breathing 20 times per minute, temperature of 98 degrees Fahrenheit. GENERAL APPEARANCE: The patient is alert and oriented x 3, in no visible distress. HEENT AND NECK: Exam within normal limits. CARDIOVASCULAR SYSTEM: Heart rate is regular in rate and rhythm. S1 and S2 normally audible. LUNGS: Clear to auscultation. ABDOMEN: Soft, nontender. No obvious organomegaly. Bowel sounds are present. EXTREMITIES: Without significant cyanosis or edema. NEUROLOGIC: Generalized weakness. IMPRESSION: 1. The patient with mental confusion and delirium, apparently from sepsis and infection has resolved. The patient is more alert and oriented now. 2. Resistant urinary tract infection with Escherichia coli and sepsis with positive blood and urine cultures, being treated with IV meropenem and Zyvox now. The patient appears to be clinically improving. 3. Chronic atrial fibrillation, with controlled heart rates. 4. Type 2 diabetes mellitus. Blood sugars are reasonably controlled on no concentrated sweet diet. 5. Overall poor health and failure to thrive. 6. When the patient [facility] by detention facility, she will be transferred there with IV antibiotics, but her antibiotics are very expensive. NICOLE POLK MD CM:PNTRANS [id number] NICOLE POLK MD 08/08/17 1058 interface
--- NOTE | ~2017-08-06 | PR ---
[place], [place] PROGRESS NOTE NAME: YOLANDA BEARDEN UNIT #: [id number] ROOM: 524 DOCTOR: JUDY PARTIDA MD,RADHA BIRTHDATE: [birth year] DOS: 08/09/2017 SUBJECTIVE: She has been noted comfortable at this time. Continued on the current present treatment. Urine culture was noted with 2 different organisms isolated the Morganella morganii and the Serratia marcescens. Both were noted sensitive to the intravenous Zosyn. It was also noted sensitive to meropenem, which was already administered. OBJECTIVE: VITAL SIGNS: For the patient which were recorded shows normal temperature, respiratory rate 20, heart rate 87, blood pressure 123/53. Pulse oxygen saturation on 2 liters nasal cannula is 100% saturation. HEENT: Showed no acute change. NECK: Supple. CARDIOVASCULAR: S1, S2 audible. LUNGS: Noted without any wheezing or crackles at the present time. ABDOMEN: Soft, nontender. LABORATORY DATA: The patient's CBC today noted normal WBC count, hemoglobin 9.8, hematocrit 28.8. Blood culture was noted without any bacterial growth. Urine culture evidence of Morganella morganii and Serratia marcescens, both sensitive to meropenem and greater than 100,000 colony forming units were noted. IMPRESSION: 1. Resolved acute sepsis with improving acute urinary tract infection. 2. Anemia. There was no evidence of pneumonia. PLAN OF TREATMENT: Adjust the antibiotic, de-escalation based on the current culture results. Discontinue the Zyvox as it would not be necessary. Consider transfer to the nursing facility whenever desired. Order the [facility] for this patient to assess the kidney functions as well. RADHA KIM MD CM:PNTRANS 1033 RADHA PARTIDA MD 08/10/17 003 interface
--- NOTE | ~2017-08-06 | EKG ---
[place], [place] ELECTROCARDIOGRAM REPORT NAME: YOLANDA BEARDEN UNIT #: [id number] ROOM: 524 DOCTOR: JUDY PARTIDA MD,RADHA BIRTHDATE: [birth year] DOS: 08/06/2017 ELECTROCARDIOGRAM The electrocardiogram done on 08/03/2017 at 4:50 p.m. Sinus tachycardia noted, heart rate of 112 beats per minute. Nonspecific ST-T changes noted. Poor R-wave progression. RADHA KIM MD CM:EKGRPT:ELECTROCARDIOGRAM REPORT [id number] RADHA PARTIDA MD
--- NOTE | ~2017-08-06 | CON ---
[place], [place] REPORT OF CONSULTATION NAME: YOLANDA BEARDEN UNIT #: [id number] ROOM: 524 DOCTOR: RADHA LAKE MD BIRTHDATE: [birth year] DOS: 08/07/2017 PULMONARY CONSULTATION EVALUATION AND MANAGEMENT CONSULTATION REQUESTED BY: Dr. Solis. HISTORY OF PRESENT ILLNESS: This is a 61-year-old white female known to me from the past. The patient has been staying at the jail facility [facility] for a long-term basis. She has been brought to the hospital. The patient developed increased shortness breath with labored breathing and progressive hypoxia. Upon assessment in the Emergency Room, she was noticed 6 liters of oxygen supplementation, respiratory 14 breaths per minute. She has been hospitalized for further medical management. I was asked to see the patient because of suspicion of acute pneumonia. The patient reported symptoms of some cough with minimal sputum expectoration. Shortness of breath has been still noted for this patient, not completely resolved. Denies symptoms of chest pain or hemoptysis. The patient denies any symptoms of wheezing. REVIEW OF SYSTEMS: CONSTITUTIONAL: Fatigue and tiredness noted without symptoms of fever or chills. EYES: Denies any burning, redness, or tenderness. EARS, NOSE, THROAT SYMPTOMS: No sore throat, hoarseness, otalgia, postnasal drainage. CARDIOVASCULAR: Denies anginal pain, edema, pain of the lower extremities. GASTROINTESTINAL: Dysphagia, nausea, vomiting, diarrhea, abdominal pain, hematemesis, melena, or hematochezia. SKIN: Denies lesions or rashes. MUSCULOSKELETAL: Denies acute joint pain, redness, or tenderness. CENTRAL NERVOUS SYSTEM: Denies dizziness, headache, but noted mostly bed bound and does not ambulate significantly for this patient for the last several months. Remaining systems were reviewed with the patient, they were noted all negative. PAST MEDICAL HISTORY: Noted with history of: 1. Uncomplicated severe persistent bronchial asthma. 2. History of past urinary tract infection with resistant Pseudomonas aeruginosa for this patient as well as with VRE isolation. 3. History of squamous cell cancer, right upper lung, which has been treated with radiation therapy for this patient. Residual scarring was known. 4. History of chronic hypoxic respiratory failure with use of oxygen 2 liter nasal cannula. 5. Anxiety disorder, depression and bipolar disorder. 6. Essential hypertension. 7. Gastroesophageal reflux. 8. History of major depression, acute peripheral vascular disease. 9. Congestive heart failure, diastolic dysfunction. 10. Intervertebral disk disease. [place], [place] REPORT OF CONSULTATION NAME: YOLANDA BEARDEN UNIT #: [id number] ROOM: 524 DOCTOR: JUDY PARTIDA MD,RADHA BIRTHDATE: [birth year] 11. Recurrent urinary tract infection and urinary incontinence, currently has a permanent Moya catheter in place. PAST SURGICAL HISTORY: 1. Tonsillectomy. 2. . 3. Coronary bypass grafting. 4. Coronary artery stents insertion. 5. Diskectomy of the lumbar spine. 6. Left femoropopliteal bypass. 7. CT-guided needle aspiration biopsy for this patient of the left lung mass in 01/2015. 8. Bilateral cataract extraction, lens implantation. 9. Therapeutic bronchoscopies. SOCIAL HISTORY: The patient is , has 2 children, currently resident of a [facility]. Smoking noted since age of [age] years old, pack of cigarettes per day until 2016. FAMILY HISTORY: Noted for father from complication related to metastatic cancer, unknown primary. Mother at 67 years old, complication related to unknown cancer. MEDICATIONS: The medications currently administered were noted as use of paliperidone, Imdur, Plavix, Bumex, aspirin, gabapentin, Cymbalta, Lipitor, DuoNeb, clindamycin, Zithromax and other p.r.n. medications. DRUG ALLERGIES: 1. IVP DYE. 2. FISH. 3. AMPICILLIN CAUSES HIVES. 4. BACTRIM. PHYSICAL EXAMINATION: GENERAL: A 61-year-old white female currently noted awake and alert with mild tachypnea at rest. Height of 5 feet 7 inches, weight of 75 kg, BMI 26.8. VITAL SIGNS: Normal temperature orally. The respiratory rate recorded a highest of 42 to 24, heart rate of 111-114, sinus tachycardia, blood pressure 156/62-131/73. Intake for the patient noted 770 mL, output was not documented so far. Pulse ox saturation on 4 L nasal cannula 100% saturation. HEENT: Examination shows head was atraumatic. Eyes nonicterus. NECK: Supple. CARDIOVASCULAR: S1, S2 audible. LUNGS: Without any wheezing or crackles heard. Breaths are noted mildly decreased bilaterally. ABDOMEN: Soft. Mild obesity, bowel sounds present. EXTREMITIES: Without any edema, clubbing, cyanosis. LABORATORY DATA: CBC 08/06/2017, WBC count 14.8, hemoglobin and hematocrit normal, platelet count was normal. The lactic acid 3.7, noted elevated [place], [place] REPORT OF CONSULTATION NAME: YOLANDA BEARDEN UNIT #: [id number] ROOM: 524 DOCTOR: JUDY PARTIDA MD,RADHA BIRTHDATE: [birth year] progressively at 8.2. CMP of the patient that were done on 08/06/2017 shows BUN 19, creatinine 1.43, glucose 113, potassium 3.1. The CBC of this morning: WBC count normal, hemoglobin 10.4, hematocrit 29.6, platelet count of 193,000. BMP this morning, the patient's BUN is 22, creatinine 1.80. Sodium 135, potassium 3.0. Urinalysis that was done on admission was noted at 3+ leukocyte esterase, 1+ bacteria, 51-100 wbc's. The urine culture for the patient was pending. Chest x-ray, one view done in the Emergency and personally reviewed, does not show any convincing area of consolidation, possibly small infiltration in the left lower lobe cannot be completely excluded. IMPRESSION: 1. The patient who has been currently admitted to the hospital noted with acute sepsis with acute kidney injury, lactic acidosis, most likely related to the acute urinary tract infection, knowing the past history of VRE, isolation of Pseudomonas aeruginosa possible reactivation of current organisms to be considered. 2. Possibility of pneumonia, left lower lobe cannot be completely excluded, but appeared to be less likely at the present time. 3. History of bronchial asthma without any acute exacerbation. 4. Qfiry-kn-earsavt hypoxic respiratory failure secondary to the above. 5. History of cancer of the left lung, treated adequately with radiation therapy without any so far known recurrence. 6. Hyperkalemia secondary to diuretic and others. PLAN OF MANAGEMENT: The patient has been started on the antibiotics as Zyvox intravenously as well as meropenem 1 gram q.8h. The dose will be adjusted based on the progression of kidney functions. The patient will be also ordered the intravenous fluid as well. The code status has been already noted comfort care. No heroic measures with intervention such as intubation and others would be considered. Titrate oxygen supplementation to maintain a saturation of 92% or greater. Usual care, other supportive plan of therapy and care. Further treatment changes need to be made for this patient based on the progression of the illness. Thanks you for allowing me to participate in the care of this patient. [place], [place] REPORT OF CONSULTATION NAME: YOLANDA BEARDEN UNIT #: [id number] ROOM: 524 DOCTOR: JUDY PARTIDA MD,RADHA BIRTHDATE: [birth year] RADHA KIM MD CM:CONSTR:REPORT OF CONSULTATION 1140 08/16/17 0838 interface
--- NOTE | ~2017-08-06 | PR ---
[place], [place] PROGRESS NOTE NAME: YOLANDA BEARDEN UNIT #: [id number] ROOM: 524 DOCTOR: NICOLE POLK MD BIRTHDATE: [birth year] DOS: 08/07/2017 SUBJECTIVE: The patient continues to feel better. OBJECTIVE: VITAL SIGNS: Blood pressure 103/50, heart rate of 80 beats per minute, breathing 20 times per minute, temperature 98 degrees Fahrenheit. GENERAL APPEARANCE: The patient is alert and oriented x 3, in no visible distress, obese. HEENT AND NECK: Exam within normal limits. CARDIOVASCULAR SYSTEM: Heart rate is regular in rate and rhythm. S1 and S2 normally audible. LUNGS: Clear to auscultation. ABDOMEN: Soft, nontender. No obvious organomegaly. Bowel sounds are present. EXTREMITIES: Exposed ankle hardware. IMPRESSION AND PLAN: 1. The patient with urine infection, growing resistant Escherichia coli with sepsis and blood culture is growing gram-negative bacilli and Escherichia coli, being treated with IV meropenem. 2. Morbid obesity, generalized disability and weakness and advance failure to thrive. 3. Chronic atrial fibrillation, with controlled heart rates. 4. Type 2 diabetes mellitus, presently blood sugars are well controlled with no concentrated sweet diet. 5. Mixed hyperlipidemia, treated with Lipitor. 6. Diastolic type congestive heart failure, compensated. 7. Overall very poor health and failure to thrive. 8. I am trying to get the patient transferred to [facility] facility for continued antibiotics, but they will not accept the patient because of very expensive antibiotic that she requires to complete 1 week of treatment. ____. NICOLE POLK MD CM:PNTRANS 20 52 NICOLE POLK MD 08/07/172050 interface
[~2017-08-06 16:10] MED LIST changes: +LEVOFLOXACIN500 MG PO
[2017-08-06 17:30] LABS: BASO # 0.1 10*3/uL (0.0-0.1); BASO % 0.5 % (0.0-1.0); EOS # 0.3 10*3/uL (0.0-0.4); HEMATOCRIT 37.1 % (37.0-47.0); LYMPH # 4.7 10*3/uL (1.3-4.4); MEAN CELL VOLUME 92.5 fl (81.0-99.0); MEAN CORPUSCULAR HGB 32.4 pg (27.0-31.0); MEAN PLATELET VOLUME 10.1 fl (9.6-12.3); NEUT # 8.6 10*3/uL (2.3-7.9); NEUT % 58.1 % (47.0-73.0); PLATELET COUNT AUTOMATED 295 10*3/uL (130-400); RED BLOOD COUNT 4.01 10*6/uL (4.10-5.10); RED CELL DISTRI WIDTH 13.9 % (0-14.5); WHITE BLOOD COUNT 14.8 10*3/uL (4.8-10.8)
--- NOTE | 2017-08-06 17:35 | NUR ---
PATIENTS ELLIOTT CATH THAT SHE ARRIVED WITH HAS BEEN DC'D AT THIS TIME. NEW ELLIOTT CATH HAS BEEN PLACED. 25CC CLOUDY STRAW COLORED URINE IN TUBING. PATIENT TOLERATED WELL.
[2017-08-06 17:47] LABS: ALBUMIN 3.4 gm/dl (3.1-4.5); ALKALINE PHOSPHATASE 87 U/L (45-117); BUN 19 mg/dl (7-24); CHLORIDE 107 mmol/L (98-107); CREATININE 1.43 mg/dL (0.55-1.02); POTASSIUM 3.1 mmol/L (3.5-5.1); SGOT/AST 16 IU/L (3-35); SGPT/ALT 26 U/L (12-78); SODIUM 142 mmol/L (136-145); TOTAL PROTEIN 7.4 gm/dL (6.4-8.2)
[2017-08-06 17:48] LABS: TROPONIN I < 0.015 ng/ml (<0.045)
--- NOTE | 2017-08-06 18:14 | NUR ---
PATIENT GIVEN PITCHER OF WATER. PATIENT KEEPS WANTING WATER. FAMILY STATES THAT SHE IS VERY THIRSTY.
[2017-08-06 19:07] LABS: BILIRUBIN NEGATIVE (NEGATIVE); BLOOD 3+ (NEGATIVE); CLARITY SL CLOUDY (CLEAR); COLOR YELLOW (YELLOW); GLUCOSE NEGATIVE (NEGATIVE); KETONE NEGATIVE (NEGATIVE); LEUKO ESTERASE 3+ (NEGATIVE); NITRITE NEGATIVE (NEGATIVE); SPECIFIC GRAVITY 1.015 (1.005-1.030); UROBILINOGEN 0.2 E.U./dl (0.2-1.0)
[2017-08-06 19:12] LABS: BACTERIA 1+; WBC 51-100 wbc/hpf (0-5)
[2017-08-06 19:13] LABS: RBC 41-50 rbc/hpf (0-2)
--- NOTE | 2017-08-06 19:38 | NUR ---
PT REMOVED 20 IN LEFT ARM. 22 PLACED IN LEFT ARM
--- NOTE | 2017-08-06 20:36 | NUR ---
MADE ATTEMPT TO CALL REPORT
--- NOTE | 2017-08-06 21:00 | NUR ---
A 61, admitted to 5E, under the services of Dr. FELICITAS DEL ROSARIO,NICOLE Corona with a diagnosis of UTI. Chief complaint is SOB. Patient arrived via bed from ER. Monitor applied. Initial assessment completed. Vital signs taken and recorded. DR. FELICITAS DEL ROSARIO,NICOLE Corona notified of admission to the unit. Orders received. See assessment for past medical history, medications and allergies. Patient and/or family oriented to unit. visitation policy reviewed. Clothing/patient valuable form completed. FERNANDO PADILLA
--- NOTE | 2017-08-06 21:00 | NUR ---
UPON ASSESSMENT, PT HAS REDDENED AREA ON BUTTOCKS, NOT OPEN, BLANCHABLE. DRESSING REMOVED FROM RIGHT HEEL, NO OPEN AREAS, SMALL ECCHYMOTIC AREA NOTED.
--- NOTE | 2017-08-06 21:07 | NUR ---
NO WOUNDS NOTED ON BUTTOCKS OR HEELS
--- NOTE | 2017-08-06 21:45 | NUR ---
MED REC UP TO DATE PER PATIENT MED LIST FROM [facility]
--- NOTE | 2017-08-06 21:51 | NUR ---
CALLED AND SPOKE TO DR POLK REGARDING PT CODE STATUS DNR-CC AND PAPERS ON FILE. ORDER RECEIVED TO D/C MONITOR, CHANGE ORDER. ALSO QUESTIONED TWO DIFFERENT DIET ORDERS. PT TO BE ON NCS DIET.
--- NOTE | 2017-08-06 21:55 | NUR ---
NOTIFIED DR KIM OF CONSULT ORDER.
--- NOTE | 2017-08-06 22:08 | NUR ---
PT REQUESTING TO SPEAK TO [employer] REGARDING NOT WANTING TO RETURN TO [facility] AND WANTING TO LOOK AT OTHER OPTIONS ON DISCHARGE. ALSO REQUESTING INFORMATION ON POA.
--- NOTE | 2017-08-06 22:24 | NUR ---
LAB CALLED [facility].[address] MADE [address] POLK AWARE. ORDER RECEIVED FOR 1L NCS @60 ML/HR.
[2017-08-07] VITALS: BP 145/81
--- NOTE | 2017-08-07 00:30 | NUR ---
LAB CALLED CRITICAL LACTIC ACID 5.[address] POLK AWARE THAT LACTIC TRENDING UP AND ALSO MADE HIM AWARE THAT PT IS HAVING LABORED BREATHING AND FAST RR BUT O2 SAT 100% NO ORDERS RECEIVED
--- NOTE | 2017-08-07 02:40 | NUR ---
LAB CALLED WITH CRITICAL RESULT, LACTIC ACID 6.8. CALLED DR POLK AND NOTIFIED HIM. ORDERS RECEIVED.
[2017-08-07 04:00] VITALS: BP 156/62
[2017-08-07 04:43] LABS: LYMPH % 12.4 % (27.0-41.0); MEAN CELL VOLUME 92.2 fl (81.0-99.0); MEAN CORPUSCULAR HGB 32.4 pg (27.0-31.0); MEAN CORPUSCULAR HGB CONC 35.1 g/dl (33.0-37.0); MEAN PLATELET VOLUME 9.9 fl (9.6-12.3); MONO # 0.2 10*3/uL (0.1-1.0); NEUT # 6.5 10*3/uL (2.3-7.9); NEUT % 85.2 % (47.0-73.0); RED BLOOD COUNT 3.21 10*6/uL (4.10-5.10); RED CELL DISTRI WIDTH 13.9 % (0-14.5); WHITE BLOOD COUNT 7.6 10*3/uL (4.8-10.8)
[2017-08-07 04:46] LABS: HEMATOCRIT 29.6 % (37.0-47.0); HEMOGLOBIN 10.4 g/dl (12.0-16.0); PLATELET COUNT AUTOMATED 193 10*3/uL (130-400)
[2017-08-07 04:56] LABS: CREATININE 1.8 mg/dL (0.55-1.02)
--- NOTE | 2017-08-07 04:57 | NUR ---
LAB CALLED WITH CRITICAL LAB VALUE FOR LACTIC ACID 8.2. DR POLK WAS MADE AWARE OF CRITICAL LAB VALUE.
[2017-08-07 08:00] VITALS: BP 111/52
--- NOTE | 2017-08-07 08:15 | NUR ---
CLINICAL REVIEWER VS. PT COMES FROM [facility]. SS REC'D MESSAGE THAT MAY NOT WANT HER TO RETURN. WHEN PT QUESTIONED, STATES "BACK TO [facility] I SUPPOSE". DC SHINGLE GRADER WILL TALK TO . PT IS LTC AT [facility].
[2017-08-07 12:00] VITALS: BP 118/62
--- NOTE | 2017-08-07 12:37 | NUR ---
YOLANDA BEARDEN [id number] Please refer to the physician's history and physical for past medical history, comorbid conditions, and allergies. Diagnosis: UTI (URINARY TRACT INFECTION) Liu Score: 14,MODERATE RISK WOUND DESCRIPTIONS: Location of the wound: right heel Type of wound: DTI Size: 1.1cm x 3.0cm x <0.1cm Tunneling: none Undermining: none Sinus Tract: none Presence of Exudate: none Amount: None Color: Purple Odor: None Periwound Skin Appearance: Normal Wound edges: closed Pain (associated with wound): none at time of assessment How does patient state this happened? pt unable to state how this happened Surface the patient is resting on: Isoflex SKIN PREVENTION RECOMMENDATION: 1. Pressure redistribution support surface as appropriate 2. Elevate heels 3. Remove boots/TEDS every shift and reapply 4. Head of bed 30 degrees as tolerated 5. Assess nutrition and hydration 6. Manage moisture 7. Avoid the use of containment devices while in bed 8. Use absorptive products on surfaces limit layers of linens on bed 9. Turn and reposition every 1-2 hours in bed and every 1 hour in chair as tolerated 10. Weight shifts every 15 minutes while up in chair 11. Offloading with pillows or device to keep heels elevated off bed 12. Monitor skin at least every shift 13. Inspect under medical devices twice a day WOUND TREATMENT RECOMMENDATIONS: Sureprep right heel cover with optifoam gentle daily. Heel raiser pro boots to BLE while in bed.
--- NOTE | 2017-08-07 12:55 | NUR ---
Patients is upset with [facility] because he states her water pitcher is always empty and patient gets dehydrated. He wants a referral made to [facility]. Explained to family [facility] is out of network with her insurance but they agreed to look over it. Will fax referral when clincals become available.
[2017-08-07 16:00] VITALS: BP 95/52
--- NOTE | 2017-08-07 19:08 | NUR ---
Radiology called w/ critical result .Requesting Dr. Randall Cell # provided.
[2017-08-07 20:00] VITALS: BP 131/55
[2017-08-08] VITALS: BP 96/52
--- NOTE | 2017-08-08 02:00 | NUR ---
PATIENT RESTING IN BED WITH EYES CLOSED AT THIS TIME. NO SIGNS OR SYMPTOMS OF DISTRESS NOTED. AROUSES TO VERBAL STIMULI. TURNED AND REPOSITION Q 2 HOURS FOR COMFORT. WILL CONTINUE TO MONITOR. CALL LIGHT IN REACH.
[2017-08-08 06:27] LABS: BASO % 0.2 % (0.0-1.0); EOS # 0.1 10*3/uL (0.0-0.4); EOS % 0.5 % (1.0-4.0); HEMOGLOBIN 10.3 g/dl (12.0-16.0); LYMPH # 2.8 10*3/uL (1.3-4.4); LYMPH % 25.4 % (27.0-41.0); MEAN CORPUSCULAR HGB 32.9 pg (27.0-31.0); MEAN CORPUSCULAR HGB CONC 34.3 g/dl (33.0-37.0); MEAN PLATELET VOLUME 10.1 fl (9.6-12.3); MONO # 0.8 10*3/uL (0.1-1.0); MONO % 6.8 % (3.0-9.0); NEUT # 7.4 10*3/uL (2.3-7.9); NEUT % 66.7 % (47.0-73.0); PLATELET COUNT AUTOMATED 212 10*3/uL (130-400); RED BLOOD COUNT 3.13 10*6/uL (4.10-5.10); RED CELL DISTRI WIDTH 15.1 % (0-14.5); WHITE BLOOD COUNT 11.1 10*3/uL (4.8-10.8)
[2017-08-08 06:34] LABS: MEAN CELL VOLUME 95.8 fl (81.0-99.0)
[2017-08-08 08:00] VITALS: BP 117/53
--- NOTE | 2017-08-08 08:45 | NUR ---
PATIENT IS IN BED, PT IS HARD TO WAK UP AND DRIFT IN AND OUT OF SLEEP UPON ASSESSMENT. PATIENT IS LETHARGIC AND RECEIVING 2LPM VIA NC, PATIENT DENIES PAIN AND ELLIOTT IS IN AND DRAINING ALEXI AND CLOUDY. SEE SHIFT ASSESSMENT, CALL LIGHT IS WITHIN REACH.
--- NOTE | 2017-08-08 11:15 | NUR ---
PRIVACY ANALYST IN TO TALK TO . AGREES FOR PT TO GO BACK TO [facility]. HEATHER AT [facility] NOTIFIED. WAITING TO HEAR FROM HEATHER TO SEE IF PT CAN GO BACK ON [place].
--- NOTE | 2017-08-08 11:28 | NUR ---
PER HEATHER AT [place], [place] TO RETURN ON [facility].
[2017-08-08 11:38] VITALS: BP 115/50
--- NOTE | 2017-08-08 12:08 | NUR ---
NOTIFIED CADMIUM PLATER OF [facility] WHILE ON THE FLOOR FOR THE CONSULT FOR VENOUS ACCESS.
--- NOTE | 2017-08-08 14:02 | NUR ---
SPOKE TO DR. POLK REGARDING VENOUS ACCESS CONSULT. REQUESTS THAT PATIENT BE RETURN TO NURSING FACILITY AND THEY CAN DECIDE PICC LINE AT THAT FACILITY.
--- NOTE | 2017-08-08 14:43 | NUR ---
SPOKE WITH DR. POLK PT IS HAVING MEDIPORT PLACED TOMORROW BY DR. KINGSLEY.
[2017-08-08 16:00] VITALS: BP 113/53
--- NOTE | 2017-08-08 18:36 | NUR ---
PATIENT IS RESTING IN BED. FAMILY IS AT THE BEDSIDE. PATIENT HAS HAD NO COMPLAINTS OF PAIN THROUGHOUT THE SHIFT. PATIENT HAS A ELLIOTT THAT IS DRAINING PALE YELLOW AND CLEAR. PATIENT HAS A HEPLOCK IN THE LEFT ARM THAT FLUSHES EASILY. PT DENIES ANY N/V/D. SEE SHIFT ASSESSMENT. CALL LIGHT REINFORCED.
[2017-08-08 20:00] VITALS: BP 98/54
[2017-08-09] VITALS: BP 95/48
--- NOTE | 2017-08-09 02:08 | NUR ---
RESTING IN BED WITH EYES CLOSED AT THIS TIME. NO SIGNS OR SYMPTOMS OF DISTRESS NOTED. AROUSES TO VERBAL STIMULI. WILL CONTINUE TO MONITOR. CALL LIGHT IN REACH.
[2017-08-09 06:11] LABS: BASO % 0.2 % (0.0-1.0); EOS # 0.3 10*3/uL (0.0-0.4); EOS % 2.9 % (1.0-4.0); HEMATOCRIT 28.3 % (37.0-47.0); HEMOGLOBIN 9.3 g/dl (12.0-16.0); LYMPH # 3.3 10*3/uL (1.3-4.4); LYMPH % 36.5 % (27.0-41.0); MEAN CELL VOLUME 98.6 fl (81.0-99.0); MEAN CORPUSCULAR HGB 32.4 pg (27.0-31.0); MEAN CORPUSCULAR HGB CONC 32.9 g/dl (33.0-37.0); MEAN PLATELET VOLUME 10.2 fl (9.6-12.3); MONO # 0.7 10*3/uL (0.1-1.0); MONO % 7.3 % (3.0-9.0); NEUT # 4.8 10*3/uL (2.3-7.9); NEUT % 52.7 % (47.0-73.0); PLATELET COUNT AUTOMATED 205 10*3/uL (130-400); RED BLOOD COUNT 2.87 10*6/uL (4.10-5.10); RED CELL DISTRI WIDTH 15.6 % (0-14.5); WHITE BLOOD COUNT 9.1 10*3/uL (4.8-10.8)
--- NOTE | 2017-08-09 07:50 | NUR ---
PT REPOSITIONED IN BED. RESP-EASY AND REGULAR. OXYGEN IN USE. HEEL PROTECTORS ON. DRESSING RIGHT ARM D/I. NO C/O AT THIS TIME. CALL LIGHT IN REACH. SEE SHIFT ASSESSMENT.
[2017-08-09 08:00] VITALS: BP 123/53
--- NOTE | 2017-08-09 10:00 | NUR ---
PT RESTING IN BED AT HER SIDE. RESP-EASY AND REGULAR. CALL LIGHT IN REACH. REPOSITIONED IN BED.
[2017-08-09 12:00] VITALS: BP 115/52
--- NOTE | 2017-08-09 14:00 | NUR ---
IN ROOM. PT REPOSITIONED IN BED. ATE LUNCH WITH NO PROBLEM. CALL LIGHT IN REACH. BED ALARM ON.
[2017-08-09 15:55] LABS: CREATININE 1.19 mg/dL (0.55-1.02); POTASSIUM 3.5 mmol/L (3.5-5.1)
[2017-08-09 16:00] VITALS: BP 111/50
--- NOTE | 2017-08-09 16:10 | NUR ---
PT RESTING IN BED. REPOSTIIONED IN BED FOR DINNER. AT HER SIDE. RESP-EASY AND REGULAR. OXYGEN IN USE. CALL LIGHT IN REACH. SEE SHIFT ASSESSMENT.
--- NOTE | 2017-08-09 17:54 | NUR ---
CALLED DR. POLK PT ANXIOUS AND AND PT REQUESTING SOMETHING FOR ANXIETY. ORDER TAKEN AND REVIEWED.
[2017-08-09] MEDS ORDERED: MEROPENEM1 G1 IV (18:00)
--- NOTE | 2017-08-09 18:19 | NUR ---
SPOKE WITH DEMI AT [facility] SHE IS CHECKING TO SEE IF OKAY FOR HER TO COME BACK THIS EVENING SHE WILL CALL US BACK.
--- NOTE | 2017-08-09 18:24 | NUR ---
MEDICATED WITH XANAX PO PER PRN ORDER, SEE EMAR. FOR ANXIETY. AT HER SIDE. CALL LIGHT IN REACH.
--- NOTE | 2017-08-09 18:52 | NUR ---
GAVE REPORT TO ÓSCAR AT [facility]. MADE AWARE PT PICKED UP BY [facility] AT 730PM.
--- NOTE | 2017-08-09 19:01 | NUR ---
PT UPSET REFUSING TO LET ME TAKE DISCHARGE PICTURES.
--- NOTE | 2017-08-09 19:32 | NUR ---
[facility] ON UNIT TO RESOLUTION MANAGER RESIDENT FOR TRANSPORT TO [facility].
--- NOTE | 2017-08-09 19:43 | NUR ---
PT LEFT FLOOR AT THIS TIME WITH [facility]. PT APPEARED TO HAVE NO S/S OF DISTRESS, RESTING COMFORTABLY. DISCHARGED TO [facility] WITH [facility].
== END 2017-08-09 19:43 | disposition home or self-care (01) | DRG 871 ==
LOC: ED 16:10 → EDHOLD 18:15 → 5E 18:15
PROVIDERS: Internal Medicine Critical Care Medicine; Nurse Practitioner Family; ADMIT Internal Medicine
PROC: 05H533Z Insertion of Infusion Device into Right Subclavian Vein, Percutaneous Approach (ICD-10-PCS; principal; 2017-08-09)
DX: A41.51 Sepsis due to Escherichia coli [E. coli] (principal); J18.1 Lobar pneumonia, unspecified organism; J96.21 Acute and chronic respiratory failure with hypoxia; N17.0 Acute kidney failure with tubular necrosis; I13.0 Hypertensive heart and chronic kidney disease with heart failure and stage 1 through stage 4 chronic kidney disease, or unspecified chronic kidney disease; E87.2 Acidosis; E11.22 Type 2 diabetes mellitus with diabetic chronic kidney disease; I50.32 Chronic diastolic (congestive) heart failure; N17.9 Acute kidney failure, unspecified; N39.0 Urinary tract infection, site not specified; J44.1 Chronic obstructive pulmonary disease with (acute) exacerbation; J44.0 Chronic obstructive pulmonary disease with (acute) lower respiratory infection; F31.30 Bipolar disorder, current episode depressed, mild or moderate severity, unspecified; N18.3 Chronic kidney disease, stage 3 (moderate); R65.20 Severe sepsis without septic shock; E66.01 Morbid (severe) obesity due to excess calories; B96.20 Unspecified Escherichia coli [E. coli] as the cause of diseases classified elsewhere; E87.5 Hyperkalemia; Z99.81 Dependence on supplemental oxygen; D64.9 Anemia, unspecified; I48.2 Chronic atrial fibrillation; R62.7 Adult failure to thrive; E78.2 Mixed hyperlipidemia; F41.1 Generalized anxiety disorder; K21.9 Gastro-esophageal reflux disease without esophagitis; I25.10 Atherosclerotic heart disease of native coronary artery without angina pectoris; M54.9 Dorsalgia, unspecified; G89.29 Other chronic pain; B96.5 Pseudomonas (aeruginosa) (mallei) (pseudomallei) as the cause of diseases classified elsewhere; T50.2X5A Adverse effect of carbonic-anhydrase inhibitors, benzothiadiazides and other diuretics, initial encounter; M51.36 Other intervertebral disc degeneration, lumbar region; F44.89 Other dissociative and conversion disorders; B96.4 Proteus (mirabilis) (morganii) as the cause of diseases classified elsewhere; B96.89 Other specified bacterial agents as the cause of diseases classified elsewhere; R31.9 Hematuria, unspecified; K21.0 Gastro-esophageal reflux disease with esophagitis; Z66 Do not resuscitate; Z51.5 Encounter for palliative care; Z88.2 Allergy status to sulfonamides; Z95.1 Presence of aortocoronary bypass graft; Z92.3 Personal history of irradiation; Z85.118 Personal history of other malignant neoplasm of bronchus and lung; Z88.8 Allergy status to other drugs, medicaments and biological substances; Z91.041 Radiographic dye allergy status; Z91.018 Allergy to other foods; Z79.899 Other long term (current) drug therapy; Z79.82 Long term (current) use of aspirin; Z90.710 Acquired absence of both cervix and uterus; Z90.89 Acquired absence of other organs; Z90.49 Acquired absence of other specified parts of digestive tract; Z87.891 Personal history of nicotine dependence; Z82.49 Family history of ischemic heart disease and other diseases of the circulatory system; Z81.8 Family history of other mental and behavioral disorders; Z80.8 Family history of malignant neoplasm of other organs or systems; Z87.440 Personal history of urinary (tract) infections; Z98.61 Coronary angioplasty status; Z98.42 Cataract extraction status, left eye; Z98.41 Cataract extraction status, right eye; Y92.89 Other specified places as the place of occurrence of the external cause; I25.2 Old myocardial infarction; Z68.26 Body mass index [BMI] 26.0-26.9, adult

== ENCOUNTER 2017-12-30 21:33 | Inpatient (IN) | payer OTHER ==
[~2017-12-30] VITALS: Ht 167.6 cm; Wt 68.1 kg
--- NOTE | ~2017-12-30 | PR ---
[place], [place] PROGRESS NOTE NAME: YOLANDA BEARDEN UNIT #: [id number] ROOM: 525 DOCTOR: NICOLE POLK MD BIRTHDATE: [birth year] DOS: 01/02/2018 SUBJECTIVE: The patient is more awake, alert and responsive and she is trying to communicate with me by shaking or nodding her head, which she was not doing yesterday. OBJECTIVE: VITAL SIGNS: Blood pressure 108/46, heart rate of 82 beats per minute, breathing 20 times per minute, temperature 98.9 degrees Fahrenheit. GENERAL APPEARANCE: The patient is alert and oriented x 3, in no visible distress, except for generalized weakness. HEENT AND NECK: Exam within normal limits. CARDIOVASCULAR SYSTEM: Heart rate is regular in rate and rhythm. S1 and S2 normally audible. LUNGS: Clear to auscultation. ABDOMEN: Soft, nontender. No obvious organomegaly. Bowel sounds are present. EXTREMITIES: Without significant cyanosis or edema. IMPRESSION: 1. Major adult failure to thrive. The patient is bedridden, but improving mental status. 2. Chronic issues with mental status. The patient is awake, alert, but now starting to communicate more as compared to yesterday by shaking or nodding her head today, appears in no distress. 3. Metabolic encephalopathy with increased mental confusion, improving. 4. Type 2 diabetes mellitus. Blood sugar is being monitored and treated. 5. Benign essential hypertension, which is treated and controlled. 6. Compensated diastolic type congestive heart failure, without increasing shortness of breath. 7. Chronic atrial fibrillation, with controlled heart rates. 8. Coronary artery disease of the [place] vessels, without chest pains. The patient is on Imdur. 9. Bipolar disorder, treated with Invega. [place], [place] PROGRESS NOTE NAME: YOLANDA BEARDEN UNIT #: [id number] ROOM: 525 DOCTOR: NICOLE POLK MD BIRTHDATE: [birth year] NICOLE POLK MD CM:PNTRANS 49 06 NICOLE POLK MD 01/02/18 2007 interface
--- NOTE | ~2017-12-30 | DS ---
[place], [place] DISCHARGE SUMMARY NAME: YOLANDA BEARDEN UNIT #: [id number] ROOM: 525 DOCTOR: NICOLE POLK MD BIRTHDATE: [birth year] DOS: 01/03/2018 DISCHARGE DIAGNOSES: 1. Adult failure to thrive. 2. Altered mental status. 3. Metabolic encephalopathy. 4. Type 2 diabetes mellitus. 5. Benign essential hypertension. 6. Compensated diastolic type congestive heart failure. 7. Chronic atrial fibrillation. 8. Coronary artery disease of the [place] vessels. 9. Bipolar disorder, mixed. 10. Hyperlipidemia. 11. Obesity. 12. Generalized anxiety disorder and bipolar disorder. 13. Major depression, recurrent. 14. Previous history of squamous cell cancer of the right upper lung, treated with radiation in the past. HOSPITAL COURSE: The patient presented to the Emergency Department with altered mental status. The patient was nonverbal and after admission and treatment, she is more responsive and communicated by nodding or shaking her head. The patient was treated for suspected urinary tract infection and is now being discharged back to the assisted because she appears to be back at her normal usual mental status. Type 2 diabetes mellitus. Blood sugars are reasonably controlled. Diastolic type CHF, compensated, no increasing shortness of breath. Bipolar disorder, treated with Invega, followed by psychiatrist. Benign essential hypertension, treated and controlled. LABORATORY DATA: Blood cultures were negative. Hemoglobin 9.5, mild leukocytosis. Normal serum electrolytes. DISCHARGE MANAGEMENT: Invega 1.5 mg daily, potassium chloride 10 mEq daily, losartan 25 mg daily, Imdur 30 mg a day, Colace 100 mg a day, Plavix 75 mg a day, Bumex 1 mg b.i.d., aspirin 81 mg a day, Cymbalta 60 mg a day, DuoNeb every 4 hours, MiraLax 17 grams daily, saline nasal spray each nostril daily, IV meropenem, please finish the course which was ordered prior to discharge. The patient is taking 1 gram IV every 8 hours, temazepam 15 mg at bedtime p.r.n. [place], [place] DISCHARGE SUMMARY NAME: YOLANDA BEARDEN UNIT #: [id number] ROOM: 525 DOCTOR: NICOLE POLK MD BIRTHDATE: [birth year] NICOLE POLK MD CM:COURT 07 07 NICOLE POLK MD 01/03/181907 interface
--- NOTE | ~2017-12-30 | WRIGHTHP ---
[place], [place] PATIENT HISTORY AND PHYSICAL EXAM NAME: [facility]ARD[id number] UNIT #: [id number] ROOM: 525 DOCTOR: NICOLE POLK MD BIRTHDATE: [birth year] DOS: 12/31/2017 HISTORY OF PRESENT ILLNESS: The patient is a 62-year-old female initially admitted under care of hospitalist and then moved under my care. She has a past medical history of: 1. Advanced adult failure to thrive. 2. Type 2 diabetes mellitus. 3. Chronic atrial fibrillation. 4. Ambulatory dysfunction. 5. Mixed hyperlipidemia. 6. Diastolic type congestive heart failure, compensated. 7. Morbid obesity. 8. Generalized anxiety disorder and bipolar disorder. 9. Benign essential hypertension. 10. Gastroesophageal reflux disease and esophagitis. 11. Major depression, recurrent. 12. Diastolic type congestive heart failure, chronic. 13. History of squamous cell cancer of the right upper lung, which was treated with radiation in the past. The patient was sent over to Emergency Department at [facility] with altered mental status. The patient was not answering to any questions and was nonverbal. The patient was evaluated in the Emergency Department and diagnosed as having metabolic encephalopathy related to urinary tract infection. After admission, the patient is awake, alert, but not responding to any questions. REVIEW OF SYSTEMS: LUNGS: No recent increasing shortness of breath. GASTROINTESTINAL: No nausea, vomiting, diarrhea, constipation. CARDIOVASCULAR: No chest pains or palpitations. FAMILY HISTORY: Noncontributory. SOCIAL HISTORY: No recent history of smoking cigarettes, alcohol and drug abuse. MEDICATIONS: Invega, potassium, losartan, Imdur, Colace, Plavix, Bumex, aspirin, Cymbalta, DuoNeb, MiraLax, Dulcolax, Zofran, Tylenol, temazepam, Vicodin. ALLERGIES: Known allergies to IODINE DYE, PENICILLIN, SULFA. PHYSICAL EXAMINATION: GENERAL: Awake, alert. Generalized weakness. The patient not responding to any questions. HEENT AND NECK: Extraocular movements are intact. Sclerae are anicteric. Oral mucosa is moist and clean. No obvious facial weakness. Neck is supple without any lymphadenopathy. No thyromegaly. No JVD. No carotid arterial bruits. LUNGS: Clear to auscultation. No wheezing. No rhonchi. CARDIOVASCULAR SYSTEM: Heart rate is regular in rate and rhythm. S1 and S2 normally audible. No significant murmur or any other abnormal cardiac sounds. [place], [place] PATIENT HISTORY AND PHYSICAL EXAM NAME: [facility]ANDA BEARDEN [facility]: [id number] UNIT #: [id number] ROOM: [facility] DOCTOR: NICOLE POLK MD BIRTHDATE: [birth year] ABDOMEN: Soft, nontender. No obvious organomegaly. Bowel sounds are present. No obvious herniation. EXTREMITIES: Without significant cyanosis or edema. Warm to touch. CENTRAL NERVOUS SYSTEM: Alert and oriented x 3. Cranial nerves II-XII are intact. Speech is normal. The patient is able to move all extremities. Normal muscle strength. Deep tendon reflexes are equal on both sides. Plantars were downgoing. LABORATORY DATA: Blood cultures were negative. Normal serum electrolytes. White cell count elevated to 13,000, hemoglobin 10.2. IMPRESSION: 1. The patient with urinary tract infection and altered mental status to be treated with antibiotics. 2. Metabolic encephalopathy from infection. The patient will be followed closely. There are no other neurological deficits that are new. 3. Type 2 diabetes mellitus, sugars will be monitored and treated. The patient will be kept on no concentrated sweet diet. 4. Benign essential hypertension. Blood pressure being monitored, treated and controlled. 5. Compensated diastolic type congestive heart failure. 6. Chronic atrial fibrillation with controlled heart rates. 7. Coronary artery disease history without chest pains. The patient on Imdur. 8. Bipolar disorder treated with Invega. The patient has bilateral heel wounds and left toe wound, which is going to be dressed and followed by Wound Care Nursing. NICOLE POLK MD CM:HISPHYS:PATIENT HISTORY AND PHYSICAL EXAMINATION 48 20 NICOLE POLK MD 01/01/182218 interface
[~2017-12-30 21:33] MED LIST changes: +INVEGA1.5 MG PO; +MEROPENEM1 G1 IV; -MILK OF MA400 MG/51 PO
[2017-12-30 21:51] VITALS: BP 118/67
[2017-12-30 21:59] LABS: BILIRUBIN NEGATIVE (NEGATIVE); BLOOD NEGATIVE (NEGATIVE); CLARITY SL CLOUDY (CLEAR); COLOR YELLOW (YELLOW); GLUCOSE NEGATIVE (NEGATIVE); KETONE NEGATIVE (NEGATIVE); LEUKO ESTERASE 1+ (NEGATIVE); NITRITE NEGATIVE (NEGATIVE); PH >= 9.0 (5.0-9.0); SPECIFIC GRAVITY <= 1.005 (1.005-1.030); UROBILINOGEN 0.2 E.U./dl (0.2-1.0)
[2017-12-30 22:15] LABS: BACTERIA 2+
[2017-12-30 23:04] LABS: ACT PARTIAL THROMBO TIME 22.7 SECONDS (20.8-31.5)
[2017-12-30 23:10] LABS: ALBUMIN 2.8 gm/dl (3.1-4.5); ALKALINE PHOSPHATASE 98 U/L (45-117); BUN 16 mg/dl (7-24); CHLORIDE 105 mmol/L (98-107); CREATININE 1.06 mg/dL (0.55-1.02); POTASSIUM 3.9 mmol/L (3.5-5.1); SGOT/AST 9 IU/L (3-35); SGPT/ALT 16 U/L (12-78); SODIUM 140 mmol/L (136-145); TOTAL PROTEIN 6.6 gm/dL (6.4-8.2)
[2017-12-30 23:15] LABS: TROPONIN I < 0.015 ng/ml (<0.045)
[2017-12-30 23:17] LABS: BASO # 0.1 10*3/uL (0.0-0.1); BASO % 0.6 % (0.0-1.0); EOS # 0.3 10*3/uL (0.0-0.4); EOS % 3.3 % (1.0-4.0); HEMATOCRIT 33.2 % (37.0-47.0); HEMOGLOBIN 10.8 g/dl (12.0-16.0); LYMPH # 2.7 10*3/uL (1.3-4.4); LYMPH % 27.2 % (27.0-41.0); MEAN CELL VOLUME 97.9 fl (81.0-99.0); MEAN CORPUSCULAR HGB 31.9 pg (27.0-31.0); MEAN CORPUSCULAR HGB CONC 32.5 g/dl (33.0-37.0); MEAN PLATELET VOLUME 10.2 fl (9.6-12.3); MONO # 0.8 10*3/uL (0.1-1.0); NEUT # 6.1 10*3/uL (2.3-7.9); NEUT % 60.7 % (47.0-73.0); PLATELET COUNT AUTOMATED 218 10*3/uL (130-400); RED BLOOD COUNT 3.39 10*6/uL (4.10-5.10); RED CELL DISTRI WIDTH 14.6 % (0-14.5)
[2017-12-31] VITALS (7 sets, daily range): BP systolic 105–145; BP diastolic 47–63
[2017-12-31] MEDS ORDERED: MAPAP EXTRA ST500 M1 PO (02:09)
[2017-12-31] MEDS ORDERED: DEEP SEA44 ML NAS (02:13)
[2017-12-31] MEDS ORDERED: KLOR-CON 1010 ME1 PO (02:18)
[2017-12-31] MEDS ORDERED: COZAAR25 M1 PO (02:18)
[2017-12-31] MEDS ORDERED: MULTIVITAMINS1 EAC5 PO (02:20)
[2017-12-31] MEDS ORDERED: NITRO-DUR1 EAC1 TD (02:22)
[2017-12-31] MEDS ORDERED: STRESS B WITH1 EACH PO (02:24)
[2017-12-31] MEDS ORDERED: NOVOLOG100 UNIT/1 SQ (02:24)
[2017-12-31] MEDS ORDERED: VITAMIN C500 M4 PO (02:26)
[2017-12-31 06:17] LABS: BASO # 0.1 10*3/uL (0.0-0.1); BASO % 0.6 % (0.0-1.0); EOS # 0.3 10*3/uL (0.0-0.4); EOS % 3.2 % (1.0-4.0); HEMATOCRIT 31.7 % (37.0-47.0); HEMOGLOBIN 10.2 g/dl (12.0-16.0); LYMPH # 2.8 10*3/uL (1.3-4.4); LYMPH % 27.8 % (27.0-41.0); MEAN CELL VOLUME 97.8 fl (81.0-99.0); MEAN CORPUSCULAR HGB 31.5 pg (27.0-31.0); MEAN CORPUSCULAR HGB CONC 32.2 g/dl (33.0-37.0); MEAN PLATELET VOLUME 10.4 fl (9.6-12.3); MONO # 0.8 10*3/uL (0.1-1.0); MONO % 7.9 % (3.0-9.0); NEUT # 5.9 10*3/uL (2.3-7.9); NEUT % 60.1 % (47.0-73.0); PLATELET COUNT AUTOMATED 201 10*3/uL (130-400); RED BLOOD COUNT 3.24 10*6/uL (4.10-5.10); RED CELL DISTRI WIDTH 14.4 % (0-14.5); WHITE BLOOD COUNT 9.9 10*3/uL (4.8-10.8)
[2017-12-31 06:27] LABS: BUN 16 mg/dl (7-24); CHLORIDE 109 mmol/L (98-107); POTASSIUM 3.5 mmol/L (3.5-5.1); SODIUM 143 mmol/L (136-145)
[2017-12-31 06:28] LABS: ACT PARTIAL THROMBO TIME 22.3 SECONDS (20.8-31.5)
[2017-12-31 06:29] LABS: CREATININE 0.95 mg/dL (0.55-1.02)
[2017-12-31 07:24] LABS: VITAMIN D, 25-HYDROXY 17.3 ng/mL (30-100)
[2018-01-01] VITALS: BP 111/48
[2018-01-01 04:00] VITALS: BP 104/48
[2018-01-01 06:29] LABS: BASO % 0.2 % (0.0-1.0); EOS # 0.1 10*3/uL (0.0-0.4); EOS % 0.9 % (1.0-4.0); HEMATOCRIT 28.4 % (37.0-47.0); HEMOGLOBIN 9.5 g/dl (12.0-16.0); LYMPH # 2.5 10*3/uL (1.3-4.4); LYMPH % 19.5 % (27.0-41.0); MEAN CELL VOLUME 96.3 fl (81.0-99.0); MEAN CORPUSCULAR HGB 32.2 pg (27.0-31.0); MEAN CORPUSCULAR HGB CONC 33.5 g/dl (33.0-37.0); MEAN PLATELET VOLUME 10.7 fl (9.6-12.3); MONO # 1.1 10*3/uL (0.1-1.0); MONO % 8.5 % (3.0-9.0); NEUT # 9.1 10*3/uL (2.3-7.9); NEUT % 70.4 % (47.0-73.0); PLATELET COUNT AUTOMATED 184 10*3/uL (130-400); RED BLOOD COUNT 2.95 10*6/uL (4.10-5.10); RED CELL DISTRI WIDTH 14.3 % (0-14.5); WHITE BLOOD COUNT 12.9 10*3/uL (4.8-10.8)
[2018-01-01 06:48] LABS: BUN 12 mg/dl (7-24); CHLORIDE 110 mmol/L (98-107); CREATININE 0.99 mg/dL (0.55-1.02); POTASSIUM 3.5 mmol/L (3.5-5.1); SODIUM 142 mmol/L (136-145)
[2018-01-01 08:00] VITALS: BP 110/58
[2018-01-01 12:00] VITALS: BP 110/55
[2018-01-01 16:00] VITALS: BP 99/67
[2018-01-01 20:00] VITALS: BP 99/53
[2018-01-02] VITALS: BP 100/58; BP 126/69
[2018-01-02 08:00] VITALS: BP 102/48
[2018-01-02 12:00] VITALS: BP 108/46
[2018-01-02 16:00] VITALS: BP 116/71
[2018-01-02 20:00] VITALS: BP 100/44
[2018-01-02 22:00] VITALS: BP 100/44
[2018-01-03] VITALS: BP 109/56
[2018-01-03 08:00] VITALS: BP 102/52
[2018-01-03 12:00] VITALS: BP 100/54
[2018-01-03 16:00] VITALS: BP 112/56
== END 2018-01-03 19:33 | DRG 689 ==
LOC: ED 21:33 → 5E 12-31 00:02 → EDHOLD 12-31 00:02 → 5E 12-31 00:20
PROVIDERS: Internal Medicine; Student in an Organized Health Care Education/Training Program
DX: N39.0 Urinary tract infection, site not specified (principal); G93.41 Metabolic encephalopathy; E11.22 Type 2 diabetes mellitus with diabetic chronic kidney disease; E87.2 Acidosis; E66.01 Morbid (severe) obesity due to excess calories; I50.32 Chronic diastolic (congestive) heart failure; I13.0 Hypertensive heart and chronic kidney disease with heart failure and stage 1 through stage 4 chronic kidney disease, or unspecified chronic kidney disease; N18.3 Chronic kidney disease, stage 3 (moderate); D64.9 Anemia, unspecified; G89.29 Other chronic pain; M54.9 Dorsalgia, unspecified; J44.9 Chronic obstructive pulmonary disease, unspecified; F22 Delusional disorders; E78.5 Hyperlipidemia, unspecified; I48.2 Chronic atrial fibrillation; E78.2 Mixed hyperlipidemia; F41.1 Generalized anxiety disorder; F31.9 Bipolar disorder, unspecified; K21.0 Gastro-esophageal reflux disease with esophagitis; I25.10 Atherosclerotic heart disease of native coronary artery without angina pectoris; R62.7 Adult failure to thrive; Z91.013 Allergy to seafood; Z91.09 Other allergy status, other than to drugs and biological substances; Z79.4 Long term (current) use of insulin; Z79.82 Long term (current) use of aspirin; I25.2 Old myocardial infarction; Z88.1 Allergy status to other antibiotic agents; Z91.041 Radiographic dye allergy status; Z98.891 History of uterine scar from previous surgery; Z90.710 Acquired absence of both cervix and uterus; Z95.1 Presence of aortocoronary bypass graft; Z98.49 Cataract extraction status, unspecified eye; Z87.891 Personal history of nicotine dependence; Z80.8 Family history of malignant neoplasm of other organs or systems; Z82.49 Family history of ischemic heart disease and other diseases of the circulatory system; Z82.0 Family history of epilepsy and other diseases of the nervous system; Z88.0 Allergy status to penicillin; Z88.2 Allergy status to sulfonamides; Z68.24 Body mass index [BMI] 24.0-24.9, adult

== ENCOUNTER 2018-02-02 16:11 | Emergency (ER) | payer OTHER ==
[~2018-02-02] VITALS: Wt 90.7 kg
[~2018-02-02 16:11] MED LIST changes: +COZAAR25 M1 PO; +DEEP SEA44 ML NAS; +MAPAP EXTRA ST500 M1 PO; +MULTIVITAMINS1 EAC5 PO; +NITRO-DUR1 EAC1 TD; +NOVOLOG100 UNIT/1 SQ; +STRESS B WITH1 EACH PO; +VITAMIN C500 M4 PO
== END 2018-02-02 17:47 | disposition home or self-care (01) ==
LOC: ED 16:11
DX: S00.83XA Contusion of other part of head, initial encounter (principal); S20.20XA Contusion of thorax, unspecified, initial encounter; S60.221A Contusion of right hand, initial encounter; I12.9 Hypertensive chronic kidney disease with stage 1 through stage 4 chronic kidney disease, or unspecified chronic kidney disease; E11.22 Type 2 diabetes mellitus with diabetic chronic kidney disease; N18.3 Chronic kidney disease, stage 3 (moderate); N17.0 Acute kidney failure with tubular necrosis; J44.9 Chronic obstructive pulmonary disease, unspecified; K21.9 Gastro-esophageal reflux disease without esophagitis; I50.9 Heart failure, unspecified; I25.10 Atherosclerotic heart disease of native coronary artery without angina pectoris; E11.65 Type 2 diabetes mellitus with hyperglycemia; E78.5 Hyperlipidemia, unspecified; E87.1 Hypo-osmolality and hyponatremia; E87.6 Hypokalemia; F32.9 Major depressive disorder, single episode, unspecified; F41.9 Anxiety disorder, unspecified; Z88.1 Allergy status to other antibiotic agents; Z88.2 Allergy status to sulfonamides; Z91.013 Allergy to seafood; Z91.041 Radiographic dye allergy status; Z79.82 Long term (current) use of aspirin; Z79.899 Other long term (current) drug therapy; Z90.710 Acquired absence of both cervix and uterus; Z95.1 Presence of aortocoronary bypass graft; Z90.89 Acquired absence of other organs; Z87.891 Personal history of nicotine dependence; W07.XXXA Fall from chair, initial encounter; Y93.89 Activity, other specified; Y92.89 Other specified places as the place of occurrence of the external cause; Y99.8 Other external cause status

== ENCOUNTER → 2018-07-01 | Outpatient (CLI) | payer OTHER ==
[~2018-07-01] MED LIST changes: +CIPRO250 MG PO; +DEBROX15 ML OT; +KLORVESS,K40 MEQ/30 PO; +METOCLOPRAM5 MG/1 ML IV; +MINITRAN1 EACH TD
--- NOTE | ~2018-07-01 | SLPIE ---
[place], [place] BEHAVIORAL HEALTH CASE MANAGER INITIAL EVALUATION NAME: YOLANDA BEARDEN UNIT #: [id number] ROOM: DOCTOR: NICOLE POLK MD Speech Language Pathology Initial Evaluation Page 1 1 of Patient Name: YOLANDA BEARDEN Date: 07/01/2018 12:33 PM : 1955 SOC Date: 07/01/2018 [facility] Provider #: [id number] Treating Clinician: MICHAEL Truong-DEB Referring Physician: NICOLE POLK Patient Information Address: [address] [place] [address] Physician: NICOLE POLK Physician #: City, [facility], Zip: [place], [place] [address] Occupation: Unknown # of Approved Visits: 0 Gender: Female 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 Please see Style on Screen for details. Rehabilitation Information / History Clinical Findings Functional Goals Functional Limitation Reporting Swallowing G8996 - Swallowing functional limitation, current status at therapy episode outset and at reporting intervals Current Status: CJ - At least 20 percent but less than 40 percent impaired, limited or restricted G8997 - Swallowing functional limitation, projected goal status, at therapy episode outset, at reporting intervals, and at discharge or to end reporting Goal Status: CJ - At least 20 percent but less than 40 percent impaired, limited or restricted G8998 - Swallowing functional limitation, discharge status, at discharge from therapy or to end reporting Discharge Status: CJ - At least 20 percent but less than 40 percent impaired, limited or restricted 07/01/2018 12:34:04 PM MICHAEL Truong-DEB Date/Time [place], [place] BEHAVIORAL HEALTH CASE MANAGER INITIAL EVALUATION NAME: YOLANDA BEARDEN UNIT #: [id number] ROOM: DOCTOR: NICOLE POLK MD [facility] License #: [id number] CM:SLPIE 1237 1237 [facility] THER[facility]Y [facility]
--- NOTE | ~2018-07-01 | PROC NOTE ---
[place], [place] PROCEDURE NOTE NAME: YOLANDA BEARDEN UNIT #: [id number] ROOM: DOCTOR: PEGGY MICHELLEANN BIRTHDATE: [birth year] DOS: 07/01/2018 MODIFIED BARIUM SWALLOW ORDERING PHYSICIAN: Nicole Solis MD RADIOLOGIST: Dr. Pierre BACKGROUND INFORMATION: The patient is a 62-year-old female who was seen for modified barium swallow. This test was ordered to rule out silent aspiration. The patient comes from [facility]. Further medical history includes malignant neoplasm of bronchus and lung, GERD and metabolic encephalopathy. She currently receives a mechanical soft diet with nectar thick liquid. A prior modified barium swallow had been conducted for 07/31/2017 where the patient exhibited silent penetration with liquids and rest was recommended a soft diet and nectar thick liquid. For today's assessment, the patient was alert and cooperative with confusion displayed. She was able to follow simple commands. She presented with oxygen via nasal cannula. Oral peripheral examination revealed edentulous status. Lingual, labial, and buccal skills were within functional limits. In terms of strength, range of motion, and coordination, the patient was able to volitionally cough and swallow. METHODS AND MATERIALS USED FOR THE EXAM: The patient was positioned in the lateral plane and the exam was viewed under fluoroscopy. The patient was presented with a variety of consistencies to assess swallowing skills including applesauce mixed with barium presented in half teaspoon amounts, barium-coated banana and cookie taken in bite size pieces and nectar and honey-thick barium taken by cup. ORAL PHASE: Unremarkable. PHARYNGEAL PHASE: The pharyngeal swallow occurred within a timely manner. During the swallow, laryngeal elevation and epiglottic function were reduced with nectar-thick liquid with silent penetration occurring. This was not displayed with honey-thick liquid or any other consistency. There was no significant residue in the pharynx post-swallow with any consistency. ESOPHAGEAL PHASE: This phase of the swallow was not formally assessed during this exam. IMPRESSIONS AND RECOMMENDATIONS: Based upon assessment results, this 62-year-old patient presents with a mild to moderate pharyngeal dysphagia characterized by silent penetration with nectar thick liquids. This is due to reduced laryngeal elevation and epiglottic function. Recommend the patient receive a mechanical soft diet and honey-thick liquids. Recommend use of safe swallow strategies such as upright positioning for meals consumption of small bites and sips. Results and recommendations were shared with the patient and spouse and a written copy was provided for education of assisted staff. [place], [place] PROCEDURE NOTE NAME: YOLANDA BEARDEN UNIT #: [id number] ROOM: DOCTOR: MARYA MICHELLE BIRTHDATE: [birth year] Thank you very much for this referral. Should you have any questions regarding this patient, please contact the speech pathologist at [phone]. MARYA MICHELLE CM:PROCNOTE:PROCEDURE NOTE [id number] NICOLE MICHELLE
--- NOTE | ~2018-07-01 | SLPPOC ---
[place], [place] VARNISH COOKER PLAN OF CARE NAME: YOLANDA BEARDEN UNIT #: [id number] ROOM: DOCTOR: NICOLE POLK MD Speech Language Pathology Plan of Care Page 1 1 (Initial Evaluation) of Patient Name: YOLANDA BEARDEN Date: 07/01/2018 12:33 PM : 1955 SOC Date: 07/01/2018 [facility]: [facility] Provider #: [id number] Treating Clinician: MICHAEL Truong-VARNISH COOKER Referring Physician: NICOLE POLK 1 Visits From SOC: Onset Date Description Code Primary Diagnosis: 07/01/2018 A0000 NO DIAGNOSIS SENT TO THE [facility] Subjective Comments: Initial evaluation created to initiate the electronic medical record. Please see Bioscale for details. Initial Level Goals Functional Limitation Reporting Swallowing G8996 - Swallowing functional limitation, current status at therapy episode outset and at reporting intervals Current Status: CJ - At least 20 percent but less than 40 percent impaired, limited or restricted G8997 - Swallowing functional limitation, projected goal status, at therapy episode outset, at reporting intervals, and at discharge or to end reporting Goal Status: CJ - At least 20 percent but less than 40 percent impaired, limited or restricted G8998 - Swallowing functional limitation, discharge status, at discharge from therapy or to end reporting Discharge Status: CJ - At least 20 percent but less than 40 percent impaired, limited or restricted 07/01/2018 12:34:04 PM NICOLE POLK Date/Time MICHAEL Truong-VARNISH COOKER Date I certify the need for these services furnished under this plan of treatment while under my care. State License #: [id number] CM:SLPPOC 1237 1237 [facility] THER[facility]Y [facility]
--- NOTE | ~2018-07-01 | SLPPN ---
[place], [place] [employer] PROGRESS NOTE NAME: YOLANDA BEARDEN UNIT #: [id number] ROOM: DOCTOR: NICOLE POLK MD Speech Language Pathology Treatment Note Page 1 1 of Patient Name: YOLANDA BEARDEN Date: 07/01/2018 12:34 PM : 1955 SOC Date: 07/01/2018 [facility]: [facility] Provider #: [id number] Treating Clinician: MICHAEL Truong-[employer] JUDGE Referring Physician: NICOLE POLK Onset Date Description Code Primary Diagnosis: 07/01/2018 A0000 NO DIAGNOSIS SENT TO THE [facility] INTER[facility] Time In: 11:30 AM Time Out: 12:30 AM [place] [employer] Interventions and CPT Codes Consisted of: CPT Code Modifiers Minutes Units MOTION FLUOROSCOPY/SWALLOW 95837 60 1 Total Minutes: 60 Total Timed Minutes: 0 Total Untimed Minutes: 60 Total Units: 1 Total Timed Units: 0 Total Untimed Units: 1 07/01/2018 12:34:51 PM MICHAEL Truong-[employer]RATIVE [employer] JUDGE Date/Time State License #: [id number] CM:SILVESTRE 1237 1237 IS THERAPY [facility]
== END | disposition home or self-care (01) ==
LOC: RAD/SH 11:15
DX: R13.10 Dysphagia, unspecified (principal)

== ENCOUNTER 2018-12-05 05:35 | Emergency (ER) | payer OTHER ==
[~2018-12-05] VITALS: Ht 170.1 cm; Wt 81.6 kg
[2018-12-05 06:29] LABS: BILIRUBIN NEGATIVE (NEGATIVE); BLOOD NEGATIVE (NEGATIVE); CLARITY CLEAR (CLEAR); COLOR YELLOW (YELLOW); GLUCOSE NEGATIVE (NEGATIVE); KETONE NEGATIVE (NEGATIVE); LEUKO ESTERASE 1+ (NEGATIVE); NITRITE NEGATIVE (NEGATIVE); PH 6.5 (5.0-9.0); UROBILINOGEN 0.2 E.U./dl (0.2-1.0)
[2018-12-05 06:31] LABS: ALBUMIN 2.2 gm/dl (3.1-4.5); ALKALINE PHOSPHATASE 92 U/L (45-117); BUN 13 mg/dl (7-24); CHLORIDE 107 mmol/L (98-107); CREATININE 1.06 mg/dL (0.55-1.02); POTASSIUM 3.8 mmol/L (3.5-5.1); SGOT/AST 7 IU/L (3-35); SGPT/ALT 11 U/L (12-78); SODIUM 141 mmol/L (136-145); TOTAL PROTEIN 6.2 gm/dL (6.4-8.2)
[2018-12-05 06:33] LABS: BASO # 0.1 10*3/uL (0.0-0.1); BASO % 0.7 % (0.0-1.0); EOS # 0.7 10*3/uL (0.0-0.4); EOS % 5.9 % (1.0-4.0); HEMATOCRIT 34.5 % (37.0-47.0); HEMOGLOBIN 10.7 g/dl (12.0-16.0); LYMPH # 3.8 10*3/uL (1.3-4.4); MEAN CELL VOLUME 99.4 fl (81.0-99.0); MEAN CORPUSCULAR HGB 30.8 pg (27.0-31.0); MEAN PLATELET VOLUME 9.7 fl (9.6-12.3); MONO # 1.1 10*3/uL (0.1-1.0); MONO % 9.9 % (3.0-9.0); NEUT # 5.4 10*3/uL (2.3-7.9); NEUT % 48.6 % (47.0-73.0); PLATELET COUNT AUTOMATED 213 10*3/uL (130-400); RED BLOOD COUNT 3.47 10*6/uL (4.10-5.10); RED CELL DISTRI WIDTH 14.8 % (0-14.5); WHITE BLOOD COUNT 11.1 10*3/uL (4.8-10.8)
[2018-12-05 07:02] LABS: BACTERIA 1+; CALCIUM OXALATE CRYSTALS TRACE; WBC 41-50 wbc/hpf (0-5)
[2018-12-05 07:03] LABS: YEAST 3+
[2018-12-05] MEDS ORDERED: LEVOFLOXACIN500 MG PO (08:01)
[2018-12-07] MEDS ORDERED: ZYVOX600 MG PO (11:34)
[2019-04-01] MEDS ORDERED: CEFTRIAXON1 GM/50 ML IV (23:05)
== END 2018-12-05 08:16 | disposition home or self-care (01) ==
LOC: ED 05:35
PROVIDERS: Student in an Organized Health Care Education/Training Program
DX: N39.0 Urinary tract infection, site not specified (principal); B95.2 Enterococcus as the cause of diseases classified elsewhere; I13.0 Hypertensive heart and chronic kidney disease with heart failure and stage 1 through stage 4 chronic kidney disease, or unspecified chronic kidney disease; E11.22 Type 2 diabetes mellitus with diabetic chronic kidney disease; N18.3 Chronic kidney disease, stage 3 (moderate); I50.9 Heart failure, unspecified; K21.9 Gastro-esophageal reflux disease without esophagitis; E78.5 Hyperlipidemia, unspecified; J44.9 Chronic obstructive pulmonary disease, unspecified; I25.10 Atherosclerotic heart disease of native coronary artery without angina pectoris; E66.9 Obesity, unspecified; Z16.21 Resistance to vancomycin; Z88.1 Allergy status to other antibiotic agents; Z88.2 Allergy status to sulfonamides; Z79.899 Other long term (current) drug therapy; Z79.82 Long term (current) use of aspirin; Z87.891 Personal history of nicotine dependence; Z91.013 Allergy to seafood; Z91.041 Radiographic dye allergy status

== ENCOUNTER 2018-12-27 08:43 | Inpatient (IN) | payer OTHER ==
[2018-12-27] VITALS (22 sets, daily range): BP systolic 76–113; BP diastolic 41–64
[~2018-12-27] VITALS: Ht 172.7 cm; Wt 68.0 kg
--- NOTE | ~2018-12-27 | EKG ---
[place], [place] ELECTROCARDIOGRAM REPORT NAME: YOLANDA EBARDEN UNIT #: [id number] ROOM: [place] [address] DOCTOR: STEPHANIE DRAFT REPORT BIRTHDATE: [birth year] [facility] Test Date: 2018-12-27 Test Time: 11:29:44 Pat Name: YOLANDA BEARDEN Department: Room: [place] [address] Gender: F Dependency Program Director: EKG.CA : 1955 Requested By: EDWARDO SEN Order Number: [id number] Reading MD: Christine Mendez MD Measurements Intervals [place] Rate: 102 P: 77 [place]: 149 QRS: 38 QRSD: 88 T: 6 QT: 403 QTc: 526 Interpretive Statements Sinus tachycardia Ventricular premature complex Probable left atrial enlargement Anteroseptal infarct, age indeterminate Prolonged QT interval Compared to ECG 06/10/2018 21:46:32 Ventricular premature complex(es) now present Prolonged QT interval now present ST (T wave) deviation no longer present Myocardial infarct finding still present Electronically Signed On 01-01-2019 11:36:19 PDT by Christine Mendez MD CM:EKGRPT:ELECTROCARDIOGRAM REPORT [id number] EDWARDO SEN MD EPIPHANY DRAFT REPORT EDWARDO SEN MD
--- NOTE | ~2018-12-27 | PR ---
[place], [place] PROGRESS NOTE NAME: YOLANDA BEARDEN UNIT #: [id number] ROOM: 504 DOCTOR: JUDY PARTIDA MD,RADHA BIRTHDATE: [birth year] DOS: 01/03/2019 PULMONARY PROGRESS NOTE SUBJECTIVE: The patient is noted comfortable at this time, resting on the bed, without any acute distress. The patient opens her eyes to vocal commands, but does not have a meaningful verbal conversation. NG tube remains in place. Feeding is continued for the patient from the NG tube as well, which seems to be tolerated. She has not been reported with any hemodynamic instability, transferred from the Intensive Care Unit to the telemetry floor at this time. Review of systems could not be completed. OBJECTIVE: VITAL SIGNS: Which were recorded show the temperature noted as normal in the last 24 hours, respiratory rate recorded as 18-24, heart rate 75-88, blood pressure 129/54. Pulse oxygen saturation recorded on two liters nasal cannula as 97% saturation. HEENT: Examination shows head is atraumatic. Eyes nonicterus. NECK: Supple. CARDIOVASCULAR: S1 and S2 is audible. LUNGS: Without any wheezing or crackles at this time. ABDOMEN: Soft, nontender. Bowel sounds present. EXTREMITIES. No acute change. MUSCULOSKELETAL: Without any acute deformities. VISIBLE SKIN: No lesions or rashes. CENTRAL NERVOUS SYSTEM: General weakness and fatigue. LABORATORY DATA: BMP today: BUN 13, creatinine normal, CO2 of 33. Phosphorous is normal today at 3.5. Potassium is normal. CBC of this morning: WBC count is 6.9, hemoglobin 8.4, hematocrit normal. IMAGING STUDIES: Chest x-ray that was completed this morning noted left lower lobe infiltration with acute pneumonia, which has been slowly resolving. Right lung nodule remains unchanged. IMPRESSION: The patient who has been currently noted with: 1. Acute pneumonia with Gram-negative infection as well as urinary tract infection, both resolving. Resolution of acute sepsis. 2. The patient with improving acute respiratory failure status post mechanical ventilation as well. 3. Pulmonary nodule with cavitation of the right upper lung nodule, suspected for lung cancer. PLAN OF MANAGEMENT: At this time, no changes in the plan of care at this time will be necessary, except increasing the feeding gradually to the optimal feeding. Refeeding syndrome has been resolved. The feeding will be increased, but still monitoring of electrolytes will be continued intermittently. Continuation of the antibiotics. Supportive therapy plan of care and other treatment plan of management. [place], [place] PROGRESS NOTE NAME: YOLANDA BEARDEN UNIT #: [id number] ROOM: [facility] DOCTOR: RADHA LAKE MD BIRTHDATE: [birth year] RADHA KIM MD CM:PNTRANS 1143 49 RADHA PARTIDA MD 01/03/19 855 interface
--- NOTE | ~2018-12-27 | PR ---
[place], [place] PROGRESS NOTE NAME: YOLANDA BEARDEN UNIT #: [id number] ROOM: 504 DOCTOR: JUDY PARTIDA MD,RADHA BIRTHDATE: [birth year] DOS: 01/05/2019 PULMONARY PROGRESS NOTE SUBJECTIVE: The patient was comfortably resting. Remains awake and alert. The patient has been continued on the modified outpatient for dysphagia, remained stable without chest congestion, shortness of breath, acutely remains on the bed this morning of assessment. OBJECTIVE: VITAL SIGNS: Normal temperature, respiratory rate 22, heart rate of 72-80, blood pressure 122/55. Pulse oxygen saturation recorded on 2 liters nasal cannula 94% saturation at rest. HEENT: Head was atraumatic. Eyes nonicterus. NECK: Supple. CARDIOVASCULAR: S1, S2 is audible. LUNGS: Noted without any wheezing or crackles at this time. ABDOMEN: Soft, nontender. Bowel sounds present. EXTREMITIES: No acute change. IMPRESSION: Resolving acute pneumonia, urinary tract infection and continued improvement in acute respiratory failure, suspected lung malignancy with the current nodule, which noted cavitary in the right side. PLAN OF TREATMENT: The patient could be considered for discharge planning for discharge to [facility] facility completion of antibiotic for total of 14 days from the day it was started would be recommended. ASSESSMENT: For current possible malignant process would be done as an outpatient along with discussion with the family members for further assessment. RADHA KIM MD CM:PNTRANS 1311 RADHA PARTIDA MD 01/06/19 0228 interface
--- NOTE | ~2018-12-27 | PR ---
[place], [place] PROGRESS NOTE NAME: YOLANDA BEARDEN UNIT #: [id number] ROOM: [place] [address] DOCTOR: YASMIN BARRIENTOS MD BIRTHDATE: [birth year] DOS: SUBJECTIVE: The patient is about the same, does not have any new changes. She did wake up to a call, on a low dose of Diprivan. OBJECTIVE: VITAL SIGNS: Graphic trend shows a pressure 113/48, pulse of 94, respirations 26, temperature 99.2. LUNGS: Diminished breath sounds. HEART: Regular. ABDOMEN: Obese. EXTREMITIES: Without any edema. LABORATORY DATA: PH 7.4, pCO2 of 38, pO2 120. Oxygen saturation 98.9. WBC count is 7.5, hemoglobin 7.7, hematocrit 25.5. Chest x-ray, no changes noted. Blood cultures shows no bacterial growth. Sputum culture shows Klebsiella pneumoniae, for which she is on antibiotics. ASSESSMENT AND PLAN: 1. Acute respiratory failure, on a ventilator. 2. Klebsiella pneumoniae of the sputum with small pneumonia, on IV antibiotics. 3. CT scan showing a tumor with cavitation, which is increased in size when compared to previous CT scans, discussed with Dr. Rodriguez. The patient may require biopsies later on when she is more stable. At present, the patient is not a candidate for any procedures. 4. Anemia. Continue follow serial H and Hs. She is on Lovenox. YASMIN BARRIENTOS MD CM:PNTRANS 1400 YASMIN BARRIENTOS MD 12/30/18 1400 interface
--- NOTE | ~2018-12-27 | PR ---
[place], [place] PROGRESS NOTE NAME: YOLANDA BEARDEN UNIT #: [id number] ROOM: [place] [address] DOCTOR: YASMIN BARRIENTOS MD BIRTHDATE: [birth year] DOS: 12/29/2018 SUBJECTIVE: The patient is on the ventilator, did open eyes on calling her name, but then closed back and did not respond. OBJECTIVE: VITAL SIGNS: Blood pressure is 123/50, pulse of 80, respirations 20, temperature 97.5. LUNGS: Diminished breath sounds, clear. HEART: Regular. ABDOMEN: Obese. EXTREMITIES: Without any edema. LABORATORY DATA: Sputum culture, Klebsiella pneumoniae. Urine culture, Morganella morganii, sensitive to Staphylococcus ceftriaxone. Comprehensive glucose 102, BUN 21, creatinine 0.93, sodium 142, potassium 3.5, chloride 108, bicarbonate 28. WBC count is 14.7, hemoglobin 8.8. ASSESSMENT AND PLAN: 1. Acute respiratory failure from possible pneumonia with sepsis, on IV antibiotics. Since she has Klebsiella pneumoniae, we will readjust the medications. 2. CA of the lung by history. Cavitation with nodule was noticed in the right upper lobe. This is nothing new, but the size of the nodule has increased. Dr. Rodriguez is following the patient. 3. Major depression, moderate to severe. Adjustments in meds have been made. 4. Sepsis with shock causing hypotension. Pressures have improved. We will try to taper the Levophed off and see whether she can be weaned off. YASMIN BARRIENTOS MD CM:PNTRANS 0724 YASMIN BARRIENTOS MD 12/29/18 2249 interface
--- NOTE | ~2018-12-27 | PR ---
[place], [place] PROGRESS NOTE NAME: YOLANDA BEARDEN UNIT #: [id number] ROOM: 504 DOCTOR: JUDY PARTIDA MD,RADHA BIRTHDATE: [birth year] DOS: 12/30/2018 PULMONARY CRITICAL CARE EVALUATION AND MANAGEMENT SUBJECTIVE: The patient was noted comfortable at this time. Remains on mechanical ventilator. She does wake up with reduction in sedation and vocal commands. She has not noted any acute new change at the present time. Mechanical ventilator was continued. The patient was noted afebrile. Tolerating feeding effectively. Started the patient on Pulmocare 20 mL an hour. She has not been noted any problems otherwise. OBJECTIVE: VITAL SIGNS: For the patient, which are recorded showed the temperature noted normal, respiratory rate of 19-26, heart rate 94-96, blood pressure 113/41-126/47. Pulse oxygen saturation 30% oxygen, mechanical vent 98% saturation recorded. HEENT: Examination shows head was atraumatic. Eyes nonicterus. NECK: Supple. CARDIOVASCULAR: S1, S2 is audible. LUNGS: Noted with decreased breath sounds in the lower portion of the lungs bilaterally. There were no wheezing or crackles. ABDOMEN: Soft. EXTREMITIES: Mild edema. SKIN: No lesions or rashes. MUSCULOSKELETAL: Without any gross deformities. LABORATORY DATA: Arterial blood gas pH of 7.42, pCO2 of 38, pO2 to 120 and 30% oxygen. CBC this morning: WBC count normal, hemoglobin 7.5, hematocrit 25.5, platelet count of 62,000. CMP is normal. Normal BUN and creatinine. Potassium 3.2. Albumin 1.7, total protein of 5.7. The chest x-ray that was done this morning was reviewed and shows endotracheal tube was noted in appropriate position. The NG tube in the stomach. Infiltration still noted in the lingula in the left lower lobe. There were no visible pleural effusions. The nodule in the right upper lung remains unchanged. IMPRESSION: 1. The patient has been noted with current acute Klebsiella pneumoniae which has been involving the lingula and the left lower lobe. Small left pleural fluid was seen previously. 2. The patient with acute on chronic respiratory failure as well with hypoxia. 3. The patient with refeeding syndrome. The patient with hypophosphatemia. 4. Hypertension secondary to acute sepsis with acute pneumonia. PLAN OF MANAGEMENT: The patient will be continued on current antibiotic. Merrem is the only antibiotic needed for pneumonia and urinary tract infection. Continue ventilator bundle management. Recheck the phosphorus level to assess the patient for phosphorus level. Continue feeding for patient as tolerated. Other therapy, plan of management, care plan to be continued as previously in [place], [place] PROGRESS NOTE NAME: YOLANDA BEARDEN UNIT #: [id number] ROOM: 504 DOCTOR: JUDY PARTIDA MD,RADHA BIRTHDATE: [birth year] progress. Usual care, other therapy, plan of management, care plan of treatment will be changed accordingly. The assessment and management has been discussed with the patient and family members in detail. They were understanding possibly recurrence of malignancy and pneumonia from overall critical illness. The workup of malignancy would not be done for the patient until the patient recovered sufficiently from the current problem. That workup needs to be done as an outpatient. No inpatient intervention or assessment will be necessary. Continue ventilator bundle management and other supportive therapy, plan of management, care plan of therapies and treatments. Total time for pulmonary critical care evaluation and management for 37 minutes. ADDENDUM The CMP this morning, normal BUN and creatinine. Potassium 3.2. Phosphorus 2.4. Albumin 1.9. The patient will continue to get the supplementation of phosphorus and potassium to maximize the treatment with current hypophosphatemia and hypokalemia related refeeding syndrome. RADHA KIM MD CM:PNTRANS 1225 1917 RADHA PARTIDA MD 01/17/19 0802 interface
--- NOTE | ~2018-12-27 | EKG ---
[place], [place] ELECTROCARDIOGRAM REPORT NAME: YOLANDA BEARDEN UNIT #: [id number] ROOM: [place] [address] DOCTOR: STEPHANIE DRAFT REPORT BIRTHDATE: [birth year] [facility] Test Date: 2018-12-27 Test Time: 08:59:46 Pat Name: YOLANDA BEARDEN Department: Room: [place] [address] Gender: F Instrument Operator: : 1955 Requested By: EDWARDO SEN Order Number: [id number] Reading MD: Christine Mendez MD Measurements Intervals [place] Rate: 121 P: 85 [place]: 135 QRS: 60 QRSD: 76 T: QT: 331 QTc: 470 Interpretive Statements Sinus tachycardia Anterior infarct, old Minimal ST depression, anterolateral leads Compared to ECG 06/10/2018 21:46:32 No significant changes Electronically Signed On 01-01-2019 11:36:12 PDT by Christine Mendez MD CM:EKGRPT:ELECTROCARDIOGRAM REPORT [id number] EDWARDO BROWN DRAFT REPORT EDWARDO SEN MD
--- NOTE | ~2018-12-27 | PR ---
[place], [place] PROGRESS NOTE NAME: YOLANDA BEARDEN UNIT #: [id number] ROOM: 504 DOCTOR: JUDY PARTIDA MD,RADHA BIRTHDATE: [birth year] DOS: 01/02/2019 SUBJECTIVE: The patient was noted comfortable at this time without any acute distress. It has not been reported any symptoms of fever or chills, coughing or any sputum expectoration. She was noted awake and alert. The NG tube remains in place for the feeding purpose and any water intake. She is kept n.p.o. Oxygen supplementation was continued with the nasal cannula. She has not been reported any symptoms of chest pain at this time. The remaining system review noted limited, but negative. OBJECTIVE: VITAL SIGNS: For the patient, normal temperature, respiratory 24-32, heart rate of 96-100, blood pressure 100/52-92/45. Pulse oxygen saturation 2 liters nasal cannula 90% saturation. HEENT: Examination shows head was atraumatic. Eyes nonicterus. NECK: Supple. CARDIOVASCULAR: S1, S2 audible. LUNGS: Without any wheezing or crackles. Decreased breath sounds noted in the left lower lobe. ABDOMEN: Soft, nontender. Bowel sounds present. EXTREMITIES: The patient was noted without any acute changes. Mild edema was noted. CENTRAL NERVOUS SYSTEM: The patient's cranial nerve for the patient 2-12 intact. IMPRESSION: 1. The patient with acute pneumonia, which has been improving gradually Klebsiella pneumonia, urinary tract infection and improving. 2. Acute respiratory failure. 3. Strong consideration for recurrent lung cancer for the patient with cavitary nodule in the right lung. 4. Severe debility, bedbound status. A resolution of acute sepsis. Consider oropharyngeal dysphagia. PLAN OF TREATMENT: Modified barium swallow to be completed tomorrow morning. Keep the patient aspiration precautions. Other treatment therapy and management changes. The patient will be made based on progression of the illness. Usual care or other supportive plan of therapy and care. Additional treatment changes will be made based on progression of the illness. Obtain a chest x-ray tomorrow morning to assess the radiologic resolution of the pneumonia. The patient clinically responding to treatment with resolving acute pneumonia. [place], [place] PROGRESS NOTE NAME: YOLANDA BEARDEN UNIT #: [id number] ROOM: 504 DOCTOR: RADHA LAKE MD BIRTHDATE: [birth year] RADHA KIM MD CM:PNTRANS 1309 1433 RADHA PARTIDA MD 01/17/19 0802 interface
--- NOTE | ~2018-12-27 | PR ---
[place], [place] PROGRESS NOTE NAME: YOLANDA BEARDEN UNIT #: [id number] ROOM: 504 DOCTOR: NICOLE POLK MD BIRTHDATE: [birth year] DOS: 01/04/2019 SUBJECTIVE: The patient is more awake, alert and starting to speak and improve. OBJECTIVE: VITAL SIGNS: Blood pressure 115/41, heart rate 85 beats per minute, breathing 20 times per minute, temperature 98.6 degrees Fahrenheit. GENERAL APPEARANCE: The patient is alert and oriented x 3, in no visible distress, except for generalized weakness and disability and adult failure to thrive.. HEENT AND NECK: Exam within normal limits. CARDIOVASCULAR SYSTEM: Heart rate is regular in rate and rhythm. S1 and S2 normally audible. LUNGS: Clear to auscultation. ABDOMEN: Soft, nontender. No obvious organomegaly. Bowel sounds are present. EXTREMITIES: Without significant cyanosis or edema. IMPRESSION AND PLAN: 1. The patient with oropharyngeal dysphagia, on modified diet, recommended pureed diet with honey thick liquids. 2. Advanced adult failure to thrive and disability. 3. Severe protein calorie malnutrition, poor long-term prognosis. 4. 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 Rodriguez. 5. Chronic diastolic type congestive heart failure, compensated. 6. Acute respiratory failure and pneumonia with acute exacerbation of chronic obstructive pulmonary disease, being treated and improving. 7. Urinary tract infection, improved with antibiotics. 8. Anemia of chronic disease. 9. Coronary artery disease of [place] vessels, without chest pains. NICOLE POLK MD CM:PNTRANS 15 [phone] NICOLE POLK MD 01/04/192114 interface
--- NOTE | ~2018-12-27 | CON ---
[place], [place] REPORT OF CONSULTATION NAME: YOLANDA BEARDEN UNIT #: [id number] ROOM: [place] [address] DOCTOR: CHARLENE TOVAR MD BIRTHDATE: [birth year] DOS: 01/02/2019 CHIEF COMPLAINT: The patient was nonverbal. HISTORY OF PRESENT ILLNESS: This is a 63-year-old white female who is a resident of [facility] in [place], [place]. The patient had presented to the hospital with altered mental status and was found to have a metabolic encephalopathy with pneumonia and sepsis. The patient was admitted to ICU and has been a patient in the ICU now for some time. The patient does have a lengthy history of depression and has been stabilized on Effexor 37.5 mg b.i.d. This is her medication from the long-term. Staff reports that the patient is nonverbal. She will occasionally tighten up as hands on care is given and will border on being agitated, but has not struck out, nor has she been verbally aggressive in any way. She does not appear to be in discomfort in pain and does not have any issues with her sleep. MENTAL STATUS: Limited due to her being nonverbal. She did make eye contact when I called her name and maintained that eye contact during the entire time, but did not make any verbalizations. DIAGNOSIS: Major depression, recurrent. PLAN: Given the fact that the patient does appear stable on the Effexor without any apparent side effects, I will maintain her psychotropic regimen from the long-term care facility. Should you require any further intervention, please feel free to reconsult me and I will reevaluate the patient at that time. CHARLENE TOVAR MD CM:CONSTR:REPORT OF CONSULTATION 0945 01/02/19 1210 interface
--- NOTE | ~2018-12-27 | PR ---
[place], [place] PROGRESS NOTE NAME: YOLANDA BEARDEN UNIT #: [id number] ROOM: 504 DOCTOR: NICOLE POLK MD BIRTHDATE: [birth year] DOS: 01/05/2019 SUBJECTIVE: The patient is more awake and alert, appears to be improving, but unable to urinate. She had 400 mL of residual and significant amount of segment, so Moya's catheter had to be placed. OBJECTIVE: GENERAL APPEARANCE: Generalized weakness. The patient is a poor historian, otherwise awake and alert. VITAL SIGNS: Blood pressure 115/54, heart rate of 85 beats per minute, breathing 20 times per minute, temperature 98 degrees Fahrenheit. HEENT AND NECK: Exam within normal limits. CARDIOVASCULAR SYSTEM: Heart rate is regular in rate and rhythm. S1 and S2 normally audible. LUNGS: Clear to auscultation. ABDOMEN: Soft, nontender. No obvious organomegaly. Bowel sounds are present. EXTREMITIES: Without significant cyanosis or edema. IMPRESSION: 1. The patient with oropharyngeal dysphagia, on a modified diet, pureed with honey thick liquids. 2. Severe protein-calorie malnutrition and poor long-term prognosis. 3. Advance adult failure to thrive. 4. Cavitary tumor on CT of the chest with increasing size, suspicious of malignancy, being followed by Dr. Rodriguez. 5. Chronic diastolic type congestive heart failure, compensated. 6. Pneumonia with acute respiratory failure and acute exacerbation of chronic obstructive pulmonary disease, being treated and improving. 7. Urinary tract infection, treated with antibiotics. 8. Anemia of chronic disease. 9. Coronary artery disease of [place] vessels without chest pains. NICOLE POLK MD CM:PNTRANS 27 [phone] NICOLE POLK MD 01/05/192335 interface
--- NOTE | ~2018-12-27 | DS ---
[place], [place] DISCHARGE SUMMARY NAME: [facility]ARDEN [id number] UNIT #: [id number] ROOM: 504 DOCTOR: NICOLE POLK MD BIRTHDATE: [birth year] DOS: 01/06/2019 DISCHARGE DIAGNOSES: 1. The patient with acute pneumonia, treated with meropenem. 2. Suspected recurrent malignancy. 3. Acute over chronic hypoxemic respiratory failure. 4. Oropharyngeal dysphagia. The patient is on honey-thick liquids and pureed diet. 5. Advance adult failure to thrive and disability. 6. Severe protein-calorie malnutrition, cavitary tumor on CT scan of the chest increasing in size, suspicious of malignancy, evaluated by Dr. Rodriguez. 7. Chronic diastolic type congestive heart failure. 8. Anemia of chronic disease. 9. Coronary artery disease of [place] vessels without chest pains. LABORATORY DATA: No leukocytosis. White cell count 7000, hemoglobin 8.6 and normal platelets. Blood cultures were negative. DISCHARGE MANAGEMENT: Vsfcyq-Mdzj-G 1.45 grams 3 times a day with meals, Effexor 37.5 mg b.i.d., aspirin 81 mg a day, magnesium oxide 400 mg b.i.d., Protonix 40 mg daily, DuoNeb every 6 hours, Pulmicort 0.5 mg b.i.d., sennosides A and B 8.6 mg daily p.r.n. for constipation, MiraLax 17 grams daily. NICOLE POLK MD CM:COURT [id number] NICOLE POLK MD 01/06/19 1800 interface
--- NOTE | ~2018-12-27 | PR ---
[place], [place] PROGRESS NOTE NAME: YOLANDA BEARDEN UNIT #: [id number] ROOM: [place] [address] DOCTOR: NICOLE POLK MD BIRTHDATE: [birth year] DOS: 12/31/2018 SUBJECTIVE: The patient is awake, alert, not communicating. She is off mechanical ventilation. OBJECTIVE: VITAL SIGNS: Blood pressure 121/50, heart rate 97 beats per minute, breathing 24 times per minute, afebrile. GENERAL APPEARANCE: The patient is alert and oriented x 3, in no visible distress. Generalized weakness. HEENT AND NECK: Exam within normal limits. CARDIOVASCULAR SYSTEM: Heart rate is regular in rate and rhythm. S1 and S2 normally audible. LUNGS: Auscultation reveals severe wheezing and crackles all over. ABDOMEN: Soft, nontender. No obvious organomegaly. Bowel sounds are present. EXTREMITIES: Without significant cyanosis or edema. IMPRESSION: 1. The patient with acute pneumonia with Klebsiella pneumoniae and Dr. Michael costa. The patient is being treated with antibiotics. 2. Acute on chronic respiratory failure with improving respirations. The patient extubated and off mechanical ventilation in the ICU. 3. Severe advanced disability and adult failure to thrive. 4. Acute over chronic respiratory failure, being followed and treated. 5. Major depression, recurrent, treated with Cymbalta. 6. Nutrition was maintained with NG tube feeding now. The patient ought to be encouraged to eat orally. 7. Coronary artery disease of the [place] vessels without chest pains. 8. Chronic diastolic type congestive heart failure, compensated. NICOLE POLK MD CM:PNTRANS [id number] NICOLE POLK MD 01/01/19 1527 interface
--- NOTE | ~2018-12-27 | PR ---
[place], [place] PROGRESS NOTE NAME: YOLANDA BEARDEN UNIT #: [id number] ROOM: 504 DOCTOR: RAHDA LAKE MD BIRTHDATE: [birth year] DOS: 01/04/2019 PULMONARY PROGRESS NOTE SUBJECTIVE: The patient appeared to be comfortable at this time, noted awake and alert, follows vocal commands. The NG tube removed yesterday after completion of modified barium swallow, modification in diet was done for the medical management of current dysphagia. She was not showing any signs of respiratory distress, coughing or wheezing this morning. The oxygen supplementation continue with nasal cannula. OBJECTIVE: VITAL SIGNS: Normal temperature, respiratory rate of 18, heart rate 86, blood pressure 102/47-91/52. The pulse oxygen saturation on 2 liters nasal cannula 97% saturation recorded. HEENT: Examination shows head was atraumatic. Moderate obesity. NECK: Supple. CARDIOVASCULAR: S1, S2 audible. LUNGS: The patient with mild basilar crackles. ABDOMEN: Soft, nontender. Bowel sounds present. EXTREMITIES: Without any acute changes. Mild edema of the extremities was noted. LABORATORY DATA: CBC, the labs this morning as normal WBC count, hemoglobin 8.6. Chest x-ray that was done 1 view this morning was reviewed shows a small left pleural fluid with acute infiltration, pulmonary nodule in the right side remains unchanged. IMPRESSION: 1. Acute pneumonia and urinary tract infection, which has been treated with antibiotic appropriately. 2. The patient suspected current malignancy. 3. Resolving acute on chronic hypoxic respiratory failure. 4. Oropharyngeal dysphagia. PLAN OF TREATMENT: No change in plan of management. Continue current therapy as in progress without any changes. Usual care, other supportive plan of treatment care and therapies. [place], [place] PROGRESS NOTE NAME: YOLANDA BEARDEN UNIT #: [id number] ROOM: 504 DOCTOR: RADHA LAKE MD BIRTHDATE: [birth year] RADHA KIM MD CM:PNTRANS [phone] RADHA PARTIDA MD 01/04/19 193 interface
--- NOTE | ~2018-12-27 | PROC NOTE ---
[place], [place] PROCEDURE NOTE NAME: YOLANDA BEARDEN UNIT #: [id number] ROOM: 504 DOCTOR: DOREEN BAKER CF-[employer] STACK WEB DEVELOPER,LOVE BIRTHDATE: [birth year] DOS: UNIT: 5E. Room #504, bed #1 DOCTOR: Natanael Solis M.D. HISTORY: The patient is a 63-year-old female referred for a modified barium swallow study due to difficulty swallowing and to determine appropriateness of oral diet. The patient with primary diagnoses of sepsis and pneumonia and secondary diagnoses of COPD, hypertension, cancer and history of dementia. The patient brought to ED from long-term facility due to change in mental status. half-way staff reported they were attempting to feed the patient when they noticed she had a left facial droop. The patient went into respiratory failure and was intubated and placed on mechanical vent on 12/27 through 12/31. The patient's white blood cell count was increased and CT of the chest revealed left lower lobe pulmonary infiltrate and 2.7 cm right upper lobe nodule. The patient currently receives oxygen via nasal cannula and nutrition via NG tube. The patient interviewed prior to MBS. She denied difficulty swallowing solids or liquids. Oral [facility] exam revealed lingual, labial, and buccal skills are within functional limits. The patient is edentulous and stated she has dentures that she does not wear. METHODS AND MATERIALS USED FOR EXAM. The patient was positioned in the lateral plane and the exam was viewed under fluoroscopy and was videotaped. A variety of substances were used during this exam including barium coated applesauce, barium coated banana, barium coated turkey sandwich and nectar like liquid barium via cup, straw, and teaspoon, and honey like liquid barium via cup. ORAL PHASE: The patient demonstrated mildly increased oral prep and mastication time while trialing solid items. Piecemeal deglutition was observed during trial of sandwich and required multiple swallows to clear the oral cavity. The patient able to manipulate bolus and demonstrated adequate AP transfer and tongue to posterior pharyngeal wall contact. Mild amounts of oral residues were observed following all trials. PHARYNGEAL PHASE: The pharyngeal phase of the swallow was characterized by severe impairment. The initiation of pharyngeal swallow was delayed to the level of the vallecula across all trials of solids and liquids. Wwht-vk-qsxsnutt vallecular residue and mild posterior pharyngeal wall residue was observed following all trials of solids and mild pharyngeal residue was observed following trials of liquids. The patient required clinical cuing to elicit volitunal swallow to help clear vallecular residue following trials of solid items. Silent aspiration was observed during trials of nectar like liquid via straw and via cup. The patient cued to cough, but she was not able to completely clear the airway. The patient given clinician-controlled sips of nectar like liquid via teaspoon with no penetration or aspiration. The patient additionally administered 3 sips of honey-like liquid via cup. No penetration or aspiration observed across all trials. [place], [place] PROCEDURE NOTE NAME: YOLANDA BEARDEN UNIT #: [id number] ROOM: [facility] DOCTOR: DOREEN SIMS-FULL STACK WEB DEVELOPER,LOVE BIRTHDATE: [birth year] ESOPHAGEAL PHASE: This phase was not formally assessed during the evaluation. IMPRESSION: The patient presents with gfsbjokw-dg-[id number] oropharyngeal dysphagia characterized by silent aspiration of nectar thick liquids, delayed initiation of pharyngeal swallow, [id number]-ug-xiroztmv pharyngeal residues and increased mastication and oral prep time. RECOMMENDATIONS: The patient is recommended pureed diet with honey like liquids. The patient also recommended universal safe swallowing strategies including sitting upright during all p.o. intake, taking small bites and sips and alternating between solids and liquids. The patient also recommended to perform double swallow to help clear pharyngeal residues. Speech therapy to follow up to ensure safety and tolerance of recommended diet throughout a meal and to ensure adherence to safe swallowing guidelines. Speech therapy additionally to perform diet upgrade trials for mechanical soft diet. Results and recommendations were shared with patient and the patient's nurse who verbalized understanding. Thank you for your consultation. Love Mejia CM:PROCNOTE:PROCEDURE NOTE [id number] LOVE MEJIA MA CF-[employer] STACK WEB DEVELOPER
--- NOTE | ~2018-12-27 | PR ---
[place], [place] PROGRESS NOTE NAME: YOLANDA BEARDEN UNIT #: [id number] ROOM: [place] [address] DOCTOR: YASMIN BARRIENTOS MD BIRTHDATE: [birth year] DOS: SUBJECTIVE: The patient is about the same and was intubated following respiratory failure yesterday. She is on the Diprivan, eyes half open, but does not respond. OBJECTIVE: VITAL SIGNS: Blood pressure is 124/53, pulse of 96, respirations 16, temperature 100.1. LUNGS: Diminished breath sounds. HEART: Regular, tachycardic. ABDOMEN: Soft, scaphoid. EXTREMITIES: Without any edema. LABORATORY DATA: White cell count is 23,000, hemoglobin 9.8, glucose 137, BUN 23, creatinine 1.23, sodium 142, potassium 3.1, chloride 108, bicarbonate 27, calcium 9.0, phosphorus 2.4, magnesium 1.4, protein 5.8. ASSESSMENT AND PLAN: 1. Acute respiratory failure, possible aspiration. 2. Sepsis, cultures pending. 3. Electrolyte abnormalities. Supplementation will be given. 4. Chronic diastolic congestive heart failure. 5. History of CA of the lung, suspicious for tumor. CT of the chest will be ordered. YASMIN BARRIENTOS MD CM:PNTRANS [id number] YASMIN BARRIENTOS MD 12/28/18 0950 interface
--- NOTE | ~2018-12-27 | CON ---
[place], [place] REPORT OF CONSULTATION NAME: YOLANDA BEARDEN UNIT #: [id number] ROOM: [place] [address] DOCTOR: JUDY PARTIDA MD,RADHA BIRTHDATE: [birth year] DOS: 12/28/2018 PULMONARY CONSULTATION, EVALUATION AND MANAGEMENT CONSULTATION REQUESTED BY: Natanael Solis MD REASON FOR CONSULTATION: Assessment of acute pneumonia and respiratory failure. HISTORY OF PRESENT ILLNESS: This is a 63-year-old white female patient known with past history of bronchial asthma with respiratory failure as well as a history of lung cancer. The patient is a resident of the nursing facility of [facility]. She has been last admitted to the hospital treated in 05/2018. She has been admitted to the hospital under care of Dr. Solis as the patient has been reported with symptoms of change in mental status, not speaking. She has been noted with general weakness and fatigue for this patient on one side of the body as well. She has been brought to the hospital. The patient also noted with hypotension and low-grade fever. The chest x-ray was reported with findings of acute pulmonary infiltration. She has been noted with acute sepsis and noted progressive hypoxia. The patient on oxygen supplementation. She has been intubated and started on mechanical ventilation. She has been requiring vasopressor therapy as well for the hypertension management. The patient reports status previously noted as no intubation by the code status has been currently noted as full code prior to intubation and mechanical ventilation. Currently, the patient has been intubated, noted on mechanical ventilation, treated with intravenous Diprivan for sedation purposes. Kumari cultures have been taken antibiotic has been continued. The patient has a CT scan chest completed this morning. She was started on the nutrition support yesterday with Pulmocare at 20 mL an hour as well. REVIEW OF SYSTEMS: Could not be completed since the patient is intubated on mechanical vent. Other history was also reviewed my consultation previously known from previous admissions as well as a recent history and physical done by the primary care physician and the nurse's notes. PAST MEDICAL HISTORY: 1. Uncomplicated severe persistent bronchial asthma. 2. Chronic hypoxic respiratory failure, need of oxygen. 3. Previous history of pneumonia. 4. Squamous cell cancer, left upper lobe treated with sterotactic radiation therapy in 01/2015. 5. Previous known pulmonary nodule, which has been noted stable. 6. The patient with coronary artery disease. 7. Chronic debility mostly bedbound status as well with the psychiatric illness with withdrawn status. 8. Peripheral arterial disease. 9. Ywuu-at-tqtmfjlj obesity. 10. History of Intervertebral disk disease. PAST SURGICAL HISTORY: 1. Tonsillectomy. [place], [place] REPORT OF CONSULTATION NAME: YOLANDA BEARDEN UNIT #: [id number] ROOM: [place] [address] DOCTOR: JUDY PARTIDA MD,RADHA BIRTHDATE: [address]-guided needle aspiration biopsy, left upper lobe in 01/2015. 3. Coronary artery bypass grafting. 4. . 5. Diskectomy. 6. Left femoropopliteal bypass grafting. 7. Bilateral cataract lens implantation. 8. Intubation and mechanical ventilation. 9. Therapeutic bronchoscopy. SOCIAL HISTORY: The patient is , resident of long-term nursing over the past few years. History of tobacco in over 50 years old, pack of cigarettes per day, discontinued several years ago. There were no alcohol use, illicit drug use. FAMILY HISTORY: Father with complication of metastatic cancer, unknown primary. Mother 67-year-old patient of unknown cancer as well. MEDICATIONS: The current medication, which has been administered is Effexor, aspirin, magnesium oxide, Lovenox for DVT prophylaxis, nitroglycerin, IV Protonix, norepinephrine for the hypertension, DuoNebs every 6 hours, Pulmicort Respules 0.5 mg b.i.d., IV Zithromax, vancomycin and meropenem. The patient was also taking Diprivan in continuous infusion and the use of the Versed 5 mg q. 1 hour p.r.n. for sedation reasons. ALLERGIES: The patient noted as allergy: 1. IVP DYE, THAT WAS CAUSING HIVES. 2. Ampicillin CAUSING HIVES. 3. BACTRIM CAUSING HIVES WELL. PHYSICAL EXAMINATION: GENERAL: A 63-year-old female, currently intubated on mechanical ventilation at this time. Height of 5 feet 8 inches, weight of 150, BMI 22.8 at this time. VITAL SIGNS: The patient's temperature recorded as 101.2 degree Fahrenheit to normal temperature, respiratory rate of 20-28. Heart rate of 96 and at admission was noted as 120. The blood pressure 80/51 and 76/41. Current blood pressure noted as 124/53 with a orlin. Intake for the patient was recorded as 4000, the output was 820 mL. The pulse oxygen saturation with pulse ox 100% saturation. The oxygen saturation on 100% nonrebreather mask was 86% previously. HEENT: The patient currently orally intubated, orogastric tube is in place. NECK: Supple. Mild obesity. NECK: Supple. CARDIOVASCULAR: S1, S2 is audible. LUNGS: The patient was noted with decreased breaths in the lungs. There was no wheezing heard. ABDOMEN: Soft, nontender. Bowel sounds present. EXTREMITIES: The patient was noted without any acute edema. MUSCULOSKELETAL: The patient was noted without any acute deformities. CENTRAL NERVOUS SYSTEM: The patient at this time cannot be assessed as the patient is intubated. [place], [place] REPORT OF CONSULTATION NAME: YOLANDA BEARDEN UNIT #: [id number] ROOM: [place] [address] DOCTOR: JUDY PARTIDA MD,RADHA BIRTHDATE: [birth year] SKIN: No lesions or rashes. LABORATORY DATA: Lactic acid 2.3 on admission and follow up 2.7, then 2.0. PT/PTT yesterday on admission was normal. The CBC of yesterday on admission, WBC count 22,000, hemoglobin 12.5, hematocrit normal, and platelet count 181,000. CMP on 12/27/2018, glucose 174, BUN 20, creatinine 1.41. Remaining electrolytes and troponin normal. Arterial blood gas pH of 7.44, pCO2 41, pO2 62, and 100% nonrebreather mask. Influenza A and B, nasal washing antigen negative. Admission yesterday arterial blood gas done later on, pH 7.41, pCO2 41, pO2 54, and 100% nonrebreather mask. Arterial blood gas that was done post-intubation on mechanical ventilation, pH 7.48, pCO2 of 33, pO2 169 and 100% oxygen supplementation, tidal volume of 400 mL, rate of 20, PEEP of 8 cm of water. CBC this morning, WBC 123.2, hemoglobin 9.8, platelet count were normal. Arterial blood gas this morning, the patient % oxygen, pH of 7.31 25. 238. CMP that was done this morning as BUN 23, creatinine 1.23. Potassium 3.1. Carbon 18. Magnesium 1.4, phosphorus 2.4. The chest x-ray shows acute area of infiltration, consolidation right lower lobe and new finding of pulmonary nodule was visible in the right upper lobe. The chest x-ray post-intubation, endotracheal tube and NG tube were noted appropriately in place. Endotracheal as per yesterday shows growth of gram-negative rods. The patient with Gram stain showing many white blood cells, few epithelial cells, moderate gram-positive cocci in pairs and chains, rare gram-positive cocci in clusters and gram-negative bacilli. CT scan chest that was done without contrast today because of the current IV contrast the patient was noted with irregular nodule , noted new finding with the central cavitation of the patient 2.8 x 2.3 cm in the right upper lobe with addition nodule 2.1 0.16 cm. Subpleural 7 mm nodule noted right middle lobe. The patient noted large infiltration, consolidation air bronchogram in the left lower lobe as well. IMPRESSION: 1. The patient will be currently admitted to the hospital noted with acute severe sepsis with septic shock with acute organ injury as acute kidney injury, hypertension, and mental status changes. 2. Acute pneumonia patient gram-negative infection. The patient with penitentiary residency for the patient already being treated. 3. Metabolic acidosis noted secondary to current acute sepsis. 4. The patient with anemia, which has been noted after the intravascular volume depletion. Part of it could be related to the dilutional in nature. 5. The patient with gram-negative pneumonia. 6. The patient with a strong possibly recurrent metastatic cancer, which are noted with past history of squamous cell cancer in the past, acute kidney injury as well. 7. Refeeding syndrome. The patient with hypophosphatemia. 8. Hypomagnesemia and hypokalemia for patient both related to the refeeding syndrome. PLAN OF TREATMENT: Continue antibiotics, bronchodilators and norepinephrine. Continuation of the DVT prophylaxis ordered, ventilator bundle management. Aggressive supplementation with will be ordered with use of the Neutra-Phos for this patient and the magnesium supplementation. Other additional treatment [place], [place] REPORT OF CONSULTATION NAME: YOLANDA BEARDEN UNIT #: [id number] ROOM: [place] [address] DOCTOR: JUDY PARTIDA MD,RADHA BIRTHDATE: [birth year] changes will be ordered based on progression of illness. The feeding patient can to 20 mL an hour. Further increase would not be needed at the present time. Her prognosis remains guarded and remains critical. Other supportive therapy, plan of management, care plan of treatment and therapy. Follow the culture results to deescalate the antibiotic usage accordingly. Total time for pulmonary critical evaluation and management for 40 minutes. RADHA KIM MD CM:CONSTR:REPORT OF CONSULTATION 1655 12/28/18 5029 interface
--- NOTE | ~2018-12-27 | PR ---
[place], [place] PROGRESS NOTE NAME: YOLANDA BEARDEN UNIT #: [id number] ROOM: [place] [address] DOCTOR: NICOLE POLK MD BIRTHDATE: [birth year] DOS: 01/01/2019 SUBJECTIVE: The patient is more awake, alert and her respirations are less noisy than yesterday. OBJECTIVE: GENERAL APPEARANCE: The patient is alert and oriented x 3, in no visible distress. Generalized weakness. VITAL SIGNS: Blood pressure 121/56, heart rate 102 beats per minute, breathing 24-35 times per minute, afebrile. HEENT AND NECK: Exam within normal limits. CARDIOVASCULAR SYSTEM: Heart rate is regular in rate and rhythm. S1 and S2 normally audible. LUNGS: Clear to auscultation. ABDOMEN: Soft, nontender. No obvious organomegaly. Bowel sounds are present. EXTREMITIES: Without significant cyanosis or edema. IMPRESSION: 1. The patient with acute over chronic respiratory failure, status post mechanical ventilation, is improving. Upper airway secretions that she was unable to swallow have been suctioned and removed and her airway sound clear to auscultation. She is recovering, still tachypneic and requiring oxygen. 2. Klebsiella pneumoniae pneumonia, being treated appropriately with antibiotics. Dr. Rodriguez is following. 3. CT scan showing tumor with cavitation, increased in size compared to previous CAT scans. The patient may undergo biopsies when more stable. Dr. Rodriguez is aware of this and will follow at senior living. 4. Anemia of chronic disease, being followed carefully. 5. Coronary artery disease of the [place] vessels without chest pains. 6. Chronic diastolic type congestive heart failure, stable. NICOLE POLK MD CM:PNTRANS [id number] NICOLE POLK MD 01/01/19 1728 interface
--- NOTE | ~2018-12-27 | WRIGHTHP ---
[place], [place] PATIENT HISTORY AND PHYSICAL EXAM NAME[facility]ARD[id number] UN[facility] #: [id number] ROOM: [place] [address] DOCTOR: NICOLE POLK MD BIRTHDATE: [birth year] DOS: 12/27/2018 HISTORY OF PRESENT ILLNESS: The patient is a 63-year-old female with a past medical history of: 1. Lung nodule in the right upper lung. 2. History of asthma. 3. Peripheral vascular disease. 4. Coronary artery disease of the [place] vessels. 5. Chronic diastolic type congestive heart failure. 6. Previous history of squamous cell cancer of the right upper lung. 7. Chronic atrial fibrillation. 8. Left ventricular apical thrombus in the past reported by Dr. Peng. 9. Advanced adult failure to thrive. The patient presented to the Emergency Department with altered mental status, stopping to speak and some reported weakness on one side. In the Emergency Department, the patient was found to have pneumonia, sepsis, hypotension and fever up to 100.1 degrees Fahrenheit and the patient was tachycardic with a heart rate of 120 beats per minute. The patient was apparently going into respiratory failure and she was moved to the ICU where ultimately she was intubated and started on mechanical ventilation. No chest pain, no fainting episodes, no other GI or urinary symptoms. SYSTEMS REVIEW: RESPIRATORY: Increasing shortness of breath. GASTROINTESTINAL: No nausea, vomiting, diarrhea, or constipation. CARDIOVASCULAR SYSTEM: No chest pains or palpitations. FAMILY HISTORY: Noncontributory. SOCIAL HISTORY: . No recent history of smoking cigarettes, alcohol and drug abuse. HOME MEDICATIONS: The patient was taking Cymbalta, breathing treatments, MiraLax. ALLERGIES: KNOWN ALLERGIES TO IODINE, PENICILLIN, SULFUR. PHYSICAL EXAMINATION: GENERAL: Alert, awake, not answering to any questions, short of breath. Generalized weakness. VITAL SIGNS: Blood pressure 94/41, heart rate of 115 beats per minute, temperature of 100.1 degrees Fahrenheit. HEENT AND NECK: Extraocular movements are intact. Sclerae are anicteric. Oral mucosa is moist and clean. No obvious facial weakness. Neck is supple without any lymphadenopathy. No thyromegaly. No JVD. No carotid arterial bruits. LUNGS: Show decreased breath sounds all over. CARDIOVASCULAR SYSTEM: Heart rate is regular in rate and rhythm. S1 and S2 normally audible. No significant murmur or any other abnormal cardiac sounds. [place], [place] PATIENT HISTORY AND PHYSICAL EXAM NAME: YOLANDA BEARDEN UNIT #: [id number] ROOM: [place] [address] DOCTOR: NICOLE POLK MD BIRTHDATE: [birth year] ABDOMEN: Soft, nontender. No obvious organomegaly. Bowel sounds are present. No obvious herniation. EXTREMITIES: Without significant cyanosis or edema. Warm to touch. CENTRAL NERVOUS SYSTEM: Alert and oriented x 3. Cranial nerves II-XII are intact. Speech is normal. The patient is able to move all extremities. Normal muscle strength. Deep tendon reflexes are equal on both sides. Plantars were downgoing. IMAGING AND LABORATORY DATA: The patient is presenting with two right-sided lung nodules and left perihilar infiltrate and pneumonia. BUN and creatinine 20 and 1.4, normal serum electrolytes, white cell count elevated at 22,000, normal platelets, lactic acid level elevated to 2.6. IMPRESSION: Severe sepsis, pneumonia, leukocytosis, tachycardia, fever, is being now treated with antibiotics. The patient is on meropenem and vancomycin along with azithromycin and intubated and on mechanical ventilation, treated with oxygen and bronchodilators. 1. The patient with acute respiratory failure with acute exacerbation of chronic obstructive pulmonary disease, remains on now intubated and on mechanical ventilation, being treated with antibiotics. 2. Fever to be treated with Tylenol as needed. We will place an NG tube for feeding. The patient is unable to eat and is on mechanical ventilation. 3. Major depression, recurrent. The patient is to be continued on Cymbalta. 4. Gastroesophageal reflux disease. 5. Esophagitis. The patient is to be continued on Protonix. 6. You are taking deep venous thrombosis prophylaxis with subcutaneous Lovenox. 7. Dr. Rodriguez, the certified driver examiner, has been consulted to follow her and help with management, especially the ventilator. NICOLE POLK MD CM:HISPHYS:PATIENT HISTORY AND PHYSICAL EXAMINATION 05 [id number] NICOLE POKL MD 12/28/18 0337 interface
--- NOTE | ~2018-12-27 | PR ---
[place], [place] PROGRESS NOTE NAME: YOLANDA BEARDEN UNIT #: [id number] ROOM: 504 DOCTOR: NICOLE POLK MD BIRTHDATE: [birth year] DOS: SUBJECTIVE: The patient is awake, alert, more oriented and communicating than before. OBJECTIVE GENERAL APPEARANCE: The patient is alert and oriented x 3, in no visible distress. Afebrile and generalized weakness. VITAL SIGNS: Blood pressure 106/59, heart rate of 100 beats per minute, breathing 24-28 times per minute. HEENT AND NECK: Exam within normal limits. CARDIOVASCULAR SYSTEM: Heart rate is regular in rate and rhythm. S1 and S2 normally audible. LUNGS: Clear to auscultation. ABDOMEN: Soft, nontender. No obvious organomegaly. Bowel sounds are present. EXTREMITIES: Without significant cyanosis or edema. IMPRESSION: 1. The patient with acute pneumonia with Klebsiella pneumoniae, improving with treatment. 2. Urinary tract infection, improving with antibiotics. 3. Acute respiratory failure related to pneumonia and acute exacerbation of chronic obstructive pulmonary disease, improving with treatment. 4. Coronary artery disease of the [place] vessels without chest pains. 5. Chronic diastolic type congestive heart failure. 6. Anemia of chronic disease. 7. Cavitary tumor on CT scan of the chest requires further evaluation after she is feeling better, Dr. Rodriguez following. NICOLE POLK MD CM:PNTRANS 1705 [id number] NICOLE POLK MD 01/03/19 0018 interface
--- NOTE | ~2018-12-27 | CON ---
[place], [place] REPORT OF CONSULTATION NAME: YOLANDA BEARDEN UNIT #: [id number] ROOM: [place] [address] DOCTOR: YASIR MEEKS CNP BIRTHDATE: [birth year] DOS: 12/28/2018 CHIEF COMPLAINT: The patient is nonverbal. HISTORY OF PRESENT ILLNESS: This is a 63-year-old female with a history of dementia who was brought via EMS to the Emergency Department on 12/27/2018 from the [facility] for evaluation of mental status change. According to the EMS, the staff was trying to feed the patient noticed that she had left facial droop and they were having difficulty feeding her. The patient was unable to give a history. In the Emergency Department, the patient was found to have pneumonia, sepsis, hypotension and a fever of up to 100.1 degrees Fahrenheit and the patient was tachycardic with a heart rate of 120 beats per minute. The patient was apparently going into respiratory failure and was moved to the ICU where she was intubated and started on mechanical ventilation. I have been consulted to manage the patient's psychiatric medication while she is hospitalized. MENTAL STATUS: The patient is alert, unable to determine her orientation due to her being nonverbal and intubated. The patient does appear to be somewhat agitated as she is trying to sit up in the bed. No overt signs of marko or hypomania. No auditory or visual hallucinations were noted. Unable to assess the patient's insight or judgment. DIAGNOSES: Major depressive disorder, recurrent and anxiety. PLAN: We will discontinue the patient's Cymbalta 60 mg at this time. We will change to Effexor 37.5 mg immediate release tablet twice a day, so that it can be given through G-tube. Should the patient require any further intervention, please feel free to reconsult us at any time. Yasir Meeks CNP CM:CONSTR:REPORT OF CONSULTATION 1240 12/29/18 0243 interface
--- NOTE | ~2018-12-27 | PR ---
[place], [place] PROGRESS NOTE NAME: YOLANDA BEARDEN UNIT #: [id number] ROOM: [place] [address] DOCTOR: JUDY PARTIDA MD,RADHA BIRTHDATE: [birth year] DOS: 01/01/2019 PULMONARY PROGRESS NOTE SUBJECTIVE: The patient was noted comfortable was liberated from mechanical ventilator without difficulty yesterday. She has been currently using oxygen supplementation via nasal cannula, did not require the BiPAP. She does respond to vocal commands and speaks softly. She has not been noted with symptoms of any chest pain. Denies symptoms of abdominal pain. The patient has an NG tube inserted because of the possibility of oropharyngeal dysphagia and aspiration. She has been getting feeding from the NG tube without difficulty. The review of system otherwise noted as negative. OBJECTIVE: VITAL SIGNS: Respiratory rate range between 24-19. Heart rate of 87-92, blood pressure 121/46-116/44. Pulse oxygen saturation on 4 liters nasal cannula 99% saturation. HEENT: NG tube in place. The patient is currently liberated from mechanical ventilator. The endotracheal tube was removed. CARDIOVASCULAR: S1, S2 audible. LUNGS: The patient with decreased breath sounds in the left lower lung. ABDOMEN: Soft, nontender. Bowel sounds present. EXTREMITIES: The patient was noted without any acute edema. MUSCULOSKELETAL: Without acute deformities. CENTRAL NERVOUS SYSTEM: The patient was noted without any acute change. General weakness and fatigue was noted. LABORATORY DATA: Chest x-ray that was done this morning, which shows evidence of interval development of pleural fluid with finding of congestive heart failure, very likely. The fluid was occurred on the left side. CBC: WBC count normal, hemoglobin 7.6, hematocrit 25.6, platelet count was normal. CMP this morning as a normal BUN and creatinine. Phosphorus was noted low normal. IMPRESSION: 1. The patient with refeeding syndrome. 2. Congestive heart failure very likely superimposed with diastolic dysfunction with acute pneumonia, Klebsiella pneumoniae. 3. Acute respiratory failure, status post liberation from mechanical ventilator. 4. The patient with suspected recurrence of the lung cancer as well. PLAN OF MANAGEMENT: Order Lasix 40 mg for the next couple of days. Monitoring of the electrolytes to be continued. Other supportive therapy, plan of management and care plan. Repeat chest x-ray of on Sunday to reassess. Other therapy, plan of management at this time as well. Additional treatment changes will be made for this patient based on the progression of the illness. [place], [place] PROGRESS NOTE NAME: YOLANDA BEARDEN UNIT #: [id number] ROOM: [place] [address] DOCTOR: JUDY PARTIDA MD,RADHA BIRTHDATE: [birth year] RADHA KIM MD CM:FELICITY 1215 1606 RADHA PARTIDA MD 01/01/19 1605 interface
--- NOTE | ~2018-12-27 | EKG ---
[place], [place] ELECTROCARDIOGRAM REPORT NAME: YOLANDA BEARDEN UNIT #: [id number] ROOM: [place] [address] DOCTOR: STEPHANIE DRAFT REPORT BIRTHDATE: [birth year] [facility] Test Date: 2018-12-27 Test Time: 15:20:29 Pat Name: YOLANDA BEARDEN Department: Room: [place] [address] Gender: F Distribution Analyst: EKG.MT : 1955 Requested By: EDWARDO SEN Order Number: [id number] Reading MD: Christine Mendez MD Measurements Intervals Cisco Rate: 106 P: 95 MA: 167 QRS: 77 QRSD: 71 T: 121 QT: 376 QTc: 500 Interpretive Statements Sinus tachycardia Probable left atrial enlargement Anteroseptal infarct, age indeterminate Compared to ECG 06/10/2018 21:46:32 ST (T wave) deviation no longer present Myocardial infarct finding still present Electronically Signed On 01-01-2019 11:36:49 PDT by Christine Mendez MD CM:EKGRPT:ELECTROCARDIOGRAM REPORT 1520 1136 EDWARDO LEVIANY DRAFT REPORT EDWARDO SEN MD
--- NOTE | ~2018-12-27 | PR ---
[place], [place] PROGRESS NOTE NAME: YOLANDA BEARDEN UNIT #: [id number] ROOM: 504 DOCTOR: JUDY PARTIDA MD,RADHA BIRTHDATE: [birth year] DOS: 01/06/2019 PULMONARY PROGRESS NOTE SUBJECTIVE: The patient appeared to be comfortable, responding vocal commands. Denies any acute symptoms. The patient using oxygen supplement with nasal cannula. Continue modified diet. OBJECTIVE: VITAL SIGNS: Normal temperature, respiratory rate of 16, heart rate of 80, blood pressure 115/53. The pulse oxygen saturation 2 liters nasal cannula at rest was 97% saturation. HEENT: Head was atraumatic. Eyes nonicterus. NECK: Supple. CARDIOVASCULAR: S1, S2 is audible. LUNGS: The patient is without any wheezing or crackles at the present time. ABDOMEN: Soft, nontender. IMPRESSION: The patient with stable respiratory status, resolving, acute pneumonia, Klebsiella, and urinary tract infection gradually and progressively, improving acute respiratory failure as well, chronic respiratory failure. PLAN OF MANAGEMENT: Discharge planning per primary care attending. No changes in the medical management otherwise will be necessary at this time. The patient would be considered ready for transfer to the nursing facility. RADHA KIM MD CM:PNTRANS 1341 [id number] RADHA PARTIDA MD 01/17/19 0804 interface
--- NOTE | ~2018-12-27 | PR ---
[place], [place] PROGRESS NOTE NAME: YOLANDA BEARDEN UNIT #: [id number] ROOM: [place] [address] DOCTOR: JUDY PARTIDA MD,RADHA BIRTHDATE: [birth year] DOS: 12/29/2018 PULMONARY AND CRITICAL CARE EVALUATION AND MANAGEMENT SUBJECTIVE: The patient remains on mechanical ventilator. Continue antibiotic. Continue oxygen supplementation with 40% oxygen decreased from previously. She has been noted low-grade fever. She has been tolerating the feeding, has not been noted any diarrhea or any hemodynamic instability, which was new at the present time. She has not reported any hematemesis or melena. There were no changes in mental status at this time reported. Sedation was continued with intravenous Diprivan. OBJECTIVE: VITAL SIGNS: For the patient, which were recorded showed the temperature noted as normal 99.4 degree Fahrenheit, respiratory rate of 22-18. Heart rate of 92-85. Blood pressure 126/80-129/52. Intake is 1984 mL, output 700 mL, positive 1284 liters. Pulse oxygen on 40% oxygen is 99-100% saturation. HEENT: The patient remains intubated. Orogastric tube is in place. NECK: Supple. CARDIOVASCULAR SYSTEM: S1, S2 is audible. LUNGS: General reduction of the breath sounds were noted bilaterally. ABDOMEN: Soft, nontender. Bowel sounds present. EXTREMITIES: Without any significant edema. MUSCULOSKELETAL: Without any acute deformities. CENTRAL NERVOUS SYSTEM: Remains unchanged as previously. LABORATORY DATA: Endotracheal aspirate culture was noted with evidence of Klebsiella pneumoniae noted sensitive to all of the antibiotics except intermediate sensitive to tetracycline. Urine culture was noted with heavy growth of Morganella morganii, which was noted sensitive to meropenem. CMP this morning; glucose 102, BUN normal, creatinine was normal. Glucose 108. Albumin 2.1. The CBC that was done this morning; WBC count 14.7, hemoglobin 8.8, hematocrit 27.6, platelet count 185,000. The arterial blood gas; pH 7.38, pCO2 of 41, pO2 97 on 40% oxygen. The repeat arterial blood gases were done to reassess the pO2, which does not appear to be correct and physiologically possible shows pH of 7.40, pCO2 of 41, pO2 160. Chest x-ray that was done this morning was reviewed shows pulmonary nodule noted in the right upper lobe. Left lower lobe infiltration remains the same. NG tube is in the stomach. No other new findings were noted. IMPRESSION: The patient who has been currently admitted to the hospital noted with: 1. Acute respiratory failure with hypercapnia and hypoxia. 2. Acute pneumonia. 3. Nodule noted in the right lung, one was cavitary, possibility of recurrent squamous cell cancer would be considered. 4. Acute Klebsiella pneumoniae. 5. Gram-negative urinary tract infection as well. 6. Change in mental status secondary to that. 7. Overall debility related that. [place], [place] PROGRESS NOTE NAME: YOLANDA BEARDEN UNIT #: [id number] ROOM: [place] [address] DOCTOR: JUDY PARTIDA MD,RADHA BIRTHDATE: [birth year] 8. Hypertension related to the current acute pneumonia, sepsis and septic shock. PLAN OF MANAGEMENT: Adjustment in the antibiotic will be done. The vancomycin will be discontinued. Continue primarily the meropenem, which should treat the urinary tract infection and the pneumonia effectively. Bronchodilators to be continued. Titrate oxygen supplementation, maintain pulse ox 92% or greater. The oxygen will be decreased to 30%. Vasopressors to be continued to keep mean arterial pressure of 65 or greater. Monitor urine output as well. Other therapy, plan of management, additional treatment changes will be made based on progression of the illness. Supportive care, plan of management. Continue ventilator bundle management. Continue nutritional support. Total time in pulmonary and critical care evaluation and management was 38 minutes. RADHA KIM MD CM:PNTRANS [id number] RADHA PARTIDA MD 12/30/18 0152 interface
--- NOTE | ~2018-12-27 | PR ---
[place], [place] PROGRESS NOTE NAME: YOLANDA BEARDEN UNIT #: [id number] ROOM: 504 DOCTOR: NICOLE POLK MD BIRTHDATE: [birth year] DOS: 01/03/2019 SUBJECTIVE: The patient appears comfortable on BiPAP. OBJECTIVE: GENERAL APPEARANCE: The patient is alert and oriented x 3, in no visible distress. VITAL SIGNS: Blood pressure 129/54, heart rate of 75 beats per minute, breathing 18 times per minute, temperature 98 degrees Fahrenheit. HEENT AND NECK: Exam within normal limits. CARDIOVASCULAR SYSTEM: Heart rate is regular in rate and rhythm. S1 and S2 normally audible. LUNGS: Clear to auscultation. ABDOMEN: Soft, nontender. No obvious organomegaly. Bowel sounds are present. EXTREMITIES: Without significant cyanosis or edema. IMPRESSION: 1. Advanced adult failure to thrive and disability. 2. Severe protein calorie malnutrition, poor long-term prognosis. 3. Anemia of chronic disease. 4. Cavitary tumor on CT scan of the chest, suspicious for malignancy to be worked up by Dr. Rodriguez as an outpatient. 5. Chronic diastolic type congestive heart failure, compensated. 6. Coronary artery disease of the [place] vessels without chest pains. 7. Acute respiratory failure related to pneumonia and chronic obstructive pulmonary disease exacerbation, being treated and improving. Dr. Rodriguez is following. 8. Urinary tract infection, improved with antibiotics. NICOLE POLK MD CM:PNTRANS [id number] NICOLE POLK MD 01/03/19 1455 interface
--- NOTE | ~2018-12-27 | PR ---
[place], [place] PROGRESS NOTE NAME: YOLANDA BEARDEN UNIT #: [id number] ROOM: [place] [address] DOCTOR: JUDY PARTIDA MD,RADHA BIRTHDATE: [birth year] DOS: 12/31/2018 PULMONARY CRITICAL CARE EVALUATION AND MANAGEMENT SUBJECTIVE: The patient remains on mechanical ventilator at this time. The oxygen requirement has been gradually decreased, currently he is receiving oxygen 30% on mechanical ventilator. He has not been noted any acute hemodynamic instability, feeding was continued from NG tube with low-grade feeding. The patient has been getting supplementation of electrolytes for the refeeding syndrome. She has not been noted any respiratory complications for the last 24 hours. He remains on the mechanical ventilator. OBJECTIVE: VITAL SIGNS: For the patient recorded normal temperature, respiratory rate 19-24, heart rate 90-78 and blood pressure 150/60-117/49. The pulse oxygen saturation on 30% oxygen, 98% saturation recorded. HEENT: Head was atraumatic. Eyes nonicterus. NECK: Supple. NG tube is in place. The orogastric tube is in place. CARDIOVASCULAR: S1, S2 audible. LUNGS: Decreased breath sounds in the left lower lung. There was no wheezing or crackles. ABDOMEN: Soft, nontender. EXTREMITIES: No acute change. MUSCULOSKELETAL: Without acute deformities. CENTRAL NERVOUS SYSTEM: The patient was noted normal mental status and opening her eyes with vocal commands. LABORATORY DATA: The patient's CBC today: WBC count normal, hemoglobin 7.9 and hematocrit 25.1, platelet count was normal. The CMP this morning, BUN and creatinine was normal, glucose 75. Potassium 3.4. Albumin 1.9, phosphorus, still noted 2.4. Arterial blood gas this morning, pH of 7.47, pCO2 of 33, pO2 122 and the urine for legionella antigen negative. Chest x-ray this morning was noted stable. NG tube was noted properly positioned. Endotracheal tube was also visualized. Left lower lobe infiltration noted without any pleural effusion. The nodule in the right lung remains unchanged. IMPRESSION: 1. Acute Klebsiella pneumoniae. 2. Acute hypoxic respiratory failure, chronic hypoxic respiratory failure. 3. The patient with a possibility of recurrent lung cancer on the right side. 4. 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 5. The patient with acute urinary tract infection as well as gram-negative infection. 6. Mild obesity. 7. Severe debility. 8. Refeeding syndrome. 9. Hypokalemia and hypophosphatemia. PLAN OF MANAGEMENT: Continue aggressive supplementation of the electrolytes. [place], [place] PROGRESS NOTE NAME: YOLANDA BEARDEN UNIT #: [id number] ROOM: [place] [address] DOCTOR: JUDY PARTIDA MD,RADHA BIRTHDATE: [birth year] Sedation will be discontinued completely. Start the patient trial of CPAP 5, pressure support of 10 for 2 hours if tolerated. The patient consider libation from mechanical ventilation. BiPAP post-extubation if necessary will be ordered. Continuation of other therapy, plan of management. The adjustment in antibiotics has already made. The meropenem and treat him both the organism as pneumonia and urinary tract infection. Continue DVT prophylaxis. Supportive therapy as a plan of management, care plan with additional treatment changes will be made based on progression of the illness. Ventilator bundle management to be continued until the patient got liberated from mechanical ventilator. Total time for pulmonary critical evaluation and management for 38 minutes. RADHA KIM MD CM:PNTRANS [phone] RADHA PARTIDA MD 12/31/181741 interface
[2018-12-27 09:05] LABS: HEMATOCRIT 39.1 % (37.0-47.0); HEMOGLOBIN 12.5 g/dl (12.0-16.0); MEAN CORPUSCULAR HGB 31.3 pg (27.0-31.0); MEAN PLATELET VOLUME 10.1 fl (9.6-12.3); PLATELET COUNT AUTOMATED 281 10*3/uL (130-400); RED BLOOD COUNT 3.99 10*6/uL (4.10-5.10)
[2018-12-27 09:22] LABS: ACT PARTIAL THROMBO TIME 19.3 SECONDS (20.8-31.5)
[2018-12-27 09:30] LABS: BILIRUBIN NEGATIVE (NEGATIVE); BLOOD 1+ (NEGATIVE); CLARITY SL CLOUDY (CLEAR); COLOR YELLOW (YELLOW); GLUCOSE NEGATIVE (NEGATIVE); KETONE NEGATIVE (NEGATIVE); LEUKO ESTERASE 2+ (NEGATIVE); NITRITE POSITIVE (NEGATIVE); PH 7.5 (5.0-9.0); UROBILINOGEN 0.2 E.U./dl (0.2-1.0)
[2018-12-27 09:45] LABS: BACTERIA TRACE
[2018-12-27 09:46] LABS: ALBUMIN 3.1 gm/dl (3.1-4.5); ALKALINE PHOSPHATASE 98 U/L (45-117); BUN 20 mg/dl (7-24); CHLORIDE 101 mmol/L (98-107); CREATININE 1.41 mg/dL (0.55-1.02); POTASSIUM 3.6 mmol/L (3.5-5.1); SGOT/AST 8 IU/L (3-35); SGPT/ALT 13 U/L (12-78); SODIUM 140 mmol/L (136-145); TOTAL PROTEIN 7.4 gm/dL (6.4-8.2)
[2018-12-27 09:47] LABS: PLATELET SUFFICIENCY NORMAL (NORMAL); TOTAL CELLS COUNTED 100 #CELLS
[2018-12-27 09:49] LABS: TROPONIN I < 0.015 ng/ml (<0.045)
[2018-12-27 10:38] LABS: ABG BASE EXCESS 3.9 mmol/L (-2.0-2.0); ABG HCO3 27.8 mmol/l (22-26); ABG O2 SATURATION 92.1 % (95-97); ARTERIAL BLOOD GAS PCO2 41.6 mmHg (35-45); ARTERIAL BLOOD GAS PH 7.442 (7.35-7.45); ARTERIAL BLOOD GAS PO2 62.2 mmHg (80-90)
[2018-12-27] MEDS ORDERED: ALBUTEROL2.5 MG/0.5 INH (12:25)
[2018-12-27] MEDS ORDERED: PULMICORT RESP0.5 MG INH (12:27)
[2018-12-27] MEDS ORDERED: CARAFATE1 G1 PO (12:28)
[2018-12-27] MEDS ORDERED: VITAMIN D31000 UNI1 PO (12:29)
[2018-12-27] MEDS ORDERED: DULCOLAX10 M1 R (12:31)
[2018-12-27] MEDS ORDERED: SENNA-GEN8.6 M1 PO (12:39)
[2018-12-27] MEDS ORDERED: PROTONIX40 MG PO (12:40)
[2018-12-27 12:47] LABS: ABG BASE EXCESS 1.7 mmol/L (-2.0-2.0); ABG HCO3 25.7 mmol/l (22-26); ABG O2 SATURATION 85.2 % (95-97); ARTERIAL BLOOD GAS PCO2 41.7 mmHg (35-45); ARTERIAL BLOOD GAS PH 7.411 (7.35-7.45)
[2018-12-27 16:52] LABS: ABG BASE EXCESS 1.9 mmol/L (-2.0-2.0); ABG HCO3 24.4 mmol/l (22-26); ARTERIAL BLOOD GAS PCO2 33.4 mmHg (35-45); ARTERIAL BLOOD GAS PH 7.481 (7.35-7.45)
[2018-12-28] VITALS (96 sets, daily range): BP systolic 90–129; BP diastolic 36–62
[2018-12-28 04:51] LABS: MEAN CELL VOLUME 97.1 fl (81.0-99.0); MEAN CORPUSCULAR HGB 31.7 pg (27.0-31.0); MEAN CORPUSCULAR HGB CONC 32.7 g/dl (33.0-37.0); MEAN PLATELET VOLUME 10.5 fl (9.6-12.3); PLATELET COUNT AUTOMATED 220 10*3/uL (130-400); RED BLOOD COUNT 3.09 10*6/uL (4.10-5.10); RED CELL DISTRI WIDTH 15.5 % (0-14.5); WHITE BLOOD COUNT 23.2 10*3/uL (4.8-10.8)
[2018-12-28 04:52] LABS: HEMOGLOBIN 9.8 g/dl (12.0-16.0)
[2018-12-28 05:13] LABS: PLATELET SUFFICIENCY NORMAL (NORMAL); TOTAL CELLS COUNTED 100 #CELLS
[2018-12-28 05:14] LABS: MICROCYTOSIS SLIGHT
[2018-12-28 05:22] LABS: ABG BASE EXCESS -12.7 mmol/L (-2.0-2.0); ABG HCO3 12.1 mmol/l (22-26); ABG O2 SATURATION 99.9 % (95-97); ARTERIAL BLOOD GAS PCO2 25.1 mmHg (35-45); ARTERIAL BLOOD GAS PH 7.31 (7.35-7.45)
[2018-12-28 05:59] LABS: ALBUMIN 2.1 gm/dl (3.1-4.5); CREATININE 1.23 mg/dL (0.55-1.02); PHOSPHOROUS 2.4 mg/dL (2.5-4.9); TOTAL PROTEIN 5.8 gm/dL (6.4-8.2)
[2018-12-28 06:00] LABS: POTASSIUM 3.1 mmol/L (3.5-5.1)
[2018-12-29] VITALS (92 sets, daily range): BP systolic 96–142; BP diastolic 40–65
[2018-12-29 04:33] LABS: BASO % 0.2 % (0.0-1.0); EOS # 0.2 10*3/uL (0.0-0.4); EOS % 1.2 % (1.0-4.0); HEMATOCRIT 27.6 % (37.0-47.0); HEMOGLOBIN 8.8 g/dl (12.0-16.0); LYMPH # 1.8 10*3/uL (1.3-4.4); LYMPH % 12.1 % (27.0-41.0); MEAN CELL VOLUME 97.2 fl (81.0-99.0); MEAN CORPUSCULAR HGB CONC 31.9 g/dl (33.0-37.0); MONO # 0.9 10*3/uL (0.1-1.0); MONO % 5.9 % (3.0-9.0); NEUT # 11.8 10*3/uL (2.3-7.9); NEUT % 80.1 % (47.0-73.0); PLATELET COUNT AUTOMATED 185 10*3/uL (130-400); RED BLOOD COUNT 2.84 10*6/uL (4.10-5.10); RED CELL DISTRI WIDTH 15.5 % (0-14.5); WHITE BLOOD COUNT 14.7 10*3/uL (4.8-10.8)
[2018-12-29 05:04] LABS: ALBUMIN 2.1 gm/dl (3.1-4.5); ALKALINE PHOSPHATASE 70 U/L (45-117); BUN 21 mg/dl (7-24); CHLORIDE 108 mmol/L (98-107); CREATININE 0.93 mg/dL (0.55-1.02); PHOSPHOROUS 2.7 mg/dL (2.5-4.9); POTASSIUM 3.5 mmol/L (3.5-5.1); SGOT/AST 18 IU/L (3-35); SGPT/ALT 9 U/L (12-78); SODIUM 142 mmol/L (136-145); TOTAL PROTEIN 6.1 gm/dL (6.4-8.2)
[2018-12-29 09:49] LABS: ABG BASE EXCESS -0.4 mmol/L (-2.0-2.0); ABG HCO3 23.9 mmol/l (22-26); ARTERIAL BLOOD GAS PCO2 41.1 mmHg (35-45); ARTERIAL BLOOD GAS PH 7.385 (7.35-7.45)
[2018-12-29 11:21] LABS: ABG HCO3 25.2 mmol/l (22-26); ABG O2 SATURATION 99.9 % (95-97); ARTERIAL BLOOD GAS PCO2 41.5 mmHg (35-45); ARTERIAL BLOOD GAS PH 7.401 (7.35-7.45)
[2018-12-30] VITALS (10 sets, daily range): BP systolic 100–142; BP diastolic 46–64
[2018-12-30 05:43] LABS: ALBUMIN 1.9 gm/dl (3.1-4.5); ALKALINE PHOSPHATASE 68 U/L (45-117); BUN 16 mg/dl (7-24); CHLORIDE 111 mmol/L (98-107); CREATININE 0.68 mg/dL (0.55-1.02); PHOSPHOROUS 2.4 mg/dL (2.5-4.9); POTASSIUM 3.2 mmol/L (3.5-5.1); SGOT/AST 9 IU/L (3-35); SGPT/ALT 9 U/L (12-78); SODIUM 144 mmol/L (136-145); TOTAL PROTEIN 5.7 gm/dL (6.4-8.2)
[2018-12-30 05:54] LABS: BASO % 0.4 % (0.0-1.0); EOS # 0.4 10*3/uL (0.0-0.4); EOS % 5.7 % (1.0-4.0); HEMATOCRIT 25.5 % (37.0-47.0); HEMOGLOBIN 7.7 g/dl (12.0-16.0); LYMPH # 1.4 10*3/uL (1.3-4.4); LYMPH % 19.2 % (27.0-41.0); MEAN CELL VOLUME 98.5 fl (81.0-99.0); MEAN CORPUSCULAR HGB 29.7 pg (27.0-31.0); MEAN CORPUSCULAR HGB CONC 30.2 g/dl (33.0-37.0); MEAN PLATELET VOLUME 11.2 fl (9.6-12.3); MONO # 0.5 10*3/uL (0.1-1.0); MONO % 6.8 % (3.0-9.0); NEUT # 5.1 10*3/uL (2.3-7.9); NEUT % 67.5 % (47.0-73.0); PLATELET COUNT AUTOMATED 162 10*3/uL (130-400); RED BLOOD COUNT 2.59 10*6/uL (4.10-5.10); RED CELL DISTRI WIDTH 15.3 % (0-14.5); WHITE BLOOD COUNT 7.5 10*3/uL (4.8-10.8)
[2018-12-30 07:14] LABS: ABG BASE EXCESS 1.2 mmol/L (-2.0-2.0); ABG HCO3 24.8 mmol/l (22-26); ABG O2 SATURATION 98.9 % (95-97); ARTERIAL BLOOD GAS PCO2 38.4 mmHg (35-45); ARTERIAL BLOOD GAS PH 7.428 (7.35-7.45)
[2018-12-31] VITALS (10 sets, daily range): BP systolic 102–150; BP diastolic 40–61
[2018-12-31 05:17] LABS: ALBUMIN 1.9 gm/dl (3.1-4.5); BUN 13 mg/dl (7-24); CHLORIDE 112 mmol/L (98-107); CREATININE 0.56 mg/dL (0.55-1.02); PHOSPHOROUS 2.4 mg/dL (2.5-4.9); POTASSIUM 3.4 mmol/L (3.5-5.1); SGOT/AST 7 IU/L (3-35); SGPT/ALT 10 U/L (12-78); SODIUM 145 mmol/L (136-145)
[2018-12-31 05:18] LABS: ALKALINE PHOSPHATASE 64 U/L (45-117); TOTAL PROTEIN 5.7 gm/dL (6.4-8.2)
[2018-12-31 06:01] LABS: BASO % 0.4 % (0.0-1.0); EOS # 0.5 10*3/uL (0.0-0.4); EOS % 7.4 % (1.0-4.0); HEMATOCRIT 25.1 % (37.0-47.0); HEMOGLOBIN 7.9 g/dl (12.0-16.0); LYMPH # 1.7 10*3/uL (1.3-4.4); LYMPH % 23.9 % (27.0-41.0); MEAN CELL VOLUME 97.3 fl (81.0-99.0); MEAN CORPUSCULAR HGB 30.6 pg (27.0-31.0); MEAN CORPUSCULAR HGB CONC 31.5 g/dl (33.0-37.0); MEAN PLATELET VOLUME 11.4 fl (9.6-12.3); MONO # 0.5 10*3/uL (0.1-1.0); MONO % 7.5 % (3.0-9.0); NEUT # 4.3 10*3/uL (2.3-7.9); NEUT % 60.4 % (47.0-73.0); PLATELET COUNT AUTOMATED 177 10*3/uL (130-400); RED BLOOD COUNT 2.58 10*6/uL (4.10-5.10); RED CELL DISTRI WIDTH 15.1 % (0-14.5); WHITE BLOOD COUNT 7.1 10*3/uL (4.8-10.8)
[2018-12-31 06:27] LABS: ABG BASE EXCESS 1.4 mmol/L (-2.0-2.0); ABG HCO3 24.4 mmol/l (22-26); ABG O2 SATURATION 99.7 % (95-97); ARTERIAL BLOOD GAS PCO2 33.3 mmHg (35-45); ARTERIAL BLOOD GAS PH 7.477 (7.35-7.45)
[2018-12-31 12:02] LABS: ABG BASE EXCESS 0.5 mmol/L (-2.0-2.0); ABG HCO3 24.8 mmol/l (22-26); ABG O2 SATURATION 98.2 % (95-97); ARTERIAL BLOOD GAS PCO2 40.8 mmHg (35-45); ARTERIAL BLOOD GAS PH 7.4 (7.35-7.45)
[2019-01-01] VITALS: BP 121/46
[2019-01-01 04:00] VITALS: BP 119/43
[2019-01-01 05:50] LABS: BUN 10 mg/dl (7-24); CHLORIDE 112 mmol/L (98-107); CREATININE 0.56 mg/dL (0.55-1.02); PHOSPHOROUS 2.6 mg/dL (2.5-4.9); SGOT/AST 7 IU/L (3-35); SGPT/ALT 9 U/L (12-78); SODIUM 146 mmol/L (136-145)
[2019-01-01 05:51] LABS: ALKALINE PHOSPHATASE 57 U/L (45-117); TOTAL PROTEIN 5.4 gm/dL (6.4-8.2)
[2019-01-01 07:41] LABS: BASO % 0.4 % (0.0-1.0); EOS # 0.5 10*3/uL (0.0-0.4); EOS % 6.2 % (1.0-4.0); HEMATOCRIT 25.6 % (37.0-47.0); HEMOGLOBIN 7.6 g/dl (12.0-16.0); LYMPH % 26.8 % (27.0-41.0); MEAN CORPUSCULAR HGB CONC 29.7 g/dl (33.0-37.0); MEAN PLATELET VOLUME 11.1 fl (9.6-12.3); MONO # 0.6 10*3/uL (0.1-1.0); MONO % 8.4 % (3.0-9.0); NEUT # 4.2 10*3/uL (2.3-7.9); NEUT % 57.6 % (47.0-73.0); PLATELET COUNT AUTOMATED 193 10*3/uL (130-400); RED BLOOD COUNT 2.53 10*6/uL (4.10-5.10); RED CELL DISTRI WIDTH 14.9 % (0-14.5); WHITE BLOOD COUNT 7.3 10*3/uL (4.8-10.8)
[2019-01-01 08:00] VITALS: BP 121/56
[2019-01-01 08:13] LABS: MEAN CELL VOLUME 101.2 fl (81.0-99.0)
[2019-01-01 12:00] VITALS: BP 116/47
[2019-01-01 16:00] VITALS: BP 108/57
[2019-01-01 20:00] VITALS: BP 92/45
[2019-01-02] VITALS: BP 98/51
[2019-01-02 04:00] VITALS: BP 100/54
[2019-01-02 06:31] LABS: BASO # 0.1 10*3/uL (0.0-0.1); BASO % 0.5 % (0.0-1.0); EOS # 0.5 10*3/uL (0.0-0.4); EOS % 5.2 % (1.0-4.0); HEMATOCRIT 26.7 % (37.0-47.0); HEMOGLOBIN 8.2 g/dl (12.0-16.0); LYMPH # 2.1 10*3/uL (1.3-4.4); LYMPH % 22.9 % (27.0-41.0); MEAN CELL VOLUME 99.6 fl (81.0-99.0); MEAN CORPUSCULAR HGB 30.6 pg (27.0-31.0); MEAN CORPUSCULAR HGB CONC 30.7 g/dl (33.0-37.0); MEAN PLATELET VOLUME 10.5 fl (9.6-12.3); MONO # 0.7 10*3/uL (0.1-1.0); MONO % 7.5 % (3.0-9.0); NEUT # 5.9 10*3/uL (2.3-7.9); NEUT % 63.1 % (47.0-73.0); PLATELET COUNT AUTOMATED 245 10*3/uL (130-400); RED BLOOD COUNT 2.68 10*6/uL (4.10-5.10); RED CELL DISTRI WIDTH 14.7 % (0-14.5); WHITE BLOOD COUNT 9.3 10*3/uL (4.8-10.8)
[2019-01-02 07:02] LABS: ALBUMIN 2.1 gm/dl (3.1-4.5); ALKALINE PHOSPHATASE 62 U/L (45-117); BUN 11 mg/dl (7-24); CHLORIDE 108 mmol/L (98-107); CREATININE 0.66 mg/dL (0.55-1.02); PHOSPHOROUS 2.7 mg/dL (2.5-4.9); POTASSIUM 3.8 mmol/L (3.5-5.1); SGOT/AST 6 IU/L (3-35); SGPT/ALT 10 U/L (12-78); SODIUM 144 mmol/L (136-145); TOTAL PROTEIN 5.8 gm/dL (6.4-8.2)
[2019-01-02 08:00] VITALS: BP 108/41
[2019-01-02 12:00] VITALS: BP 106/59
[2019-01-02 16:00] VITALS: BP 90/43
[2019-01-02 20:00] VITALS: BP 118/49
[2019-01-03] VITALS: BP 129/54
[2019-01-03 06:48] LABS: BASO # 0.1 10*3/uL (0.0-0.1); BASO % 0.7 % (0.0-1.0); EOS # 0.6 10*3/uL (0.0-0.4); EOS % 8.4 % (1.0-4.0); HEMOGLOBIN 8.4 g/dl (12.0-16.0); LYMPH # 2.2 10*3/uL (1.3-4.4); LYMPH % 32.5 % (27.0-41.0); MEAN CELL VOLUME 99.6 fl (81.0-99.0); MEAN CORPUSCULAR HGB CONC 31.1 g/dl (33.0-37.0); MEAN PLATELET VOLUME 10.5 fl (9.6-12.3); MONO # 0.5 10*3/uL (0.1-1.0); MONO % 7.7 % (3.0-9.0); NEUT # 3.4 10*3/uL (2.3-7.9); NEUT % 49.7 % (47.0-73.0); PLATELET COUNT AUTOMATED 246 10*3/uL (130-400); RED BLOOD COUNT 2.71 10*6/uL (4.10-5.10); WHITE BLOOD COUNT 6.9 10*3/uL (4.8-10.8)
[2019-01-03 07:24] LABS: ALBUMIN 2.2 gm/dl (3.1-4.5); ALKALINE PHOSPHATASE 58 U/L (45-117); BUN 13 mg/dl (7-24); CHLORIDE 106 mmol/L (98-107); CREATININE 0.54 mg/dL (0.55-1.02); PHOSPHOROUS 3.5 mg/dL (2.5-4.9); POTASSIUM 3.8 mmol/L (3.5-5.1); SGOT/AST 10 IU/L (3-35); SGPT/ALT 10 U/L (12-78); SODIUM 144 mmol/L (136-145)
[2019-01-03 12:00] VITALS: BP 114/59
[2019-01-03 16:00] VITALS: BP 105/48
[2019-01-03 20:00] VITALS: BP 102/47; BP 117/58
[2019-01-04] VITALS: BP 91/52
[2019-01-04 06:11] LABS: BASO # 0.1 10*3/uL (0.0-0.1); BASO % 0.9 % (0.0-1.0); EOS # 0.7 10*3/uL (0.0-0.4); EOS % 10.3 % (1.0-4.0); HEMATOCRIT 28.8 % (37.0-47.0); HEMOGLOBIN 8.6 g/dl (12.0-16.0); LYMPH # 3.4 10*3/uL (1.3-4.4); LYMPH % 49.1 % (27.0-41.0); MEAN CORPUSCULAR HGB 29.9 pg (27.0-31.0); MEAN CORPUSCULAR HGB CONC 29.9 g/dl (33.0-37.0); MEAN PLATELET VOLUME 10.1 fl (9.6-12.3); MONO # 0.5 10*3/uL (0.1-1.0); NEUT # 2.2 10*3/uL (2.3-7.9); NEUT % 31.4 % (47.0-73.0); PLATELET COUNT AUTOMATED 282 10*3/uL (130-400); RED BLOOD COUNT 2.88 10*6/uL (4.10-5.10); RED CELL DISTRI WIDTH 15.2 % (0-14.5)
[2019-01-04 06:34] LABS: CREATININE 0.63 mg/dL (0.55-1.02)
[2019-01-04 12:00] VITALS: BP 115/41
[2019-01-04 16:00] VITALS: BP 112/48
[2019-01-04 20:00] VITALS: BP 123/60
[2019-01-04 21:24] VITALS: BP 100/60
[2019-01-05] VITALS: BP 122/55
[2019-01-05 08:00] VITALS: BP 106/61
[2019-01-05 12:00] VITALS: BP 93/59
[2019-01-05 16:00] VITALS: BP 115/54
[2019-01-05 20:00] VITALS: BP 99/57
[2019-01-05 23:28] VITALS: BP 152/88
[2019-01-06] VITALS: BP 115/53
[2019-01-06 08:28] VITALS: BP 128/60
[2019-01-06 12:00] VITALS: BP 110/50
[2019-01-06 16:00] VITALS: BP 102/54
[2019-01-06] MEDS ORDERED: MERREM IV1 GM IV (18:53)
[2019-01-06 20:00] VITALS: BP 108/45
[2019-04-01] MEDS ORDERED: CEFTRIAXON1 GM/50 ML IV (23:05)
== END 2019-01-06 21:16 | DRG 871 ==
LOC: ED 08:43 → ICCU 11:01 → 5E 11:01 → EDHOLD 11:01 → ICCU 11:25 → 5E 01-02 20:19
PROVIDERS: Emergency Medicine; Internal Medicine Critical Care Medicine; ADMIT Internal Medicine
PROC: 5A1945Z Respiratory Ventilation, 24-96 Consecutive Hours (ICD-10-PCS; principal; 2018-12-27)
PROC: 0BH17EZ Insertion of Endotracheal Airway into Trachea, Via Natural or Artificial Opening (ICD-10-PCS; 2018-12-27)
PROC: BD1BYZZ Fluoroscopy of Mouth/Oropharynx using Other Contrast (ICD-10-PCS; 2018-12-27)
PROC: BD11YZZ Fluoroscopy of Esophagus using Other Contrast (ICD-10-PCS; 2018-12-27)
PROC: 02HV33Z Insertion of Infusion Device into Superior Vena Cava, Percutaneous Approach (ICD-10-PCS; 2018-12-27)
PROC: B548ZZA Ultrasonography of Superior Vena Cava, Guidance (ICD-10-PCS; 2018-12-27)
PROC: 5A09357 Assistance with Respiratory Ventilation, Less than 24 Consecutive Hours, Continuous Positive Airway Pressure (ICD-10-PCS; 2018-12-31)
DX: A41.9 Sepsis, unspecified organism (principal); J96.21 Acute and chronic respiratory failure with hypoxia; R65.21 Severe sepsis with septic shock; J15.6 Pneumonia due to other Gram-negative bacteria; J96.22 Acute and chronic respiratory failure with hypercapnia; E43 Unspecified severe protein-calorie malnutrition; J15.0 Pneumonia due to Klebsiella pneumoniae; I13.0 Hypertensive heart and chronic kidney disease with heart failure and stage 1 through stage 4 chronic kidney disease, or unspecified chronic kidney disease; I50.32 Chronic diastolic (congestive) heart failure; F33.9 Major depressive disorder, recurrent, unspecified; E87.2 Acidosis; N17.9 Acute kidney failure, unspecified; N39.0 Urinary tract infection, site not specified; J44.0 Chronic obstructive pulmonary disease with (acute) lower respiratory infection; D64.9 Anemia, unspecified; F41.9 Anxiety disorder, unspecified; I25.10 Atherosclerotic heart disease of native coronary artery without angina pectoris; G89.29 Other chronic pain; M54.9 Dorsalgia, unspecified; N18.3 Chronic kidney disease, stage 3 (moderate); J44.9 Chronic obstructive pulmonary disease, unspecified; E11.22 Type 2 diabetes mellitus with diabetic chronic kidney disease; K21.9 Gastro-esophageal reflux disease without esophagitis; E78.5 Hyperlipidemia, unspecified; L89.322 Pressure ulcer of left buttock, stage 2; L89.310 Pressure ulcer of right buttock, unstageable; E11.51 Type 2 diabetes mellitus with diabetic peripheral angiopathy without gangrene; R91.1 Solitary pulmonary nodule; R62.7 Adult failure to thrive; D09.9 Carcinoma in situ, unspecified; E66.01 Morbid (severe) obesity due to excess calories; M48.9 Spondylopathy, unspecified; E83.42 Hypomagnesemia; E87.6 Hypokalemia; D63.8 Anemia in other chronic diseases classified elsewhere; E83.39 Other disorders of phosphorus metabolism; R13.12 Dysphagia, oropharyngeal phase; F17.210 Nicotine dependence, cigarettes, uncomplicated; Z91.013 Allergy to seafood; Z85.118 Personal history of other malignant neoplasm of bronchus and lung; I25.2 Old myocardial infarction; Z79.4 Long term (current) use of insulin; Z90.710 Acquired absence of both cervix and uterus; Z95.1 Presence of aortocoronary bypass graft; Z80.8 Family history of malignant neoplasm of other organs or systems; Z81.8 Family history of other mental and behavioral disorders; Z91.09 Other allergy status, other than to drugs and biological substances; Z88.1 Allergy status to other antibiotic agents; Z91.041 Radiographic dye allergy status; Z84.89 Family history of other specified conditions; Z68.22 Body mass index [BMI] 22.0-22.9, adult

== ENCOUNTER 2019-07-09 17:47 | Inpatient (IN) | payer OTHER ==
[~2019-07-09] VITALS: Ht 172.7 cm; Wt 65.9 kg
[2019-07-09 17:47] VITALS: BP 116/60
[~2019-07-09 17:47] MED LIST changes: +CARAFATE1 G1 PO; +CEFTRIAXON1 GM/50 ML IV; +DULCOLAX10 M1 R; +PULMICORT RESP0.5 MG INH; +SENNA-GEN8.6 M1 PO; +VITAMIN D31000 UNI1 PO
[2019-07-09 18:24] LABS: BILIRUBIN NEGATIVE (NEGATIVE); BLOOD TRACE-INTACT (NEGATIVE); CLARITY CLOUDY (CLEAR); COLOR YELLOW (YELLOW); GLUCOSE NEGATIVE (NEGATIVE); KETONE TRACE (NEGATIVE); LEUKO ESTERASE 2+ (NEGATIVE); NITRITE POSITIVE (NEGATIVE); PH 7.5 (5.0-9.0); SPECIFIC GRAVITY 1.015 (1.005-1.030); UROBILINOGEN 0.2 E.U./dl (0.2-1.0)
[2019-07-09 18:33] LABS: BACTERIA 1+; WBC 16-20 wbc/hpf (0-5)
[2019-07-09 18:34] LABS: RBC 0-2 rbc/hpf (0-2)
[2019-07-09 18:41] LABS: BASO # 0.1 10*3/uL (0.0-0.1); BASO % 0.5 % (0.0-1.0); EOS # 0.3 10*3/uL (0.0-0.4); EOS % 3.2 % (1.0-4.0); HEMATOCRIT 39.4 % (37.0-47.0); HEMOGLOBIN 12.1 g/dl (12.0-16.0); LYMPH # 2.4 10*3/uL (1.3-4.4); MEAN CELL VOLUME 95.2 fl (81.0-99.0); MEAN CORPUSCULAR HGB 29.2 pg (27.0-31.0); MEAN CORPUSCULAR HGB CONC 30.7 g/dl (33.0-37.0); MEAN PLATELET VOLUME 10.6 fl (9.6-12.3); MONO # 0.6 10*3/uL (0.1-1.0); MONO % 6.5 % (3.0-9.0); NEUT # 6.2 10*3/uL (2.3-7.9); NEUT % 64.6 % (47.0-73.0); PLATELET COUNT AUTOMATED 267 10*3/uL (130-400); RED BLOOD COUNT 4.14 10*6/uL (4.10-5.10); RED CELL DISTRI WIDTH 15.3 % (0-14.5); WHITE BLOOD COUNT 9.7 10*3/uL (4.8-10.8)
--- NOTE | 2019-07-09 18:56 | NUR ---
PT WAS INCONTINENT OF A MODERATE AMOUNT OF SOFT BROWN STOOL. SKIN CLEANSED,LINENS CHANGED. PT REMAINS CONFUSED. EMILY COREY
[2019-07-09 19:10] LABS: ALBUMIN 2.6 gm/dl (3.1-4.5); ALKALINE PHOSPHATASE 84 U/L (45-117); BUN 11 mg/dl (7-24); CHLORIDE 110 mmol/L (98-107); CREATININE 0.86 mg/dL (0.55-1.02); SGOT/AST 8 IU/L (3-35); SGPT/ALT 11 U/L (12-78); SODIUM 141 mmol/L (136-145); TOTAL PROTEIN 6.5 gm/dL (6.4-8.2)
[2019-07-09 19:46] VITALS: BP 112/64
[2019-07-09 21:28] VITALS: BP 121/63
--- NOTE | 2019-07-09 21:28 | NUR ---
A 63, admitted to , under the services of YASMIN Carter MD with a diagnosis of UTI, FAILURE TO THRIVE. Chief complaint is WEAKNESS. Patient arrived via bed from ER. Monitor applied. Initial assessment completed. Vital signs taken and recorded. YASMIN CARTER MD notified of admission to the unit. Orders received. See assessment for past medical history, medications and allergies. Patient and/or family oriented to unit. [facility] visitation policy reviewed. Clothing/patient valuable form completed. TOSHIA BOLANOS
[2019-07-09] MEDS ORDERED: MUCINEX1200 M1 PO (22:22)
[2019-07-09] MEDS ORDERED: OMEPRAZOLE MAGN20 MG PO (22:24)
[2019-07-09] MEDS ORDERED: PHOS-NAK PACKE1 EACH PO (22:26)
[2019-07-09] MEDS ORDERED: MINITRAN1 EAC1 TD (22:32)
[2019-07-09] MEDS ORDERED: DOXYCYCLINE100 M3 PO (22:37)
[2019-07-09] MEDS ORDERED: Ipratropium Brom3 ML INH (22:40)
[2019-07-09] MEDS ORDERED: MAGOX 400400 MG PO (22:41)
--- NOTE | 2019-07-09 22:48 | NUR ---
CALLED DR. BARRIENTOS FOR ADMISSION ORDERS. ORDERS RECEIVED.
[2019-07-10] VITALS: BP 130/71
--- NOTE | 2019-07-10 01:00 | NUR ---
PT SLEEPING AT THIS TIME. IV FLUIDS RUNNING INTO LEFT HAND IV WITHOUT DIFFICULTY. NO NEW NEEDS IDENTIFIED. CALL LIGHT IN REACH.
--- NOTE | 2019-07-10 03:00 | NUR ---
PT ASLEEP. CALL LIGHT IN REACH. IV FLUIDS INFUSING WITHOUT DIFFICULTY.
--- NOTE | 2019-07-10 07:17 | NUR ---
Patient comes from [facility] term [facility]. Ok to return when medically stable for discharge.
--- NOTE | 2019-07-10 07:18 | NUR ---
24 HR chart check completed.
[2019-07-10 08:00] VITALS: BP 120/58
--- NOTE | 2019-07-10 09:00 | NUR ---
Shipper in to see patient. Her eyes are open but she is non-verbal. She is a LTC resident at [facility]. airport planner following.
--- NOTE | 2019-07-10 09:16 | NUR ---
PT NONVERBAL AND WOULD NOT TAKE MEDS DESPITE THEM BEING CRUSHED IN APPLE SAUCE. SPOKE WITH PARADISE RN FROM [facility] ABOUT CONSULT.
[2019-07-10 12:00] VITALS: BP 120/63
[2019-07-10 16:00] VITALS: BP 115/63
[2019-07-10 20:00] VITALS: BP 132/62
--- NOTE | 2019-07-10 22:05 | NUR ---
PATIENT LETHARGIC BUT AROUSABLE. NON VERBAL. MEDICATIONS NOT GIVEN. FLUIDS RUNNING AT 60ML/HR. BED IN LOWEST POSITION. CALL LIGHT WITHIN REACH. BED RAILS UP X2. WILL CONTINUE TO MONITOR.
[2019-07-11] VITALS: BP 133/47
--- NOTE | 2019-07-11 04:00 | NUR ---
PATIENT SLEEPING. RESPIRATIONS EASY, NON LABORED. NO SIGNS OF DISTRESS. BED IN LOWEST POSTION CALL LIGHT WITHIN REACH BED ALARM ON. WILL CONTINUE TO MONITOR.
[2019-07-11 08:00] VITALS: BP 132/58
--- NOTE | 2019-07-11 08:33 | NUR ---
Discussed discharge planning with Dr. Campoverde. Patient to be discharged back to [facility] tomorrow. Discussed with Jess Monte at [facility] regarding family requesting to be moved to another LTC facility. Jess is looking into it. digital sales planner notified.
--- NOTE | 2019-07-11 08:33 | NUR ---
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 Patient is ok to return when medically stable. informed [facility] of probable discharge on Sunday07/12/19
[2019-07-11 16:00] VITALS: BP 124/50
[2019-07-11 20:00] VITALS: BP 131/54
[2019-07-12] VITALS: BP 130/87
--- NOTE | 2019-07-12 02:10 | NUR ---
Patient sleeping. Respirations relaxed and easy. Siderails up . [place] on. ISAAC MUELLER
[2019-07-12 06:36] LABS: BASO % 0.3 % (0.0-1.0); EOS # 0.4 10*3/uL (0.0-0.4); EOS % 3.4 % (1.0-4.0); HEMATOCRIT 35.8 % (37.0-47.0); HEMOGLOBIN 11.4 g/dl (12.0-16.0); LYMPH # 2.7 10*3/uL (1.3-4.4); LYMPH % 22.6 % (27.0-41.0); MEAN CELL VOLUME 92.3 fl (81.0-99.0); MEAN CORPUSCULAR HGB 29.4 pg (27.0-31.0); MEAN CORPUSCULAR HGB CONC 31.8 g/dl (33.0-37.0); MEAN PLATELET VOLUME 10.5 fl (9.6-12.3); MONO # 0.9 10*3/uL (0.1-1.0); MONO % 7.5 % (3.0-9.0); NEUT # 7.8 10*3/uL (2.3-7.9); NEUT % 65.9 % (47.0-73.0); PLATELET COUNT AUTOMATED 253 10*3/uL (130-400); RED BLOOD COUNT 3.88 10*6/uL (4.10-5.10); RED CELL DISTRI WIDTH 15.1 % (0-14.5); WHITE BLOOD COUNT 11.9 10*3/uL (4.8-10.8)
[2019-07-12 07:01] LABS: BUN 8 mg/dl (7-24); CHLORIDE 111 mmol/L (98-107); CREATININE 0.72 mg/dL (0.55-1.02); POTASSIUM 3.4 mmol/L (3.5-5.1); SODIUM 140 mmol/L (136-145)
[2019-07-12 08:00] VITALS: BP 102/51
--- NOTE | 2019-07-12 09:38 | NUR ---
NOTIFIED [facility] ANSWERING SERVICE THAT NOBODY HAD SEEN PT PER DR BARRIENTOS FROM CONSULT EARLIER THIS WEEK.MESSAGE LEFT.
--- NOTE | 2019-07-12 11:23 | NUR ---
PT SITTING UP IN BED TALKING TO . ORDERED BREAKFAST AND PT ANSWERED APPROPRIATELY TO WHAT HE WANTED FOR LUNCH AND HOW SHE LIKED HER POTATOE SOUP. PT IS ALERT AND ORIENTED,SLOW,APPROPRIATE RESPONSES.
[2019-07-12 13:00] VITALS: BP 106/45
[2019-07-12 16:00] VITALS: BP 104/59
--- NOTE | 2019-07-12 16:05 | NUR ---
PT CURRENTLY LYING IN BED.NON VERBAL AND SLOW TO AROUSE.RESPS EASY ON RA. CALL LIGHT IN REACH.
--- NOTE | 2019-07-12 17:19 | NUR ---
MANAGED TO GET TWO PILLS INTO PT . LEFT PT APPEARS TO BE NONVERBAL AGAIN.AND PRETENDS TO BE SLEEPING BUT WILL SPIT MEDECINE OUT.RESPS EASY ON RA.CALL LIGHT IN REACH.
--- NOTE | 2019-07-12 19:50 | NUR ---
PATIENT RESTING IN BED WITH EYES CLOSED. DOES NOT RESPOND TO VERBAL COMMAND. RESPIRATIONS EASY AND REGULAR. BED IN LOWEST POSITION, CALL LIGHT IN REACH
[2019-07-12 20:00] VITALS: BP 102/43
[2019-07-13] VITALS: BP 95/50
--- NOTE | 2019-07-13 01:59 | NUR ---
PATIENT RESTING IN BED WITH EYES CLOSED. RESPS EASY AND REGULAR. BED IN LOWEST POSITION, BED ALARM ON, CALL LIGHT IN REACH
[2019-07-13 04:00] VITALS: BP 101/54
[2019-07-13 08:00] VITALS: BP 105/51
[2019-07-13] MEDS ORDERED: CLONAZEPAM0.5 M2 PO (08:48)
[2019-07-13] MEDS ORDERED: CEFOTAXIME IM (08:48)
--- NOTE | 2019-07-13 11:55 | NUR ---
Discharge instructions reviewed with patient/family. Patient receptive and verbalizes understanding. Follow-up care arranged. Written instructions given to patient/family. MANUEL BALLESTEROS
== END 2019-07-13 12:19 | DRG 463 ==
LOC: ED 17:47 → 4E 20:25 → EDHOLD 20:25 → 4E 21:20
PROVIDERS: Emergency Medicine; ADMIT Internal Medicine
DX: N39.0 Urinary tract infection, site not specified (principal); G93.41 Metabolic encephalopathy; E43 Unspecified severe protein-calorie malnutrition; E46 Unspecified protein-calorie malnutrition; I50.32 Chronic diastolic (congestive) heart failure; J96.10 Chronic respiratory failure, unspecified whether with hypoxia or hypercapnia; F31.32 Bipolar disorder, current episode depressed, moderate; I13.0 Hypertensive heart and chronic kidney disease with heart failure and stage 1 through stage 4 chronic kidney disease, or unspecified chronic kidney disease; B95.4 Other streptococcus as the cause of diseases classified elsewhere; F41.0 Panic disorder [episodic paroxysmal anxiety]; R62.7 Adult failure to thrive; J44.9 Chronic obstructive pulmonary disease, unspecified; F41.1 Generalized anxiety disorder; E87.6 Hypokalemia; I25.10 Atherosclerotic heart disease of native coronary artery without angina pectoris; D63.8 Anemia in other chronic diseases classified elsewhere; K21.9 Gastro-esophageal reflux disease without esophagitis; E78.5 Hyperlipidemia, unspecified; N18.3 Chronic kidney disease, stage 3 (moderate); E11.22 Type 2 diabetes mellitus with diabetic chronic kidney disease; G89.29 Other chronic pain; I25.2 Old myocardial infarction; Z95.1 Presence of aortocoronary bypass graft; Z79.82 Long term (current) use of aspirin; Z88.2 Allergy status to sulfonamides; Z88.8 Allergy status to other drugs, medicaments and biological substances; Z81.8 Family history of other mental and behavioral disorders; Z88.1 Allergy status to other antibiotic agents; Z91.041 Radiographic dye allergy status; Z91.013 Allergy to seafood; Z82.49 Family history of ischemic heart disease and other diseases of the circulatory system; Z68.22 Body mass index [BMI] 22.0-22.9, adult; Z51.5 Encounter for palliative care

== ENCOUNTER 2019-09-01 10:24 | Inpatient (IN) | payer OTHER ==
[~2019-09-01] VITALS: Ht 165.1 cm; Wt 66.3 kg
--- NOTE | ~2019-09-01 | PR ---
[place], [place] PROGRESS NOTE NAME: YOLANDA BEARDEN UNIT #: [id number] ROOM: 412 DOCTOR: JUDY PARTIDA MD,RADHA BIRTHDATE: [birth year] DOS: 09/03/2019 SUBJECTIVE: The patient noted awake this morning, her eyes were open. The patient states couple of words for this patient when she has asked how she was doing. Does not have any specific complaints this morning. OBJECTIVE: VITAL SIGNS: Temperature noted normal temperature, respiratory rate 17-18, heart rate 77, blood pressure 122/58. The pulse oxygen saturation recorded on 2 liters got 94% saturation. HEENT: Head was atraumatic. Eyes nonicterus. NECK: Supple. CARDIOVASCULAR: S1, S2 audible. LUNGS: Noted Moderate decreased breath sounds in the lungs bilaterally. ABDOMEN: Soft, nontender. Bowel sounds present. EXTREMITIES: The patient without any edema or clubbing. IMPRESSION: 1. The patient with a recurrent lung cancer, which is noted with a large mass lesion with cavitation majority in the right lung. 2. The patient change in mental status, which has been noted, chronic. PLAN OF MANAGEMENT: No changes in plan of care at this time. Continue the patient's current therapy as in progress. Usual care, other supportive plan of management care. RADHA KIM MD CM:PNTRANS 1322 25 RADHA PARTIDA MD 09/03/19 182 interface
--- NOTE | ~2019-09-01 | PR ---
[place], [place] PROGRESS NOTE NAME: YOLANDA BEARDEN UNIT #: [id number] ROOM: 412 DOCTOR: JUDY PARTIDA MD,RADHA BIRTHDATE: [birth year] DOS: 09/04/2019 SUBJECTIVE: She was noted fully awake and alert. She is not reporting any symptoms of chest pain, coughing or sputum expectoration. Mental status appeared to be at the baseline this morning. OBJECTIVE: VITAL SIGNS: Recorded normal temperature, respiratory rate 18, heart rate of 81, blood pressure 122/61. Pulse ox saturation on 2 liters nasal cannula at rest was 96% saturation recorded. HEENT: Examination shows head was atraumatic. Eyes nonicterus. NECK: Supple. CARDIOVASCULAR: S1, S2 audible. LUNGS: Noted without any wheeze or crackle at the present time. ABDOMEN: Soft, nontender. IMPRESSION: The patient with advanced recurrent lung cancer. CT scan of the chest yesterday shows similar finding as suspected for the lung cancer. However, the diagnosis had not been made for this patient with biopsy because of the advanced disease, multiple comorbid conditions. PLAN OF TREATMENT: Continue comfort measure, advised for hospice care or palliative care. RADHA KIM MD CM:PNTRANS [phone] RADHA PARTIDA MD 09/04/19 1252 interface
--- NOTE | ~2019-09-01 | EKG ---
[place], [place] ELECTROCARDIOGRAM REPORT NAME: YOLANDA BEARDEN UNIT #: [id number] ROOM: 412 DOCTOR: STEPHANIE DRAFT REPORT BIRTHDATE: [birth year] [facility] Test Date: 2019-09-01 Test Time: 10:41:14 Pat Name: YOLANDA BEARDEN Department: Room: 412 Gender: F Manager Of Health: : 1955 Requested By: JOAQUIN ROUSSEAU Order Number: [id number] Reading MD: Ronnie Aldridge MD Measurements Intervals [place] Rate: 88 P: 76 ND: 142 QRS: 28 QRSD: 83 T: 45 QT: 365 QTc: 442 Interpretive Statements Sinus rhythm Anterior infarct,age undetermined. Compared to ECG 04/01/2019 22:17:10 Electronically Signed On 09-02-2019 8:57:11 PST by Ronnie Aldridge MD CM:EKGRPT:ELECTROCARDIOGRAM REPORT [id number] JOAQUIN MUNOZ DRAFT REPORT JOAQUIN ROUSSEAU DO
--- NOTE | ~2019-09-01 | CON ---
[place], [place] REPORT OF CONSULTATION NAME: YOLANDA BEARDEN UNIT #: [id number] ROOM: 412 DOCTOR: RADHA LAKE MD BIRTHDATE: [birth year] DOS: 09/02/2019 PULMONARY CONSULTATION, EVALUATION AND MANAGEMENT CONSULTATION REQUESTED BY: Hospitalist service. REASON FOR CONSULTATION: For assessment of the lung cancer. 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 A long-term resident of nursing facility with decreased communication with multiple medical problems. The patient has been admitted to the hospital under care of the hospitalist service on the date of 09/01/2019. The patient presented in hospital under care of the hospitalist service. The patient was consulted me to see as the patient has been reported with unwitnessed fall. The patient has been currently noted sleeping not noted to be follow vocal commands, but open eyes with vocal commands. She was not showing any signs of respiratory distress. The chest x-ray was noted with evidence of lung mass. She has a CT scan of the chest done as well for further assessment. She has not been showing any signs of respiratory distress noted with coughing or any audible wheeze. REVIEW OF SYSTEMS: Could not be completed. The remaining history is also documented is review of the medical record by the other physician and my personal consultation from previous admission in 12/2018. PAST MEDICAL HISTORY: 1. Known with history of uncomplicated severe persistent bronchial asthma. 2. Chronic hypoxic respiratory failure. 3. Past history of pneumonia. 4. Squamous cell cancer diagnosed or treated in the left upper lobe with radiation therapy in 01/2015 effectively. 5. New pulmonary nodule to evaluate the patient recurrent malignant process. The patient suspected on the right lung of no further assessment done because of overall poor physical condition, multiple comorbid conditions of dementia and others and family members agreed with that. 6. Bedbound status for this patient as well. 7. Peripheral arterial disease. 8. Intervertebral disk disease. 9. Suspected dementia. PAST SURGICAL HISTORY: 1. Tonsillectomy. 2. CT-guided needle aspirate biopsy on 01/2015. 3. Coronary artery bypass grafting. 4. . 5. Diskectomy. 6. Left femoropopliteal bypass grafting. 7. Past intubation and mechanical ventilation. 8. Bilateral cataract lens implantation. 9. Therapeutic bronchoscopy. [place], [place] REPORT OF CONSULTATION NAME: YOLANDA BEARDEN UNIT #: [id number] ROOM: 412 DOCTOR: RADHA LAKE MD BIRTHDATE: [birth year] SOCIAL HISTORY: The patient is , long-term resident of [facility]. Tobacco use noted from age of 14-year-old, a pack of cigarettes per day, discontinued many years ago. Denies alcohol use or illicit drug use. FAMILY HISTORY: The patient's father with complication of unknown metastatic cancer. Mother at 64-year-old with complications of cancer as well. CURRENT MEDICATIONS: Administered were noted as aspirin, Lovenox for DVT prophylaxis, Cymbalta, Lipitor, Carafate, DuoNeb, clonazepam, IV meropenem and some other meds. DRUG ALLERGIES: Noted as allergy: 1. IVP DYE. 2. AMPICILLIN. 3. BACTRIM. PHYSICAL EXAMINATION: GENERAL: A 63-year-old female patient currently comfortable, resting in the bed, eyes closed. Opens eyes to vocal commands to verbal communication. Height of 5 feet 5 inches, weight 136 pounds, BMI 22.6. VITAL SIGNS: Normal temperature since admission last 24 hours, respiratory rate 14-18, heart rate 90-98, blood pressure 108/58-139/67. Pulse oxygen saturation on 3 liters nasal cannula, the was 94% saturation. HEENT: Examination shows head was atraumatic. Eyes nonicterus. NECK: Supple. CARDIOVASCULAR: S1, S2 audible. LUNGS: Without any wheeze or crackles. [id number] decreased breath sounds in the lungs bilaterally. ABDOMEN: Soft, bowel sounds present. EXTREMITIES: No edema. MUSCULOSKELETAL: Without any gross deformities. CENTRAL NERVOUS SYSTEM: Unable to assess completely. VISIBLE SKIN: No lesions or rashes. LABORATORY DATA: The patient's CBC that was done yesterday, WBC count was normal, hemoglobin and hematocrit normal. The PT/PTT yesterday was noted as normal. CMP that was done yesterday, BUN 19, creatinine 1.03. Potassium 3.4. Calcium was mildly elevated at 10.8. CMP that was done this morning, normal BUN and creatinine. Calcium noted 10.1. CBC with a WBC count normal, hemoglobin 11.5, platelet count 236,000. The CT scan of the head that was done without contrast as noted with a known intracranial abnormality was reported. CT scan of the chest reviewed with evidence of enlargement of the previously noted right upper lung maturation cavitation additional mass was noted previously with area of atelectasis, pleural based nodule noted in the right lower lobe as well. Additional small scattered nodules was also present in the right side. Ground glass opacity. IMPRESSION: [place], [place] REPORT OF CONSULTATION NAME: YOLANDA BEARDEN UNIT #: [id number] ROOM: 412 DOCTOR: JUDY PARTIDA MD,RADHA BIRTHDATE: [birth year] 1. 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 There was no finding noted consistent with acute pneumonia, deferred further workup of the current malignant management because of multiple comorbid conditions, overall physical status already discussed with the patient's and other family members were in agreement. 2. History of bronchial asthma without any acute exacerbation. 3. Chronic hypoxic respiratory failure, treated with oxygen supplementation. 4. Chronic bedbound status. PLAN OF TREATMENT: Symptomatic management will be continued. Hospice care if agreed by the family members. The patient was also receiving meropenem. The reason of that unknown. If there is no infection noted on pulmonary certainly antibiotics should be discontinued. Keep up with IV hydration for the hypercalcemia management as well. Supportive care. Overall prognosis is grave. Thanks for allowing me to participate in care of this patient. RADHA KIM MD CM:CONSTR:REPORT OF CONSULTATION 1245 09/02/19 1640 interface
--- NOTE | ~2019-09-01 | CON ---
[place], [place] REPORT OF CONSULTATION NAME: YOLANDA BEARDEN UNIT #: [id number] ROOM: 412 DOCTOR: CLAIRE HYDE MD BIRTHDATE: [birth year] DOS: 09/02/2019 CHIEF COMPLAINT: Fall. REASON FOR CONSULTATION: UTI. HISTORY OF PRESENTING ILLNESS: This is a 63-year-old female who is awake, but not completely alert and oriented. She denies having any fever or chills. No abdominal pain, nausea, vomiting, diarrhea. She has Moya catheter, which was changed in the ER, but it is unclear if her urinalysis was obtained from the new catheter. Urinalysis from the ER shows 31-40 wbc's. Urine culture shows heavy gram-negative bacteria. She has been kept on meropenem. Her past urine cultures have growth of Strep viridans from 06/2019, which was treated by Dr. Campoverde for UTI. From 04/2019, she grew Enterobacter cloacae and Providencia stuartii. Enterobacter was resistant to cephalosporins, sensitive to meropenem, multiple other urine cultures in the EMR noted. CT abdomen and pelvis from last year shows bilateral hydronephrosis. PAST MEDICAL HISTORY: Coronary artery disease, CHF, chronic back pain, CKD, COPD, diabetes, GERD, GI bleed, hyperlipidemia, lung cancer, NSTEMI. PAST SURGICAL HISTORY: , hysterectomy, endarterectomy, tonsillectomy, adenoidectomy, history of CABG. FAMILY HISTORY: Noncontributory at this time. SOCIAL HISTORY: Nonalcoholic. Former smoker. No illicit drug use. ALLERGIES: To AMOXICILLIN causing hives, IV DYES causing hives, AMPICILLIN causing hives, BACTRIM also causing allergy. HOME MEDICATIONS: Noted. REVIEW OF SYSTEMS: Limited because of her underlying condition. PHYSICAL EXAMINATION: VITAL SIGNS: Stable. GENERAL: The patient is awake and alert, but not completely oriented. HEENT: Atraumatic, normocephalic. PERRLA, EOMI. RESPIRATORY: Air entry bilaterally equal. No wheeze or crackles. CARDIOVASCULAR: S1, S2 normal. Grade 2/6 systolic murmur, loudest at the apex. ABDOMEN: Soft, nontender, nondistended. Bowel sounds present. GENITOURINARY: Moya draining clear urine. Labs noted. Chest CT without contrast shows cavitary mass in the right lung. Right upper lobe cavitary lesion measuring 4.2 x 3.7 x 4.6 cm. This mass was previously 2.8 x 2.4 x 2.5 cm, hence increased in the size. Pulmonary has been consulted for further management. ASSESSMENT AND PLAN; [place], [place] REPORT OF CONSULTATION NAME: YOLANDA BEARDEN UNIT #: [id number] ROOM: 412 DOCTOR: CLAIRE HYDE MD BIRTHDATE: [birth year] 1. Questionable catheter associated urinary tract infection. The urinalysis obtained in the ER is unclear from the old catheter or the new one. She had multiple urinary tract infections in the past, so it is okay to continue to keep her on meropenem for now and I requested a repeat urinalysis from the new catheter. 2. She has a history of bilateral hydronephrosis, requiring urological intervention in the past. Would request a CT abdomen and pelvis without contrast. 3. Right upper lobe cavitary mass, which was seen in 2016, has grown in size, could be suspicious for malignancy. Pulmonary has been consulted Family discussion ongoing for a palliative/hospice care. Thank you for your consult. Please call for any questions. Claire Hyde MD CM:CONSTR:REPORT OF CONSULTATION [id number] 09/03/19 0217 interface
[~2019-09-01 10:24] MED LIST changes: +CEFOTAXIME IM; +CLONAZEPAM0.5 M2 PO; +DOXYCYCLINE100 M3 PO; +Ipratropium Brom3 ML INH; +MAGOX 400400 MG PO; +MINITRAN1 EAC1 TD; +MUCINEX1200 M1 PO; +OMEPRAZOLE MAGN20 MG PO; +PHOS-NAK PACKE1 EACH PO
[2019-09-01 10:34] VITALS: BP 122/70
[2019-09-01 11:30] LABS: BASO # 0.1 10*3/uL (0.0-0.1); BASO % 0.5 % (0.0-1.0); EOS # 0.3 10*3/uL (0.0-0.4); EOS % 2.5 % (1.0-4.0); HEMATOCRIT 40.5 % (37.0-47.0); HEMOGLOBIN 12.5 g/dl (12.0-16.0); LYMPH # 1.8 10*3/uL (1.3-4.4); LYMPH % 17.5 % (27.0-41.0); MEAN CELL VOLUME 94.8 fl (81.0-99.0); MEAN CORPUSCULAR HGB 29.3 pg (27.0-31.0); MEAN CORPUSCULAR HGB CONC 30.9 g/dl (33.0-37.0); MEAN PLATELET VOLUME 10.2 fl (9.6-12.3); MONO # 0.9 10*3/uL (0.1-1.0); MONO % 8.6 % (3.0-9.0); NEUT # 7.1 10*3/uL (2.3-7.9); NEUT % 70.5 % (47.0-73.0); PLATELET COUNT AUTOMATED 255 10*3/uL (130-400); RED BLOOD COUNT 4.27 10*6/uL (4.10-5.10); RED CELL DISTRI WIDTH 14.6 % (0-14.5)
[2019-09-01 11:40] LABS: ACT PARTIAL THROMBO TIME 23.4 SECONDS (20.0-32.1)
[2019-09-01 11:46] LABS: ALBUMIN 2.7 gm/dl (3.1-4.5); ALKALINE PHOSPHATASE 94 U/L (45-117); BUN 19 mg/dl (7-24); CHLORIDE 107 mmol/L (98-107); CREATININE 1.01 mg/dL (0.55-1.02); LIPASE 894 U/L (73-393); POTASSIUM 3.7 mmol/L (3.5-5.1); SGOT/AST 15 IU/L (3-35); SGPT/ALT 19 U/L (12-78); SODIUM 142 mmol/L (136-145); TOTAL PROTEIN 7.4 gm/dL (6.4-8.2); TROPONIN I < 0.015 ng/ml (<0.045)
[2019-09-01 12:40] LABS: BILIRUBIN 1+ (NEGATIVE); BLOOD 1+ (NEGATIVE); CLARITY CLOUDY (CLEAR); COLOR YELLOW (YELLOW); GLUCOSE NEGATIVE (NEGATIVE); KETONE NEGATIVE (NEGATIVE); LEUKO ESTERASE 3+ (NEGATIVE); NITRITE NEGATIVE (NEGATIVE); PH 6.5 (5.0-9.0); SPECIFIC GRAVITY 1.015 (1.005-1.030); UROBILINOGEN 0.2 E.U./dl (0.2-1.0)
[2019-09-01 12:49] LABS: BACTERIA 4+; WBC 31-40 wbc/hpf (0-5)
[2019-09-01 13:55] VITALS: BP 116/64
--- NOTE | 2019-09-01 14:00 | NUR ---
POX DROPS TO 89% WHILE SLEEPING. 3L NC O2 STARTED, POX 94% ON THAT.
--- NOTE | 2019-09-01 14:48 | NUR ---
LEFT FOREHEAD ABRASION CLEANSED, NO DRESSING NEEDED.
--- NOTE | 2019-09-01 15:49 | NUR ---
[facility] 63, [facility] to , under the services of YING Thibodeaux DO with a diagnosis of FALL, DEHYDRATION. Chief complaint is NON-VERBAL. Patient arrived via bed from ER. Monitor applied. Initial assessment completed. Vital signs taken and recorded. YING THIBODEAUX DO notified of admission to the unit. Orders received. See assessment for past medical history, medications and allergies. Patient and/or family oriented to unit. [facility] visitation policy reviewed. Clothing/patient valuable form completed. ANNIE HOLLIDAY
[2019-09-01 16:00] VITALS: BP 142/66
--- NOTE | 2019-09-01 17:05 | NUR ---
DR. KIM NOTIFIED OF CONSULT.
--- NOTE | 2019-09-01 17:09 | NUR ---
DR. HYDE'S ANSWERING SRVICE NOTIFIED OF CONSULT.
[2019-09-01 20:00] VITALS: BP 139/67
[2019-09-02] VITALS: BP 132/64
[2019-09-02 06:42] LABS: ALBUMIN 2.6 gm/dl (3.1-4.5); ALKALINE PHOSPHATASE 85 U/L (45-117); BUN 18 mg/dl (7-24); CHLORIDE 110 mmol/L (98-107); CREATININE 0.93 mg/dL (0.55-1.02); FREE T4 1.25 ng/dl (0.76-1.46); PHOSPHOROUS 2.3 mg/dL (2.5-4.9); POTASSIUM 3.9 mmol/L (3.5-5.1); SGOT/AST 14 IU/L (3-35); SGPT/ALT 16 U/L (12-78); SODIUM 143 mmol/L (136-145); TOTAL PROTEIN 6.7 gm/dL (6.4-8.2)
[2019-09-02 06:47] LABS: BASO # 0.1 10*3/uL (0.0-0.1); BASO % 0.7 % (0.0-1.0); EOS # 0.4 10*3/uL (0.0-0.4); EOS % 4.5 % (1.0-4.0); HEMATOCRIT 37.1 % (37.0-47.0); HEMOGLOBIN 11.5 g/dl (12.0-16.0); LYMPH # 2.5 10*3/uL (1.3-4.4); LYMPH % 26.3 % (27.0-41.0); MEAN CELL VOLUME 95.9 fl (81.0-99.0); MEAN CORPUSCULAR HGB 29.7 pg (27.0-31.0); MEAN PLATELET VOLUME 10.6 fl (9.6-12.3); MONO # 0.8 10*3/uL (0.1-1.0); MONO % 7.9 % (3.0-9.0); NEUT # 5.8 10*3/uL (2.3-7.9); NEUT % 60.3 % (47.0-73.0); PLATELET COUNT AUTOMATED 236 10*3/uL (130-400); RED BLOOD COUNT 3.87 10*6/uL (4.10-5.10); RED CELL DISTRI WIDTH 14.6 % (0-14.5); WHITE BLOOD COUNT 9.6 10*3/uL (4.8-10.8)
[2019-09-02 08:00] VITALS: BP 108/58
--- NOTE | 2019-09-02 08:44 | NUR ---
YOLANDA BEARDEN [id number] Please refer to the physician's history and physical for past medical history, comorbid conditions, and allergies. Diagnosis: UTI FALL DEHYDRATION Liu Score: 14,MODERATE RISK WOUND DESCRIPTIONS: Wound Number: 1 Location of the wound: LEFT MEDIAL FOOT Type of wound: UNSTAGEABLE Size: 1.2cm X 1.3cm X <0.1cm Tunneling: NONE Undermining: NONE Sinus Tract: NONE Presence of Exudate: None Amount: None Color: Black Odor: None Periwound Skin Appearance: Erythema Wound edges: CLOSED. ESCHAR COVERED Pain (associated with wound): DENIED AT TIME OF ASSESSMENT How does patient state this happened? PATIENT UNSURE HOW THIS HAPPENED. If wound is on legs/feet or hands, capillary refill time, pulses, color temp, sensation: COOL TO TOUCH. CAP REFILL >3 SECONDS. PALE IN COLOR. Wound Number: 2 Location of the wound: LEFT FOREHEAD Thickness: Partial Size: 4.1cm X 1.1cm X <0.1cm Tunneling: NONE Undermining: NONE Sinus Tract: NONE Presence of Exudate: None Amount: None Color: [place] Odor: None Periwound Skin Appearance: Normal Wound edges: CLOSED. INTACT SCAB. Pain (associated with wound): DENIED AT TIME OF ASSESSMENT How does patient state this happened? PATIENT UNSURE HOW THIS HAPPENED. Surface the patient is resting on: Isoflex SKIN PREVENTION RECOMMENDATION: 1. Pressure redistribution support surface as appropriate 2. Elevate heels 3. Remove boots/TEDS every shift and reapply 4. Head of bed 30 degrees as tolerated 5. Assess nutrition and hydration 6. Manage moisture 7. Avoid the use of containment devices while in bed 8. Use absorptive products on surfaces limit layers of linens on bed 9. Turn and reposition every 1-2 hours in bed and every 1 hour in chair as tolerated 10. Weight shifts every 15 minutes while up in chair 11. Offloading with pillows or device to keep heels elevated off bed 12. Monitor skin at least every shift 13. Inspect under medical devices twice a day WOUND TREATMENT RECOMMENDATIONS: CONSULT PODIATRY FOR LEFT MEDIAL FOOT. ARTERIAL ULTRASOUND TO BLE. UNSTAGEABLE GUIDELINES TO LEFT MEDIAL FOOT: CLEANSE WITH NSS APPLY SUREPREP TO THE WOUND ALLOW TO DRY AND COVER WITH OPTIFOAM GENTLE. CHANGE EVERY 2 DAYS AND PRN SOILING. HEEL RAISER PRO BOOTS WHILE IN BED. LEAVE LEFT SIDE OF FOREHEAD OPEN TO AIR.
--- NOTE | 2019-09-02 09:00 | NUR ---
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
--- NOTE | 2019-09-02 11:00 | NUR ---
Dr. Bill notified of wound care recommendations.
--- NOTE | 2019-09-02 11:59 | NUR ---
DR GRAVES MADE AWARE OF NEW CONSULT.
[2019-09-02 12:00] VITALS: BP 127/46
--- NOTE | 2019-09-02 13:00 | NUR ---
HEEL PROTECTORS APPLIED PER ORDER, PT HAD WOUND CARE PERFORMED TO LEFT FOOT BY PODIATRY. PT RESTING COMFORTABLY, NO S/S OF DISTRESS.
--- NOTE | 2019-09-02 14:09 | NUR ---
Occupational Therapy evaluation interview attempted this date. Patient in bed and opened eyes to nursing admin request. When OTR started to ask questions about prior level, patient closed her eyes and would not open to participate. research aide reports that patient will feed self but is dependent in all other self care and bed mobility. Patient is usp care at [facility] and will return upon d/c. OTR will attempt evaluation at a later date. Diana Wolf OTR/gagan
--- NOTE | 2019-09-02 15:25 | NUR ---
PT OFF FLOOR FOR ULTRASOUND AT THIS TIME.
--- NOTE | 2019-09-02 15:44 | NUR ---
PHYSICAL THERAPY Screen received, PT orders for evaluation received on 09/01 thank you. Aria Regalado PT
--- NOTE | 2019-09-02 15:50 | NUR ---
Nursing screen and Occupational Therapy referral received. Thank you. Diana Wolf OTR/L
[2019-09-02 16:00] VITALS: BP 111/49
--- NOTE | 2019-09-02 18:25 | NUR ---
CALL PLACED TO DR EPPS REGARDING CODE STATUS CONFLICT, INFORMED THAT I READ IN DR PERDOMO'S PROGRESS NOTE THAT SHE SPOKE WITH PT'S AND THEY DECIDED UPON A DNR-CCA BUT PT IS STILL LISTED FULL CODE. DR EPPS REQUESTED THAT I REACH PT'S [facility] REGARDING THIS AND HE WOULD SPEAK WITH DR PERDOMO IN THE AM. INFORMED THAT I HAD NOT SEEN PT'S ALL DAY, CALL PLACED TO CONTACT NUMBER-NO ANSWER AT THIS TIME.
[2019-09-02 20:00] VITALS: BP 118/55
[2019-09-03] VITALS: BP 120/55
[2019-09-03 08:00] VITALS: BP 122/58
--- NOTE | 2019-09-03 08:12 | NUR ---
Patient updated clinicals faxed to [facility] for review. 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
--- NOTE | 2019-09-03 09:00 | NUR ---
case management visits with patient, she will return to [facility] when medically stable, case management will follow
--- NOTE | 2019-09-03 09:03 | NUR ---
Occupational THerapy evaluation attempted this date. Patient in bed and was able to respond appropriately to x3 questions with 3-4 word responses with slow rate of performance. Patient then closed her eyes and would not open to participate. Diana Wolf OTR/L
--- NOTE | 2019-09-03 09:49 | NUR ---
DOCTOR IN TO SEE PT, UA WITH REFLUX SENT TO LAB, PATIENT TAKING BARIUM WELL WITH NO PROBLEMS [facility]
[2019-09-03 10:11] LABS: BILIRUBIN NEGATIVE (NEGATIVE); BLOOD NEGATIVE (NEGATIVE); CLARITY SL CLOUDY (CLEAR); COLOR YELLOW (YELLOW); GLUCOSE NEGATIVE (NEGATIVE); KETONE TRACE (NEGATIVE); LEUKO ESTERASE 1+ (NEGATIVE); NITRITE NEGATIVE (NEGATIVE); SPECIFIC GRAVITY 1.015 (1.005-1.030); UROBILINOGEN 0.2 E.U./dl (0.2-1.0)
[2019-09-03 10:42] LABS: WBC 21-30 wbc/hpf (0-5)
[2019-09-03 10:43] LABS: BACTERIA 1+
--- NOTE | 2019-09-03 11:25 | NUR ---
TO RADIOLOGY VIA CART ACCOMPANIED BY TRANSPORT [facility]
[2019-09-03 12:00] VITALS: BP 124/52
--- NOTE | 2019-09-03 12:08 | NUR ---
[facility]
--- NOTE | 2019-09-03 13:31 | NUR ---
SPEECH PATHOLOGY Clinical swallowing evaluation completed this date due to dysphagia. Patient was [facility] with [facility] at [facility] as well as UTI and dehydration. Further history includes lung cancer, CAD, DM, GERD, anxiety and depression. At current time patient is afebrile and WBC is within normal range. Patient underwent a MBS 01/03/19 revealing silent aspiration with nectar thick liquid and slow mastication, and oral/pharyngeal residue with solids. She was recommended a pureed diet and honey thick liquids. Family reported that at the [facility] she is on a pureed diet and thick liquid. At current time she is ordered a regular diet and thin liquid. Patient was seen during lunchtime meal. She was alert and cooperative. She was able to follow commands. At times she did not respond to questions verbally. Oral peripheral exam revealed edentulous status and mildly reduced lingual/buccal ROM. Patient fed herself at start of meal but then requested to be fed by clinician. Patient consumed 100% of the meal. She displayed no difficulty chewing, a timely swallow and no wet vocal quality across consistencies. Coughing was displayed with thin liquid only when consuming a large, consecutive sip. Patient was cued to take smaller sips and no further cough was displayed. At this time, recommend patient remain on regular diet and thin liquid with use of universal safe swallow precautions. Due to patient's history of silent aspiration, recommend a MBS. Orders for this study have been received, however this is not able to be completed this date due to absence of in house radiologist today. Will complete MBS when able with further results to follow. Follow up therapy will be conducted to ensure safety with highest level diet. Results and leila. were shared with patient and her nurse and they verbalized understanding. Refer to report in [employer] for furter information. Thank you for this referral. MARYA MICHELLE MSCCC-IC DESIGN MANAGER
--- NOTE | 2019-09-03 14:21 | NUR ---
PHYSICAL THERAPY Pt sleeping upon therapy arrival. Pt breifly opened eyes to therapist greeting however closed eyes immediately afterwards. Therapist attempted to wake Pt again, Pt once again breifly opened eyes and then closed again. Will attempt at a later time if appropriate. Thank you Jazmine Rust, PT, DPT
[2019-09-03 16:00] VITALS: BP 111/50
--- NOTE | 2019-09-03 16:24 | NUR ---
DR EPPS NOTIFIED PT FAMILY REQUESTING TO SPEAK TO REGARDING PLAN OF CARE.
--- NOTE | 2019-09-03 16:48 | NUR ---
DR RAZO ROUNDED AND DISCUSSED PLAN OF CARE WITH FAMILY AND UPDATED FAMILY.
[2019-09-03 20:00] VITALS: BP 117/56
--- NOTE | 2019-09-03 21:53 | NUR ---
PATIENT SLEEPING, NO DISTRESS NOTED. CALL LIGHT WITHIN REACH
[2019-09-04] VITALS: BP 135/65
--- NOTE | 2019-09-04 03:57 | NUR ---
PATIENT SLEEPING. BREATHING IS EASY AND REGULAR ON 2L NC. CALL LIGHT WITHIN REACH, WILL CONTINUE TO MONITOR
--- NOTE | 2019-09-04 05:20 | NUR ---
24 HR chart check completed.
[2019-09-04 08:00] VITALS: BP 123/61
--- NOTE | 2019-09-04 08:20 | NUR ---
Shift chart check completed.
--- NOTE | 2019-09-04 09:00 | NUR ---
case management visits with patient, she is a long-term resident of [facility] and will return when medically stable
--- NOTE | 2019-09-04 11:17 | NUR ---
Recommend follow up for wound care in outpatient setting. Patient will return to facility when discharged.
[2019-09-04 12:00] VITALS: BP 114/52
[2019-09-04] MEDS ORDERED: BUMETANIDE2 MG PO (12:36)
[2019-09-04] MEDS ORDERED: CLONAZEPAM0.5 M2 PO (12:36)
[2019-09-04] MEDS ORDERED: LEVOFLOXACIN500 MG PO (12:36)
--- NOTE | 2019-09-04 13:13 | NUR ---
Patient discharged back to [facility]. Transportation scheduled for 2:30 PM with [facility]. NH, nursing/chief warden and daughter all notified.
--- NOTE | 2019-09-04 13:39 | NUR ---
SPEECH PATHOLOGY Patient was seen for treatment this pm during lunchtime meal. Patient was alert and cooperative but with minimal verbal response. She was fed by clinician but was able to hold her drink and take sips when she wanted to. Patient consumed a sloppy mila, portuguese fries and pudding, displaying adequate chewing, a timely swallow, no oral residue and no cough. Patient took liquids by straw and swallowed in a timely manner with no coughing or choking. She continues to display no overt s/s aspiration with present diet. She has been afebrile. Due to her history of silent aspiration, it is recommended that she undergo a MBS to ensure safe tolerance of diet. Continue therapy plan. KIRK MICHELLE MSCCC-WATER RESOURCE AGENT
--- NOTE | 2019-09-04 13:46 | NUR ---
REPORT GIVEN TO RICARDO [facility] REGARDING PATIENT BEING TRANSFERRED BACK TO FACILITY.
--- NOTE | 2019-09-04 14:08 | NUR ---
PT SLEEPING. RESPS EASY AND NON LABORED. NO S/S OF DISTRESS NOTED.
--- NOTE | 2019-09-04 14:15 | NUR ---
DISCHARGE WOUND PHOTO'S OBTAINED.
--- NOTE | 2019-09-04 15:29 | NUR ---
The Discharge Plan/Instructions have been completed.
== END 2019-09-04 19:18 | DRG 466 ==
LOC: ED 10:24 → 4E 14:31 → EDHOLD 14:31 → 4E 15:02
PROVIDERS: Emergency Medicine; Internal Medicine; ADMIT Family Medicine
DX: T83.518A Infection and inflammatory reaction due to other urinary catheter, initial encounter (principal); E43 Unspecified severe protein-calorie malnutrition; N39.0 Urinary tract infection, site not specified; E86.0 Dehydration; C34.32 Malignant neoplasm of lower lobe, left bronchus or lung; R33.9 Retention of urine, unspecified; D64.9 Anemia, unspecified; J44.9 Chronic obstructive pulmonary disease, unspecified; F03.90 Unspecified dementia, unspecified severity, without behavioral disturbance, psychotic disturbance, mood disturbance, and anxiety; F41.9 Anxiety disorder, unspecified; I25.10 Atherosclerotic heart disease of native coronary artery without angina pectoris; I50.9 Heart failure, unspecified; G89.29 Other chronic pain; M54.9 Dorsalgia, unspecified; N18.3 Chronic kidney disease, stage 3 (moderate); I13.0 Hypertensive heart and chronic kidney disease with heart failure and stage 1 through stage 4 chronic kidney disease, or unspecified chronic kidney disease; E11.22 Type 2 diabetes mellitus with diabetic chronic kidney disease; K21.9 Gastro-esophageal reflux disease without esophagitis; E78.5 Hyperlipidemia, unspecified; E66.9 Obesity, unspecified; J84.10 Pulmonary fibrosis, unspecified; F33.9 Major depressive disorder, recurrent, unspecified; Z66 Do not resuscitate; Z51.5 Encounter for palliative care; J96.11 Chronic respiratory failure with hypoxia; E83.52 Hypercalcemia; E11.51 Type 2 diabetes mellitus with diabetic peripheral angiopathy without gangrene; C96.9 Malignant neoplasm of lymphoid, hematopoietic and related tissue, unspecified; J45.50 Severe persistent asthma, uncomplicated; Z96.1 Presence of intraocular lens; E11.36 Type 2 diabetes mellitus with diabetic cataract; Y84.6 Urinary catheterization as the cause of abnormal reaction of the patient, or of later complication, without mention of misadventure at the time of the procedure; T83.511A Infection and inflammatory reaction due to indwelling urethral catheter, initial encounter; Z90.710 Acquired absence of both cervix and uterus; Z87.891 Personal history of nicotine dependence; Z90.89 Acquired absence of other organs; Z98.891 History of uterine scar from previous surgery; Z82.49 Family history of ischemic heart disease and other diseases of the circulatory system; Z82.0 Family history of epilepsy and other diseases of the nervous system; Z80.8 Family history of malignant neoplasm of other organs or systems; Z88.8 Allergy status to other drugs, medicaments and biological substances; Z88.2 Allergy status to sulfonamides; Z91.041 Radiographic dye allergy status; Z87.440 Personal history of urinary (tract) infections; Z79.82 Long term (current) use of aspirin; Z79.899 Other long term (current) drug therapy; Z87.01 Personal history of pneumonia (recurrent); I25.2 Old myocardial infarction; Z74.01 Bed confinement status; Z98.42 Cataract extraction status, left eye; Z98.41 Cataract extraction status, right eye; Z95.1 Presence of aortocoronary bypass graft; Z68.22 Body mass index [BMI] 22.0-22.9, adult; Y92.89 Other specified places as the place of occurrence of the external cause

== ENCOUNTER 2019-10-08 02:49 | Emergency (ER) | payer OTHER | END 2019-10-08 10:18 | disposition E | LOC: ED 02:49 | DX: C34.31 Malignant neoplasm of lower lobe, right bronchus or lung (principal); I25.10 Atherosclerotic heart disease of native coronary artery without angina pectoris; G89.29 Other chronic pain; J44.9 Chronic obstructive pulmonary disease, unspecified; K21.9 Gastro-esophageal reflux disease without esophagitis; E78.5 Hyperlipidemia, unspecified; E11.22 Type 2 diabetes mellitus with diabetic chronic kidney disease; I13.0 Hypertensive heart and chronic kidney disease with heart failure and stage 1 through stage 4 chronic kidney disease, or unspecified chronic kidney disease; N18.3 Chronic kidney disease, stage 3 (moderate); I25.2 Old myocardial infarction; E66.9 Obesity, unspecified; Z91.041 Radiographic dye allergy status; Z88.1 Allergy status to other antibiotic agents; Z91.013 Allergy to seafood; Z88.2 Allergy status to sulfonamides; Z79.899 Other long term (current) drug therapy; Z79.2 Long term (current) use of antibiotics; Z79.82 Long term (current) use of aspirin; Z68.30 Body mass index [BMI] 30.0-30.9, adult; Z87.891 Personal history of nicotine dependence ==